=== PATIENT | male | born 1945 | race Caucasian/White ===

== ENCOUNTER → 2017-12-06 10:16 | Outpatient (CLI) | payer MEDICARE, OTHER, SELFPAY ==
[2017-12-06 12:55] LABS: Anion Gap 7 (5-15); BUN 19 mg/dL (7-18); BUN/Creat Ratio 16.7 RATIO (10-20); Calcium,Total 8.9 mg/dL (8.5-10.1); Chloride 106 mmol/L (98-107); Creatinine, Serum 1.14 mg/dL (0.70-1.30); EST Glomerular Filtration Rate 67 mL/min (>60); Est Glom Filt Rate - Afr Amer 82 mL/min (>60); Glucose 107 mg/dL (74-106); Potassium 3.8 mmol/L (3.5-5.1); Sodium Level 140 mmol/L (136-145); Thyroid Stim Hormone (TSH) 1.58 uIU/mL (0.358-3.74)
[2017-12-07 09:26] LABS: HIV - WCH Non-Reactive (Nonreactive)
== END ==
PROVIDERS: Family Provider Family Medicine; PCP Family Medicine; Visit Provider Family Medicine
DX: E03.9 Hypothyroidism, unspecified (principal); I10 Essential (primary) hypertension; Z20.2 Contact with and (suspected) exposure to infections with a predominantly sexual mode of transmission
CPT/HCPCS: 36415; 80048; 84443; 86703

== ENCOUNTER → 2018-03-12 09:14 | Outpatient (CLI) | payer MEDICARE, OTHER, SELFPAY ==
[2018-03-12 10:50] LABS: AST(SGOT) 22 U/L (15-37); Alanine Aminotransfer ALT/SGPT 29 U/L (16-61); Albumin, Serum 3.9 g/dL (3.2-5.0); Alkaline Phosphatase 71 U/L (45-117); Bilirubin, Direct 0.17 mg/dL (0.00-0.30); Cholesterol 150 mg/dL (200); Globulin 3.8 g/dL (2.2-4.2); High Density Lipoprotein 43 mg/dL; Protein, Total 7.7 g/dL (6.4-8.2); Triglycerides 157 mg/dL; Very Low Density Lipoprotein 31 mg/dL (5-40)
== END ==
PROVIDERS: Family Provider Family Medicine; PCP Family Medicine; Visit Provider Internal Medicine Cardiovascular Disease
DX: E78.5 Hyperlipidemia, unspecified (principal); Z79.899 Other long term (current) drug therapy
CPT/HCPCS: 36415; 80061; 80076

== ENCOUNTER → 2018-06-19 12:19 | Outpatient (CLI) | payer MEDICARE, OTHER, SELFPAY ==
[2018-06-19 14:39] LABS: PSA,Total - Annual Screen 0.12 ng/mL (0.00-4.00)
== END ==
PROVIDERS: Family Provider Family Medicine; PCP Family Medicine; Referring Provider Urology; Visit Provider Urology
DX: Z12.5 Encounter for screening for malignant neoplasm of prostate (principal)
CPT/HCPCS: 36415; 84153; G0103

== ENCOUNTER → 2018-07-31 11:48 | Outpatient (CLI) | payer MEDICARE, OTHER, SELFPAY ==
[2018-06-17 09:36] VITALS: BMI 30.9
[2018-07-31 14:32] LABS: Anion Gap 7 (5-15); BUN 24 mg/dL (7-18); BUN/Creat Ratio 20.7 RATIO (10-20); Calcium,Total 8.7 mg/dL (8.5-10.1); Chloride 106 mmol/L (98-107); Creatinine, Serum 1.16 mg/dL (0.70-1.30); EST Glomerular Filtration Rate 66 mL/min (>60); Est Glom Filt Rate - Afr Amer 80 mL/min (>60); Glucose 109 mg/dL (74-106); Potassium 3.6 mmol/L (3.5-5.1); Sodium Level 143 mmol/L (136-145); Thyroid Stim Hormone (TSH) 3.63 uIU/mL (0.358-3.74)
--- OUTSIDE RECORDS SUMMARY | 2018-11-01 16:09 | XMS RPT_ITS ---
:1945 Author Organization OHIP Care Team Providers Name Role Phone JOSE PATEL (MARCOS) Referring Unavailable Jazmin Walters Attending Unavailable Inna Parr Attending Unavailable Andrade Lester Referring Unavailable Andrade Lester Primary Care Unavailable Andrade Lester Attending Unavailable Andrade Lester Referring Unavailable Andrade Lester Primary Care Unavailable Andrade Lester Attending Unavailable Andrade Lester Primary Care Unavailable Andrade Moreno Attending Unavailable Andrade Moreno Referring Unavailable Andrade Lester Primary Care Unavailable Sherif Darby Attending Unavailable Andrade Lester Primary Care Unavailable Sherif Darby Referring Unavailable Inna Pretty Attending Unavailable Andrade Moreno Attending Unavailable Andrade Lester Referring Unavailable PROBLEMS PROBLEMS DATE TYPE CONDITION / CODE ATTENDING STATUS SOURCE Unknown E03.9 - Hypothyroidism, Andrade Lester Active [facility] unspecified / Community E03.9(ICD-10) Hospital Repository Unknown I10 - Essential (primary) Andrade Lester Active [place] [facility] hypertension / Community I10(ICD-10) Hospital Repository Unknown E78.00 - Pure [place], Active [facility] hypercholesterolemia, [place] [facility] unspecified / Hospital E78.00(ICD-10) Repository Unknown E78.0 - Pure [place], Active [place] 8 hypercholesterolemia / [facility] E78.0(ICD-10) Hospital Repository Unknown E78.5 - Hyperlipidemia, [place], Active [place] [facility] unspecified / [facility] E78.5(ICD-10) Hospital Repository Unknown Z79.899 - 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 terminal operator [place], Active [place] 8 (current) drug therapy / [facility] Z79.899(ICD-10) Hospital Repository Unknown Z20.2 - Contact with and Andrade Lester Active [place] 8 (suspected) exposure to Community infections with a Hospital predominantly sexual mode Repository of transmission / Z20.2(ICD-10) PROCEDURES PROCEDURES No Procedure Records FoundRESULTS RESULTS BASIC METABOLIC Collected: 07/31/2018 Status: F Source: BERT PROFILE (BMP) 11:54 AM [facility] REPOSITORY TYPE CODE TESTS RESULT OUT OF RANGE REFERENCE UNITS LAB L501.0100 74-106 mg/dL High GLU 109 Result Comment: Fasting Glucose result from 100 to 125 mg/dL suggests IMPAIRED HOMEOSTASIS per A.D.A. criteria. Please note revised GLUCOSE reference range effective 2017. LAB L501.1000 7-18 mg/dL High BUN 24 LAB L501.1100 0.70-1.30 mg/dL Normal CREAT,SERUM 1.16 Result Comment: The validity of the calculated GFR AND GFRAA in patients over 70 years has not been determined. Clinical correlation is essential. LAB L501.1110 >60 mL/min Normal EST GFR 66 Result Comment: Non- GFR Calc LAB L501.1115 >60 mL/min Normal EST GFR - AA 80 Result Comment: GFR Calc LAB L501.1300 10-20 RATIO High BUN/CRE 20.7 LAB L501.2200 8.5-10.1 mg/dL CA Normal 8.7 LAB L501.5300 136-145 mmol/L NA Normal 143 LAB L501.5600 3.5-5.1 mmol/L K Normal 3.6 LAB L501.5900 98-107 mmol/L CL Normal 106 LAB L501.6100 21.0-32.0 mmol/L Normal CO2 30.0 LAB L501.6200 5-15 Normal GAP 7 Performed By: #### L500.2500, L501.9520 #### [facility] [address] [place], [address] THYROID STIM HORMONE Collected: 07/31/2018 Status: F Source: MICHIE (TSH) 11:54 AM [facility] REPOSITORY TYPE CODE TESTS RESULT OUT OF RANGE REFERENCE UNITS LAB L501.9520 0.358-3.74 uIU/mL Normal TSH 3.63 Performed By: #### L500.2500, L501.9520 #### [facility] [address] [place], [address] PROGRESS Observed: 07/26/2018 Status: COMPLETED Source: [place] 2:02 PM [facility] RE[facility] HNO ID: [id number] Author: Loyda (Mickey) Lulu Service: (none) Author Type: Nurse Practitioner Type: Progress Notes Filed: 07/26/2018 2:26 PM Note Text: Subjective The history is provided by the patient. No coroner/medical examiner was used. HPI Josseline Davis is a 73 year old male who presents today for CC of cough scratchy throat and congestion. This started two days ago. He denies any chest pain or shortness of breath, no productive cough. He has tried no treatment or medication. Aggravating: Worse at night when he is lying down. Friend is also sick with similar symptoms. BP 136/80 Pulse 68 Temp 37.5 ?C (99.5 ?F) (Tympanic) Resp 16 Wt 93.9 kg (207 lb) SpO2 94% BMI 31.47 kg/m? PAST MEDICAL HISTORY Diagnosis Date - Coronary artery disease - Elevated cholesterol - Hypertension - Prostate hypertrophy - Thyroid disease Social History Marital status: Spouse name: Years of education: Number of children: Social History Main Topics Smoking status: Never Smoker Smokeless tobacco: Never Used Alcohol use: No Drug use: No I have confirmed and edited as necessary, the [facility] Review of Systems Constitutional: Negative for chills and fever. HENT: Positive for congestion and sinus pain. Negative for ear pain and sore throat. Respiratory: Positive for cough. Musculoskeletal: Negative for myalgias. Neurological: Negative for headaches. All other systems reviewed and are negative. Objective Physical Exam Constitutional: He is well-developed, well-nourished, and in no distress. HENT: Head: Normocephalic and atraumatic. Right Ear: Tympanic membrane, external ear and ear canal normal. No middle ear effusion. Left Ear: Tympanic membrane, external ear and ear canal normal. No middle ear effusion. Nose: Mucosal edema and rhinorrhea present. Right sinus exhibits no maxillary sinus tenderness and no frontal sinus tenderness. Left sinus exhibits no maxillary sinus tenderness and no frontal sinus tenderness. Mouth/Throat: Uvula is midline and mucous membranes are normal. Posterior oropharyngeal erythema (mild) present. No oropharyngeal exudate, posterior oropharyngeal edema or tonsillar abscesses. Cardiovascular: Normal rate, regular rhythm and normal heart sounds. Pulmonary/Chest: Effort normal. He has no decreased breath sounds. He has wheezes (occasional upper bronchials). He has no rhonchi. He has no rales. Lymphadenopathy: Head (right side): No submental, no submandibular, no tonsillar and no preauricular adenopathy present. Head (left side): No submental, no submandibular, no tonsillar and no preauricular adenopathy present. He has no cervical adenopathy. Right cervical: No superficial cervical adenopathy present. Left cervical: No superficial cervical adenopathy present. Nursing note and vitals reviewed. ASSESSMENT/PLAN: 1. URI with cough and congestion - ICD9: 465.9, ICD10: J06.9 - Discussed viral etiology and rationale for treatment. Rest, increase water intake Motrin or Tylenol as needed for fever or pain. Salt water gargles, chloraseptic spray or lozenges as needed for sore throat. Nasal spray as needed Cool mist humidifier at night Tessalon Perles as prescribed for coughing, do not combine this with other cough and cold medications 2. Wheezing - ICD9: 786.07, ICD10: R06.2 - Discussed use of Prednisone 5 day course as needed for cough, wheeze, shortness of breath * Prednisone 40 mg (2 tablets) per day for 5 days, take in morning or early in day * Do not NSAIDs during this 5 day course (ibuprofen, naproxen, Motrin, Aleve, Advil) Tylenol only during prednisone use * Follow up with primary care provider if no improvement with treatmen A cold normally lasts 7-10 days. If your symptoms are lasting longer, develop fever, or worsening by that time instead of improving then return to clinic or follow up with PCP for re-evaluation. Tylenol (generic acetaminophen) 500 mg-2 tabs every 8 hrs. as needed for fever and aches Ibuprofen 600 mg (3-200mg tablets) every 6 hours -Mucinex (generic is fine) 1200 mg twice daily to help with cough and to thin out mucus Zyrtec 10 mg By mouth daily at bedtime Flonase 1 spray each nostril two times a day. * Seek medical care immediately, call 911, go to ER if you have chest pain, difficulty breathing, shortness of breath, inability to swallow. Diagnosis and treatment plan were discussed and questions were answered to the patient's satisfaction. Pt acknowledged understanding of concepts and follow up plan. Specific signs and symptoms that would indicate the need for higher level of care were discussed in detail warranting prompt ER evaluation. Loyda Lawson APRN.CNP CNOV Observed: 07/26/2018 Status: COMPLETED Source: [place] 1:45 PM [facility] REPOSITORY Office Visit (WSTR) JOSSELINE DAVIS ([id number]) 1945 M Date Time Provider Department 07/26/18 1:45 PM LOYDA LAWSON (MICKEY) [facility] During your visit today, we recorded the following information about you: Temperature Pulse Respiration Blood pressure 99.5 degrees 68/minute 16/minute 136/80 Weight 93.9 kg Loyda Lawson APRN.CNP 07/26/2018 2:26 PM Signed Subjective The history is provided by the patient. No coroner/medical examiner was used. HPI Josseline Davis is a 73 year old male who presents today for CC of cough scratchy throat and congestion. This started two days ago. He denies any chest pain or shortness of breath, no productive cough. He has tried no treatment or medication. Aggravating: Worse at night when he is lying down. Friend is also sick with similar symptoms. BP 136/80 Pulse 68 Temp 37.5 ?C (99.5 ?F) (Tympanic) Resp 16 Wt 93.9 kg (207 lb) SpO2 94% BMI 31.47 kg/m? PAST MEDICAL HISTORY Diagnosis Date - Coronary artery disease - Elevated cholesterol - Hypertension - Prostate hypertrophy - Thyroid disease Social History Marital status: Spouse name: Years of education: Number of children: Social History Main Topics Smoking status: Never Smoker Smokeless tobacco: Never Used Alcohol use: No Drug use: No I have confirmed and edited as necessary, the [facility] Review of Systems Constitutional: Negative for chills and fever. HENT: Positive for congestion and sinus pain. Negative for ear pain and sore throat. Respiratory: Positive for cough. Musculoskeletal: Negative for myalgias. Neurological: Negative for headaches. All other systems reviewed and are negative. Objective Physical Exam Constitutional: He is well-developed, well-nourished, and in no distress. HENT: Head: Normocephalic and atraumatic. Right Ear: Tympanic membrane, external ear and ear canal normal. No middle ear effusion. Left Ear: Tympanic membrane, external ear and ear canal normal. No middle ear effusion. Nose: Mucosal edema and rhinorrhea present. Right sinus exhibits no maxillary sinus tenderness and no frontal sinus tenderness. Left sinus exhibits no maxillary sinus tenderness and no frontal sinus tenderness. Mouth/Throat: Uvula is midline and mucous membranes are normal. Posterior oropharyngeal erythema (mild) present. No oropharyngeal exudate, posterior oropharyngeal edema or tonsillar abscesses. Cardiovascular: Normal rate, regular rhythm and normal heart sounds. Pulmonary/Chest: Effort normal. He has no decreased breath sounds. He has wheezes (occasional upper bronchials). He has no rhonchi. He has no rales. Lymphadenopathy: Head (right side): No submental, no submandibular, no tonsillar and no preauricular adenopathy present. Head (left side): No submental, no submandibular, no tonsillar and no preauricular adenopathy present. He has no cervical adenopathy. Right cervical: No superficial cervical adenopathy present. Left cervical: No superficial cervical adenopathy present. Nursing note and vitals reviewed. ASSESSMENT/PLAN: 1. URI with cough and congestion - ICD9: 465.9, ICD10: J06.9 - Discussed viral etiology and rationale for treatment. Rest, increase water intake Motrin or Tylenol as needed for fever or pain. Salt water gargles, chloraseptic spray or lozenges as needed for sore throat. Nasal spray as needed Cool mist humidifier at night Tessalon Perles as prescribed for coughing, do not combine this with other cough and cold medications 2. Wheezing - ICD9: 786.07, ICD10: R06.2 - Discussed use of Prednisone 5 day course as needed for cough, wheeze, shortness of breath * Prednisone 40 mg (2 tablets) per day for 5 days, take in morning or early in day * Do not NSAIDs during this 5 day course (ibuprofen, naproxen, Motrin, Aleve, Advil) Tylenol only during prednisone use * Follow up with primary care provider if no improvement with treatmen A cold normally lasts 7-10 days. If your symptoms are lasting longer, develop fever, or worsening by that time instead of improving then return to clinic or follow up with PCP for re-evaluation. Tylenol (generic acetaminophen) 500 mg-2 tabs every 8 hrs. as needed for fever and aches Ibuprofen 600 mg (3-200mg tablets) every 6 hours -Mucinex (generic is fine) 1200 mg twice daily to help with cough and to thin out mucus Zyrtec 10 mg By mouth daily at bedtime Flonase 1 spray each nostril two times a day. * Seek medical care immediately, call 911, go to ER if you have chest pain, difficulty breathing, shortness of breath, inability to swallow. Diagnosis and treatment plan were discussed and questions were answered to the patient's satisfaction. Pt acknowledged understanding of concepts and follow up plan. Specific signs and symptoms that would indicate the need for higher level of care were discussed in detail warranting prompt ER evaluation. Loyda Lawson APRN.MICKEY Lawson APRN.CNP 07/26/2018 2:23 PM Addendum ASSESSMENT/PLAN: 1. URI with cough and congestion - ICD9: 465.9, ICD10: J06.9 - Discussed viral etiology and rationale for treatment. Rest, increase water intake Motrin or Tylenol as needed for fever or pain. Salt water gargles, chloraseptic spray or lozenges as needed for sore throat. Nasal spray as needed Cool mist humidifier at night Tessalon Perles as prescribed for coughing, do not combine this with other cough and cold medications - Discussed use of Prednisone 5 day course as needed for cough, wheeze, shortness of breath * Prednisone 40 mg (2 tablets) per day for 5 days, take in morning or early in day * Do not NSAIDs during this 5 day course (ibuprofen, naproxen, Motrin, Aleve, Advil) Tylenol only during prednisone use * Follow up with primary care provider if no improvement with treatmen A cold normally lasts 7-10 days. If your symptoms are lasting longer, develop fever, or worsening by that time instead of improving then return to clinic or follow up with PCP for re-evaluation. Tylenol (generic acetaminophen) 500 mg-2 tabs every 8 hrs. as needed for fever and aches Ibuprofen 600 mg (3-200mg tablets) every 6 hours -Mucinex (generic is fine) 1200 mg twice daily to help with cough and to thin out mucus Zyrtec 10 mg By mouth daily at bedtime Flonase 1 spray each nostril two times a day. * Seek medical care immediately, call 911, go to ER if you have chest pain, difficulty breathing, shortness of breath, inability to swallow. Referring Provider: SELF [[id number]] Allergies As of Date: 07/26/2018 Noted Allergy Reaction SULFA (SULFONAMIDE ANTIBIOTICS) 11/18/2016 4 - Hives Date Reviewed: 07/26/2018 Reviewed by: Loyda ([facility]) Lulu - Fully Assessed Reason for Visit: Pain, Sinus [857] Cmt: sinus pressure/drainage,sore throat and headache x 2 days Primary Visit Diagnosis:URI with cough and congestion [J06.9] Other Visit Diagnosis:Wheezing [R06.2] Order(s):predniSONE (DELTASONE) 20 mg tabletTake 2 tablets by mouth once daily for 5 days.Disp: 10 tabletRfl: 0 fluticasone (FLONASE) 50 mcg/actuation nasal sprayUse 1 Girard in each nostril twice daily. Rinse mouth after use.Disp: 1 BottleRfl: 0 guaiFENesin (MUCINEX) 600 mg 12 hr tabletTake 2 tablets by mouth twice daily for 10 days.Disp: 40 tabletRfl: 0 Benzonatate 200 mg capsuleTake 1 capsule by mouth three times daily as needed.Disp: 30 capsuleRfl: 0 Prescriptions as of 07/26/2018 Sig: AMLODIPINE 10 MG TABLET ASPIRIN 81 MG TABLET,DELAYED * Take 81 mg by mouth once alice* DEXILANT 60 MG CAPSULE, DELAY* HYDROCHLOROTHIAZIDE 25 MG TAB* LEVOTHYROXINE 50 MCG TABLET LISINOPRIL 40 MG TABLET METOPROLOL TARTRATE 50 MG TAB* PRAVASTATIN 40 MG TABLET TAMSULOSIN 0.4 MG CAPSULE BENZONATATE 200 MG CAPSULE Take 1 capsule by mouth three* FLUTICASONE 50 MCG/ACTUATION * Use 1 Girard in each nostril t* GUAIFENESIN ER 600 MG TABLET,* Take 2 tablets by mouth twice* PREDNISONE 20 MG TABLET Take 2 tablets by mouth once * Problem List As Of Date: 07/26/2018 (None) Other instructions from your clinician: ASSESSMENT/PLAN: 1. URI with cough and congestion - ICD9: 465.9, ICD10: J06.9 - Discussed viral etiology and rationale for treatment. Rest, increase water intake Motrin or Tylenol as needed for fever or pain. Salt water gargles, chloraseptic spray or lozenges as needed for sore throat. Nasal spray as needed Cool mist humidifier at night Tessalon Perles as prescribed for coughing, do not combine this with other cough and cold medications - Discussed use of Prednisone 5 day course as needed for cough, wheeze, shortness of breath * Prednisone 40 mg (2 tablets) per day for 5 days, take in morning or early in day * Do not NSAIDs during this 5 day course (ibuprofen, naproxen, Motrin, Aleve, Advil) Tylenol only during prednisone use * Follow up with primary care provider if no improvement with treatmen A cold normally lasts 7-10 days. If your symptoms are lasting longer, develop fever, or worsening by that time instead of improving then return to clinic or follow up with PCP for re-evaluation. Tylenol (generic acetaminophen) 500 mg-2 tabs every 8 hrs. as needed for fever and aches Ibuprofen 600 mg (3-200mg tablets) every 6 hours -Mucinex (generic is fine) 1200 mg twice daily to help with cough and to thin out mucus Zyrtec 10 mg By mouth daily at bedtime Flonase 1 spray each nostril two times a day. * Seek medical care immediately, call 911, go to ER if you have chest pain, difficulty breathing, shortness of breath, inability to swallow. Prescriptions ordered this encounter Disp Refills Start End PREDNISONE 20 MG TABLET 10 t* 0 07/26/2018 07/31/2018 Route: ORAL Sig: Take 2 tablets by mouth once daily for 5 days. FLUTICASONE 50 MCG/ACTUATION NASAL S* 1 Jeremy* 0 07/26/2018 Route: EACH NOSTRIL Sig: Use 1 Girard in each nostril twice daily. Rinse mouth after use. GUAIFENESIN ER 600 MG TABLET, EXTEND* 40 t* 0 07/26/2018 08/05/2018 Route: ORAL Sig: Take 2 tablets by mouth twice daily for 10 days. BENZONATATE 200 MG CAPSULE 30 c* 0 07/26/2018 Route: ORAL Sig: Take 1 capsule by mouth three times daily as needed. Medications Discontinued During This Encounter fluticasone (FLONASE) 50 mcg/actuati* 10/23/2016 07/26/2018 Class: Historical Med Sig: Disc: Course of therapy completed Encounter Status:Closed by LOYDA LAWSON CNP on 07/26/18 PSA,TOTAL - ANNUAL Collected: 06/19/2018 Status: F Source: B[place] SCREEN 12:24 PM [facility] REPOSITORY TYPE CODE TESTS RESULT OUT OF RANGE REFERENCE UNITS LAB L501.9910 0.00-4.00 ng/mL Normal PSA,TOT 0.12 SCREEN Result Comment: This test was performed using the TPSA assay method for the [employer] chemistry system. Values obtained with different assay methods cannot be used interchangably. When changing PSA assays in the course of monitoring a patient, additional sequential testing should be carried out to confirm baseline values. Performed By: #### L501.9910 #### [facility] [address] [place], [address] CARDIOLOGY VISIT Observed: 06/17/2018 Status: F Source: [place] REPORT 12:52 PM [facility] REPOSITORY [facility] [address] [place] [address] OFFICE VISIT Date of Service: 06/17/18 MR#: [id number] Acct: [id number] Name: JOSSELINE DAVIS Rep #: [id number] : 1945 Provider: Andrade Moreno MD Age/Sex: 73/M Location: [facility] [place] [facility] Status: Signed HPI HPI Details: JOSSELINE DAVIS, is a 73 M who presents to the office today for outpatient cardiovascular follow-up. He states overall he is doing well. He denies any ongoing symptoms of classic angina pectoris at this time. There has been no evidence of CHF or pulmonary edema. There has been no near syncope or syncope. He has not required additional cardiovascular diagnostic studies or therapeutic intervention other than his lipid labs performed in February of this year. At that time his cholesterol was reported at 150 with an LDL of 76 and an HDL of 43. His triglycerides were 157. His AST, ALT, and alkaline phosphatase were within normal range peer Intake Vital Signs06/17/18 Height 5 ft 8 in 06/17/18 Weight: 203 lb 06/17/18 Body Mass Index (BMI) 30.9 06/17/18 Blood Pressure 134/80 H Intake Visit Reasons: 9 M FU Allergies simvastatin [From Zocor] Allergy (Verified 06/17/18 09:36) Hives Sulfa (Sulfonamide Antibiotics) Allergy (Verified 06/17/18 09:36) Hives Medications aspirin 81 mg tablet,delayed release 81 mg PO QDAY 07/16/17 [History Confirmed 06/17/18] tamsulosin 0.4 mg capsule 0.4 mg PO BID cap 07/16/17 [History Confirmed 06/17/18] vitamins A,C,I-aexn-xvatuc 14,320 unit-226 mg-200 unit capsule cap PO 07/16/17 [History Confirmed 06/17/18] saw palmetto 1,000 mg capsule 1,000 mg PO QDAY 08/31/17 [History Confirmed 06/17/18] amlodipine 10 mg tablet 10 mg PO QDAY #90 tab 09/12/17 [Rx Confirmed 06/17/18] hydrochlorothiazide 25 mg tablet 25 mg PO QDAY #90 tab 09/12/17 [Rx Confirmed 06/17/18] lisinopril 40 mg tablet 40 mg PO QDAY #90 tab 09/12/17 [Rx Confirmed 06/17/18] metoprolol tartrate 50 mg tablet 50 mg PO BID #180 tab 09/12/17 [Rx Confirmed 06/17/18] naproxen sodium 220 mg tablet 220 mg PO .prn tab 09/12/17 [History Confirmed 06/17/18] pravastatin 40 mg tablet 40 mg PO QHS #90 tab 09/12/17 [Rx Confirmed 06/17/18] levothyroxine 50 mcg tablet 50 mcg PO DAILY tab 06/17/18 [History Confirmed 06/17/18] [facility] Medical History Essential hypertension (Chronic) Premature ventricular contraction (Acute) Premature atrial contractions (Acute) Atherosclerotic heart disease of [place] coronary artery without angina pectoris (Chronic) Palpitations (Chronic) HLD (hyperlipidemia) (Chronic) GERD (gastroesophageal reflux disease) (Chronic) History of prostate cancer (Chronic) 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 angina pectoris (Inactive) HTN (hypertension) (Inactive) Surgical History H/O coronary artery bypass surgery (Chronic 11/22/10) History of lumbar fusion (Chronic) History of left heart catheterization (LHC) (Resolved) Family History Mother , age 72 CAD (coronary artery disease) Myocardial infarction Father , age 69 COPD (chronic obstructive pulmonary disease) Hypertension Grandfather , age 76 Myocardial infarction Social History Smoking Status: Never smoker alcohol intake: never substance use type: does not use caffeine: Yes Type: coffee Number of servings: 2 what type of physical activity do you participate in: other details: rowing machine, pushups, situps and walking 2 miles a day., walking frequency: daily duration: 45-60 minutes/day seatbelt use: always do you feel safe at home: Yes ROS Const Const: Negative for fatigue, weakness, weight gain, weight loss, frequent falls or excessive sweating Eyes Eyes: Negative for change in vision, blurry vision or transient loss of vision ENT ENT: Negative for dizziness or balance problems Cardio Chest Pain: No Palpitations: Yes (occasional) feels like its: fast Edema: Bilateral (wears compression socks) Muscle aches with walking: None Resp Respiratory: Positive for Cough (will be following up with Dr. Flanagan); negative for SOB with activity or SOB at rest GI GI: Negative vomiting or vomiting blood/hematemesis : Negative for hematuria Musc Musc: Negative for balance problems, muscle aches/ myalgia, muscle weakness or joint pain Skin Skin: Negative non-healing lesions or rash Neuro Neuro: Negative for weakness, blurry vision, dizziness, lightheadedness, frequent falls or orthostatic symptoms Marc Hematologic/Lymphatic: Negative for easy bleeding Endo Endo: Negative for fatigue or excessive sweating Psych Psych: Negative for anxiety or depression Allergy Allergy/Immunology: Negative for hives, Negative for rash Cardiology Exam Const Appearance: cooperative, no acute distress, well developed, healthy appearing, comfortable and well groomed Nutritional Appearance: overweight Orientation: alert, awake and oriented x3 Head Head: normocephalic, atraumatic and normal to inspection Ears: hearing grossly normal bilaterally Nose: external nose normal Face and Sinus: face symmetric Mouth: moist mucous membranes Teeth and gingiva: fair dentition Eyes Eyelids: eyelids normal Conjunctivae: conjunctivae normal Pupils: PERRL EOM: EOM intact bilaterally Neck Neck: normal visual inspection, no lymphadenopathy, no JVD and full ROM Carotids: normal carotid upstroke; negative bruit Neck Mass: Negative Neck mass Chest Chest inspection: normal inspection of the chest, symmetric chest movement and normal respiratory effort Auscultation: Bilateral: Clear to Auscultation Cardio Palpation: normal PMI Rate: regular rate Rhythm: regular rhythm Heart sounds: S1 normal and S2 normal; negative rub, gallop or murmur GI GI: normal to inspection, soft and bowel sounds present; negative tender Neuro General: alert, awake, oriented x3, moves all extremities, gait normal, no focal sensory deficit and no focal motor deficits Skin Skin: no rashes or lesions noted Extremities Pulses: Normal: Right Posterior Tibial Pulse, Left Posterior Tibial Pulse, Right Radial Pulse, Left Radial Pulse Lower Extremity Edema: None: Bilateral Psych Psychological: normal affect Supplemental Info Transthoracic echocardiogram: 02/01/2011 Interpretation Summary Normal LV size Left ventricular systolic function is The estimated ejection traction is 55% Mild mitral valve insufficiency Mild tricuspid valve insufficiency. Pulmonary artery systolic pressure is 33 mmHg Trivial pericardial effusion. Moderate size left pleural effusion. Stress test: 09/19/2016 EXERCISE TOLERANCE TEST: The patient exercised on a Ruslan protocol for 9 minutes completing stage 3, achieving a peak heart rate of 139 beats per minute (92% predicted maximum heart rate) and a peak blood pressure of 180/84 mmHg and a peak MET capacity of approximately 10 METS. The baseline ECG demonstrated sinus bradycardia. The peak exercise ECG demonstrated no obvious ECG changes. There was an occasional PVC during exercise. The functional capacity was considered good. The patient had no complaint of chest discomfort during exercise or recovery. The examination was discontinued secondary to dyspnea. IMPRESSION: 1. Technically adequate (percent predicted maximum heart rate greater than 85%), exercise tolerance test. 2. Peak exercise ECG with no obvious ECG changes. 3. Occasional PVC during exercise. 4. Nuclear images pending. MYOCARDIAL PERFUSION IMAGING STUDY. TECHNIQUE: The patient was injected with 12.0 mCi of Tc99m Cardiolite and subsequently rest SPECT Cardiolite nuclear imaging was obtained in the horizontal long, vertical long and short axes views. The patient exercised on a Ruslan protocol for 9 minutes completing stage 3, achieving a peak heart rate of 139 beats per minute (92% predicted maximum heart rate) and a peak blood pressure of 180/84 mmHg and a peak MET capacity of 10 METS. The patient was injected with 33.7 mCi of Tc99m Cardiolite and subsequently stress SPECT Cardiolite nuclear imaging was obtained in the horizontal long, vertical long and short axes views. A gated Cardiolite study at peak stress was obtained. INTERPRETATION: Rest and stress SPECT Cardiolite nuclear imaging, status post realignment, normalization, attenuation correction, demonstrates an area of extracardiac/hepatic and gastrointestinal tracer uptake noted near the inferior segments. This appears to be more prominent on the resting views as opposed to the stress views. Otherwise, there appears to be relative uniform tracer uptake. There appears to be end systolic thickening and brightening. The gated Cardiolite study demonstrates myocardial thickening and inward wall motion. The reported LVEF is 67%. IMPRESSION: 1. Rest and stress SPECT Cardiolite nuclear imaging appear to demonstrate relative uniform tracer uptake and myocardial perfusion appearing within normal limits. 2. The gated Cardiolite study reports an LVEF of 67%. Cardiac catheterization: 11/22/2010 FINAL IMPRESSION 1. Relatively normal left ventricular end-diastolic pressures. 2. Left ventricle: A. Mild hypokinesis of the anterior and apical segments. B. Estimated left ventricular ejection fraction of 55%. 3. Left main: A. Distal mild calcifications. B. Minimal luminal irregularities. 4. I.eft anterior descending: A. Proximal moderate calcifications. B. Proximal long diffuse irregular 85% appearing stenosis. 5. Diagonal branch #1: A. Small to moderate vessel. 13. Proximal 85% long diffuse irregular-appearing stenosis. 6. Diagonal branch #2: A. Small bifurcating vessel. II. Bifurcating branch closest to the left anterior descending with mid 50% stenosis. C. Bifurcating branch furthest from the left anterior descending with mid 25% appearing stenosis, 7. Left circumflex: A. Large co-dominant vessel. 13. Minimal luminal [id number]. 8. Intermediate ramus: A. Large long vessel. B. Ostial 95% appearing stenosis. C. Proximal 95% appearing stenosis. 9. Right coronary artery: A. Small to moderate co-dominant vessel. B. Proximal to mid long diffuse irregular 85-95% appearing stenosis. C. Right posterior descending artery with minimal luminal irregularities. 10. Left subclavian artery/JADE: Patent with no obvious angiographically significant-appearing peripheral vascular disease. Open heart surgery: 11/24/2010: [facility]: JADE to the LAD, SVG to the intermediate ramus, SVG to the PDA of the RCA Assessment AND Plan 1. Atherosclerosis of [place] coronary artery of [place] heart without angina pectoris I25.10 CABG: CABG x3, JADE to LAD, SVG to Ramus and PDA of RCA 11/22/2010. [facility]: 11/2010; Plan At the present time the patient appears to be doing well. He will can to new his current medical management and follow-up. 2. 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 Plan Again the patient appears to be doing well. He will continue his current medical therapy and follow-up. 3. Premature atrial beat I49.1 Plan The patient does have a history of underlying ectopy. He appears without significant symptoms. He will continue his current medical management. 4. Premature ventricular beat I49.3 Plan Again the patient appears to be without obvious symptoms related to his underlying ectopy. He will continue his current therapy and follow-up. 5. Pure hypercholesterolemia E78.00 Plan The patient will have lipid profile performed in the future. Orders Orders: 6. Essential hypertension I10 Plan He has blood pressure appears to be reasonably well-controlled. He will continue medical management. Plan Detail Other Orders Orders: Additional Comments Thank you for allowing me to participate in the care of your patient. Please don't hesitate to call if any issues arise This note was generated using a voice recognition system and there may be incorrect words, spelling or punctuation that were not noted when reviewing the office note prior to saving. Follow Up 1 Year (PFM) Coding Level of Care Code Off vis,est,level 3 Diagnoses Atherosclerosis of [place] coronary artery of [place] heart without angina pectoris I25.10 Crow vs. transplanted heart: [place] heart History of coronary artery bypass graft Z95.1 Premature atrial beat I49.1 Premature ventricular beat I49.3 Pure hypercholesterolemia E78.00 Hyperlipidemia type: pure hypercholesterolemia Essential hypertension I10 Coding Level of Care Code Off vis,est,level 3 Diagnoses Atherosclerosis of [place] coronary artery of [place] heart without angina pectoris I25.10 Crow vs. transplanted heart: [place] heart History of coronary artery bypass graft Z95.1 Premature atrial beat I49.1 Premature ventricular beat I49.3 Pure hypercholesterolemia E78.00 Hyperlipidemia type: pure hypercholesterolemia Essential hypertension I10 06/17/18 1252 <Electronically signed by Andrade Moreno MD> Date Andrade Moreno MD Cosigner Signature: Date (if applicable) CC: Andrade Lester MD LIVER PROFILE Collected: 03/12/2018 Status: F Source: [place] 9:22 AM [facility] REPOSITORY TYPE CODE TESTS RESULT OUT OF RANGE REFERENCE UNITS LAB L501.1500 6.4-8.2 g/dL Normal T PROT 7.7 LAB L501.1800 3.2-5.0 g/dL Normal ALB 3.9 LAB L501.1950 2.2-4.2 g/dL Normal GLOB 3.8 LAB L501.4100 15-37 U/L Normal AST 22 LAB L501.4305 45-117 U/L Normal ALK P 71 LAB L501.4405 16-61 U/L Normal ALT 29 LAB L501.4600 0.20-1.00 mg/dL Normal T BILI 0.60 LAB L501.4700 0.00-0.30 mg/dL Normal D BILI 0.17 Performed By: #### L500.3400, L500.4100 #### [facility] [address] [place], [address] LIPID PROFILE Collected: 03/12/2018 Status: F Source: [place] 9:22 AM [facility] REPOSITORY TYPE CODE TESTS RESULT OUT OF RANGE REFERENCE UNITS LAB L501.4900 200 mg/dL Normal CHOL 150 Result Comment: <200 mg/dL Desirable 200-240 mg/dL Borderline >240 mg/dL High Risk LAB L501.5000 mg/dL Normal TRIG 157 Result Comment: The drugs N-Acetylcysteine and Metamizole may falsely depress this assay. Serum Triglycerides Reference Interval Normal <150 mg/dL Borderline high 150 - 199 mg/dL High 200 - 499 mg/dL Very High > or = 500 mg/dL LAB L501.6400 mg/dL Normal HDL 43 Result Comment: The drugs N-Acetylcysteine and Metamizole may falsely depress this assay. Reference Range HDL <40 mg/dL Low HDL Cholesterol HDL >or= 60 mg/dL High HDL Cholesterol LAB L501.6500 0-130 mg/dL Normal LDL 76 LAB L501.6600 5-40 mg/dL Normal VLDL 31 Performed By: #### L500.3400, L500.4100 #### [facility] [address] [place], [place], [address] XR CHEST 2V FRONTAL/LAT Observed: 02/18/2018 Status: F Source: [place] 3:28 PM [facility] REPOSITORY * * *Final Report* * * DATE OF EXAM: Feb 18 2018 3:28PM WRX [id number] - XR CHEST 2V FRONTAL/LAT / PROCEDURE REASON: Cough * * * * Physician Interpretation * * * * EXAMINATION: CHEST RADIOGRAPH (2 VIEW FRONTAL and LATERAL) Clinical History: Cough MQ: XC2_5 Comparison: None. RESULT: Lines, tubes, and devices: None. Lungs and pleura: No consolidation. No lung mass. No pleural effusion. Cardiomediastinal silhouette: The cardiac silhouette is within upper normal limits in size. There is tortuosity of the thoracic aorta. Other: Status post median sternotomy. The spine shows degenerative changes. IMPRESSION: No acute radiographic abnormality. Director Prison: [facility] Transcribe Date/Time: Feb 18 2018 3:29P Dictated by : ARLEEN BENITEZ MD This examination was interpreted and the report reviewed and electronically signed by: ARLEEN BENITEZ MD on Feb 18 2018 3:30PM EST [id number] Observed: 02/18/2018 Status: COMPLETED Source: [place] 3:16 PM [facility] REPOSITORY HNO ID: [id number] Author: Re Tang (Rt) Service: (none) Author Type: [employer] Teacher Type: Progress Notes Filed: 02/18/2018 3:28 PM Note Text: Radiology Service Progress Note PATIENT NAME: Josseline Davis DATE OF SERVICE: February 18, 2018 TIME: 3:16 PM PATIENT IDENTITY VERIFICATION COMPLETED USING TWO (2) METHODS: Patient confirmed name verbally and Date of . PATIENT GENDER DATA: Male PATIENT RELEVANT IMPLANT DATA REVIEWED: Not Applicable RADIOLOGY DEPARTMENT: General X-ray: Exam(s) Completed: Chest X-Ray PERIPHERAL IV DATA: Not applicable SIGNED BY: RT Kitty February 18, 2018 3:16 PM PROGRESS Observed: 02/18/2018 Status: COMPLETED Source: [place] 2:30 PM [facility] REPOSITORY HNO ID: [id number] Author: Jose Patel Service: (none) Author Type: Nurse Practitioner Type: Progress Notes Filed: 02/18/2018 5:00 PM Note Text: Subjective HPI HPI Josseline Davis is a 72 year old male who presents today for CC of cough, chest congestion, nasal drainage. This started 1 week. Has tried otc medications. Symptoms are worsened by nothing. Risk factors recently traveled to [place], sick out there. .Patient presents with: Chest Congestion: cough, nasal drainage, fever x 1 week PAST MEDICAL HISTORY Diagnosis Date - Coronary artery disease - Elevated cholesterol - Hypertension - Prostate hypertrophy - Thyroid disease PAST SURGICAL HISTORY Procedure Laterality Date - BACK SURGERY HX - HEART SURGERY HX 2010 3 vessels ALLERGIES Sulfa (Sulfonamide Antibiotics) MEDICATIONS amLODIPine (NORVASC) 10 mg tablet DEXILANT 60 mg CpDM fluticasone (FLONASE) 50 mcg/actuation nasal spray hydroCHLOROthiazide (HYDRODIURIL, ESIDRIX) 25 mg tablet levothyroxine (SYNTHROID) 50 mcg tablet lisinopril (ZESTRIL, PRINIVIL) 40 mg tablet metoprolol tartrate, short acting, (LOPRESSOR) 50 mg tablet pravastatin (PRAVACHOL) 40 mg tablet tamsulosin ER (FLOMAX) 0.4 mg cp24 aspirin, enteric coated (ASPIRIN, ENTERIC COATED) 81 mg EC tablet Take 81 mg by mouth once daily. No family history on file. Social History Substance Use Topics - Smoking status: Never Smoker - Smokeless tobacco: Never Used - Alcohol use No Review of Systems Constitutional: Positive for fever. Negative for chills and weight loss. HENT: Positive for congestion and sinus pain. Negative for ear pain, nosebleeds and sore throat. Respiratory: Positive for cough. Negative for shortness of breath and wheezing. Cardiovascular: Negative for chest pain. Musculoskeletal: Negative for neck pain. Skin: Negative for itching and rash. Objective Blood pressure 110/64, pulse 68, temperature 38.2 ?C (100.8 ?F), temperature source Tympanic, resp. rate 16, weight 91.6 kg (202 lb), SpO2 98 %. Physical Exam Constitutional: He is oriented to person, place, and time and well-developed, well-nourished, and in no distress. Non-toxic appearance. He has a sickly appearance (mild). No distress. HENT: Head: Normocephalic and atraumatic. Right Ear: Hearing, tympanic membrane, external ear and ear canal normal. Left Ear: Hearing, tympanic membrane, external ear and ear canal normal. Nose: Nose normal. Mouth/Throat: Uvula is midline, oropharynx is clear and moist and mucous membranes are normal. Eyes: Conjunctivae and lids are normal. Pupils are equal, round, and reactive to light. Right eye exhibits no discharge. Left eye exhibits no discharge. No scleral icterus. Neck: Trachea normal and normal range of motion. Neck supple. Cardiovascular: Normal rate, regular rhythm and normal heart sounds. Pulmonary/Chest: Effort normal and breath sounds normal. Lymphadenopathy: He has no cervical adenopathy. Neurological: He is alert and oriented to person, place, and time. Skin: No rash noted. He is not diaphoretic. ASSESSMENT/PLAN: 1. Sinobronchitis - ICD9: 473.9, 490, ICD10: J32.9, J40 (primary diagnosis) - Will begin treatment with Doxycline - Supportive care with plenty of fluids, rest, and analgesia prn. - Follow up in 3-5 days if symptoms persist or worsen. -If you experience chest pain/shortness of breath go to ER - DOXYCYCLINE MONOHYDRATE 100 MG TABLET 2. Cough - ICD9: 786.2, ICD10: R05 As above - XR CHEST 2V FRONTAL/LAT - Dictated by : ARLEEN BENITEZ MD Impression IMPRESSION: No acute radiographic abnormality. Prescription instructions reviewed with patient as applicable. Patient advised if symptoms do not improve or if symptoms worsen sooner, to contact the office for further evaluation by their primary care physician. Potential red flag symptoms discussed with the patient. Reviewed appropriate action plan to take if red flag symptoms occur. Patient agreeable to treatment plan. Jose Patel APRN.CNP CNOV Observed: 02/18/2018 Status: COMPLETED Source: [place] 2:15 PM [facility] REPOSITORY Office Visit (WSTR) JOSSELINE DAVIS ([id number]) 1945 M Date Time Provider Department 02/18/18 2:15 PM JOSE PATEL (MICKEY) [facility] During your visit today, we recorded the following information about you: Temperature Pulse Respiration Blood pressure 100.8 degrees 68/minute 16/minute 110/64 Weight 91.6 kg Jose Patel APRN.CNP 02/18/2018 5:00 PM Signed Subjective HPI HPI Josseline Davis is a 72 year old male who presents today for CC of cough, chest congestion, nasal drainage. This started 1 week. Has tried otc medications. Symptoms are worsened by nothing. Risk factors recently traveled to [place], sick out there. .Patient presents with: Chest Congestion: cough, nasal drainage, fever x 1 week PAST MEDICAL HISTORY Diagnosis Date - Coronary artery disease - Elevated cholesterol - Hypertension - Prostate hypertrophy - Thyroid disease PAST SURGICAL HISTORY Procedure Laterality Date - BACK SURGERY HX - HEART SURGERY HX 2010 3 vessels ALLERGIES Sulfa (Sulfonamide Antibiotics) MEDICATIONS amLODIPine (NORVASC) 10 mg tablet DEXILANT 60 mg CpDM fluticasone (FLONASE) 50 mcg/actuation nasal spray hydroCHLOROthiazide (HYDRODIURIL, ESIDRIX) 25 mg tablet levothyroxine (SYNTHROID) 50 mcg tablet lisinopril (ZESTRIL, PRINIVIL) 40 mg tablet metoprolol tartrate, short acting, (LOPRESSOR) 50 mg tablet pravastatin (PRAVACHOL) 40 mg tablet tamsulosin ER (FLOMAX) 0.4 mg cp24 aspirin, enteric coated (ASPIRIN, ENTERIC COATED) 81 mg EC tablet Take 81 mg by mouth once daily. No family history on file. Social History Substance Use Topics - Smoking status: Never Smoker - Smokeless tobacco: Never Used - Alcohol use No Review of Systems Constitutional: Positive for fever. Negative for chills and weight loss. HENT: Positive for congestion and sinus pain. Negative for ear pain, nosebleeds and sore throat. Respiratory: Positive for cough. Negative for shortness of breath and wheezing. Cardiovascular: Negative for chest pain. Musculoskeletal: Negative for neck pain. Skin: Negative for itching and rash. Objective Blood pressure 110/64, pulse 68, temperature 38.2 ?C (100.8 ?F), temperature source Tympanic, resp. rate 16, weight 91.6 kg (202 lb), SpO2 98 %. Physical Exam Constitutional: He is oriented to person, place, and time and well-developed, well-nourished, and in no distress. Non-toxic appearance. He has a sickly appearance (mild). No distress. HENT: Head: Normocephalic and atraumatic. Right Ear: Hearing, tympanic membrane, external ear and ear canal normal. Left Ear: Hearing, tympanic membrane, external ear and ear canal normal. Nose: Nose normal. Mouth/Throat: Uvula is midline, oropharynx is clear and moist and mucous membranes are normal. Eyes: Conjunctivae and lids are normal. Pupils are equal, round, and reactive to light. Right eye exhibits no discharge. Left eye exhibits no discharge. No scleral icterus. Neck: Trachea normal and normal range of motion. Neck supple. Cardiovascular: Normal rate, regular rhythm and normal heart sounds. Pulmonary/Chest: Effort normal and breath sounds normal. Lymphadenopathy: He has no cervical adenopathy. Neurological: He is alert and oriented to person, place, and time. Skin: No rash noted. He is not diaphoretic. ASSESSMENT/PLAN: 1. Sinobronchitis - ICD9: 473.9, 490, ICD10: J32.9, J40 (primary diagnosis) - Will begin treatment with Doxycline - Supportive care with plenty of fluids, rest, and analgesia prn. - Follow up in 3-5 days if symptoms persist or worsen. -If you experience chest pain/shortness of breath go to ER - DOXYCYCLINE MONOHYDRATE 100 MG TABLET 2. Cough - ICD9: 786.2, ICD10: R05 As above - XR CHEST 2V FRONTAL/LAT - Dictated by : ARLEEN BENITEZ MD Impression IMPRESSION: No acute radiographic abnormality. Prescription instructions reviewed with patient as applicable. Patient advised if symptoms do not improve or if symptoms worsen sooner, to contact the office for further evaluation by their primary care physician. Potential red flag symptoms discussed with the patient. Reviewed appropriate action plan to take if red flag symptoms occur. Patient agreeable to treatment plan. Jose Patel APRN.MICKEY Referring Provider: SELF [[id number]] Allergies As of Date: 02/18/2018 Noted Allergy Reaction SULFA (SULFONAMIDE ANTIBIOTICS) 11/18/2016 4 - Hives Date Reviewed: 02/18/2018 Reviewed by: Jose (Mickey) - Fully Assessed Reason for Visit: Chest Congestion [236] Cmt: cough, nasal drainage, fever x 1 week Primary Visit Diagnosis:Sinobronchitis [J32.9, J40] Other Visit Diagnosis:Cough [R05] Order(s):XR CHEST 2V FRONTAL/LAT [[id number]] Order #: [id number]. #:[id number] doxycycline monohydrate 100 mg tabletTake 1 tablet by mouth twice daily for 10 days.Disp: 20 tabletRfl: 0 Prescriptions as of 02/18/2018 Sig: AMLODIPINE 10 MG TABLET DEXILANT 60 MG CAPSULE, DELAY* FLUTICASONE 50 MCG/ACTUATION * HYDROCHLOROTHIAZIDE 25 MG TAB* LEVOTHYROXINE 50 MCG TABLET LISINOPRIL 40 MG TABLET METOPROLOL TARTRATE 50 MG TAB* PRAVASTATIN 40 MG TABLET TAMSULOSIN 0.4 MG CAPSULE ASPIRIN 81 MG TABLET,DELAYED * Take 81 mg by mouth once alice* DOXYCYCLINE MONOHYDRATE 100 M* Take 1 tablet by mouth twice * Problem List As Of Date: 02/18/2018 (None) Prescriptions ordered this encounter Disp Refills Start End DOXYCYCLINE MONOHYDRATE 100 MG TABLET 20 t* 0 02/18/2018 02/28/2018 Route: ORAL Sig: Take 1 tablet by mouth twice daily for 10 days. Encounter Status:Closed by JOSE PATEL CNP on 02/18/18 BASIC METABOLIC Collected: 12/06/2017 Status: F Source: [place] PROFILE (BMP) 10:19 AM [facility] REPOSITORY TYPE CODE TESTS RESULT OUT OF RANGE REFERENCE UNITS LAB L501.0100 74-106 mg/dL High GLU 107 Result Comment: Fasting Glucose result from 100 to 125 mg/dL suggests IMPAIRED HOMEOSTASIS per A.D.A. criteria. Please note revised GLUCOSE reference range effective 2017. LAB L501.1000 7-18 mg/dL High BUN 19 LAB L501.1100 0.70-1.30 mg/dL Normal CREAT,SERUM 1.14 Result Comment: The validity of the calculated GFR AND GFRAA in patients over 70 years has not been determined. Clinical correlation is essential. LAB L501.1110 >60 mL/min Normal EST GFR 67 Result Comment: Non- GFR Calc LAB L501.1115 >60 mL/min Normal EST GFR - AA 82 Result Comment: GFR Calc LAB L501.1300 10-20 RATIO Normal BUN/CRE 16.7 LAB L501.2200 8.5-10.1 mg/dL CA Normal 8.9 LAB L501.5300 136-145 mmol/L NA Normal 140 LAB L501.5600 3.5-5.1 mmol/L K Normal 3.8 LAB L501.5900 98-107 mmol/L CL Normal 106 LAB L501.6100 21.0-32.0 mmol/L Normal CO2 27.0 LAB L501.6200 5-15 Normal GAP 7 Performed By: #### L500.2500, L501.9520 #### [facility] [address] [place], [address] THYROID STIM HORMONE Collected: 12/06/2017 Status: F Source: [place] (TSH) 10:19 AM [facility] REPOSITORY TYPE CODE TESTS RESULT OUT OF RANGE REFERENCE UNITS LAB L501.9520 0.358-3.74 uIU/mL Normal TSH 1.58 Performed By: #### L500.2500, L501.9520 #### [facility] [address] [place], [address] HIV - [facility] Collected: 12/06/2017 Status: F Source: [place] 10:19 AM [facility] REPOSITORY TYPE CODE TESTS RESULT OUT OF RANGE REFERENCE UNITS LAB L3890.6005 Nonreactive Normal HIV - [facility] Non-Reactive Performed By: #### L3890.6005 #### [facility] [address] [place], [address] ED NOTE Observed: 09/14/2017 Status: COMPLETED Source: [place] 2:10 PM [facility] REPOSITORY HNO ID: [id number] Author: Anna MusaRnHattie Morrow RN Service: Emergency Medicine Author Type: Registered Nurse Type: ED Notes Filed: 09/14/2017 2:14 PM Note Text: Patient ready for d/c at this time.Patient alert and oriented upon d/c. ED PROV NOTE Observed: 09/14/2017 Status: COMPLETED Source: [place] 1:57 PM [facility] REPOSITORY HNO ID: [id number] Author: Keeley Ugalde MD Service: Emergency Medicine Author Type: Physician Type: ED Provider Notes Filed: 09/14/2017 2:07 PM Note Text: ED Provider Note Patient Name: Josseline Davis SERVICE DATE: 09/14/17 History Patient presents with: Sore Throat HPI Comments: Had flu shot. No DM Patient is a 72 year old male presenting with flu symptoms. 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 dye range operator used: No Flu Like Symptoms Presenting symptoms: fever, myalgias and sore throat Presenting symptoms: no cough and no shortness of breath Severity: Moderate Onset quality: Sudden Duration: 2 days Progression: Worsening Chronicity: New Relieved by: Nothing Worsened by: Nothing Ineffective treatments: None tried Associated symptoms: chills and decreased physical activity Associated symptoms: no mental status change and no congestion Risk factors: being elderly Risk factors: no diabetes problem, no heart disease, no immunocompromised state, no kidney disease and no liver disease PAST MEDICAL HISTORY Diagnosis Date - Coronary artery disease - Elevated cholesterol - Hypertension - Prostate hypertrophy - Thyroid disease PAST SURGICAL HISTORY Procedure Laterality Date - BACK SURGERY HX - HEART SURGERY HX 2011 3 vessels No family history on file. Social History Social History Main Topics - Smoking status: Never Smoker - Smokeless tobacco: Never Used - Alcohol use No - Drug use: No - Sexual activity: Not Asked ALLERGIES Allergen Reactions - Sulfa (Sulfonamide * Hives Review of Systems Constitutional: Positive for chills and fever. HENT: Positive for sore throat. Negative for congestion. Eyes: Negative. Respiratory: Negative for cough, shortness of breath and wheezing. Gastrointestinal: Negative. Genitourinary: Negative. Musculoskeletal: Positive for myalgias. Skin: Negative for rash. Allergic/Immunologic: Negative for immunocompromised state. Neurological: Negative. Psychiatric/Behavioral: Negative for confusion. Physical Exam BP 150/74 Pulse 67 Temp (Src) 99.8 (Right Tympanic) Resp 18 Ht 5' 8 (1.73m) Wt 197 lb (89.4kg) SpO2 97% BMI 29.96 kg/(m2). Physical Exam Constitutional: He is oriented to person, place, and time. He appears well-developed and well-nourished. No distress. HENT: Head: Normocephalic and atraumatic. Mouth/Throat: Uvula is midline, oropharynx is clear and moist and mucous membranes are normal. Eyes: Pupils are equal, round, and reactive to light. Right eye exhibits no discharge. Left eye exhibits no discharge. No scleral icterus. Neck: Normal range of motion. Neck supple. Cardiovascular: Normal rate. Pulmonary/Chest: Effort normal and breath sounds normal. No respiratory distress. He has no wheezes. He has no rales. Musculoskeletal: He exhibits no edema. Neurological: He is alert and oriented to person, place, and time. Skin: Skin is warm and dry. He is not diaphoretic. Psychiatric: He has a normal mood and affect. His behavior is normal. Judgment and thought content normal. Nursing note and vitals reviewed. Diagnostic Testing ED Labs Ordered and Reviewed RAPID GRP A STREP RFLX CUL(AK,AV,EU,FV,HL,ROSAS,MM,MS,SP) INFLUENZA A AND B DIRECT ANTIGEN (AV,EU,FV,HL,ROSAS,MM,SP) CULTURE THROAT (EU,FV,HL,ROSAS,MM,SP) Procedures Medical Decision Making / ED Course ED Course Keeley Ugalde's Documentation Value Comment Time Thrt Rapid Grp A Strep: see below (Reviewed) 09/14 1401 Rapid Influenza A/B: See below (Reviewed) 09/14 1401 labs reviewed and discussed with patient. No indication for tamiflu. Discussed pneumonia precautions and follow up Encounter Diagnosis ICD-10-CM 1. Influenza J11.1 Plan The Patient was DISCHARGED: Counseled patient regarding lab results AND suspected diagnosis AND need for follow-up. Discharged home with verbal and written instructions. They were instructed to return as needed for persistent or worsening symptoms or any new concerns. Condition at time of disposition: stable SIGNATURE: MD Keeley Johnson MD 09/14/17 1407 THROAT RAPID GRP A Collected: 09/14/2017 Status: F Source: [facility] STREP 1:30 PM HEALTH SYSTEM REPOSITORY TYPE CODE TESTS RESULT OUT OF REFERENCE UNITS RANGE LAB LRAPS(LOINC Negative ) Throat Rapid see below Grp A Strep Result Comment: Negative for group A Streptococcus antigen. Performed By: #### LRAPS #### [place] [address] RAPID INFLUENZA A/B Collected: 09/14/2017 Status: F Source: [facility] 1:30 PM HEALTH SYSTEM REPOSITORY TYPE CODE TESTS RESULT OUT OF REFERENCE UNITS RANGE LAB LRFLU(LOIN Negative C) Rapid Influenza A/B See below Result Comment: Positive for influenza B. Performed By: #### LRFLU #### [place] [address] Observed: 09/14/2017 Status: F Source: [facility] THROAT CULTURE 1:30 PM HEALTH SYSTEM REPOSITORY Test performed at [facility] No group A beta streptococci cultured. Performed By: #### CTHRT #### [facility] [address] [place] [id number] ED NOTE Observed: 09/14/2017 Status: COMPLETED Source: [place] 1:28 PM [facility] REPOSITORY HNO ID: [id number] Author: Nancy (Rn) ROSE Khoury Service: Emergency Medicine Author Type: Registered Nurse Type: ED Notes Filed: 09/14/2017 1:28 PM Note Text: C/o sore throat, fever x few days.. No home treatment CARDIOLOGY VISIT Observed: 09/12/2017 Status: F Source: [place] RE[facility] 10:44 AM [facility] REPOSITORY [facility]. [address] [place] [address] OFFICE VISIT Date of Service: 09/12/17 MR#: [id number] Acct: [id number] Name: JOSSELINE DAVIS Rep #: [id number] : 1945 Provider: Inna Parr Age/Sex: 72/M Location: [facility] Status: Signed HPI 6 M FU: Details: JOSSELINE DAVIS, is a 72 M who presents to the office today for cardiovascular follow-up. He has a history of coronary artery disease with bypass surgery. He had an JADE to the LAD, SVG to the ramus and PDA of the RCA in 2010. He also has a history of hypertension and hyperlipidemia. Stress test in 2017 was negative for ischemia. From a cardiac standpoint, patient is doing well. He does not have any chest discomfort/heaviness/tightness. His exercise tolerance is stable for his age. He does not have any worsening symptoms of shortness of breath. He denies any PND. He does not have any orthopnea. He does not have any symptoms of congestive heart failure. He does not have any palpitations that he is aware of. He does not have any lightheadedness or dizziness. He does not have any near-syncope or syncope. He does not have any lower extremity edema. He does not have any symptoms of claudication. 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: No Accompanied by: None Is patient in pain?: No Allergies simvastatin [From Zocor] Allergy (Verified 09/12/17 08:52) Hives Sulfa (Sulfonamide Antibiotics) Allergy (Verified 09/12/17 08:52) Hives Medications aspirin 81 mg tablet,delayed release 81 mg PO QDAY 07/16/17 [History Confirmed 08/31/17] levothyroxine 50 mcg tablet 50 mcg PO ONCE tab 07/16/17 [History Confirmed 08/31/17] tamsulosin 0.4 mg capsule 0.4 mg PO BID cap 07/16/17 [History Confirmed 08/31/17] vitamins A,C,V-jhre-pbhtjl 14,320 unit-226 mg-200 unit capsule cap PO 07/16/17 [History Confirmed 08/31/17] saw palmetto 1,000 mg capsule 1,000 mg PO QDAY 08/31/17 [History Confirmed 08/31/17] amlodipine 10 mg tablet 10 mg PO QDAY #90 tab 09/12/17 [Rx Confirmed 09/12/17] hydrochlorothiazide 25 mg tablet 25 mg PO QDAY #90 tab 09/12/17 [Rx Confirmed 09/12/17] lisinopril 40 mg tablet 40 mg PO QDAY #90 tab 09/12/17 [Rx Confirmed 09/12/17] metoprolol tartrate 50 mg tablet 50 mg PO BID #180 tab 09/12/17 [Rx Confirmed 09/12/17] naproxen sodium 220 mg tablet 220 mg PO .prn tab 09/12/17 [History Confirmed 09/12/17] pravastatin 40 mg tablet 40 mg PO QHS #90 tab 09/12/17 [Rx Confirmed 09/12/17] Ejection fraction %: 55 to 59 PFSH Medical History 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 angina pectoris (Chronic) Palpitations (Chronic) HTN (hypertension) (Chronic) HLD (hyperlipidemia) (Chronic) Surgical History H/O coronary artery bypass surgery (Chronic) History of lumbar fusion (Chronic) History of left heart catheterization (LHC) (Resolved) Family History Mother , age 72 CAD (coronary artery disease) Myocardial infarction Father , age 69 COPD (chronic obstructive pulmonary disease) Hypertension Grandfather , age 76 Myocardial infarction Social History Smoking Status: Never smoker alcohol intake: never substance use type: does not use caffeine: Yes Type: coffee Number of servings: 2 what type of physical activity do you participate in: other details: rowing machine, pushups, situps and walking 2 miles a day., walking frequency: daily duration: 45-60 minutes/day seatbelt use: always do you feel safe at home: Yes ROS Const Const: Negative for weakness, fatigue, fever(s) or headache(s) Eyes Eyes: Negative for blind spots, loss of peripheral vision or transient loss of vision ENT ENT: Negative for headache(s), Negative for dizziness, Negative for tinnitus, Negative for Nosebleed/epistaxis Cardio Chest Pain: No Palpitations: Positive for No Edema: None Muscle aches with walking: None Resp Respiratory: Negative for SOB with activity, SOB at rest or SOB orthopnea\SOB lying down GI GI: Negative nausea, vomiting, heartburn or vomiting blood/hematemesis : Negative for hematuria Musc Musc: Negative for muscle aches/ myalgia Neuro Neuro: Negative for weakness, Negative for headache(s), Negative for dizziness, Negative for near syncope, Negative for syncope, Negative for lightheadedness Marc Hematologic/Lymphatic: Negative for easy bleeding Endo Endo: Negative for fatigue Cardiology Exam Const Appearance: cooperative, no acute distress and well developed Orientation: alert, awake and oriented x3 Head Head: normocephalic and atraumatic Mouth: moist mucous membranes Eyes General: appearance normal, both eyes and all related structures Conjunctivae: conjunctivae normal Pupils: PERRL EOM: EOM intact bilaterally Neck Neck: normal visual inspection, no lymphadenopathy and no JVD Carotids: Negative bruit Neck Mass: Negative Neck mass Chest Chest inspection: normal inspection of the chest and symmetric chest movement Auscultation: Bilateral: Clear to Auscultation Cardio Palpation: normal PMI Rate: regular rate Rhythm: regular rhythm Heart sounds: S1 normal and S2 normal; negative rub, gallop or murmur GI GI: normal to inspection, soft, no hepatosplenomegaly and bowel sounds present; negative tender Neuro General: alert, awake, oriented x3, CN's II-XI intact bilaterally and moves all extremities Extremities Pulses: Normal: Right Posterior Tibial Pulse, Left Posterior Tibial Pulse, Right Radial Pulse, Left Radial Pulse Lower Extremity Edema: None: Bilateral Psych Psychological: normal affect Assessment AND Plan 1. Atherosclerosis of coronary artery bypass graft of [place] heart without angina pectoris I25.810 CABG: CABG x3, JADE to LAD, SVG to Ramus and PDA of RCA 11/22/2010. [facility]: 11/2010; Plan - MARCOS Conn Stable, from a cardiac standpoint patient does not have any symptoms of angina. We recommend that they continue with current aggressive medical management and risk factor modification. 2. Essential hypertension I10 Plan - MARCOS Conn Blood pressure is well controlled on current medications, we do not recommend any changes at this time. 3. Pure hypercholesterolemia E78.00; E78.0 Plan - MARCOS Conn Recent lipid profile demonstrates total cholesterol of 153, HDL 55, LDL 75. Patient will continue with current medical management and risk factor modification. Plan Detail Other Medications New: Refilled: Follow Up 9 Months (PFM) Coding Level of Care Code Off vis,est,level 3 Diagnoses Atherosclerosis of coronary artery bypass graft of [place] heart without angina pectoris I25.810 [place] vs. transplanted heart: [place] heart Essential hypertension I10 Hypertension type: essential hypertension Pure hypercholesterolemia E78.00; E78.0 Hyperlipidemia type: pure hypercholesterolemia 09/12/17 1002 <Electronically signed by Inna RODRÍGUEZ> Date Inna RODRÍGUEZ 09/12/17 1044<Electronically signed by Andrade Moreno MD> Cosigner Signature: Date (if applicable) Andrade Moreno MD CC: Andrade Lester MD ALLERGIES ALLERGIES DATE TYPE / CODE NAME / CODE REACTION SEVERITY SOURCE 06/17/2018 Drug Sulfa Hives Unknown [facility] Allergy/4160 (Sulfonamide Hospital 88430(SNOMED Antibiotics)/ Repository CT) [id number](RX NORM) 06/17/2018 Drug simvastatin/F Hives Unknown [facility] Allergy/4160 [id number](RXN Hospital 27742(SNOMED ORM) Repository CT) 11/18/2016 Drug SULFA HIVES [facility] Class/378238 (SULFONAMIDE [place] 003(SNOMED ANTIBIOTICS) Repository CT) ENCOUNTERS ENCOUNTERS ADMIT/DISCHARGE ACCOUNT ADMITTING ENCOUNTER LOCATION SOURCE NUMBER CLASS 07/31/2018 [id number] [facility] ing:MTLAB Repository 07/26/2018/07/29/20 [id number] Ambulatory [address] Repository 06/19/2018 [id number] [facility] ing:MTLAB Repository 06/17/2018/06/17/20 [id number] Ambulatory BMSBuilding:B [place] [facility] Repository 06/13/2018 [id number] Ambulatory BMSBuilding:B [place] [facility] Repository 03/12/2018 [id number] [facility] ing:MTLAB Repository 02/18/2018/02/19/20 [id number] Ambulatory [address] Repository 02/18/2018/02/20/20 [id number] Ambulatory [address] Repository 12/06/2017 [id number] [facility] ing:MFPLAB Repository 09/12/2017/09/12/19 [id number] Ambulatory BMSBuilding:B [place] [facility] Repository 09/12/2017 [id number] Ambulatory BMSBuilding:B [place] [facility] Repository PAYERS PAYERS ENCOUNTER GUARANTOR PAYER SUBSCRIBER SOURCE 07/31/2018 JOSSELINE Garcia Primary JOSSELINE GÓMEZ Insurance:MEDICARE CROUTHERSDOB: [facility] HEMLOCK PART A BPolicy [place]: [id number] [id number] Repository [address]Nrr: (330) Date:2018-07-31 [phone] () 07/31/2018 Secondary JOSSELINE Noel Insurance:HUMANA CROUTHERSDOB: [facility] COMMERCIALPolicy [id number] Hospital Number: Repository [id number] Date:1622-16-77BE [address] [place] [id number]: 07/31/2018 Tertiary NOT GIVENUNK [place] Insurance:SELF PAY [facility] Number: Effective Repository Date:2018-07-31 06/19/2018 JOSSELINE L Primary JOSSELINE [place] [id number] Insurance:MEDICARE CROUTHERSDOB: Community HEMLOCK PART A BPolicy Number: [id number], [place] [id number] Repository [address]Elg: (852) Date:2018-06-13 [phone] () 06/19/2018 Secondary JOSSELINE Garcia [place] Insurance:HUMANA CROUTHERSDOB: [facility] [id number] Hospital Number: Repository [id number] Date:9320-48-35TX[address] [address]MH: 06/19/2018 Tertiary NOT GIVENUNK [place] Insurance:SELF PAY [facility] Number: Effective Repository Date:2018-06-13 06/17/2018 JOSSELINE L Primary JOSSELINE Garcia [place] [id number] Insurance:MEDICARE CROUTHERSDOB: Community HEMLOCK PART A BPolicy Number: [id number], [place] [id number] Repository [address]Lvg: (553) Date:2017-09-12 [phone] () 06/17/2018 Secondary JOSSELINE Garcia [place] Insurance:HUMANA CROUTHERSDOB: [facility] [id number] Hospital Number: Repository [id number] Date:1355-12-65HY [address] [address]LW: 06/17/2018 Tertiary NOT GIVENUNK [place] Insurance:SELF PAY [facility] Number: Effective Repository Date:2018-06-17 06/13/2018 JOSSELINE L Primary JOSSELINE Garcia [place] [id number] Insurance:MEDICARE CROUTHERSDOB: Community HEMLOCK PART A BPolicy Number: [id number], [place] [id number] Repository [address]Uhl: (330) Date:2018-06-13 [phone] () 06/13/2018 Secondary JOSSELINE [place] Insurance:HUMANA CROUTHERSDOB: Community COMMERCIALPolicy [id number] Hospital Number: Repository [id number] Date:4794-15-64QG[address] [address]DD: 06/13/2018 Tertiary NOT GIVENUNK Bert Insurance:SELF PAY [facility] Number: Effective Repository Date:2018-06-13 03/12/2018 JOSSELINE L Primary JOSSELINE Noel [id number] Insurance:MEDICARE CROUTHERSDOB: Community HEMLOCK PART A BPolicy Number: [id number], [place] [id number] Repository [address]Wyf: (330) Date:2018-03-12 [phone] () 03/12/2018 Secondary JOSSELINE Garcia [place] Insurance:HUMANA CROUTHERSDOB: Community COMMERCIALPolicy [id number] Hospital Number: Repository [id number] Date:5456-33-28HL [address] [address]MU: 03/12/2018 Tertiary NOT GIVENUNK [place] Insurance:SELF PAY [facility] Number: Effective Repository Date:2018-03-12 12/06/2017 JOSSELINE L Primary JOSSELINE [place] [id number] Insurance:MEDICARE CROUTHERSDOB: Community HEMLOCK PART A BPolicy Number: [id number], [place] [id number] Repository [address]Yrh: (330) Date:2017-12-06 [phone] (HP) 12/06/2017 Secondary JOSSELINE Garcia [place] Insurance:HUMANA CROUTHERSDOB: [facility] COMMERCIALPolicy [id number] Hospital Number: Repository [id number] Date:1174-90-99ZG[address] [address]ZZ: 12/06/2017 Tertiary NOT GIVENUNK [place] Insurance:SELF PAY [facility] Number: Effective Repository Date:2017-12-06 09/12/2017 JOSSELINE L Primary JOSSELINE Noel [id number] Insurance:MEDICARE CROUTHERSDOB: Community HEMLOCK PART A BPolicy Number: [id number], [place] [id number] Repository [address]Eco: (330) Date:2017-07-15 [phone] () 09/12/2017 Secondary JOSSELINE L [place] Insurance:HUMANA CROUTHERSDOB: [facility] [id number] Hospital Number: Repository [id number] Date:0746-06-40MK [address] [address]RI: 09/12/2017 Tertiary NOT GIVENUNK [place] Insurance:SELF PAY [facility] Number: Effective Repository Date:2017-07-15 09/12/2017 Josseline L Primary Josseline Noel [id number] Insurance:MEDICARE CrouthersDOB: Community [place] PART A BPolicy Number: [id number], [place] [id number] Repository [address]Adv: (330) Date:2017-09-12 [phone] () 09/12/2017 Secondary Josseline Noel Insurance:HUMANA CrouthersDOB: [facility] [id number] Hospital Number: Repository [id number] Date:7412-33-30AI [address] [place] [id number]: 09/12/2017 Tertiary NOT GIVENUNK [place] Insurance:SELF PAY [facility] Number: Effective Repository Date:2017-09-12
== END ==
PROVIDERS: Family Provider Family Medicine; PCP Family Medicine; Referring Provider Family Medicine; Visit Provider Family Medicine
DX: E03.9 Hypothyroidism, unspecified (principal); I10 Essential (primary) hypertension
CPT/HCPCS: 36415; 80048; 84443

== ENCOUNTER → 2018-11-07 10:19 | Outpatient (CLI) | payer MEDICARE, OTHER, SELFPAY ==
[2018-06-17 09:36] VITALS: BMI 30.9
--- NOTE | 2018-11-07 10:22 | RAD_ITS ---
STUDY: X-RAY CHEST REASON FOR EXAM: Male, 73 years old. Chronic wheezing. Bronchitis. TECHNIQUE: PA and lateral views of the chest. COMPARISON: CT of the chest, January 26, 2017. FINDINGS: The lungs are clear and expanded. There is no demonstrated pleural abnormality. Sternal cerclage wires are present from a prior sternotomy. The heart is normal in size. Normal mediastinum and boby. Normal visualized pulmonary arteries. Normal visualized aortic arch and descending thoracic aorta. There are diffuse degenerative changes of the visualized thoracic spine. Normal visualized ribs, clavicles, and shoulders. There is no demonstrated abnormality of the visualized soft tissue structures of the upper abdomen. RAD/Chest PA and Lateral IMPRESSION: Evidence of prior median sternotomy. There is no acute cardiopulmonary disease. Electronically Signed: Marcell Stearns DO at 11:16 EDT Tel [phone], Service support ,
== END ==
PROVIDERS: Family Provider Family Medicine; PCP Family Medicine; Referring Provider Family Medicine; Visit Provider Family Medicine
DX: J42 Unspecified chronic bronchitis (principal)
CPT/HCPCS: 71046

== ENCOUNTER → 2019-05-28 10:14 | Outpatient (CLI) | payer MEDICARE, OTHER, SELFPAY ==
[2018-06-17 09:36] VITALS: BMI 30.9
[2019-05-28 14:53] LABS: Anion Gap 10 (5-15); BUN 21 mg/dL (7-18); BUN/Creat Ratio 17.2 RATIO (10-20); Calcium,Total 8.8 mg/dL (8.5-10.1); Chloride 105 mmol/L (98-107); Cholesterol 146 mg/dL (200); Creatinine, Serum 1.22 mg/dL (0.70-1.30); EST Glomerular Filtration Rate 62 mL/min (>60); Est Glom Filt Rate - Afr Amer 75 mL/min (>60); Free T3 2.8 pg/mL (2.18-3.98); Glucose 110 mg/dL (74-106); High Density Lipoprotein 42 mg/dL; Potassium 3.4 mmol/L (3.5-5.1); Sodium Level 143 mmol/L (136-145); T4 Total, Thyroxin 9.8 ug/dL (4.5-12.1); Thyroid Stim Hormone (TSH) 3.14 uIU/mL (0.358-3.74); Triglycerides 222 mg/dL; Very Low Density Lipoprotein 44 mg/dL (5-40)
== END ==
PROVIDERS: Family Provider Family Medicine; PCP Family Medicine; Referring Provider Family Medicine; Visit Provider Family Medicine
DX: Z00.00 Encounter for general adult medical examination without abnormal findings (principal); E03.9 Hypothyroidism, unspecified
CPT/HCPCS: 36415; 80048; 80061; 84436; 84443; 84481

== ENCOUNTER → 2019-06-30 13:25 | Outpatient (CLI) | payer MEDICARE, OTHER, SELFPAY ==
[2018-06-17 09:36] VITALS: BMI 30.9
[2019-06-30 15:12] LABS: PSA,Total- Diagnostic 0.16 ng/mL (0.0-4.0)
== END ==
PROVIDERS: Family Provider Family Medicine; PCP Family Medicine; Referring Provider Urology; Visit Provider Urology
DX: C61 Malignant neoplasm of prostate (principal)
CPT/HCPCS: 36415; 84153

== ENCOUNTER → 2019-12-26 | Outpatient (CLI) | payer MEDICARE, OTHER, SELFPAY ==
[2019-07-14 09:26] VITALS: BMI 29.9
[2019-12-26 13:52] LABS: Anion Gap 5 (5-15); BUN 22 mg/dL (7-18); Calcium,Total 9.1 mg/dL (8.5-10.1); Chloride 108 mmol/L (98-107); Cholesterol 165 mg/dL (200); Creatinine, Serum 1.05 mg/dL (0.70-1.30); EST Glomerular Filtration Rate 74 mL/min (>60); Est Glom Filt Rate - Afr Amer 89 mL/min (>60); Free T3 3.1 pg/mL (2.18-3.98); Glucose 90 mg/dL (74-106); High Density Lipoprotein 49 mg/dL; Potassium 3.4 mmol/L (3.5-5.1); Sodium Level 142 mmol/L (136-145); T4 Total, Thyroxin 10.9 ug/dL (4.5-12.1); Thyroid Stim Hormone (TSH) 3.19 uIU/mL (0.358-3.74); Triglycerides 205 mg/dL; Very Low Density Lipoprotein 41 mg/dL (5-40)
== END | disposition home or self-care (01) ==
LOC: MTLAB 10:38
PROVIDERS: PCP Family Medicine; Referring Provider Family Medicine; Visit Provider Family Medicine
DX: E78.5 Hyperlipidemia, unspecified (principal); I10 Essential (primary) hypertension; E03.9 Hypothyroidism, unspecified
CPT/HCPCS: 36415; 80048; 80061; 84436; 84443; 84481

== ENCOUNTER → 2020-06-25 08:56 | Outpatient (CLI) | payer MEDICARE, OTHER, SELFPAY ==
[2020-05-26 10:37] VITALS: BMI 30.2
[2020-06-25 10:28] LABS: Anion Gap 5 (5-15); BUN 18 mg/dL (7-18); BUN/Creat Ratio 16.7 RATIO (10-20); Calcium,Total 8.7 mg/dL (8.5-10.1); Chloride 106 mmol/L (98-107); Cholesterol 163 mg/dL (200); Creatinine, Serum 1.08 mg/dL (0.70-1.30); EST Glomerular Filtration Rate 71 mL/min (>60); Est Glom Filt Rate - Afr Amer 86 mL/min (>60); Free T3 2.7 pg/mL (2.18-3.98); Glucose 94 mg/dL (74-106); High Density Lipoprotein 51 mg/dL; Potassium 3.5 mmol/L (3.5-5.1); Sodium Level 142 mmol/L (136-145); Triglycerides 140 mg/dL; Very Low Density Lipoprotein 28 mg/dL (5-40)
== END ==
PROVIDERS: PCP Family Medicine; Referring Provider Family Medicine; Visit Provider Family Medicine
DX: E03.9 Hypothyroidism, unspecified (principal); I10 Essential (primary) hypertension; M19.90 Unspecified osteoarthritis, unspecified site
CPT/HCPCS: 36415; 80048; 80061; 84436; 84443; 84481

== ENCOUNTER → 2020-07-26 15:17 | Outpatient (CLI) | payer MEDICARE, OTHER, SELFPAY ==
[2020-05-26 10:37] VITALS: BMI 30.2
== END ==
PROVIDERS: PCP Family Medicine; Visit Provider Nurse Practitioner Family
DX: U07.1 COVID-19 (principal)
CPT/HCPCS: 87633; 87635; U0003

== ENCOUNTER 2020-07-31 08:01 | Outpatient (CLI) | payer MEDICARE, OTHER, SELFPAY ==
[2020-05-26 10:37] VITALS: BMI 30.2
[2020-07-31 08:37] VITALS: BP 125/77; PULSE 65; RESP 18; TEMP 37.3; O2SAT 98
[2020-07-31 08:39] VITALS: BMI 30.7
[2020-07-31 09:44] VITALS: BP 124/62; PULSE 63; RESP 18; TEMP 36.9; O2SAT 96
[2020-07-31 10:35] VITALS: BP 142/73; PULSE 64; RESP 18; TEMP 37; O2SAT 97
[2020-07-31 11:24] VITALS: BP 127/74; PULSE 65; RESP 18; TEMP 37; O2SAT 97
[2020-07-31] MEDS: 0.9% Saline Lock 10 ML Syringe IV (11:27)
== END 2020-07-31 11:38 | disposition home or self-care (01) ==
LOC: MS2OUT 08:03 → MS2 08:05
PROVIDERS: PCP Family Medicine; Referring Provider Nurse Practitioner Acute Care; Visit Provider Nurse Practitioner Acute Care
DX: U07.1 COVID-19 (principal)
CPT/HCPCS: 96365; J7050; M0239; Q0239; A4216

== ENCOUNTER → 2020-11-16 13:46 | Outpatient (CLI) | payer MEDICARE, OTHER, SELFPAY ==
[2020-10-06 09:29] VITALS: BMI 31.4
[2020-11-18 08:48] LABS: Hepatitis A AB, Total Negative (Negative)
== END ==
PROVIDERS: PCP Family Medicine; Visit Provider Family Medicine
DX: R19.7 Diarrhea, unspecified (principal)
CPT/HCPCS: 36415; 86708; 87177; 87209; 87493; 87506

== ENCOUNTER → 2020-12-14 09:03 | Outpatient (CLI) | payer MEDICARE, OTHER, SELFPAY ==
[2020-10-06 09:29] VITALS: BMI 31.4
[2020-12-14 10:46] LABS: Anion Gap 6 (5-15); BUN 19 mg/dL (7-18); BUN/Creat Ratio 17.9 RATIO (10-20); Calcium,Total 9.2 mg/dL (8.5-10.1); Chloride 107 mmol/L (98-107); Cholesterol 179 mg/dL (200); Creatinine, Serum 1.06 mg/dL (0.70-1.30); EST Glomerular Filtration Rate 73 mL/min (>60); Est Glom Filt Rate - Afr Amer 88 mL/min (>60); Free T3 2.9 pg/mL (2.18-3.98); Glucose 89 mg/dL (74-106); High Density Lipoprotein 61 mg/dL; Potassium 3.6 mmol/L (3.5-5.1); Sodium Level 142 mmol/L (136-145); T4 Free Direct 1.18 ng/dL (0.76-1.46); Thyroid Stim Hormone (TSH) 3.21 uIU/mL (0.358-3.74); Triglycerides 122 mg/dL; Very Low Density Lipoprotein 24 mg/dL (5-40)
== END ==
PROVIDERS: PCP Family Medicine; Referring Provider Family Medicine; Visit Provider Family Medicine
DX: I10 Essential (primary) hypertension (principal); E03.9 Hypothyroidism, unspecified
CPT/HCPCS: 36415; 80048; 80061; 84439; 84443; 84481

== ENCOUNTER → 2020-12-22 16:55 | Outpatient (CLI) | payer MEDICARE, OTHER, SELFPAY ==
[2020-10-06 09:29] VITALS: BMI 31.4
--- NOTE | 2020-12-22 16:58 | RAD_ITS ---
EXAM: XR LEFT RIBS AND AP CHEST, 3 OR MORE VIEWS : 1945 CLINICAL INDICATION: INJURY TECHNIQUE: Frontal and oblique views of the left ribs and frontal view of the chest. This report was created using [employer] report generation technology. COMPARISON: None. FINDINGS: LUNGS AND PLEURAL SPACES: Unremarkable. No consolidation or edema. No pneumothorax. No effusion. HEART: Unremarkable. Cardiac silhouette not enlarged. MEDIASTINUM: Central airways and mediastinal contour are unremarkable. BONES/JOINTS: Unremarkable. No evidence of displaced rib fractures. RAD/Ribs Uni Min 3V w/PA Chest IMPRESSION: Negative chest and left ribs series. at 0926 Reported and signed by: Malcolm Gomez MD Electronically Signed: Malcolm Gomez MD at 9:25 EDT Tel , Service support ,
== END ==
PROVIDERS: PCP Family Medicine; Referring Provider Family Medicine; Visit Provider Family Medicine
DX: S29.9XXA Unspecified injury of thorax, initial encounter (principal)
CPT/HCPCS: 71101

== ENCOUNTER → 2021-06-14 08:50 | Outpatient (CLI) | payer MEDICARE, OTHER, SELFPAY ==
[2021-06-14 10:28] LABS: Anion Gap 6 (5-15); BUN 16 mg/dL (7-18); BUN/Creat Ratio 13.4 RATIO (10-20); Calcium,Total 9.2 mg/dL (8.5-10.1); Chloride 106 mmol/L (98-107); Cholesterol 153 mg/dL (200); Creatinine, Serum 1.19 mg/dL (0.70-1.30); EST Glomerular Filtration Rate 64 mL/min (>60); Est Glom Filt Rate - Afr Amer 77 mL/min (>60); Free T3 2.8 pg/mL (2.18-3.98); Glucose 95 mg/dL (74-106); High Density Lipoprotein 46 mg/dL; Potassium 3.4 mmol/L (3.5-5.1); Sodium Level 141 mmol/L (136-145); T4 Free Direct 1.12 ng/dL (0.76-1.46); Thyroid Stim Hormone (TSH) 4.34 uIU/mL (0.358-3.74); Triglycerides 187 mg/dL; Very Low Density Lipoprotein 37 mg/dL (5-40)
== END ==
PROVIDERS: Urology; PCP Family Medicine; Referring Provider Family Medicine; Visit Provider Family Medicine
DX: I10 Essential (primary) hypertension (principal); E03.9 Hypothyroidism, unspecified; Z85.46 Personal history of malignant neoplasm of prostate
CPT/HCPCS: 36415; 80048; 80061; 84153; 84439; 84443; 84481

== ENCOUNTER 2021-08-16 14:42 | Outpatient (CLI) | payer MEDICARE, OTHER, SELFPAY ==
--- NOTE | 2021-08-16 15:17 | VDLE_ITS ---
Reason For Study: swelling Procedure LEFT This is a venous duplex using B-mode, color GSV is normal. flow and spectral Doppler. CFV is compressible, spontaneous, phasic, Exam performed in department. competent, and demonstrates normal The exam was abbreviated due to the COVID 19 augmentation. protocol. FV is compressible, spontaneous, phasic, The exam was diagnostic. competent and demonstrates normal A preliminary report was called and/or faxed augmentation. to Karla JEAN. POP V is compressible, spontaneous, phasic, competent and demonstrates normal augmentation. T/P Trunk is compressible. PTV is compressible. LT PerV is compressible. VL/Venous Duplex US, Unilateral Interpretation Summary Deep veins of the left lower extremity are patent and compressible segmentally. There is no evidence of left lower extremity deep vein thrombosis. Valvular competence appears intac t within the proximal deep venous system on the left . The left great saphenous vein appears patent a nd compressible segmentally. Ordering Physician: Karla Maier Performed By: Khanh Araiza RVClaribel
== END 2021-08-16 23:59 | disposition short-term general hospital (02) ==
LOC: CVS 14:44
PROVIDERS: PCP Family Medicine; Visit Provider Registered Nurse
DX: M79.605 Pain in left leg (principal)
CPT/HCPCS: 93971

== ENCOUNTER → 2021-12-19 | Outpatient (CLI) | payer MEDICARE, OTHER, SELFPAY ==
[2021-12-19 14:45] LABS: Anion Gap 9 (5-15); BUN 22 mg/dL (7-18); BUN/Creat Ratio 18.3 RATIO (10-20); Calcium,Total 9.1 mg/dL (8.5-10.1); Chloride 109 mmol/L (98-107); Cholesterol 159 mg/dL (200); EST Glomerular Filtration Rate 63 mL/min (>60); Est Glom Filt Rate - Afr Amer 76 mL/min (>60); Glucose 104 mg/dL (74-106); High Density Lipoprotein 50 mg/dL; Potassium 3.5 mmol/L (3.5-5.1); Sodium Level 143 mmol/L (136-145); Thyroid Stim Hormone (TSH) 2.49 uIU/mL (0.358-3.74); Triglycerides 129 mg/dL; Very Low Density Lipoprotein 26 mg/dL (5-40)
== END | disposition home or self-care (01) ==
LOC: MTLAB 09:34
PROVIDERS: PCP Family Medicine; Referring Provider Family Medicine; Visit Provider Family Medicine
DX: I10 Essential (primary) hypertension (principal); E03.9 Hypothyroidism, unspecified
CPT/HCPCS: 36415; 80048; 80061; 84443; 84481

== ENCOUNTER 2021-12-28 09:03 | Emergency (ER) | payer MEDICARE, OTHER, SELFPAY ==
[2021-12-28 09:13] VITALS: BP 166/90; PULSE 65; RESP 14; TEMP 36.4; O2SAT 92; BMI 31.8
--- NOTE | 2021-12-28 10:59 | EDS_ITS ---
HPI History of Present Illness Chief Complaint: Back Informant: patient Onset/Context/Timing Onset: Days Context: Sudden Onset Timing: Continuous Current Severity: Mild Maximum Severity: Moderate Narrative Narrative: 76-year-old man well history of prior back surgery with rods. Also history of coronary disease and prior CABG. Patient's had a history of prostate cancer and skin cancer. States he bent over 3 to 4 days ago and he felt some pull in his lower back. He denies any radiation of pain, numbness or any we akness in his lower extremities. He denies any bowel or bladder incontinence or retention. He denies any fever. He denies any other fall or trauma. States that she has been more stiff. Prior similar symptoms: Yes Recent Illness/Hospitalization: No PFSH [facility] Medical History (Updated 12/28/21 @ 11:[address] Luiz Bolden MD) 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 angina pectoris Atherosclerotic heart disease of [place] coronary artery without angina pectoris Essential hypertension GERD (gastroesophageal reflux disease) History of prostate cancer HTN (hypertension) Palpitations Premature atrial contractions Premature ventricular contraction Pure hypercholesterolemia Home Medications aspirin 81 mg tablet,delayed release 81 mg PO QDAY 07/16/17 [History Last Taken Unknown] tamsulosin 0.4 mg capsule 0.4 mg PO BID cap 07/16/17 [History Last Taken Unknown] vitamins A,C,P-gpgs-hikugm 14,320 unit-226 mg-200 unit capsule cap PO 07/16/17 [History Last Taken Unknown] saw palmetto 1,000 mg capsule 1,000 mg PO QDAY 08/31/17 [History Last Taken Unknown] naproxen sodium 220 mg tablet 220 mg PO .prn tab 09/12/17 [History Last Taken Unknown] levothyroxine 50 mcg tablet 50 mcg PO DAILY tab 06/17/18 [History Last Taken Unknown] fluticasone furoate 100 mcg-vilanterol 25 mcg/dose inhalation powder 1 inh INHALATION DAILY 07/14/19 [History Last Taken Unknown] dexlansoprazole 60 mg capsule,biphase delayed release 60 mg PO DAILY cap 10/06/20 [History Last Taken Unknown] turmeric 400 mg capsule 400 mg PO DAILY cap 10/06/20 [History Last Taken Unknown] vit G-[id number] 500 mg-50 mg-25 mg-40 mg tablet 2 tab PO DAILY tab 10/06/20 [History Last Taken Unknown] amlodipine 10 mg tablet 10 mg PO QDAY #90 tab 07/26/21 [Rx Last Taken Unknown] hydrochlorothiazide 25 mg tablet 25 mg PO QDAY #90 tab 07/26/21 [Rx Last Taken Unknown] lisinopril 40 mg tablet 40 mg PO QDAY #90 tab 07/26/21 [Rx Last Taken Unknown] metoprolol tartrate 50 mg tablet 50 mg PO BID #180 tab 07/26/21 [Rx Last Taken Unknown] pravastatin 40 mg tablet 40 mg PO QHS #90 tab 07/26/21 [Rx Last Taken Unknown] Allergy/AdvReac Type Severity Reaction Status Date / Time simvastatin [From Zocor] Allergy Hives Verified 03/24/21 11:31 Sulfa (Sulfonamide Allergy Hives Verified 03/24/21 11:31 Antibiotics) Family History Mother , age 72 CAD (coronary artery disease) Myocardial infarction Father , age 69 COPD (chronic obstructive pulmonary disease) Hypertension Grandfather , age 76 Myocardial infarction Surgical History H/O coronary artery bypass surgery (~11/22/10) History of left heart catheterization (LHC) History of lumbar fusion Social History alcohol intake: never substance use type: does not use caffeine: Yes Type: coffee Number of servings: 2 what type of physical activity do you participate in: walking and other details: rowing machine, pushups, situps and walking 2 miles a day. frequency: daily duration: 45-60 minutes/day seatbelt use: always do you feel safe at home: Yes ROS ROS ED ROS Narrative Denies recent illness. Review of Systems ROS Unobtainable: Denies due to encephalopathy Constitutional Constitutional ED: Denies fever(s) Eyes Eyes: Denies change in vision ENT ENT ED: Denies ear pain Cardiovascular Cardiovascular: Denies chest pain Respiratory/Chest Respiratory/Chest: Denies dyspnea Gastrointestinal Gastrointestinal: Denies abdominal pain, diarrhea, nausea or vomiting Genitourinary Genitourinary ED: Denies dysuria Musculoskeletal Musculoskeletal: Denies myalgias Integumentary Denies rash Neurologic Neurologic: Denies headache(s) Psychiatric Psychiatric: Denies depression Endocrine Endocrinology: Denies polyuria Allergic/Immunologic Allergic/Immunologic ED: Denies urticaria EXAM Physical Exam Narrative Exam Narrative: 36-year-old male no acute distress vital signs stable afebrile. H EENT exam unremarkable. Lungs are clear. Heart regular rhythm. Abdomen soft nontender. Normal bowel sounds no peritoneal signs. No pulsatile mass. Moving all 4 extremities. 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 Dorsi plantarflexion intact. No cauda equina. No saddle anesthesia. Normal medial thigh sensation. Dorsi plantarflexion intact. Back was sitting up he has discomfort in his pain along his iliac crest bilaterally. This does appear to be musculoskeletal in etiology. There is no redness. No no warmth. There is no specific pain over the spine. Neurologic exam is unremarkable he has no weakness or numbness. Const Vital Signs: 12/28/21 09:13 Temperature 97.6 F L Temperature Source Temporal Pulse Rate 65 Respiratory Rate 14 Blood Pressure 166/90 H Blood Pressure Mean 115 Pulse Ox 92 Oxygen Delivery Method Room Air Positive well nourished and well developed; Negative for cachectic, contractures or unkempt General Appearance ED: well developed and NAD; Negative for unkempt, cachectic, contractures, cyanotic, diaphoretic or pallor Nutritional Appearance: Negative for cachectic HEENT Reports moist mucous membranes Negative for trauma or tenderness Eyes PERRL and EOMs intact bilaterally Neck no lymphadenopathy, supple and no JVD General: Negative for tenderness Chest Wall inspection of chest normal and palpation of chest normal Resp normal respiratory effort and clear to auscultation bilaterally Effort and Inspection: Negative for pain with movement Auscultation: Negative for rales, rhonchi or wheezes Cardio regular rate, regular rhythm, S1 normal heart sound, S2 normal heart sound and no murmurs GI normal to inspection, nondistended, normoactive bowel sounds, non-tender, non- distended and no masses; Negative for hepatosplenomegaly Inspection: Negative for abdominal distention Auscultation: normoactive bowel sounds; Negative for hyperactive bowel sounds or hypoactive bowel sounds Palpation: soft; Negative for tender, guarding, splenomegaly, mass or rebound tenderness present Back/Spine no CVA tenderness Back/Spine Narrative: Paralumbar soft tissue tenderness. Also the iliac crest. General Back: Negative for CVA tenderness Cervical Spine: Negative for cervical spine tenderness Thoracic Spine / Upper Back: paraspinal muscle tenderness; Negative for thoracic spinal tenderness Lumbar Spine / Lower Back: Negative for lumbar spinal tenderness Extremity normal to inspection General Extremety ED: Negative for edema or tenderness General Extremity: Negative for edema Neuro oriented x3 Sensorium / Orientation: alert; Negative for orientation impaired, lethargic or stuporous Motor Exam: strength 5/5 throughout; Negative for general weakness Psych mental status grossly normal Appearance: Negative for unkempt Attitude: No agitated Mood & Affect: Negative for depressed, anxious or tearful Skin no rashes or lesions noted and no wounds General Skin Exam: Negative for jaundice or pallor MDM MDM MDM Narrative Medical decision making narrative: 76-year-old male who has lower back pain for last 3 to 4 days after bending over. He denies any fall or trauma. No fever. He has had prior back surgery. There is no radiculopathy. There is no weakness or numbness to his lower extremities. Negative straight leg raise bilaterally. He does not need imaging. He will be treated as a myofascial back strain. Placed on Skelaxin. Limited Motrin. Follow-up with his doctor if not improving or return if worse. Discharge Plan Triage Chief Complaint: Back ED Provider: Luiz Bolden Dx/Rx/DC Orders Clinical Impression: Low back pain, Back strain Instructions: ED Back Sprain/Strain Prescriptions: No Action saw palmetto 1,000 mg capsule 1,000 mg capsule 1,000 mg PO QDAY RF: 0 naproxen sodium [Aleve] 220 mg tablet 220 mg PO .prn RF: 0 vitamins A,C,C-umui-bvgjiu [PreserVision AREDS] 14,320-226-200 scnk-ct-lhrn capsule PO RF: 0 aspirin 81 mg tablet,delayed release (DR/EC) 81 mg PO QDAY RF: 0 tamsulosin 0.4 mg capsule,extended release 24hr 0.4 mg PO BID RF: 0 levothyroxine 50 mcg tablet 50 mcg PO DAILY RF: 0 Breo Ellipta 100-25 mcg/dose blister with device 1 inh INHALATION DAILY RF: 0 dexlansoprazole 60 mg capsule,biphase delayed releas 60 mg PO DAILY RF: 0 turmeric 400 mg capsule 400 mg PO DAILY RF: 0 Bioflex 155-70-52-40 mg tablet 2 tab PO DAILY RF: 0 amlodipine 10 mg tablet 10 mg PO QDAY Qty: 90 RF: 4 hydrochlorothiazide 25 mg tablet 25 mg PO QDAY Qty: 90 RF: 4 lisinopril 40 mg tablet 40 mg PO QDAY Qty: 90 RF: 4 metoprolol tartrate 50 mg tablet 50 mg PO BID Qty: 180 RF: 4 pravastatin 40 mg tablet 40 mg PO QHS Qty: 90 RF: 4 Primary Care Provider: Andrade Lester Referrals: Andrade Lester MD [Primary Care Provider] - 1 Week if not improving Activity Restrictions/Additional Instructions: Hot shower, warm bath, hot tub and massage. Motrin 40 mg twice a day for 5 days. Follow-up with your doctor if not improving. Skelaxin 1 pill 3 times a day for a week to help with muscle spasms and stiffness. Disposition Disposition: Home, Self Care
== END 2021-12-28 10:15 | disposition home or self-care (01) ==
LOC: ED 11:18
PROVIDERS: Emergency Provider Emergency Medicine; PCP Family Medicine; Visit Provider Emergency Medicine
DX: S39.012A Strain of muscle, fascia and tendon of lower back, initial encounter (principal); I10 Essential (primary) hypertension; E78.00 Pure hypercholesterolemia, unspecified; I25.10 Atherosclerotic heart disease of native coronary artery without angina pectoris; Z85.46 Personal history of malignant neoplasm of prostate; K21.9 Gastro-esophageal reflux disease without esophagitis; Z95.1 Presence of aortocoronary bypass graft; Z85.828 Personal history of other malignant neoplasm of skin; Z79.82 Long term (current) use of aspirin; Z79.899 Other long term (current) drug therapy; X50.1XXA Overexertion from prolonged static or awkward postures, initial encounter
CPT/HCPCS: 99282

== ENCOUNTER → 2022-01-20 | Outpatient (CLI) | payer MEDICARE, OTHER, SELFPAY ==
[2022-01-20 15:20] LABS: Hematocrit 40.6 % (40-54); Hemoglobin 13.3 g/dL (13.0-16.5); Mean Corp Hgb Conc 32.8 g/dL (32-36); Mean Corpuscular Hgb 27.6 pg (27.0-32.0); Mean Corpuscular Volume 84.2 fL (80-94); Mean Platelet Vol. 10.5 fl (6.2-12.0); Platelet Count 182 K/mm3 (150-450); RBC Distribution Width CV 14.1 % (11.6-14.6); RBC Distribution Width SD 42.7 fl (35.1-43.9); Red Blood Count 4.82 M/mm3 (4.6-6.2)
== END | disposition home or self-care (01) ==
LOC: MTLAB 11:10
PROVIDERS: PCP Family Medicine; Referring Provider Internal Medicine Cardiovascular Disease; Visit Provider Internal Medicine Cardiovascular Disease
DX: I25.10 Atherosclerotic heart disease of native coronary artery without angina pectoris (principal)
CPT/HCPCS: 36415; 85027

== ENCOUNTER → 2022-02-06 | Outpatient (CLI) | payer MEDICARE, OTHER, SELFPAY ==
--- NOTE | 2022-02-06 06:11 | ECHOCS_ITS ---
Reason For Study: S/P CABG Procedure This was a 2D Doppler, Color Flow transthoracic echocardiogram. The study was technically difficult. Contrast injection was performed. Exam performed in department. Left Ventricle Normal LV size. Left ventricular systolic function is normal. The estimated ejection fraction is 60 %. Post operative septal motion. Diastolic function is indeterminate. Right Ventricle Normal RV size. Normal systolic function. Atria The left atrium is mildly enlarged. The right atrium is mildly enlarged. No doppler evidence for ASD. Bubble contrast study negative for right to left interatrial shunt. Mitral Valve There is no mitral annular calcification. Normal mitral valve. Mild (1+) mitral valve insufficiency. Tricuspid Valve Normal tricuspid valve. Mild tricuspid valve insufficiency. Right ventricular systolic pressure estimated to be 26 mmHg. Aortic Valve Trisinus/trileaflet aortic valve. Normal aortic valve. Trivial aortic valve insufficiency. Pulmonic Valve The pulmonic valve is not well visualized. Mild (1+) pulmonic valve insufficiency. Great Vessels Normal sized aortic root. Pericardium/Pleural No pericardial effusion. Medication 20 gauge I.V. with prn adaptor inserted into right arm. Diluted definity 2ml given slow IV push to enhance endocardial definition. Performed a rapid injection of agitated mix of 9 cc saline and 1cc air to assess for atrial septal defect. MMode/2D Measurements & Calculations LVIDd: 5.3 cm IVSd: 1.2 cm Ao root diam: 3.6 cm LVIDs: 3.3 cm LVPWd: 1.3 cm LA dimension: 5.0 cm RVDd: 4.1 cm FS: 38.0 % LAV(MOD-bp): 75.5 ml LA A4 area: 24.2 cm2 RA A4 area: 23.4 cm2 LAV(MOD-bp) Indexed: 36.6 ml/m2 LAV(MOD-sp2): 69.8 ml LAV(MOD-sp4): 74.1 ml Time Measurements MV dec time: 0.29 sec Doppler Measurements & Calculations MV E max giovanni: 60.1 cm/sec Lat Peak E' Giovanni: 7.5 cm/sec Med Peak E' Giovanni: 5.7 cm/sec MV A max giovanni: 78.0 cm/sec E/E' lat: 8.0 E/E' med: 10.5 MV E/A: 0.77 MV V2 max: 91.5 cm/sec MV P1/2t max giovanni: 65.5 cm/sec Ao V2 max: 112.5 cm/sec MV max P.3 mmHg MV P1/2t: 134.1 msec Ao max P.1 mmHg MV V2 mean: 42.1 cm/sec MV dec slope: 143.0 cm/sec2 MV mean P.84 mmHg MV V2 VTI: 33.0 cm MVA(P1/2t): 1.6 cm2 LV V1 max: 97.9 cm/sec MR max giovanni: 507.3 cm/sec PA V2 max: 82.8 cm/sec LV V1 max P.8 mmHg MR max P.9 mmHg MR mean giovanni: 385.1 cm/sec MR mean P.3 mmHg MR VTI: 203.2 cm TR max giovanni: 239.3 cm/sec PI dec slope: 90.8 cm/sec2 TR max P.9 mmHg ECHO/Echo Complete W/ Contrast Interpretation Summary The study was technically difficult. Contrast injection was performed. Left ventricular systolic function is normal. The estimated ejection fraction is 60 %. Post operative septal motion. The left atrium is mildly enlarged. The right atrium is mildly enlarged. Mild (1+) mitral valve insufficiency. Mild tricuspid valve insufficiency. Trivial aortic valve insufficiency. Mild (1+) pulmonic valve insufficiency. Right ventricular systolic pressure estimated to be 26 mmHg. Diastolic function is indeterminate. Ordering Physician: Andrade Moreno Referring Physician: Andrade Lester Performed By: Vaibhav Shea RCS
--- NOTE | 2022-02-06 11:10 | STRESSREP_ITS ---
Stress Test Report Date: 02-06-2022 Procedure: Exercise tolerance test/imaging study Indications: Shortness of breath/dyspnea/fatigue; CAD; CABG Consent: Per the patient Procedure: The patient exercised on a Ruslan protocol for 6 minutes and 48 seconds completing Stage II and 48 seconds of Stage III achieving a peak heart rate of 133 bpm (91% predicted maximal heart rate) with a peak blood pressure 164/88 mmHg and a peak MET capacity of 9 METs. The baseline ECG demonstrated sinus bradycardia. The peak exercise ECG demonstrated somatic/motion artifact with no obvious ECG changes. There was an occasional PVC during exercise. The functional capacity was considered good. There was no complaint of chest discomfort during exercise or recovery. The examination was discontinued secondary to dyspnea. Impression: 1. Technically adequate (percent predicted maximal heart rate greater than 85%) exercise tolerance test 2. Peak exercise ECG with somatic/motion artifact with no obvious ECG changes 3. There was an occasional PVC during exercise 4. Nuclear images pending Myocardial perfusion imaging study: Technique: The patient was injected with 11.4 mCi of technetium 99m Cardiolite and subsequently rest SPECT Cardiolite nuclear imaging was obtained in the horizontal long, vertical long, and short axis views. The patient exercised on a Ruslan protocol for 6 minutes and 48 seconds completing Stage II and 48 seconds of Stage III achieving a peak heart rate of 133 bpm (91% predicted maximal heart rate) with a peak blood pressure 164/88 mmHg and a peak MET capacity of 9 METs. The patient was injected with 34.4 mCi of technetium 99m Cardiolite and subsequently stress SPECT Cardiolite nuclear imaging was obtained in the horizontal long, vertical long, and short axis views. A gated Cardiolite study at peak stress was obtained. Interpretation: Rest and stress SPECT Cardiolite nuclear imaging status post realignment, normalization, and attenuation correction, demonstrates the appearance of relative uniform tracer uptake and myocardial perfusion appearing within normal limits. There is end systolic thickening and brightening. The gated Cardiolite study demonstrates myocardial thickening and inward wall motion. The reported LVEF is 70%. Impression: 1. Rest and stress SPECT Cardiolite nuclear imaging demonstrate relative u niform tracer uptake and myocardial perfusion appearing within normal limits. 2. The gated Cardiolite study reports an LVEF of 70%. This note was generated with [employer] software. It may contain incorrect words, spelling, and punctuation that were not noted in checking the note before signing.
== END | disposition home or self-care (01) ==
LOC: CVS 06:10
PROVIDERS: PCP Family Medicine; Referring Provider Internal Medicine Cardiovascular Disease; Visit Provider Internal Medicine Cardiovascular Disease
DX: I25.10 Atherosclerotic heart disease of native coronary artery without angina pectoris (principal); Z95.1 Presence of aortocoronary bypass graft; E78.00 Pure hypercholesterolemia, unspecified; I10 Essential (primary) hypertension; I49.3 Ventricular premature depolarization; I49.1 Atrial premature depolarization
CPT/HCPCS: 78452; 93017; 93306; A9500; Q9957; A4216; C8929

== ENCOUNTER 2022-05-23 22:39 | Emergency (ER) | payer MEDICARE, OTHER, SELFPAY ==
[2022-05-23 22:40] VITALS: BP 150/82; PULSE 63; RESP 15; TEMP 36.6; O2SAT 98; BMI 30.4
--- NOTE | 2022-05-23 23:03 | EDS_ITS ---
HPI History of Present Illness Chief Complaint: Lower Extremity Injury Detail of Chief Complaint: Left knee pain Informant: patient Occured/Mechanism Comment: Atraumatic left knee pain. Remote history of injury 1986 Onset/Context/Timing Onset: Weeks (1) Context: Sudden Onset Timing: Continuous and Waxes and wanes Quality of Pain: Sharp and Aching Location: Left knee Current Severity: Mild Maximum Severity: Severe Worsened by: Putting on socks Relieved by: Better if he remains still Associated Symptoms Associated Symptoms: Negative for Parasthesia, Weakness or Loss of Funtion Narrative Narrative: Patient is a 77-year-old male with remote history of knee pain 1986. He was seen by his PCP and had outpatient venous duplex study was negative. He denies history of PE or DVT. Denies shortness of breath or chest pain. He denies history of trauma. Pain started 1 week ago. Got worse the past 2 to 3 days. Began severe when he was putting on socks. He states when Dr. Lester grabbed the back of his knee he had severe pain. He denies paresthesia, anesthesia or motor weakness. Tetanus Immunization: 5-10 years Prior similar symptoms: Yes Recent Illness/Hospitalization: Yes [facility] Medical History (Updated 05/23/22 @ 23:[address] Jaren Sweet MD) 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 angina pectoris Atherosclerotic heart disease of [place] coronary artery without angina pectoris Essential hypertension GERD (gastroesophageal reflux disease) History of prostate cancer HTN (hypertension) Palpitations Premature atrial contractions Premature ventricular contraction Pure hypercholesterolemia Home Medications aspirin 81 mg tablet,delayed release 81 mg PO QDAY 07/16/17 [History Last Taken Unknown] tamsulosin 0.4 mg capsule 0.4 mg PO BID 07/16/17 [History Last Taken Unknown] saw palmetto 1,000 mg capsule 1,000 mg PO QDAY 08/31/17 [History Last Taken Unknown] naproxen sodium 220 mg tablet (Aleve) 220 mg PO .prn 09/12/17 [History Last Taken Unknown] levothyroxine 50 mcg tablet 50 mcg PO DAILY 06/17/18 [History Last Taken Unknown] fluticasone furoate 100 mcg-vilanterol 25 mcg/dose inhalation powder (Breo Ellipta) 1 inh inhalation DAILY 07/14/19 [History Last Taken Unknown] dexlansoprazole 60 mg capsule,biphase delayed release 60 mg PO DAILY 10/06/20 [History Last Taken Unknown] turmeric 400 mg capsule 400 mg PO DAILY 10/06/20 [History Last Taken Unknown] vit [id number] 500 mg-50 mg-25 mg-40 mg tablet (Bioflex) 2 tab PO DAILY 10/06/20 [History Last Taken Unknown] B-complex with vitamin C 1 tab PO DAILY 01/18/22 [History Last Taken Unknown] amlodipine 10 mg tablet 10 mg PO QDAY #90 tabs 01/18/22 [Rx Last Taken Unknown] cyclobenzaprine 5 mg tablet 5 mg PO QHS PRN muscle spasm 01/18/22 [History Last Taken Unknown] hydrochlorothiazide 25 mg tablet 25 mg PO QDAY #90 tabs 01/18/22 [Rx Last Taken Unknown] lisinopril 40 mg tablet 40 mg PO QDAY #90 tabs 01/18/22 [Rx Last Taken Unknown] metoprolol tartrate 50 mg tablet 50 mg PO BID #180 tabs 01/18/22 [Rx Last Taken Unknown] pravastatin 40 mg tablet 40 mg PO QHS #90 tabs 01/18/22 [Rx Last Taken Unknown] nancy niagen 1 cap PO DAILY 01/18/22 [History Last Taken Unknown] hydrocodone-acetaminophen 5-325mg 5mg-325mg 1 tab PO Q6H PRN PRN Pain 3 days #10 TABLETS 05/23/22 [Rx Last Taken Unknown] Allergy/AdvReac Type Severity Reaction Status Date / Time simvastatin [From Zocor] Allergy Hives Verified 05/23/22 22:44 Sulfa (Sulfonamide Allergy Hives Verified 05/23/22 22:44 Antibiotics) Family History Mother , age 72 CAD (coronary artery disease) Myocardial infarction Father , age 69 COPD (chronic obstructive pulmonary disease) Hypertension Grandfather , age 76 Myocardial infarction Surgical History H/O coronary artery bypass surgery (~11/22/10) History of left heart catheterization (LHC) History of lumbar fusion Social History (Updated 05/23/22 @ 23:[address] Jaren Sweet MD) household members: spouse Smoking Status: Never smoker alcohol intake: never substance use type: does not use caffeine: Yes Type: coffee Number of servings: 2 what type of physical activity do you participate in: walking and other details: rowing machine, pushups, situps and walking 2 miles a day. frequency: daily duration: 45-60 minutes/day seatbelt use: always do you feel safe at home: Yes ROS ROS ED Constitutional Constitutional ED: Denies chills, fever(s), subjective, sweats or weight loss Eyes Eyes: Denies blurry vision or change in vision Musculoskeletal Musculoskeletal: Reports other Details: [facility] left knee pain ; Denies arthralgias, back pain, myalgias or neck pain Integumentary Denies Abrasions or rash Neurologic Neurologic: Denies paresthesias or weakness Hematologic/Lymphatic Hematologic/Lymphatic: Denies easy bleeding or easy bruising EXAM Physical Exam Const Vital Signs: 05/23/22 22:40 Temperature 97.8 F Temperature Source Temporal Pulse Rate 63 Respiratory Rate 15 Blood Pressure 150/82 H Blood Pressure Mean 104 Pulse Ox 98 Oxygen Delivery Method Room Air Positive well nourished, well developed and obese General Appearance ED: well developed and NAD Nutritional Appearance: obese HEENT Reports moist mucous membranes normocephalic and atraumatic Eyes PERRL Eyes Narrative: Extract muscle intact. Resp normal respiratory effort Cardio regular rate and regular rhythm Extremity Negative for normal to inspection Extremity Narrative: There is swelling of the left knee. Patella is not ballotable. There is a small effusion. There is false this stress testing causes slight discomfort there is no laxity. Mike's test was negative. There is slight fullness in the popliteal fossa. There is no palpable mass or pulsatile mass. Patient has joint line tenderness. Modified Atilio's test was positive and complained of pain laterally. No neurovascular mise of the lower extremity General Extremety ED: Yes weight-bearing difficulty; Negative for cyanosis or edema General Extremity: weight-bearing difficulty; Negative for cyanosis or edema Neuro oriented x3, CN's II-XII intact bilaterally and moves all extremities Sensorium / Orientation: alert Psych mental status grossly normal Skin no wounds Lesions: no lesions Rashes: no rashes MDM MDM MDM Narrative Medical decision making narrative: With prior history of injury and swelling with pain that is atraumatic suspect that patient may have a degenerative meniscus disease versus osteoarthritis. Doubt crystal induced or pyogenic arthritis. There is no warmth of the knee. There is no erythema. He does not have limited range of motion. Is able to extend 280 degrees and flex to 70 degrees before he experiences pain. Patient was medicated with hydrocodone and acetaminophen. X-ray was obtained. Radiography X-Ray: Read by ED Physician and - (4 views of the left knee were obtained. There is slight asymmetry of the joint. There is clips noted from prior surgery. Patient does have a small effusion. There is no fracture, subluxation dislocation. This was independently reviewed and interpreted by me at 2324.) Discharge Plan Triage Chief Complaint: Lower Extremity Injury ED Provider: Jaren Sweet Dx/Rx/DC Orders Clinical Impression: Acute lateral meniscal injury of left knee, Essential hypertension, Pure hypercholesterolemia, Atherosclerotic heart disease of [place] coronary artery without angina pectoris Instructions: ED Meniscal Injury Knee Poss Prescriptions: New hydrocodone-acetaminophen [hydrocodone-acetaminophen] 5-325 mg tablet 1 tab PO Q6H PRN PRN (Reason: Pain) 3 Days Qty: 10 0RF No Action saw palmetto 1,000 mg capsule 1,000 mg capsule 1,000 mg PO QDAY naproxen sodium [Aleve] 220 mg tablet 220 mg PO .prn aspirin 81 mg tablet,delayed release (DR/EC) 81 mg PO QDAY tamsulosin 0.4 mg capsule,extended release 24hr 0.4 mg PO BID levothyroxine 50 mcg tablet 50 mcg PO DAILY Breo Ellipta 100-25 mcg/dose blister with device 1 inh INHALATION DAILY dexlansoprazole 60 mg capsule,biphase delayed releas 60 mg PO DAILY turmeric 400 mg capsule 400 mg PO DAILY Bioflex 313-08-22-40 mg tablet 2 tab PO DAILY nacny niagen capsule 1 cap PO DAILY B-complex with vitamin C Tablet 1 tab PO DAILY amlodipine 10 mg tablet 10 mg PO QDAY Qty: 90 4RF hydrochlorothiazide 25 mg tablet 25 mg PO QDAY Qty: 90 4RF lisinopril 40 mg tablet 40 mg PO QDAY Qty: 90 4RF metoprolol tartrate 50 mg tablet 50 mg PO BID Qty: 180 4RF pravastatin 40 mg tablet 40 mg PO QHS Qty: 90 4RF cyclobenzaprine 5 mg tablet 5 mg PO QHS PRN (Reason: muscle spasm) Label Comments: Take 1 tablet by mouth at bedtime Primary Care Provider: Andrade Lester Referrals: Andrade Lester MD [Primary Care Provider] - Disposition Disposition: Home, Self Care
[2022-05-23] MEDS: HYDROcodone Bitartrate/Apap 5/325 Tablet PO (23:12)
--- NOTE | 2022-05-23 23:18 | RAD_ITS ---
STUDY: X-RAY - LEFT KNEE REASON FOR EXAM: Male, 77 years old. Injury/Pain TECHNIQUE: 4 view(s) of the knee. COMPARISON: None. FINDINGS: Normal visualized distal femur. Normal visualized proximal tibia and fibula. Normal proximal tibiofibular articulation. Normal medial femorotibial compartment. Normal lateral femorotibial compartment. 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 There is a small joint effusion. The soft tissue structures are unremarkable. 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 There is a small joint effusion. Electronically Signed: Suzanna Krause MD at 23:34 EDT ,
== END 2022-05-23 23:34 | disposition home or self-care (01) ==
PROVIDERS: Emergency Provider Emergency Medicine; PCP Family Medicine; Visit Provider Emergency Medicine
DX: S89.92XA Unspecified injury of left lower leg, initial encounter (principal); M79.605 Pain in left leg; I25.10 Atherosclerotic heart disease of native coronary artery without angina pectoris; E78.00 Pure hypercholesterolemia, unspecified; I10 Essential (primary) hypertension; E66.9 Obesity, unspecified
CPT/HCPCS: 73564; 93971; 99282

== ENCOUNTER → 2022-05-23 | Outpatient (CLI) | payer MEDICARE, OTHER, SELFPAY ==
--- NOTE | 2022-05-23 10:43 | VDLE_ITS ---
Reason For Study: LEG PAIN RIGHT LEFT CFV is compressible, spontaneous, phasic, GSV is normal. competent and demonstrates normal CFV is compressible, spontaneous, phasic, augmentation. competent, and demonstrates normal Procedure augmentation. This is a venous duplex using B-mode, color FV is compressible, spontaneous, phasic, flow and spectral Doppler. competent and demonstrates normal Exam performed in department. augmentation. The exam was diagnostic. POP V is compressible, spontaneous, phasic, A preliminary report was called and/or faxed competent and demonstrates normal to Dr. Lester. augmentation. T/P Trunk is compressible. PTV is compressible. LT PerV is compressible. VL/Venous Duplex US, Unilateral Interpretation Summary Deep veins of the left lower extremity are patent and compressible segmentally. There is no evidence of left lower extremity deep vein thrombosis. Valvular competence appears intac t within the proximal deep venous system on the left . The left great saphenous vein appears patent a nd compressible segmentally. Ordering Physician: Andrade Lester Referring Physician: Andrade Lester Performed By: Norman Quiros RVClaribel
== END | disposition home or self-care (01) ==
LOC: CVS 10:41
PROVIDERS: PCP Family Medicine; Referring Provider Family Medicine; Visit Provider Family Medicine
DX: M79.605 Pain in left leg (principal)
CPT/HCPCS: 93971

== ENCOUNTER → 2022-07-11 | Outpatient (CLI) | payer MEDICARE, OTHER, SELFPAY ==
[2022-07-11 13:01] LABS: PSA,Total - Annual Screen 0.42 ng/mL (0.00-4.00)
== END | disposition home or self-care (01) ==
PROVIDERS: PCP Family Medicine; Referring Provider Urology; Visit Provider Urology
DX: Z12.5 Encounter for screening for malignant neoplasm of prostate (principal)
CPT/HCPCS: 36415; 84153; G0103

== ENCOUNTER → 2022-07-21 | Outpatient (CLI) | payer MEDICARE, OTHER, SELFPAY ==
[2022-07-21 10:35] LABS: Anion Gap 7 (5-15); BUN 23 mg/dL (7-18); BUN/Creat Ratio 20.4 RATIO (10-20); Calcium,Total 9.3 mg/dL (8.5-10.1); Chloride 105 mmol/L (98-107); Cholesterol 159 mg/dL (200); Creatinine, Serum 1.13 mg/dL (0.70-1.30); EST Glomerular Filtration Rate 67 mL/min (>60); Est Glom Filt Rate - Afr Amer 81 mL/min (>60); Free T3 2.5 pg/mL (2.18-3.98); Glucose 99 mg/dL (74-106); High Density Lipoprotein 54 mg/dL; Potassium 3.6 mmol/L (3.5-5.1); Sodium Level 142 mmol/L (136-145); Thyroid Stim Hormone (TSH) 2.42 uIU/mL (0.358-3.74); Triglycerides 117 mg/dL; Very Low Density Lipoprotein 23 mg/dL (5-40)
== END | disposition home or self-care (01) ==
LOC: MTLAB 08:06
PROVIDERS: PCP Family Medicine; Referring Provider Family Medicine; Visit Provider Family Medicine
DX: I10 Essential (primary) hypertension (principal); E03.9 Hypothyroidism, unspecified
CPT/HCPCS: 36415; 80048; 80061; 84439; 84443; 84481

== ENCOUNTER 2022-10-14 18:16 | Emergency (ER) | payer MEDICARE, OTHER, SELFPAY ==
[2022-10-14 18:17] VITALS: BP 165/89; PULSE 88; RESP 18; TEMP 36; O2SAT 97; BMI 31.6
--- NOTE | 2022-10-14 18:29 | EX.ED.GENINJ ---
HPI <MARCOS Mcgregro - Last Filed: 10/14/22 19:44> History of Present Illness Chief Complaint: Nausea/Vomiting/Diarrhea Narrative Narrative: 77-year-old male with PMH of HTN, HLD has had about 4 episodes of vomiting and 4 episodes of loose stool since this morning. Denies blood in his vomit or stool. No chest or abdominal pain. His girlfriend had similar symptoms 2 days ago. He has not tried to eat or take his medications today. PFSH <MARCOS Mcgregor - Last Filed: 10/14/22 19:44> PENDING SALE TO [facility] Medical History (Updated 10/14/22 @ 19:33 by MARCOS Mcgregor) 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 angina pectoris Atherosclerotic heart disease of [place] coronary artery without angina pectoris Essential hypertension GERD (gastroesophageal reflux disease) History of prostate cancer HTN (hypertension) Palpitations Premature atrial contractions Premature ventricular contraction Pure hypercholesterolemia Home Medications aspirin 81 mg tablet,delayed release 81 mg PO QDAY 07/16/17 [History Last Taken Unknown] tamsulosin 0.4 mg capsule 0.4 mg PO BID 07/16/17 [History Last Taken Unknown] saw palmetto 1,000 mg capsule 1,000 mg PO QDAY 08/31/17 [History Last Taken Unknown] naproxen sodium 220 mg tablet (Aleve) 220 mg PO .prn 09/12/17 [History Last Taken Unknown] levothyroxine 50 mcg tablet 50 mcg PO DAILY 06/17/18 [History Last Taken Unknown] fluticasone furoate 100 mcg-vilanterol 25 mcg/dose inhalation powder (Breo Ellipta) 1 inh inhalation DAILY 07/14/19 [History Last Taken Unknown] dexlansoprazole 60 mg capsule,biphase delayed release 60 mg PO DAILY 10/06/20 [History Last Taken Unknown] turmeric 400 mg capsule 400 mg PO DAILY 10/06/20 [History Last Taken Unknown] vit [id number] 500 mg-50 mg-25 mg-40 mg tablet (Bioflex) 2 tab PO DAILY 10/06/20 [History Last Taken Unknown] B-complex with vitamin C 1 tab PO DAILY 01/18/22 [History Last Taken Unknown] cyclobenzaprine 5 mg tablet 5 mg PO QHS PRN muscle spasm 01/18/22 [History Last Taken Unknown] nancy niagen 1 cap PO DAILY 01/18/22 [History Last Taken Unknown] hydrocodone-acetaminophen 5-325mg 5mg-325mg 1 tab PO Q6H PRN PRN Pain 3 days #10 TABLETS 05/23/22 [Rx Last Taken Unknown] amlodipine 10 mg tablet 10 mg PO QDAY #90 tabs 07/17/22 [Rx Last Taken Unknown] ascorbate calcium (vitamin C) 500 mg tablet 500 mg PO DAILY 07/17/22 [History Last Taken Unknown] calcium acetate 667 mg tablet 667 mg PO ONCE 07/17/22 [History Last Taken Unknown] hydrochlorothiazide 25 mg tablet 25 mg PO QDAY #90 tabs 07/17/22 [Rx Last Taken Unknown] lisinopril 40 mg tablet 40 mg PO QDAY #90 tabs 07/17/22 [Rx Last Taken Unknown] metoprolol tartrate 50 mg tablet 50 mg PO BID #180 tabs 07/17/22 [Rx Last Taken Unknown] pravastatin 40 mg tablet 40 mg PO QHS #90 tabs 07/17/22 [Rx Last Taken Unknown] ondansetron 4 mg disintegrating tablet 4 mg PO Q6H PRN nausea and vomiting #12 tabs 10/14/22 [Rx Last Taken Unknown] Allergy/AdvReac Type Severity Reaction Status Date / Time simvastatin [From Zocor] Allergy Hives Verified 10/14/22 18:18 Sulfa (Sulfonamide Allergy Hives Verified 10/14/22 18:18 Antibiotics) Family History Mother , age 72 CAD (coronary artery disease) Myocardial infarction Father , age 69 COPD (chronic obstructive pulmonary disease) Hypertension Grandfather , age 76 Myocardial infarction Surgical History H/O coronary artery bypass surgery (~11/22/10) History of left heart catheterization (LHC) History of lumbar fusion Social History household members: spouse Smoking Status: Never smoker alcohol intake: never substance use type: does not use caffeine: Yes Type: coffee Number of servings: 2 what type of physical activity do you participate in: walking and other details: rowing machine, pushups, situps and walking 2 miles a day. frequency: daily duration: 45-60 minutes/day seatbelt use: always do you feel safe at home: Yes ROS <MARCOS Mcgregor - Last Filed: 10/14/22 19:44> ROS ED ROS Narrative Constitutional: Negative for fever, chills, malaise. ENT: Negative for sore throat, ear pain, rhinorrhea. CVS: Negative for palpitations, chest pain, syncope. Respiratory: Negative for shortness of breath, cough. GI: Positive for vomiting, diarrhea. Negative for abdominal pain, diarrhea, constipation, melena, hematochezia. : Negative for dysuria, hematuria or frequency. Neuro: Negative for headache. Skin: Negative for rash, abscess, or wound. Musc: Negative for joint pain, swelling, trauma. EXAM <MARCOS Mcgregor - Last Filed: 10/14/22 19:44> Physical Exam Narrative Exam Narrative: CONST: Patient sitting in no acute distress. EYES: Normal inspection. ENT: Normal inspection, moist mucous membranes. NECK: Normal inspection. RESP: No respiratory distress, CTAB. CVS: Regular rate and rhythm, no murmur, no gallop. ABD: Soft and nontender, no guarding or rebound, nondistended. SKIN: Color normal, no rash, warm, dry, intact. EXTREMITIES: Normal appearance, no pedal edema. NEURO: Oriented x4. PSYCH: Normal affect. Const Vital Signs: 10/14/22 18:17 Temperature 96.8 F L Temperature Source Temporal Pulse Rate 88 Respiratory Rate 18 Blood Pressure 165/89 H Blood Pressure Mean 114 Pulse Ox 97 Oxygen Delivery Method Room Air <Dr. Luiz Bolden MD - Last Filed: 10/14/22 19:49> Physical Exam Const Vital Signs: 10/14/22 18:17 Temperature 96.8 F L Temperature Source Temporal Pulse Rate 88 Respiratory Rate 18 Blood Pressure 165/89 H Blood Pressure Mean 114 Pulse Ox 97 Oxygen Delivery Method Room Air MDM <MARCOS Mcgregor - Last Filed: 10/14/22 19:44> [facility] MDM Narrative Medical decision making narrative: Patient has had vomiting and diarrhea that started this morning. He is significant other just had similar symptoms. He appears well and nontoxic. He is slightly hypertensive with otherwise normal vital signs. He has moist mucous membranes and a soft, nontender abdomen. He was ordered IV fluids, Zofran, and BMP was checked which shows no electrolyte abnormalities and creatinine of 1.12. He is tolerating p.o. intake. Since he has no abdominal pain or tenderness I do not think he needs a CT scan. His symptoms are most likely viral in nature. I prescribed Zofran for home with return precautions and he was discharged in stable condition. Differential: Gastroenteritis, intra-abdominal process such as cholecystitis/appendicitis less likely with no abdominal tenderness. Lab Data Labs: Laboratory Results - last 24 hr 10/14/22 18:50 Sodium 141 Potassium 3.6 Chloride 106 Carbon Dioxide 26.0 Anion Gap 9 BUN 26 H Creatinine 1.12 Estim Creat Clear Calc 55.13 Est GFR (MDRD) Af Amer 82 Est GFR (MDRD) Non-Af 68 BUN/Creatinine Ratio 23.2 H Glucose 129 H Calcium 9.1 <Dr. Luiz Bolden MD - Last Filed: 10/14/22 19:49> [facility] MDM Narrative Medical decision making narrative: Patient has had vomiting and diarrhea that started this morning. He is significant other just had similar symptoms. He appears well and nontoxic. He is slightly hypertensive with otherwise normal vital signs. He has moist mucous membranes and a soft, nontender abdomen. He was ordered IV fluids, Zofran, and BMP was checked which shows no electrolyte abnormalities and creatinine of 1.12. He is tolerating p.o. intake. Since he has no abdominal pain or tenderness I do not think he needs a CT scan. His symptoms are most likely viral in nature. I prescribed Zofran for home with return precautions and he was discharged in stable condition. Differential: Gastroenteritis, intra-abdominal process such as cholecystitis/appendicitis less likely with no abdominal tenderness. I have personally performed a face to face assessment of the patient and have reviewed the [facility] Note. I performed a substantive portion of the visit including all aspects of the following. My grubbs findings include: History is [77-year-old male with nausea vomiting diarrhea. Last 24 hours. Evaluated the patient with our physician educational program assistant.] Exam is [[employer] male no acute distress vital signs stable afebrile. HEENT exam unremarkable. Moist mucous membranes. Lungs clear. Heart regular rhythm no murmur. Abdomen soft nontender. Normal bowel sounds no peritoneal signs. No right upper or right lower quadrant tenderness. Moving all 4 extremities. Neurologically awake and alert.] Medical Decision Making [77-year-old male with viral gastroenteritis. Electrolytes are unremarkable. Glucose of 129. Gap of 9. BUN of 26 creatinine 1.1. Patient treated with IV fluids. IV Zofran. Is been able to drink fluids. Will be discharged home.] Other additions or changes: [None] Lab Data Labs: Laboratory Results - last 24 hr 10/14/22 18:50 Sodium 141 Potassium 3.6 Chloride 106 Carbon Dioxide 26.0 Anion Gap 9 BUN 26 H Creatinine 1.12 Estim Creat Clear Calc 55.13 Est GFR (MDRD) Af Amer 82 Est GFR (MDRD) Non-Af 68 BUN/Creatinine Ratio 23.2 H Glucose 129 H Calcium 9.1 Discharge Plan Triage Chief Complaint: Nausea/Vomiting/Diarrhea ED Midlevel Provider: Nancy Moctezuma ED Provider: Luiz Bolden Dx/Rx/DC Orders Clinical Impression: Vomiting and diarrhea Instructions: ED Diet Vomiting Diarrhea Prescriptions: New ondansetron 4 mg tablet,disintegrating 4 mg PO Q6H PRN (Reason: nausea and vomiting) Qty: 12 0RF No Action saw palmetto 1,000 mg capsule 1,000 mg capsule 1,000 mg PO QDAY naproxen sodium [Aleve] 220 mg tablet 220 mg PO .prn aspirin 81 mg tablet,delayed release (DR/EC) 81 mg PO QDAY tamsulosin 0.4 mg capsule,extended release 24hr 0.4 mg PO BID levothyroxine 50 mcg tablet 50 mcg PO DAILY Breo Ellipta 100-25 mcg/dose blister with device 1 inh INHALATION DAILY dexlansoprazole 60 mg capsule,biphase delayed releas 60 mg PO DAILY turmeric 400 mg capsule 400 mg PO DAILY Bioflex 299-94-10-40 mg tablet 2 tab PO DAILY nancy niagen capsule 1 cap PO DAILY B-complex with vitamin C Tablet 1 tab PO DAILY cyclobenzaprine 5 mg tablet 5 mg PO QHS PRN (Reason: muscle spasm) Label Comments: Take 1 tablet by mouth at bedtime ascorbate calcium (vitamin C) 500 mg tablet 500 mg PO DAILY calcium acetate 667 mg tablet 667 mg PO ONCE amlodipine 10 mg tablet 10 mg PO QDAY Qty: 90 4RF hydrochlorothiazide 25 mg tablet 25 mg PO QDAY Qty: 90 4RF lisinopril 40 mg tablet 40 mg PO QDAY Qty: 90 4RF metoprolol tartrate 50 mg tablet 50 mg PO BID Qty: 180 4RF pravastatin 40 mg tablet 40 mg PO QHS Qty: 90 4RF hydrocodone-acetaminophen [hydrocodone-acetaminophen] 5-325 mg tablet 1 tab PO Q6H PRN PRN (Reason: Pain) 3 Days Qty: 10 0RF Primary Care Provider: Andrade Lester Referrals: Andrade Lester MD [Primary Care Provider] - Activity Restrictions/Additional Instructions: Your symptoms are most likely a virus. I prescribed Zofran which is a nausea medication to take as needed. Please sip small amounts of fluid and eat a bland diet. If symptoms worsen or you develop abdominal pain come back to the ER. Disposition Disposition: Home, Self Care
[2022-10-14] MEDS: 0.9% Normal Saline 1,000 ML 999 ML IV (18:42)
[2022-10-14] MEDS: Ondansetron 4 MG/2 ML Vial IV (18:47)
[2022-10-14 19:11] LABS: Anion Gap 9 (5-15); BUN 26 mg/dL (7-18); BUN/Creat Ratio 23.2 RATIO (10-20); Calcium,Total 9.1 mg/dL (8.5-10.1); Chloride 106 mmol/L (98-107); Creatinine, Serum 1.12 mg/dL (0.70-1.30); EST Glomerular Filtration Rate 68 mL/min (>60); Est Glom Filt Rate - Afr Amer 82 mL/min (>60); Estimated Creatinine Clearance 55.13 ml/min; Glucose 129 mg/dL (74-106); Potassium 3.6 mmol/L (3.5-5.1); Sodium Level 141 mmol/L (136-145)
== END 2022-10-14 20:30 | disposition home or self-care (01) ==
PROVIDERS: Physician Assistant; Emergency Provider Emergency Medicine; PCP Family Medicine; Visit Provider Emergency Medicine
DX: R11.2 Nausea with vomiting, unspecified (principal); I25.10 Atherosclerotic heart disease of native coronary artery without angina pectoris; E78.00 Pure hypercholesterolemia, unspecified; I10 Essential (primary) hypertension; R19.7 Diarrhea, unspecified
CPT/HCPCS: 80048; 96361; 96374; 99282; J7030; A4216; J2405

== ENCOUNTER → 2023-01-18 | Outpatient (CLI) | payer MEDICARE, OTHER, SELFPAY ==
[2023-01-18 11:19] LABS: Anion Gap 3 (5-15); BUN 18 mg/dL (7-18); Calcium,Total 9.2 mg/dL (8.5-10.1); Chloride 109 mmol/L (98-107); Cholesterol 162 mg/dL (200); EST Glomerular Filtration Rate 77 mL/min (>60); Est Glom Filt Rate - Afr Amer 94 mL/min (>60); Glucose 95 mg/dL (74-106); High Density Lipoprotein 58 mg/dL; Potassium 3.6 mmol/L (3.5-5.1); Sodium Level 140 mmol/L (136-145); Thyroid Stim Hormone (TSH) 2.88 uIU/mL (0.358-3.74); Triglycerides 103 mg/dL; Very Low Density Lipoprotein 21 mg/dL (5-40)
== END | disposition home or self-care (01) ==
PROVIDERS: PCP Family Medicine; Referring Provider Family Medicine; Visit Provider Family Medicine
DX: I10 Essential (primary) hypertension (principal); E03.9 Hypothyroidism, unspecified; E78.5 Hyperlipidemia, unspecified
CPT/HCPCS: 36415; 80048; 80061; 84443

== ENCOUNTER → 2023-05-11 | Outpatient (CLI) | payer MEDICARE, OTHER, SELFPAY ==
--- NOTE | 2023-05-11 11:50 | RAD_ITS ---
INDICATION: COUGH EXAMINATION/TECHNIQUE: X-RAY - XR Chest 2 Views COMPARISON: November 07, 2018 FINDINGS: LINES/DEVICES: Stable sternotomy wires. LUNGS: No consolidation, edema or effusion. No pneumothorax. MEDIASTINUM AND CARDIOVASCULAR STRUCTURES: Cardiac silhouette not enlarged. Central airways and mediastinal contour are unremarkable. BONES AND SOFT TISSUES: Mild degenerative vertebral changes. RAD/Chest PA and Lateral IMPRESSION: No radiographic evidence of acute cardiopulmonary disease. Electronically Signed: Andi Juan DO at 19:12 EDT ,
== END | disposition home or self-care (01) ==
LOC: MTRAD 11:45
PROVIDERS: PCP Family Medicine; Referring Provider Internal Medicine Pulmonary Disease; Visit Provider Internal Medicine Pulmonary Disease
DX: R05.9 Cough, unspecified (principal)
CPT/HCPCS: 71046

== ENCOUNTER → 2023-07-26 | Outpatient (CLI) | payer MEDICARE, OTHER, SELFPAY ==
[2023-07-26 11:38] LABS: AST(SGOT) 21 U/L (15-37); Alanine Aminotransfer ALT/SGPT 24 U/L (16-61); Albumin, Serum 3.7 g/dL (3.2-5.0); Alkaline Phosphatase 76 U/L (45-117); Anion Gap 7 (5-15); BUN 16 mg/dL (7-18); BUN/Creat Ratio 14.4 RATIO (10-20); Calcium,Total 9.2 mg/dL (8.5-10.1); Chloride 108 mmol/L (98-107); Cholesterol 167 mg/dL (200); Creatinine, Serum 1.11 mg/dL (0.70-1.30); EST Glomerular Filtration Rate 68 mL/min (>60); Est Glom Filt Rate - Afr Amer 83 mL/min (>60); Free T3 2.7 pg/mL (2.18-3.98); Globulin 3.7 g/dL (2.2-4.2); Glucose 92 mg/dL (74-106); High Density Lipoprotein 54 mg/dL; PSA,Total - Annual Screen 0.68 ng/mL (0.00-4.00); Potassium 3.6 mmol/L (3.5-5.1); Protein, Total 7.4 g/dL (6.4-8.2); Sodium Level 144 mmol/L (136-145); T4 Free Direct 1.08 ng/dL (0.76-1.46); Thyroid Stim Hormone (TSH) 5.53 uIU/mL (0.358-3.74); Triglycerides 207 mg/dL; Very Low Density Lipoprotein 41 mg/dL (5-40)
== END | disposition home or self-care (01) ==
LOC: MTLAB 08:14
PROVIDERS: PCP Family Medicine; Referring Provider Family Medicine; Visit Provider Family Medicine
DX: Z12.5 Encounter for screening for malignant neoplasm of prostate (principal); E03.9 Hypothyroidism, unspecified; I10 Essential (primary) hypertension
CPT/HCPCS: 36415; 80053; 80061; 84153; 84439; 84443; 84481; G0103

== ENCOUNTER 2023-08-02 15:05 | Emergency (ER) | payer MEDICARE, OTHER, SELFPAY ==
[2023-08-02 15:06] VITALS: BP 165/100; PULSE 103; RESP 17; TEMP 36.2; O2SAT 99; BMI 31.3
--- NOTE | 2023-08-02 18:02 | ED.VIS.GI ---
HPI HPI - GI History of Present Illness Chief Complaint: Nausea/Vomiting/Diarrhea Narrative Narrative: 78-year-old male presenting with nausea, vomiting, diarrhea. Started today. Patient has not had a fever that he knows of. Patient states he has 2 sick contacts to her not diagnosed with anything. They have similar symptoms. He is not coughing or short of breath. He denies any chest pain. Denies any black or bloody stools. [facility] Medical History 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 angina pectoris Atherosclerotic heart disease of [place] coronary artery without angina pectoris Essential hypertension GERD (gastroesophageal reflux disease) History of prostate cancer HTN (hypertension) Palpitations Premature atrial contractions Premature ventricular contraction Pure hypercholesterolemia Home Medications aspirin 81 mg tablet,delayed release 81 mg PO QDAY 07/16/17 [History Last Taken Unknown] tamsulosin 0.4 mg capsule 0.4 mg PO BID 07/16/17 [History Last Taken Unknown] saw palmetto 1,000 mg capsule 1,000 mg PO QDAY 08/31/17 [History Last Taken Unknown] naproxen sodium 220 mg tablet (Aleve) 220 mg PO .prn 09/12/17 [History Last Taken Unknown] levothyroxine 50 mcg tablet 50 mcg PO DAILY 06/17/18 [History Last Taken Unknown] fluticasone furoate 100 mcg-vilanterol 25 mcg/dose inhalation powder (Breo Ellipta) 1 inh inhalation DAILY 07/14/19 [History Last Taken Unknown] dexlansoprazole 60 mg capsule,biphase delayed release 60 mg PO DAILY 10/06/20 [History Last Taken Unknown] turmeric 400 mg capsule 400 mg PO DAILY 10/06/20 [History Last Taken Unknown] vit [id number] 500 mg-50 mg-25 mg-40 mg tablet (Bioflex) 2 tab PO DAILY 10/06/20 [History Last Taken Unknown] B-complex with vitamin C 1 tab PO DAILY 01/18/22 [History Last Taken Unknown] cyclobenzaprine 5 mg tablet 5 mg PO QHS PRN muscle spasm 01/18/22 [History Last Taken Unknown] ascorbate calcium (vitamin C) 500 mg tablet 500 mg PO DAILY 07/17/22 [History Last Taken Unknown] ondansetron 4 mg disintegrating tablet 4 mg PO Q6H PRN nausea and vomiting #12 tabs 10/14/22 [Rx Last Taken Unknown] amlodipine 10 mg tablet 10 mg PO QDAY #90 tabs 05/14/23 [Rx Last Taken Unknown] calcium acetate 667 mg tablet 667 mg PO BID 05/14/23 [History Last Taken Unknown] fluticasone propionate 50 mcg/actuation nasal spray,suspension (Flonase Allergy Relief) 2 spray intranasal DAILY 05/14/23 [History Last Taken Unknown] hydrochlorothiazide 25 mg tablet 25 mg PO QDAY #90 tabs 05/14/23 [Rx Last Taken Unknown] lisinopril 40 mg tablet 40 mg PO QDAY #90 tabs 05/14/23 [Rx Last Taken Unknown] metoprolol tartrate 50 mg tablet 50 mg PO BID #180 tabs 05/14/23 [Rx Last Taken Unknown] pravastatin 40 mg tablet 40 mg PO QHS #90 tabs 05/14/23 [Rx Last Taken Unknown] pseudoephedrine HCl 30 mg tablet (Sudafed) 30 mg PO DAILY 05/14/23 [History Last Taken Unknown] ondansetron 4 mg disintegrating tablet 4 mg PO Q8H PRN PRN Nausea #12 tabs 08/02/23 [Rx Last Taken Unknown] Allergy/AdvReac Type Severity Reaction Status Date / Time simvastatin [From Zocor] Allergy Hives Verified 08/02/23 15:06 Sulfa (Sulfonamide Allergy Hives Verified 08/02/23 15:06 Antibiotics) Family History Mother , age 72 CAD (coronary artery disease) Myocardial infarction Father , age 69 COPD (chronic obstructive pulmonary disease) Hypertension Grandfather , age 76 Myocardial infarction Surgical History H/O coronary artery bypass surgery (~11/22/10) History of left heart catheterization (LHC) History of lumbar fusion Social History household members: spouse Smoking Status: Never smoker alcohol intake: never substance use type: does not use caffeine: Yes Type: coffee Number of servings: 2 what type of physical activity do you participate in: walking and other details: rowing machine, pushups, situps and walking 2 miles a day. frequency: daily duration: 45-60 minutes/day seatbelt use: always do you feel safe at home: Yes ROS ROS ED Constitutional Constitutional ED: Denies chills or fever(s) ENT ENT ED: Denies rhinorrhea or sore throat Cardiovascular Cardiovascular: Denies chest pain or palpitations Respiratory/Chest Respiratory/Chest: Denies cough or dyspnea Gastrointestinal Gastrointestinal: Reports diarrhea, nausea and vomiting Genitourinary Genitourinary ED: Denies dysuria or hematuria Musculoskeletal Musculoskeletal: Denies arthralgias or back pain Integumentary Denies abscess Neurologic Neurologic: Denies headache(s) or paresthesias Psychiatric Psychiatric: Denies anxiety or depression Endocrine Endocrinology: Denies polydipsia or polyphagia EXAM Physical Exam Const Vital Signs: 08/02/23 15:06 Temperature 97.1 F L Temperature Source Temporal Pulse Rate 103 H Respiratory Rate 17 Blood Pressure 165/100 H Blood Pressure Mean 121 Pulse Ox 99 Oxygen Delivery Method Room Air Positive well nourished General Appearance ED: NAD; Negative for pallor HEENT Reports moist mucous membranes normocephalic Eyes PERRL and EOMs intact bilaterally Resp normal respiratory effort and clear to auscultation bilaterally Auscultation: Negative for rales, rhonchi or wheezes Cardio regular rate and regular rhythm GI non-tender, non-distended and no masses Neuro CN's II-XII intact bilaterally, moves all extremities and no sensory deficits noted Sensorium / Orientation: alert Motor Exam: strength 5/5 throughout Psych mental status grossly normal and thought process normal Skin no wounds General Skin Exam: Negative for jaundice or pallor MDM MDM MDM Narrative Medical decision making narrative: Patient presenting with nausea, vomiting, diarrhea. He has 2 sick contacts. Most likely etiology is something viral. He denies any diet changes. Patient with no fever. After long discussion with him we will try oral Zofran and p.o. challenge, and if he does not feel better then we can add an IV and give him fluids and check lab patient be tested for COVID and influenza. COVID influenza negative. Reevaluation at 6:45 PM the patient is feeling well. His nausea is improved. I handed him a glass of water to sip on and he feels comfortable. I will give him some Zofran for home. He is to drink plenty of water and small amounts frequently. Tylenol and ibuprofen for pain or fever. Return precautions discussed. Impression: 1. Nausea/vomiting 2. Diarrhea Lab Data Attestation: I reviewed the patient's lab results. Discharge Plan Triage Chief Complaint: Nausea/Vomiting/Diarrhea ED Provider: Jw Chao Dx/Rx/DC Orders Instructions: ED Gastroenteritis, Viral (Adult) Prescriptions: New ondansetron 4 mg tablet,disintegrating 4 mg PO Q8H PRN PRN (Reason: Nausea) Qty: 12 0RF No Action saw palmetto 1,000 mg capsule 1,000 mg capsule 1,000 mg PO QDAY naproxen sodium [Aleve] 220 mg tablet 220 mg PO .prn aspirin 81 mg tablet,delayed release (DR/EC) 81 mg PO QDAY tamsulosin 0.4 mg capsule,extended release 24hr 0.4 mg PO BID levothyroxine 50 mcg tablet 50 mcg PO DAILY Breo Ellipta 100-25 mcg/dose blister with device 1 inh INHALATION DAILY dexlansoprazole 60 mg capsule,biphase delayed releas 60 mg PO DAILY turmeric 400 mg capsule 400 mg PO DAILY Bioflex 077-32-29-40 mg tablet 2 tab PO DAILY B-complex with vitamin C Tablet 1 tab PO DAILY cyclobenzaprine 5 mg tablet 5 mg PO QHS PRN (Reason: muscle spasm) Patient Comments: Take 1 tablet by mouth at bedtime ascorbate calcium (vitamin C) 500 mg tablet 500 mg PO DAILY calcium acetate 667 mg tablet 667 mg PO BID pseudoephedrine HCl [Sudafed] 30 mg tablet 30 mg PO DAILY fluticasone propionate [Flonase Allergy Relief] 50 mcg/actuation spray,suspension 2 spray intranasal DAILY Rx Instructions: administer into each nostril amlodipine 10 mg tablet 10 mg PO QDAY Qty: 90 4RF hydrochlorothiazide 25 mg tablet 25 mg PO QDAY Qty: 90 4RF lisinopril 40 mg tablet 40 mg PO QDAY Qty: 90 4RF metoprolol tartrate 50 mg tablet 50 mg PO BID Qty: 180 4RF pravastatin 40 mg tablet 40 mg PO QHS Qty: 90 4RF ondansetron 4 mg tablet,disintegrating 4 mg PO Q6H PRN (Reason: nausea and vomiting) Qty: 12 0RF Primary Care Provider: Andrade Lester Referrals: Andrade Lester MD [Primary Care Provider] - Disposition Disposition: Home, Self Care
[2023-08-02] MEDS: Ondansetron ODT 4 MG Tablet PO (18:08)
== END 2023-08-02 19:50 | disposition home or self-care (01) ==
PROVIDERS: Emergency Provider Student in an Organized Health Care Education/Training Program; PCP Family Medicine; Visit Provider Student in an Organized Health Care Education/Training Program
DX: R11.2 Nausea with vomiting, unspecified (principal); I10 Essential (primary) hypertension; E78.00 Pure hypercholesterolemia, unspecified; I25.10 Atherosclerotic heart disease of native coronary artery without angina pectoris; R19.7 Diarrhea, unspecified
CPT/HCPCS: 87428; 99282

== ENCOUNTER 2023-09-06 01:20 | Emergency (ER) | payer MEDICARE, OTHER, SELFPAY ==
[2023-09-06 01:23] VITALS: BP 160/109; PULSE 66; RESP 18; TEMP 36.8; O2SAT 94; BMI 32.0
--- NOTE | 2023-09-06 01:37 | RAD_ITS ---
INDICATION: cough sob cov flu pos EXAMINATION/TECHNIQUE: X-RAY - XR Chest 2 Views COMPARISON: 05/11/2023. FINDINGS: LINES/DEVICES: None. LUNGS: No consolidation or evidence of an effusion. No evidence of edema or a pneumothorax. MEDIASTINUM AND CARDIOVASCULAR STRUCTURES: Cardiac silhouette is normal in size and contour. Stable postsurgical changes. BONES AND SOFT TISSUES: No acute abnormality. RAD/Chest PA and Lateral IMPRESSION: No evidence of acute cardiopulmonary disease. Electronically Signed: Bret Valenzuela DO at 2:04 EST ,
--- NOTE | 2023-09-06 01:38 | ED.VIS.DYS ---
HPI History of Present Illness Chief Complaint: Shortness of Breath Informant: patient Narrative Narrative: Patient states he started having cold symptoms 2 or 3 days ago and was swabbed at urgent care, testing positive for COVID, influenza, and RSV, all 3. He was prescribed Tessalon Perles, a 5-day burst of prednisone, and an albuterol inhale. He was subsequently prescribed azithromycin and oseltamivir by his PCP. He states he woke up tonight coughing with a croupy cough and chest congestion and wheezing that is making him feel short of breath. Feels like he cannot get the congestion out of his chest. He denies any chest pain or pleuritic symptoms or recent pain or unilateral leg swelling, he has chronic bilateral lower extremity swelling that is no different than usual. Takes aspirin daily no anticoagulants for any reason. [facility] Medical History (Updated 09/06/23 @ 03:[address] Burt Hyman MD) 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 angina pectoris Atherosclerotic heart disease of [place] coronary artery without angina pectoris Essential hypertension GERD (gastroesophageal reflux disease) History of prostate cancer HTN (hypertension) Palpitations Premature atrial contractions Premature ventricular contraction Pure hypercholesterolemia Home Medications aspirin 81 mg tablet,delayed release 81 mg PO QDAY 07/16/17 [History Last Taken Unknown] tamsulosin 0.4 mg capsule 0.4 mg PO BID 07/16/17 [History Last Taken Unknown] saw palmetto 1,000 mg capsule 1,000 mg PO QDAY 08/31/17 [History Last Taken Unknown] naproxen sodium 220 mg tablet (Aleve) 220 mg PO .prn 09/12/17 [History Last Taken Unknown] levothyroxine 50 mcg tablet 50 mcg PO DAILY 06/17/18 [History Last Taken Unknown] fluticasone furoate 100 mcg-vilanterol 25 mcg/dose inhalation powder (Breo Ellipta) 1 inh inhalation DAILY 07/14/19 [History Last Taken Unknown] dexlansoprazole 60 mg capsule,biphase delayed release 60 mg PO DAILY 10/06/20 [History Last Taken Unknown] turmeric 400 mg capsule 400 mg PO DAILY 10/06/20 [History Last Taken Unknown] vit [id number] 500 mg-50 mg-25 mg-40 mg tablet (Bioflex) 2 tab PO DAILY 10/06/20 [History Last Taken Unknown] B-complex with vitamin C 1 tab PO DAILY 01/18/22 [History Last Taken Unknown] cyclobenzaprine 5 mg tablet 5 mg PO QHS PRN muscle spasm 01/18/22 [History Last Taken Unknown] ascorbate calcium (vitamin C) 500 mg tablet 500 mg PO DAILY 07/17/22 [History Last Taken Unknown] ondansetron 4 mg disintegrating tablet 4 mg PO Q6H PRN nausea and vomiting #12 tabs 10/14/22 [Rx Last Taken Unknown] amlodipine 10 mg tablet 10 mg PO QDAY #90 tabs 05/14/23 [Rx Last Taken Unknown] calcium acetate 667 mg tablet 667 mg PO BID 05/14/23 [History Last Taken Unknown] fluticasone propionate 50 mcg/actuation nasal spray,suspension (Flonase Allergy Relief) 2 spray intranasal DAILY 05/14/23 [History Last Taken Unknown] hydrochlorothiazide 25 mg tablet 25 mg PO QDAY #90 tabs 05/14/23 [Rx Last Taken Unknown] lisinopril 40 mg tablet 40 mg PO QDAY #90 tabs 05/14/23 [Rx Last Taken Unknown] metoprolol tartrate 50 mg tablet 50 mg PO BID #180 tabs 05/14/23 [Rx Last Taken Unknown] pravastatin 40 mg tablet 40 mg PO QHS #90 tabs 05/14/23 [Rx Last Taken Unknown] pseudoephedrine HCl 30 mg tablet (Sudafed) 30 mg PO DAILY 05/14/23 [History Last Taken Unknown] ondansetron 4 mg disintegrating tablet 4 mg PO Q8H PRN PRN Nausea #12 tabs 08/02/23 [Rx Last Taken Unknown] Allergy/AdvReac Type Severity Reaction Status Date / Time simvastatin [From Zocor] Allergy Hives Verified 09/06/23 01:23 Sulfa (Sulfonamide Allergy Hives Verified 09/06/23 01:23 Antibiotics) Family History Mother , age 72 CAD (coronary artery disease) Myocardial infarction Father , age 69 COPD (chronic obstructive pulmonary disease) Hypertension Grandfather , age 76 Myocardial infarction Surgical History H/O coronary artery bypass surgery (~11/22/10) History of left heart catheterization (LHC) History of lumbar fusion Social History household members: spouse Smoking Status: Never smoker alcohol intake: never substance use type: does not use caffeine: Yes Type: coffee Number of servings: 2 what type of physical activity do you participate in: walking and other details: rowing machine, pushups, situps and walking 2 miles a day. frequency: daily duration: 45-60 minutes/day seatbelt use: always do you feel safe at home: Yes ROS ROS ED Constitutional Constitutional ED: Denies chills or fever(s) ENT ENT ED: Reports nasal congestion and rhinorrhea; Denies ear pain or sore throat Cardiovascular Cardiovascular: Denies chest pain or palpitations Respiratory/Chest Respiratory/Chest: Reports chest congestion, cough and dyspnea Gastrointestinal Gastrointestinal: Denies abdominal pain, diarrhea, nausea or vomiting Genitourinary Genitourinary ED: Denies dysuria or hematuria Musculoskeletal Musculoskeletal: Denies myalgias or neck pain Integumentary Denies abscess or rash Neurologic Neurologic: Denies headache(s), paresthesias or weakness Psychiatric Psychiatric: Denies depression or suicidal thoughts Endocrine Endocrinology: Denies polydipsia or polyuria EXAM Physical Exam Const Vital Signs: 09/06/23 01:23 09/06/23 01:48 09/06/23 03:17 Temperature 98.2 F Temperature Source Temporal Pulse Rate 66 73 72 Respiratory Rate 18 16 16 Blood Pressure 160/109 H Blood Pressure Mean 126 Pulse Ox 94 Oxygen Delivery Method Room Air 09/06/23 03:41 Temperature 97.2 F L Temperature Source Temporal Pulse Rate 98 Respiratory Rate 17 Blood Pressure 141/80 H Blood Pressure Mean 100 Pulse Ox 99 Oxygen Delivery Method Room Air Positive well nourished and well developed General Appearance ED: well developed and NAD HEENT Reports moist mucous membranes normocephalic and atraumatic Throat: Negative for posterior oropharynx abnormal Eyes PERRL and EOMs intact bilaterally Neck no lymphadenopathy, supple and no meningeal signs Resp normal respiratory effort Effort and Inspection: able to speak in complete sentences Auscultation: wheezes expiratory wheezes and throughout; Negative for rales or rhonchi Cardio no murmurs Rate: regular rate Rhythm: regular rhythm Neuro oriented x3, CN's II-XII intact bilaterally and no sensory deficits noted Sensorium / Orientation: alert Motor Exam: strength 5/5 throughout Skin Lesions: no lesions Rashes: no rashes MDM MDM MDM Narrative Medical decision making narrative: He is wheezing and has congestion which I think is the source of his dyspnea, I do not think he needs to be worked up for cardiac etiologies or PE here especially since he is only on day 3 of this illness, although PEs are a known complication of COVID, the usually happen either late in the illness or a week or 2 subsequent. Therefore I obtained a two-view chest x-ray which on my interpretation shows no acute pneumonia/consolidation, and gave him some breathing treatments. He did have some improvement but was still little wheezy so we gave him some more treatments, and I had respiratory do a flutter valve. This did help some. The patient states he is on Breo and has been on it for years. However he states he had PFTs with pulmonary that were okay. It is unknown if he has asthma or COPD, he seems to think he has never been diagnosed with them and they are not in his chart, and he has been on prednisone now for 3 days which clearly is not necessarily keeping him from wheezing. Regardless I do not think I would change treatment based on everything he has recently been prescribed. History & Record Review Additional record(s) reviewed:: Other (Reviewed old records, no PFT reports or outpatient pulmonary reports available) Radiography Diagnostic Testing: Clinical Impression(s) from Imaging Studies Chest X-Ray 09/06/23 01:37 IMPRESSION: No evidence of acute cardiopulmonary disease. Electronically Signed: Bret Valenzuela DO at 2:04 EST , Rhythm Strip Rhythm Strip: Sinus Rhythm Rate: 70 Ectopy: None Discharge Plan Triage Chief Complaint: Shortness of Breath ED Provider: Burt Hyman Dx/Rx/DC Orders Clinical Impression: Acute wheezy bronchitis, COVID-19, RSV bronchitis, Influenza Instructions: ED Bronchitis with Wheezing (Adult) Prescriptions: No Action saw palmetto 1,000 mg capsule 1,000 mg capsule 1,000 mg PO QDAY naproxen sodium [Aleve] 220 mg tablet 220 mg PO .prn aspirin 81 mg tablet,delayed release (DR/EC) 81 mg PO QDAY tamsulosin 0.4 mg capsule,extended release 24hr 0.4 mg PO BID levothyroxine 50 mcg tablet 50 mcg PO DAILY Breo Ellipta 100-25 mcg/dose blister with device 1 inh INHALATION DAILY dexlansoprazole 60 mg capsule,biphase delayed releas 60 mg PO DAILY turmeric 400 mg capsule 400 mg PO DAILY Bioflex 039-55-61-40 mg tablet 2 tab PO DAILY B-complex with vitamin C Tablet 1 tab PO DAILY cyclobenzaprine 5 mg tablet 5 mg PO QHS PRN (Reason: muscle spasm) Patient Comments: Take 1 tablet by mouth at bedtime ascorbate calcium (vitamin C) 500 mg tablet 500 mg PO DAILY calcium acetate 667 mg tablet 667 mg PO BID pseudoephedrine HCl [Sudafed] 30 mg tablet 30 mg PO DAILY fluticasone propionate [Flonase Allergy Relief] 50 mcg/actuation spray,suspension 2 spray intranasal DAILY Rx Instructions: administer into each nostril amlodipine 10 mg tablet 10 mg PO QDAY Qty: 90 4RF hydrochlorothiazide 25 mg tablet 25 mg PO QDAY Qty: 90 4RF lisinopril 40 mg tablet 40 mg PO QDAY Qty: 90 4RF metoprolol tartrate 50 mg tablet 50 mg PO BID Qty: 180 4RF pravastatin 40 mg tablet 40 mg PO QHS Qty: 90 4RF ondansetron 4 mg tablet,disintegrating 4 mg PO Q6H PRN (Reason: nausea and vomiting) Qty: 12 0RF ondansetron 4 mg tablet,disintegrating 4 mg PO Q8H PRN PRN (Reason: Nausea) Qty: 12 0RF Primary Care Provider: Andrade Lester Referrals: Andrade Lester MD [Primary Care Provider] - 1-2 Days if not improving Disposition Disposition: Home, Self Care
[2023-09-06] MEDS: Ipratropium/Albuterol Sulfate 3 ML AMPUL.NEB INHALATION (01:47)
[2023-09-06 01:48] VITALS: PULSE 73; RESP 16
--- OUTSIDE RECORDS SUMMARY | 2023-09-06 02:10 | XMS RPT_ITS | CCD ---
Author Name Unknown Address [address] [place] [address] Organization [facility] Care Team Providers Care Fashion Adviser Name Role Phone Andrade Nunez MD Primary Care Provider ANDRADE NUNEZ Primary Care Unavailable KAPIL WHARTON Referring Unavailable ANDRADE NUNEZ Primary Care Unavailable CAROLYN NOGUEIRA Referring Unavailable ANDRADE NUNEZ Primary Care Unavailable ANDRADE NUNEZ Primary Care Unavailable Allergies Allergy Classification Reported Allergen(s) Allergy Type Date of Onset Reaction(s) Facility (7 sources) Sulfonamides (Antibiotic); Translations: [SULFA (SULFONAMIDE ANTIBIOTICS)] Drug Allergy 11-18-2016 [facility] Medications Current Medications Medication Drug Class(es) Dates Sig (Normalized) Sig (Original) doxycycline monohydrate 100 mg oral tablet (2 sources) Tetracycline-clas s Drug Start: 07-30-2022 End: 08-06-2022 take 1 tablet by mouth twice daily doxycycline monohydrate 100 mg tablet Take 1 tablet by mouth twice daily for 7 days. 14 tablet 0 07/30/2022 08/06/2022 Active Completed/Discontinued Medications Medication Drug Class(es) Dates Sig (Normalized) Sig (Original) amLODIPine 10 mg oral tablet (6 sources) Dihydropyridine Calcium Channel Corey Start: 09-25-2016 amLODIPine (NORVASC) 10 mg tablet aspirin 81 mg delayed release oral tablet (6 sources) Platelet Aggregation Inhibitor, Nonsteroidal Anti-inflammatory Drug take 1 tablet by mouth once daily aspirin, enteric coated (ASPIRIN, ENTERIC COATED) 81 mg EC tablet Take 81 mg by mouth once daily. 0 Active Problems Problem Classification Problem Date Documented Da te Episodic/Chronic Essential hypertension (1 source) Hypertensive disorder; Translations: [Essential (primary) hypertension] Chronic Immunizations and screening for infectious disease (1 source) Suspected disease caused by 2019-nCoV; Translations: [Suspected COVID-19 virus infection] Episodic Open wounds of extremities (1 source) Laceration of hand without foreign body; Translations: [Laceration without foreign body of left hand, initial encounter] Episodic Other circulatory disease (1 source) Abnormal chest sounds; Translations: [Other specified symptoms and signs involving the circulatory and respiratory systems] Episodic Other lower respiratory disease (1 source) Cough; Translations: [Acute cough] 07-07-2023 Episodic Other lower respiratory disease (1 source) Lower respiratory tract infection; Translations: [Unspecified acute lower respiratory infection] 07-07-2023 Episodic Other upper respiratory infections (1 source) Acute upper respiratory infection; Translations: [Acute upper respiratory infection, unspecified] Episodic Unclassified (1 source) Acute cough; Translations: [Acute cough] Onset: 09-03-2023 Results Test Name Value Interpretation Reference Range Facil ity Vital Signs Date Time Vital Sign Value Performing Clinician Faci lity 07-07-2023 08:42-0500 Body temperature 97.2 [degF] Carolyn Nogueira APRN.[facility] Work Phone: [facility] 07-07-2023 08:42-0500 Body weight 96.62 kg Carolyn Nogueira APRN.[facility] Work Phone: [facility] 07-07-2023 08:42-0500 Diastolic blood pressure 93 mm[Hg] Carolyn Huddleston-Fady LOBO.CHEMICAL INSTRUMENTATION OFFICER Work Phone: [facility] 07-07-2023 08:42-0500 Heart rate 67 /min Carolyn Nogueira APRN.CHEMICAL INSTRUMENTATION OFFICER Work Phone: [facility] 07-07-2023 08:42-0500 Respiratory rate 20 /min Carolyn Nogueira APRN.[facility] Work Phone: [facility] 07-07-2023 08:42-0500 SaO2% (BldA) [Mass fraction] 97 % Carolyn Nogueira APRN.CHEMICAL INSTRUMENTATION OFFICER Work Phone: [facility] 07-07-2023 08:42-0500 Systolic blood pressure 157 mm[Hg] Carolyn Nogueira APRN.CHEMICAL INSTRUMENTATION OFFICER Work Phone: [facility] 07-30-2022 09:34-0500 Body temperature 99.61 [degF] Yun Romero AEROSOL SUPERVISOR.CHEMICAL INSTRUMENTATION OFFICER Work Phone: [facility] 07-30-2022 09:34-0500 Body weight 95.25 kg Yun Romero AEROSOL SUPERVISOR.CHEMICAL INSTRUMENTATION OFFICER Work Phone: [facility] 07-30-2022 09:34-0500 Diastolic blood pressure 78 mm[Hg] Yun Romero AEROSOL SUPERVISOR.CHEMICAL INSTRUMENTATION OFFICER Work Phone: [facility] 07-30-2022 09:34-0500 Heart rate 78 /min Yun Romero AEROSOL SUPERVISOR.CHEMICAL INSTRUMENTATION OFFICER Work Phone: [facility] 07-30-2022 09:34-0500 Respiratory rate 16 /min Yun Romero AEROSOL SUPERVISOR.CHEMICAL INSTRUMENTATION OFFICER Work Phone: [facility] 07-30-2022 09:34-0500 SaO2% (BldA) [Mass fraction] 96 % Yun Romero AEROSOL SUPERVISOR.CHEMICAL INSTRUMENTATION OFFICER Work Phone: [facility] 07-30-2022 09:34-0500 Systolic blood pressure 128 mm[Hg] Yun Romero AEROSOL SUPERVISOR.CHEMICAL INSTRUMENTATION OFFICER Work Phone: [facility] 03-16-2022 08:13-0400 Body temperature 100 [degF] Bret Pendlebury AEROSOL SUPERVISOR.CHEMICAL INSTRUMENTATION OFFICER Work Phone: [facility] 03-16-2022 08:13-0400 Body weight 95.53 kg Bret Pendlebury AEROSOL SUPERVISOR.CHEMICAL INSTRUMENTATION OFFICER Work Phone: [facility] 03-16-2022 08:13-0400 Diastolic blood pressure 88 mm[Hg] Bret Pendlebury AEROSOL SUPERVISOR.CHEMICAL INSTRUMENTATION OFFICER Work Phone: [facility] 03-16-2022 08:13-0400 Heart rate 71 /min Bret Pendlebury AEROSOL SUPERVISOR.CHEMICAL INSTRUMENTATION OFFICER Work Phone: [facility] 03-16-2022 08:13-0400 Respiratory rate 16 /min Bret Pendlebury AEROSOL SUPERVISOR.CHEMICAL INSTRUMENTATION OFFICER Work Phone: [facility] 03-16-2022 08:13-0400 SaO2% (BldA) [Mass fraction] 97 % Bret Melendez AEROSOL SUPERVISOR.CHEMICAL INSTRUMENTATION OFFICER Work Phone: [facility] 03-16-2022 08:13-0400 Systolic blood pressure 138 mm[Hg] Bret Melendez AEROSOL SUPERVISOR.CHEMICAL INSTRUMENTATION OFFICER Work Phone: [facility] 01-23-2022 07:36-0400 Body temperature 97.2 [degF] Paty Bogner PA-C Work Phone: [facility] 01-23-2022 07:36-0400 Body weight 96.62 kg Paty Bogner PA-C Work Phone: [facility] 01-23-2022 07:36-0400 Diastolic blood pressure 86 mm[Hg] Paty Bogner PA-C Work Phone: [facility] 01-23-2022 07:36-0400 Heart rate 55 /min Paty Bogner PA-C Work Phone: [facility] 01-23-2022 07:36-0400 Respiratory rate 21 /min Paty Bogner PA-C Work Phone: [facility] 01-23-2022 07:36-0400 SaO2% (BldA) [Mass fraction] 95 % Paty Bogner PA-C Work Phone: [facility] 01-23-2022 07:36-0400 Systolic blood pressure 162 mm[Hg] Paty Bogner PA-C Work Phone: [facility] Encounters Encounter Date Encounter Type Care Provider Facility Start: 09-03-2023 End: 09-03-2023 ambulatory ANDRADE NUNEZ Facility:[facility] Start: 07-07-2023 End: 07-07-2023 ambulatory ANDRADE NUNEZ Facility:[facility] Start: 07-07-2023 End: 07-07-2023 Patient encounter procedure Carolyn Nogueira APRN.CHEMICAL INSTRUMENTATION OFFICER Work Phone: [facility] Plan of Treatment Date Care Activity Detail Author Start: 08-13-2022 Advance Directive Discussion Advance Directive Discussion [facility] Start: 08-13-2022 Depression Assessment Depression Assessment [facility] Start: 07-30-2022 End: 08-13-2022 Influenza virus A and B RNA and SARS-CoV-2 (COVID-19) N gene panel - Respiratory specimen by SEAN with probe detection COVID WITH FLUA+B, ROUTINE Microbiology Routine URI, acute Expected: 07/30/2022, Expires: 08/13/2022 [facility] Work Phone: Immunizations Immunization Date Immunization Notes Care Provider Fa cili 01-23-2022 tetanus and diphther ia toxoids, adsorbed, preservative free, for adult use (5 Lf of tetanus toxoid and 2 Lf of diphtheria toxoid) Paty Ritchie PA-C Work Phone: [facility] Work Phone: 01-23-2022 TD(adult) unspecifie d formulation Paty Ritchie PA-C Work Phone: [facility] Work Phone: Payers Date Payer Category Payer Medicare [id number] 2015 Private Health Insurance HU[employer]NA HUMANA MEDICARE SUPPLEMENT [id number] 2015-Present [phone] [address] [address] [place] [address] Indemnity [id number] 2015 Private Health Insurance HUMANA HUMANA MEDICARE SUPPLEMENT [id number] 2015-Present [phone] [address] [address] [place] [address] Indemnity [id number] 2012 Medicare MEDICARE MEDICAR E A AND B [id number] 2012-Present [phone] [place] [address] Medicare [id number] 2012 Medicare MEDICARE MEDICAR E A AND B [id number] 2012-Present [phone] [place] [address] Medicare [id number] 2012 Medicare [id number] Social History Date Type Detail Facility Start: 11-18-2016 End: 07-30-2022 Tobacco smoking status NHIS Never smoked tobacco [facility] Start: 11-18-2016 End: 07-30-2022 Tobacco use and exposure Smokeless tobacco non-user [facility] Start: 01-23-2022 End: 07-07-2023 Alcohol intake Current non-drinker of alcohol (finding) [facility] Start: 1945 Sex Assigned At Not on file [facility] Start: 01-13-2022 End: 01-23-2022 Exposure to SARS-CoV-2 (event) Not sure [facility] Work Phone: Start: 03-06-2022 End: 03-16-2022 Exposure to SARS-CoV-2 (event) Yes [facility] Work Phone: Start: 07-21-2020 End: 07-07-2023 History of Social function [facility] Start: 07-21-2020 End: 07-07-2023 Tobacco use panel [facility] National Score (1-100), lower number is lower risk Not on file [facility] Clinical Notes 01-23-2022 to 09-03-2023 Patient InstructionsPraisler-Carolyn Shrestha APRN.CHEMICAL INSTRUMENTATION OFFICER - 07/07/2023 9:10 AM ESTTelephone Encounter - Meredith Lopes - 07/31/2022 7:44 AM Cely Romero APRN.CHEMICAL INSTRUMENTATION OFFICER - 07/30/2022 9:45 AM EST Note Date & Type Note Facility 09-03-2023 Note HNO ID: [id number] Author: KAPIL WHARTON PA-C Service: ? Author Type: Physician [employer] Principal Type: Progress Notes Filed: 09/03/2023 08:43 Note Text: This note was created using Forsitecriter. Subjective Josseline Davis is a 78 year old male. HPI Presents with a chief complaint of a barky cough over the past 2 or 3 days. He denies a fever. States he has felt short of breath at night. He states he does see pulmonology through [facility] and is prescribed Breo. He has been out of this for 4 to 5 days, his pharmacy did not get it in on time. He denies a diagnosis of COPD or asthma however. No chest pain. He states he gets this recurrent croup cough. No vomiting or diarrhea. No home COVID test done. Denies nasal congestion or ear pain. Mild sore throat. Denies history of heart failure. No leg pain or swelling. Review of Systems Constitutional: Negative. HENT: Positive for sore throat. Negative for congestion and ear pain. Respiratory: Positive for cough and shortness of breath. Negative for wheezing. Cardiovascular: Negative for chest pain and leg swelling. Gastrointestinal: Negative. Genitourinary: Negative. Musculoskeletal: Negative. All other systems reviewed and are negative. PAST MEDICAL HISTORY Diagnosis Date Coronary artery disease Elevated cholesterol Hypertension Prostate hypertrophy Thyroid disease Current Outpatient Medications Medication Sig Dispense Refill BREO ELLIPTA 100-25 mcg/dose inhaler inhale 1 puff by mouth and into the lungs once daily fluticasone (FLONASE) 50 mcg/actuation nasal spray Use 1 [place] in each nostril twice daily. Rinse mouth after use. 1 Bottle 0 amLODIPine (NORVASC) 10 mg tablet DEXILANT 60 mg CpDM hydroCHLOROthiazide (HYDRODIURIL, ESIDRIX) 25 mg tablet levothyroxine (SYNTHROID) 50 mcg tablet lisinopril (ZESTRIL, PRINIVIL) 40 mg tablet metoprolol tartrate, short acting, (LOPRESSOR) 50 mg tablet pravastatin (PRAVACHOL) 40 mg tablet tamsulosin ER (FLOMAX) 0.4 mg cp24 aspirin, enteric coated (ASPIRIN, ENTERIC COATED) 81 mg EC tablet Take 81 mg by mouth once daily. albuterol HFA (PROAIR HFA) 90 mcg/actuation inhaler Inhale 2 Puffs as instructed every 6 hours as needed. 1 Each 0 predniSONE (DELTASONE) 20 mg tablet Take 2 tablets by mouth once daily for 5 days. 10 tablet 0 benzonatate (TESSALON PERLES) 100 mg capsule Take 2 capsules by mouth three times a day as needed. 30 capsule 0 Benzonatate 200 mg capsule Take 1 capsule by mouth three times daily as needed. (Patient not taking: Reported on 09/03/2023) 30 capsule 0 No current facility-administered medications for this visit. PAST SURGICAL HISTORY Procedure Laterality Date BACK SURGERY HX HEART SURGERY HX 2011 3 vessels No family history on file. Social History Tobacco Use Smoking status: Never Smokeless tobacco: Never Substance Use Topics Alcohol use: No Drug use: No Objective BP 132/80 Pulse 63 Temp (!) 35.9 ?C (96.7 ?F) Resp 21 Wt 96.2 kg (212 lb) SpO2 97% BMI 32.23 kg/m? Physical Exam Vitals reviewed. Constitutional: Appearance: Normal appearance. HENT: Head: Normocephalic and atraumatic. Right Ear: Tympanic membrane, ear canal and external ear normal. Left Ear: Tympanic membrane, ear canal and external ear normal. Nose: Congestion present. Mouth/Throat: Mouth: Mucous membranes are moist. Pharynx: Oropharynx is clear. Cardiovascular: Rate and Rhythm: Normal rate and regular rhythm. Heart sounds: Normal heart sounds. Pulmonary: Effort: Pulmonary effort is normal. Breath sounds: No wheezing or rhonchi. Comments: Barky harsh cough noted Musculoskeletal: Cervical back: Neck supple. Skin: General: Skin is warm and dry. Findings: No rash. Neurological: Mental Status: He is alert. Assessment and Plan ASSESSMENT/PLAN: 1. Bronchitis - ICD9: 490, ICD10: J40 Chest x-ray clear. Will treat for bronchitis. Prednisone, Tessalon and albuterol inhaler sent. If positive for COVID-patient is interested in antiviral treatment. Follow-up with PCP or pulmonology if not improving. Patient agreeable with plan. - XR CHEST 2V FRONTAL/LAT - COVID AND INFLUENZA A/B AND RSV NAAT, ROUTINE Kapil Wharton PA-C [facility] 09-03-2023 Note HNO ID: [id number] Author: CRISTOBAL MEHTA RT(R) Service: Radiology Author Type: Technologist Type: Progress Notes Filed: 09/03/2023 08:22 Note Text: Radiology Service Progress Note PATIENT NAME: Josseline Davis DATE OF SERVICE: September 03, 2023 TIME: 8:16 AM PATIENT IDENTITY VERIFICATION COMPLETED USING TWO (2) IDENTIFIERS: Name and Date of confirmed by patient verbally. FALL SCREENING: Has the patient had 2 falls in the last year or 1 fall with injury or currently using an Ambulatory Assistive Device (Walker, Cane, Wheelchair, Crutches, etc.)? No PATIENT GENDER DATA: Male PATIENT RELEVANT IMPLANT DATA REVIEWED: Yes RADIOLOGY DEPARTMENT: General X-ray: Exam(s) Completed: Chest X-Ray PERIPHERAL IV DATA: Not applicable SIGNED BY: RT Newton(R) September 03, 2023 8:16 AM [facility] 07-07-2023 Note HNO ID: [id number] Author: Carolyn Nogueira APRN.CHEMICAL INSTRUMENTATION OFFICER Service: ? Author Type: Nurse Practitioner Type: Progress Notes Filed: 07/07/2023 9:40 AM Note Text: Subjective HPI Josseline Davis is a 78 year old male who presents with a sore throat, runny nose, cough x 1 week. States he is coughing up green mucous. He states he has a history of lung problems , previous pneumonias. He has not had a fever. He feels slightly short of breath. Review of Systems Constitutional: Negative for chills and fever. HENT: Positive for congestion and sore throat. Negative for ear pain. Respiratory: Positive for cough, sputum production and shortness of breath. Cardiovascular: Negative for chest pain. Musculoskeletal: Negative for myalgias. BP 157/93 Pulse 67 Temp 36.2 ?C (97.2 ?F) Resp 20 Wt 96.6 kg (213 lb) SpO2 97% BMI 32.39 kg/m? PAST MEDICAL HISTORY Diagnosis Date Coronary artery disease Elevated cholesterol Hypertension Prostate hypertrophy Thyroid disease PAST SURGICAL HISTORY Procedure Laterality Date BACK SURGERY HX HEART SURGERY HX 2010 3 vessels ALLERGIES Sulfa (Sulfonamide Antibiotics) MEDICATIONS BREO ELLIPTA 100-25 mcg/dose inhaler inhale 1 puff by mouth and into the lungs once daily fluticasone (FLONASE) 50 mcg/actuation nasal spray Use 1 [place] in each nostril twice daily. Rinse mouth after use. Benzonatate 200 mg capsule Take 1 capsule by mouth three times daily as needed. amLODIPine (NORVASC) 10 mg tablet DEXILANT 60 mg CpDM hydroCHLOROthiazide (HYDRODIURIL, ESIDRIX) 25 mg tablet levothyroxine (SYNTHROID) 50 mcg tablet lisinopril (ZESTRIL, PRINIVIL) 40 mg tablet metoprolol tartrate, short acting, (LOPRESSOR) 50 mg tablet pravastatin (PRAVACHOL) 40 mg tablet tamsulosin ER (FLOMAX) 0.4 mg cp24 aspirin, enteric coated (ASPIRIN, ENTERIC COATED) 81 mg EC tablet Take 81 mg by mouth once daily. No family history on file. Social History Tobacco Use Smoking status: Never Smokeless tobacco: Never Substance Use Topics Alcohol use: No Drug use: No Objective Physical Exam Vitals and nursing note reviewed. Constitutional: General: He is not in acute distress. Appearance: Normal appearance. He is not ill-appearing. HENT: Mouth/Throat: Mouth: Mucous membranes are moist. Pharynx: Oropharynx is clear. Uvula midline. No oropharyngeal exudate or posterior oropharyngeal erythema. Cardiovascular: Rate and Rhythm: Normal rate and regular rhythm. Heart sounds: Normal heart sounds. Pulmonary: Effort: Pulmonary effort is normal. No respiratory distress. Breath sounds: Examination of the right-lower field reveals rales. Rales present. No wheezing. Musculoskeletal: Cervical back: Neck supple. Lymphadenopathy: Cervical: No cervical adenopathy. Skin: General: Skin is warm and dry. Findings: No erythema or rash. Neurological: Mental Status: He is alert. ASSESSMENT/PLAN: 1. Acute cough - ICD9: 786.2, ICD10: R05.1 (primary diagnosis) - XR CHEST 2V FRONTAL/LAT RESULT: Lines, tubes, and devices: Remote median sternotomy for CABG. Lungs and pleura: Low lung volumes. No consolidation. No pleural effusion or pneumothorax. Cardiomediastinal silhouette: Borderline enlarged cardiopericardial silhouette. Tortuous ectatic appearing thoracic aorta. Bones and soft tissues: Degenerative changes in the visualized spine. IMPRESSION: No acute radiographic abnormality. Stamp Pad Maker: NAV Transcribe Date/Time: Jul 07 2023 9:20A Dictated by : FURQUAN BAQUI, DO - xray negative. However due to abnormal lung exam will treat with antibiotics. Follow up with your PCP this week. 2. Lower resp. tract infection - ICD9: 519.8, ICD10: J22 - MINOCYCLINE 100 MG CAPSULE - GUAIFENESIN ER 600 MG TABLET, EXTENDED RELEASE 12 HR - Follow-up with your PCP in 3-5 days if symptoms have not improved or sooner if symptoms worsen - Discussed red flags and need for immediate medical evaluation if any occur. - Discussed supportive care treatment with fluids, rest and analgesia. - Discussed expected course of illness Carolyn Nogueira APRN.MICKEY [facility] 07-07-2023 Note HNO ID: [id number] Author: Jacinto Linn RT(R) Service: ? Author Type: Technologist Type: Progress Notes Filed: 07/07/2023 9:12 AM Note Text: Radiology Service Progress Note PATIENT NAME: Josseline Davis DATE OF SERVICE: July 07, 2023 TIME: 9:08 AM PATIENT IDENTITY VERIFICATION COMPLETED USING TWO (2) IDENTIFIERS: Name and Date of confirmed by patient verbally. FALL SCREENING: Has the patient had 2 falls in the last year or 1 fall with injury or currently using an Ambulatory Assistive Device (Walker, Cane, Wheelchair, Crutches, etc.)? No PATIENT GENDER DATA: Male PATIENT RELEVANT IMPLANT DATA REVIEWED: Not Applicable RADIOLOGY DEPARTMENT: General X-ray: Exam(s) Completed: Chest X-Ray PERIPHERAL IV DATA: Not applicable SIGNED BY: RT Marty(R) July 07, 2023 9:08 AM [facility] 07-07-2023 Instructions Carolyn Nogueira APRN.CHEMICAL INSTRUMENTATION OFFICER - 07/07/2023 9:30 AM EST ASSESSMENT/PLAN: 1. Acute cough - ICD9: 786.2, ICD10: R05.1 (primary diagnosis) - XR CHEST 2V FRONTAL/LAT RESULT: Lines, tubes, and devices: Remote median sternotomy for CABG. Lungs and pleura: Low lung volumes. No consolidation. No pleural effusion or pneumothorax. Cardiomediastinal silhouette: Borderline enlarged cardiopericardial silhouette. Tortuous ectatic appearing thoracic aorta. Bones and soft tissues: Degenerative changes in the visualized spine. IMPRESSION: No acute radiographic abnormality. Stamp Pad Maker: NAV Transcribe Date/Time: Jul 07 2023 9:20A Dictated by : FAUSTINO RYAN DO - xray negative. However due to abnormal lung exam will treat with antibiotics. Follow up with your PCP this week. 2. Lower resp. tract infection - ICD9: 519.8, ICD10: J22 - MINOCYCLINE 100 MG CAPSULE - GUAIFENESIN ER 600 MG TABLET, EXTENDED RELEASE 12 HR - Follow-up with your PCP in 3-5 days if symptoms have not improved or sooner if symptoms worsen - Discussed red flags and need for immediate medical evaluation if any occur. - Discussed supportive care treatment with fluids, rest and analgesia. - Discussed expected course of illness Carolyn Nogueira APRN.CHEMICAL INSTRUMENTATION OFFICER documented in this encounter [facility] 07-07-2023 History of Presen t illness Narrative Subjective HPI Josseline Davis is a 78 year old male who presents with a sore throat, runny nose, cough x 1 week. States he is coughing up green mucous. He states he has a history of lung problems , previous pneumonias. He has not had a fever. He feels slightly short of breath. Review of Systems Constitutional: Negative for chills and fever. HENT: Positive for congestion and sore throat. Negative for ear pain. Respiratory: Positive for cough, sputum production and shortness of breath. Cardiovascular: Negative for chest pain. Musculoskeletal: Negative for myalgias. BP 157/93 Pulse 67 Temp 36.2 C (97.2 F) Resp 20 Wt 96.6 kg (213 lb) SpO2 97% BMI 32.39 kg/m PAST MEDICAL HISTORY Diagnosis Date Coronary artery disease Elevated cholesterol Hypertension Prostate hypertrophy Thyroid disease PAST SURGICAL HISTORY Procedure Laterality Date BACK SURGERY HX HEART SURGERY HX 2010 3 vessels ALLERGIES Sulfa (Sulfonamide Antibiotics) MEDICATIONS BREO ELLIPTA 100-25 mcg/dose inhaler inhale 1 puff by mouth and into the lungs once daily fluticasone (FLONASE) 50 mcg/actuation nasal spray Use 1 [place] in each nostril twice daily. Rinse mouth after use. Benzonatate 200 mg capsule Take 1 capsule by mouth three times daily as needed. amLODIPine (NORVASC) 10 mg tablet DEXILANT 60 mg CpDM hydroCHLOROthiazide (HYDRODIURIL, ESIDRIX) 25 mg tablet levothyroxine (SYNTHROID) 50 mcg tablet lisinopril (ZESTRIL, PRINIVIL) 40 mg tablet metoprolol tartrate, short acting, (LOPRESSOR) 50 mg tablet pravastatin (PRAVACHOL) 40 mg tablet tamsulosin ER (FLOMAX) 0.4 mg cp24 aspirin, enteric coated (ASPIRIN, ENTERIC COATED) 81 mg EC tablet Take 81 mg by mouth once daily. No family history on file. Social History Tobacco Use Smoking status: Never Smokeless tobacco: Never Substance Use Topics Alcohol use: No Drug use: No Objective Physical Exam Vitals and nursing note reviewed. Constitutional: General: He is not in acute distress. Appearance: Normal appearance. He is not ill-appearing. HENT: Mouth/Throat: Mouth: Mucous membranes are moist. Pharynx: Oropharynx is clear. Uvula midline. No oropharyngeal exudate or posterior oropharyngeal erythema. Cardiovascular: Rate and Rhythm: Normal rate and regular rhythm. Heart sounds: Normal heart sounds. Pulmonary: Effort: Pulmonary effort is normal. No respiratory distress. Breath sounds: Examination of the right-lower field reveals rales. Rales present. No wheezing. Musculoskeletal: Cervical back: Neck supple. Lymphadenopathy: Cervical: No cervical adenopathy. Skin: General: Skin is warm and dry. Findings: No erythema or rash. Neurological: Mental Status: He is alert. ASSESSMENT/PLAN: 1. Acute cough - ICD9: 786.2, ICD10: R05.1 (primary diagnosis) - XR CHEST 2V FRONTAL/LAT RESULT: Lines, tubes, and devices: Remote median sternotomy for CABG. Lungs and pleura: Low lung volumes. No consolidation. No pleural effusion or pneumothorax. Cardiomediastinal silhouette: Borderline enlarged cardiopericardial silhouette. Tortuous ectatic appearing thoracic aorta. Bones and soft tissues: Degenerative changes in the visualized spine. IMPRESSION: No acute radiographic abnormality. Stamp Pad Maker: NAV Transcribe Date/Time: Jul 07 2023 9:20A Dictated by : FAUSTINO RYAN, DO - xray negative. However due to abnormal lung exam will treat with antibiotics. Follow up with your PCP this week. 2. Lower resp. tract infection - ICD9: 519.8, ICD10: J22 - MINOCYCLINE 100 MG CAPSULE - GUAIFENESIN ER 600 MG TABLET, EXTENDED RELEASE 12 HR - Follow-up with your PCP in 3-5 days if symptoms have not improved or sooner if symptoms worsen - Discussed red flags and need for immediate medical evaluation if any occur. - Discussed supportive care treatment with fluids, rest and analgesia. - Discussed expected course of illness Carolyn Nogueira APRN.CHEMICAL INSTRUMENTATION OFFICER documented in this encounter [facility] 07-31-2022 Miscellaneous Notes Patient given results and verbalized understanding of instructions given. Meredith Lopes Please let patient know that he was negative for COVID and influenza. Continue supportive care. Follow up if symptoms are not improving, sooner if any worsening symptoms. Paty Ritchie PA-C 07/31/2022 documented in this encounter [facility] 07-30-2022 History of Presen t illness Narrative This note was created using Forsitecriter. Subjective Josseline Davis is a 77 year old male. 77 year old male with PMH HTN Acute onset 3 to 4 days ago. +fever +congestion +sneezing +fatigue +cough Worsening, increased production States that he is concerned for a pneumonia. Denies N/V/D Denies skin rash or lesions. Denies hemoptysis. Denies CP. Has used Nyquil and Dayquil Denies tobacco usage. The history is provided by the patient. No video games mechanic was used. Cough This is a new problem. The current episode started more than 2 days ago. The problem occurs constantly. The problem has been gradually worsening. The cough is Productive of sputum. The maximum temperature recorded prior to his arrival was 100 to 100.9 F. The fever has been present for 3 to 4 days. Associated symptoms include chills, rhinorrhea and shortness of breath. Pertinent negatives include no chest pain, no weight loss, no ear congestion, no ear pain, no headaches, no sore throat and no myalgias. Treatments tried: OTC medicines. The treatment provided mild relief. He is not a smoker. His past medical history does not include bronchitis, pneumonia, bronchiectasis, COPD, emphysema or asthma. PAST MEDICAL HISTORY Diagnosis Date Coronary artery disease Elevated cholesterol Hypertension Prostate hypertrophy Thyroid disease PAST SURGICAL HISTORY Procedure Laterality Date BACK SURGERY HX HEART SURGERY HX 2010 3 vessels ALLERGIES Sulfa (Sulfonamide Antibiotics) MEDICATIONS fluticasone (FLONASE) 50 mcg/actuation nasal spray Use 1 [place] in each nostril twice daily. Rinse mouth after use. Benzonatate 200 mg capsule Take 1 capsule by mouth three times daily as needed. amLODIPine (NORVASC) 10 mg tablet DEXILANT 60 mg CpDM hydroCHLOROthiazide (HYDRODIURIL, ESIDRIX) 25 mg tablet levothyroxine (SYNTHROID) 50 mcg tablet lisinopril (ZESTRIL, PRINIVIL) 40 mg tablet metoprolol tartrate, short acting, (LOPRESSOR) 50 mg tablet pravastatin (PRAVACHOL) 40 mg tablet tamsulosin ER (FLOMAX) 0.4 mg cp24 aspirin, enteric coated (ASPIRIN, ENTERIC COATED) 81 mg EC tablet Take 81 mg by mouth once daily. doxycycline monohydrate 100 mg tablet Take 1 tablet by mouth twice daily for 7 days. No family history on file. Social History Tobacco Use Smoking status: Never Smokeless tobacco: Never Substance Use Topics Alcohol use: No Drug use: No Review of Systems Constitutional: Positive for chills and fever. Negative for weight loss. HENT: Positive for congestion, rhinorrhea and sneezing. Negative for ear pain and sore throat. Eyes: Negative for pain, discharge and itching. Respiratory: Positive for cough and shortness of breath. Negative for apnea, choking and chest tightness. Cardiovascular: Negative for chest pain, palpitations and leg swelling. Gastrointestinal: Negative for diarrhea, nausea and vomiting. Musculoskeletal: Negative for myalgias. Skin: Negative for color change, pallor, rash and wound. Allergic/Immunologic: Negative for environmental allergies, food allergies and immunocompromised state. Neurological: Negative for dizziness, facial asymmetry, light-headedness, numbness and headaches. Hematological: Negative for adenopathy. Does not bruise/bleed easily. Psychiatric/Behavioral: Negative for agitation, behavioral problems and confusion. Objective BP 128/78 Pulse 78 Temp 37.6 C (99.6 F) Resp 16 Wt 95.3 kg (210 lb) SpO2 96% BMI 31.93 kg/m Physical Exam Vitals and nursing note reviewed. Constitutional: General: He is not in acute distress. Appearance: Normal appearance. He is not ill-appearing, toxic-appearing or diaphoretic. HENT: Head: Normocephalic and atraumatic. Right Ear: External ear normal. Left Ear: External ear normal. Nose: Nose normal. No congestion or rhinorrhea. Mouth/Throat: Mouth: Mucous membranes are moist. Pharynx: Oropharynx is clear. No oropharyngeal exudate or posterior oropharyngeal erythema. Eyes: General: Right eye: No discharge. Left eye: No discharge. Extraocular Movements: Extraocular movements intact. Conjunctiva/sclera: Conjunctivae normal. Pupils: Pupils are equal, round, and reactive to light. Cardiovascular: Rate and Rhythm: Normal rate and regular rhythm. Pulses: Normal pulses. Heart sounds: Normal heart sounds. No murmur heard. No friction rub. No gallop. Pulmonary: Effort: Pulmonary effort is normal. No respiratory distress. Breath sounds: No stridor. Rhonchi and rales (left mid lobe) present. No wheezing. Chest: Chest wall: No tenderness. Abdominal: General: Abdomen is flat. There is no distension. Palpations: Abdomen is soft. There is no mass. Tenderness: There is no abdominal tenderness. There is no guarding or rebound. Hernia: No hernia is present. Musculoskeletal: General: No swelling, tenderness, deformity or signs of injury. Normal range of motion. Cervical back: Normal range of motion and neck supple. No rigidity or tenderness. Right lower leg: No edema. Left lower leg: No edema. Lymphadenopathy: Cervical: No cervical adenopathy. Skin: General: Skin is warm and dry. Capillary Refill: Capillary refill takes less than 2 seconds. Coloration: Skin is not jaundiced or pale. Findings: No bruising, lesion or rash. Neurological: General: No focal deficit present. Mental Status: He is alert and oriented to person, place, and time. Cranial Nerves: No cranial nerve deficit. Sensory: No sensory deficit. Motor: No weakness. Coordination: Coordination normal. Gait: Gait normal. Deep Tendon Reflexes: Reflexes normal. Psychiatric: Mood and Affect: Mood normal. Behavior: Behavior normal. Thought Content: Thought content normal. Assessment and Plan ASSESSMENT/PLAN: 1. URI, acute - ICD9: 465.9, ICD10: J06.9 (primary diagnosis) - Discussed possible viral etiology - Symptomatic treatment with prn analgesia - Supportive care with fluids and rest - The patient may also use OTC cough and cold meds as needed, warm salt water gargles, throat lozenges and/or OTC throat spray as needed, and nasal saline gtts and suction prn. - Follow up in 3-5 days if symptoms persist or sooner if worsening of symptoms - COVID WITH FLUA+B, ROUTINE 2. Abnormal lung sounds - ICD9: 786.7, ICD10: R09.89 Mid left lobe with rhonchi and rales CXR not available at time of exam Will cover with Doxycyline Yun Romero APRN.CHEMICAL INSTRUMENTATION OFFICER documented in this encounter [facility] 03-17-2022 Miscellaneous Notes Patient returned call and given provider's message below and patient verbalized understanding. Yoko Mosqueda RN This [employer] called patient at [phone].. Message left after 3 attempts to call Your covid test is positive. Follow the CDC guidelines for isolation: 1. Everyone, regardless of vaccination status, should stay home for 5 days, from onset of symptoms. 2. If you have no symptoms or your symptoms are resolving after 5 days, you can leave your house. 3. Continue to wear a mask around others for 5 additional days. If you have a fever, continue to stay home until your fever resolves, even if it is longer than 5 days. Please monitor your symptoms, and for any worrisome symptoms. Continue comfort measures for symptoms as you would for a cold. Any worsening symptoms follow up with PCP or ER. All questions answered. Loyda Lawson CNP documented in this encounter [facility] 03-16-2022 Instructions Bret Melendez APRN.MICKEY - 03/16/2022 8:21 AM EDT How to Manage Common Symptoms Associated with COVID for Adults Fever- Fever is a temperature over 100.4 F and can occur when the body is fighting an infection. To help treat a fever: Drink plenty of fluids and stay well hydrated. Eat small amounts of easy to digest food. Rest. Your body needs rest to recover, but getting up and moving around the house frequently is a good idea. You should try to continue doing your normal daily activities (bathing, toileting, grooming, cooking), though you will probably feel tired, and need to rest often. Avoid any heavy activity or exercise, as this will increase your body temperature. Dress in light clothing and stay covered in a light sheet. Keep the room temperature cool. Take a slightly warm (not cold or cool) bath, or apply damp washcloths to the forehead and wrists. Cough- Cough is a common symptom associated with COVID and can be bothersome. To help treat a cough: Stay well hydrated. Try warm water or tea with lemon and/or honey to help soothe the cough. Use a humidifier to add moisture to the air. Try a product with menthol, like a cough drop or a rub for your chest such as Vicks, which can help reduce cough. Try cough drops. Avoid smoking and other strong odors or perfumes. Try breathing exercises to keep your lungs open and clear. Take a big deep breath through your nose and hold for 5 seconds before slowly releasing. Repeat frequently, while you are awake. Congestion- Runny nose or nasal congestion can occur with COVID. Treatment can help relieve symptoms: Try OTC nasal saline spray, or nasal saline rinse to relieve mucus congestion. Nasal strips can help keep nasal passages open, to increase airflow. Elevating your head with an extra pillow in bed can help reduce congestion. Using a humidifier can increase moisture in the air, and make breathing easier. Sore Throat- Another common symptom with COVID, can be managed at home by: Stay well hydrated. Gargle with salt water mix teaspoon salt with 1 cup of warm water and gargle. This helps to loosen mucus in the back of the throat and may reduce discomfort. Try ice chips, popsicles or lozenges to soothe the throat. Nausea/Vomiting/Diarrhea- These are common symptoms, and staying hydrated is most important. If you are nauseous or vomiting, start with small sips of water every 10-15 minutes and increase as tolerated. You can try sucking an ice cube too. If tolerating, you can try pedialyte or Gatorade, or flat sprite or mario-rock. Start slowly and increase as you are able to. Instead of meals, try smaller, more frequent snacks. Try eating bland foods like crackers, toast, rice, and applesauce. Avoid spicy, greasy or fried foods and dairy containing foods. Even if you aren't feeling hungry due to lack of smell or taste, it is important to try to take in some food when you are able. After drinking and eating, rest in an upright position for up to two hours as needed to help decrease nauseous feelings. Try closing your eyes, avoid moving and watching TV. Avoid strong odors that can make you feel more nauseated. When to seek emergency medical attention Look for emergency warning signs for COVID-19. If having any of these symptoms, seek emergency medical care immediately: Trouble breathing Persistent pain or pressure in the chest New confusion Inability to wake or stay awake Bluish lips or face *This list is not all possible symptoms. Please call your medical provider for any other symptoms that are severe or concerning to you. documented in this encounter [facility] 03-16-2022 History of Presen t illness Narrative Subjective HPI Nontoxic-appearing male presents urgent care chief plaint COVID-19 concerns. Duration symptoms 1 day. Associated symptoms sore throat nasal congestion headache body aches chills low-grade temperature chest congestion and a cough. States symptoms started yesterday evening. No known sick contacts. Denies recent diagnosis of COVID-19. States he is vaccinated against COVID-19. Denies any OTC medication use today. Did use Mucinex last night this did help some. Denies any significant pain. Does have a bit of a sore throat when swallowing. Denies any high fevers productive cough chest pain shortness of breath pleuritic pain hemoptysis nausea vomiting abdominal pain or rashes. Past medical history prescription medication use allergies reviewed. .Patient presents with: Sore Throat: pain rated 5, x1 day, chest congestion, cough. PAST MEDICAL HISTORY Diagnosis Date Coronary artery disease Elevated cholesterol Hypertension Prostate hypertrophy Thyroid disease PAST SURGICAL HISTORY Procedure Laterality Date BACK SURGERY HX HEART SURGERY HX 2010 3 vessels ALLERGIES Sulfa (Sulfonamide Antibiotics) MEDICATIONS fluticasone (FLONASE) 50 mcg/actuation nasal spray Use 1 [place] in each nostril twice daily. Rinse mouth after use. Benzonatate 200 mg capsule Take 1 capsule by mouth three times daily as needed. amLODIPine (NORVASC) 10 mg tablet DEXILANT 60 mg CpDM hydroCHLOROthiazide (HYDRODIURIL, ESIDRIX) 25 mg tablet levothyroxine (SYNTHROID) 50 mcg tablet lisinopril (ZESTRIL, PRINIVIL) 40 mg tablet metoprolol tartrate, short acting, (LOPRESSOR) 50 mg tablet pravastatin (PRAVACHOL) 40 mg tablet tamsulosin ER (FLOMAX) 0.4 mg cp24 aspirin, enteric coated (ASPIRIN, ENTERIC COATED) 81 mg EC tablet Take 81 mg by mouth once daily. History reviewed. No pertinent family history. Social History Tobacco Use Smoking status: Never Smoker Smokeless tobacco: Never Used Substance Use Topics Alcohol use: No Drug use: No BP 138/88 Pulse 71 Temp 37.8 C (100 F) Resp 16 Wt 95.5 kg (210 lb 9.6 oz) SpO2 97% BMI 32.02 kg/m Review of Systems Constitutional: Positive for chills, fever and malaise/fatigue. HENT: Positive for congestion and sore throat. Negative for ear discharge, ear pain and sinus pain. Eyes: Negative for blurred vision, pain, discharge and redness. Respiratory: Positive for cough. Negative for hemoptysis, sputum production, shortness of breath, wheezing and stridor. Cardiovascular: Negative for chest pain. Gastrointestinal: Negative for abdominal pain, diarrhea, nausea and vomiting. Musculoskeletal: Positive for myalgias. Skin: Negative for itching and rash. Neurological: Positive for headaches. Negative for dizziness. Objective Physical Exam Constitutional: General: He is not in acute distress. Appearance: He is not diaphoretic. HENT: Head: Normocephalic. Mouth/Throat: Mouth: Mucous membranes are moist. Pharynx: Oropharynx is clear. No oropharyngeal exudate or posterior oropharyngeal erythema. Eyes: Conjunctiva/sclera: Conjunctivae normal. Pupils: Pupils are equal, round, and reactive to light. Cardiovascular: Rate and Rhythm: Normal rate and regular rhythm. Heart sounds: Normal heart sounds. Pulmonary: Effort: Pulmonary effort is normal. No tachypnea, accessory muscle usage or respiratory distress. Breath sounds: Normal breath sounds. No stridor. No wheezing, rhonchi or rales. Abdominal: Palpations: Abdomen is soft. Tenderness: There is no abdominal tenderness. Musculoskeletal: Cervical back: Normal range of motion and neck supple. No rigidity or tenderness. Lymphadenopathy: Cervical: No cervical adenopathy. Skin: General: Skin is warm and dry. Neurological: Mental Status: He is alert and oriented to person, place, and time. ASSESSMENT/PLAN: 1. Suspected COVID-19 virus infection - ICD9: V01.79, ICD10: Z20.822 - COVID WITH FLUA+B, ROUTINE Patient nontoxic-appearing. Suspicious of viral cause of illness. COVID-19 test ordered. Results pending. Alternative diagnosis discussed. Patient was educated on supportive therapies. Patient will follow up with primary care provider as needed. Patient was instructed to immediately proceed to emergency room for any new, worsening, or symptoms lasting longer than anticipated. The patient's clinical presentation is otherwise unremarkable at this time. Based on exam and clinical finding, the patient is stable for discharge. Plan of care was discussed with patient. Patient verbalizes understanding and agrees to plan of care. This note was generated using LumiG[employer] software. It may contain errors in wording, punctuation, or spelling. Bret Melendez APRN.MICKEY documented in this encounter [facility] 01-23-2022 History of Presen t illness Narrative 01/23/2022 Patient presents with: Acute Visit: left hand wound x 1 day SUBJECTIVE: This is a 76 year old that is here today for Complaint(s) of left hand wound x yesterday. States he was out for a walk and a dog came up and jumped up on him and scratch the top of his hand. Cleaned wound and applied antibiotic ointment. Wound seems to be still seeping per patient. Takes daily 81 mg Aspirin. Uncertain of last tetanus. PAST MEDICAL HISTORY Diagnosis Date Coronary artery disease Elevated cholesterol Hypertension Prostate hypertrophy Thyroid disease ALLERGIES Sulfa (Sulfonamide Antibiotics) MEDICATIONS Current Outpatient Medications Medication Sig fluticasone (FLONASE) 50 mcg/actuation nasal spray Use 1 [place] in each nostril twice daily. Rinse mouth after use. Benzonatate 200 mg capsule Take 1 capsule by mouth three times daily as needed. amLODIPine (NORVASC) 10 mg tablet DEXILANT 60 mg CpDM hydroCHLOROthiazide (HYDRODIURIL, ESIDRIX) 25 mg tablet levothyroxine (SYNTHROID) 50 mcg tablet lisinopril (ZESTRIL, PRINIVIL) 40 mg tablet metoprolol tartrate, short acting, (LOPRESSOR) 50 mg tablet pravastatin (PRAVACHOL) 40 mg tablet tamsulosin ER (FLOMAX) 0.4 mg cp24 aspirin, enteric coated (ASPIRIN, ENTERIC COATED) 81 mg EC tablet Take 81 mg by mouth once daily. No current facility-administered medications for this visit. SOCIAL HISTORY Social History Tobacco Use Smoking status: Never Smoker Smokeless tobacco: Never Used Substance Use Topics Alcohol use: No Drug use: No REVIEW OF SYSTEMS See HPI OBJECTIVE: BP 162/86 Pulse (!) 55 Temp 36.2 C (97.2 F) Resp 21 Wt 96.6 kg (213 lb) SpO2 95% BMI 32.39 kg/m APPEARANCE Well appearing, alert, in no acute distress, well-hydrated, well nourished. EXTREMITIES jagged laceration located on dorsum of left hand approximately 3.5 cm x 1-2 mm up to 1 cm in width. Thin, paper-like fragile skin. + surrounding ecchymosis. Minimal edema. Small, 4 mm laceration lateral edge of dorsum of hand. Large clot coagulated over wound. Removed with sterile saline. No obvious foreign body. Larger area of skin tear with minimal oozing, no active bleeding. Wound thoroughly irrigated and cleansed. 3 steri strips applied to approximate wound edges, 1 steri strip applied using tincture of benzoin to approximate 4 mm laceration. Antibiotic ointment applied, non-stick bandage and then gauze with coban applied. Patient tolerated well. ASSESSMENT/PLAN: 1. Laceration of left hand without foreign body, initial encounter - ICD9: 882.0, ICD10: S61.412A Wound cleansed and closed with steri strips. Discussed sutures with patients, concern for tearing skin further. Larger area unable to suture with complete skin tear. Reviewed red flags and when to seek care sooner, including signs of infection. - TETANUS/DIPTHERIA BOOSTER (OVER 7), PF IM F/u if not improving, sooner if worsening. Wound check with PCP recommended. 2. Hypertension, unspecified type - ICD9: 401.9, ICD10: I10 - suboptimal control Pain with hand wound. - Recommend home blood pressure monitoring, to bring results in on next visit - Goal of BP <130/80 F/u with PCP for recheck in 1-2 weeks. The patient indicates understanding of these issues and agrees with the plan. I spent a total of 45 minutes on the date of the service which included [id number] patient care, completing clinical documentation, performing a medically appropriate examination and counseling and educating the patient/family/caregiver. Paty Ritchie PA-C documented in this encounter [facility] Diagnosis Suspected COVID-19 virus infection- Primary [facility] Diagnosis URI, acute- Primary Acute upper respiratory infections of unspecified site Abnormal lung sounds Abnormal chest sounds [facility] Diagnosis Acute cough- Primary Lower resp. 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 Advance Directive(s) 09/14/2017 2:00 PM Health Concerns Infection Onset Date Last Indicated Resolved Time COVID-19 Confirmed 03/16/2022 03/16/2022 Infection Onset Date Last Indicated Resolved Time COVID-19 Rule-Out 07/30/2022 07/30/2022 Infection Onset Date Last Indicated Resolved Time COVID-19 Rule-Out 07/30/2022 07/30/2022 07/31/2022 3:27 AM EST Additional Source Comments (unrecognized sect ion and content) No Status Records FoundNo Status Records Found INFORMATION SOURCE (unrecogn ized section and content) DATE CREATED AUTHOR AUTHOR'S ORGANIZ ATION 09/04/2023 [facility] Source Comments (unrecognize d section and content) In the event this informatio n is protected by the Federal Confidentiality of Alcohol and Drug Abuse Patient Records regulations: The Federal rules restrict any use of the information to criminally investigate or prosecute any alcohol or drug abuse patient.[facility] event this information is protected by the Federal Confidentiality of Alcohol and Drug Abuse Patient Records regulations: The Federal rules restrict any use of the information to criminally investigate or prosecute any alcohol or drug abuse patient.[facility] event this information is protected by the Federal Confidentiality of Alcohol and Drug Abuse Patient Records regulations: The Federal rules restrict any use of the information to criminally investigate or prosecute any alcohol or drug abuse patient.[facility] the event this information is protected by the Federal Confidentiality of Alcohol and Drug Abuse Patient Records regulations: The Federal rules restrict any use of the information to criminally investigate or prosecute any alcohol or drug abuse patient.[facility] the event this information is protected by the Federal Confidentiality of Alcohol and Drug Abuse Patient Records regulations: The Federal rules restrict any use of the information to criminally investigate or prosecute any alcohol or drug abuse patient.[facility] the event this information is protected by the Federal Confidentiality of Alcohol and Drug Abuse Patient Records regulations: The Federal rules restrict any use of the information to criminally investigate or prosecute any alcohol or drug abuse patient.[facility] Reason for Visit (unrecogniz ed section and content) Reason Comments Sore Throat pain rated 5, x1 day , chest congestion, cough. Reason Comments Results Reason Comments Head Congestion cough, sneezing x 3- 4 days Reason Comments Chest Congestion X 3 days Care Teams (unrecognized sec tion and content) Fashion Adviser Relationship Specialty Start Date End Date Andrade Nunez MD PCP - General Family Practice 11/18/16 Fashion Adviser Relationship Specialty Start Date End Date Andrade Nunez MD PCP - General Family Medicine 11/18/16 Fashion Adviser Relationship Specialty Start Date End Date Andrade Nunez MD PCP - General Family Medicine 11/18/16 Fashion Adviser Relationship Specialty Start Date End Date Andrade Nunez MD PCP - General Family Medicine 11/18/16 FOR RECORDS PERTAINING TO PATIENTS WHO ARE OR HAVE BEEN ENROLLED IN A CHEMICAL DEPENDENCY/SUBSTANCEABUSE PROGRAM, SOME INFORMATION MAY BE OMITTED. This clinical summary was aggregated from multiple sources. Caution should be exercised in using it in the provision of clinical care. This summary normalizes information from multiple sources, and as a consequence, information in this document may materially change the coding, format and clinical context of patient data. In addition, data may be omitted in some cases. CLINICAL DECISIONS SHOULD BE BASED ON THE PRIMARY CLINICAL RECORDS. [facility] [employer] [facility]. provides no warranty or guarantee of the accuracy or completeness of information in this document.
[2023-09-06] MEDS: Albuterol 2.5 MG/3 ML VIAL.NEB. INHALATION ×2 (03:16)
[2023-09-06 03:17] VITALS: PULSE 72; RESP 16
[2023-09-06 03:41] VITALS: BP 141/80; PULSE 98; RESP 17; TEMP 36.2; O2SAT 99
[2023-09-06 03:52] VITALS: BP 118/62; PULSE 62; RESP 24; TEMP 36.2; O2SAT 99
== END 2023-09-06 03:52 | disposition home or self-care (01) ==
PROVIDERS: Emergency Provider Emergency Medicine; PCP Family Medicine; Visit Provider Emergency Medicine
DX: U07.1 COVID-19 (principal); J11.1 Influenza due to unidentified influenza virus with other respiratory manifestations; J20.5 Acute bronchitis due to respiratory syncytial virus; I25.10 Atherosclerotic heart disease of native coronary artery without angina pectoris; I10 Essential (primary) hypertension; E78.00 Pure hypercholesterolemia, unspecified
CPT/HCPCS: 99283; 71046; 94640; 94667

== ENCOUNTER 2023-09-07 08:58 | Inpatient (IN) | payer MEDICARE, OTHER, SELFPAY ==
[2023-09-07] VITALS (14 sets, daily range): BP systolic 110–161; BP diastolic 66–90; PULSE 61–96; RESP 16–30; TEMP 36.2–36.6; O2SAT 88–96; BMI 32.6; BMI 31.4
--- NOTE | 2023-09-07 09:05 | ED.VIS.DYS ---
HPI History of Present Illness Chief Complaint: Shortness of Breath Informant: patient Onset/Context/Timing Onset: Days (5) Context: gradual Timing: Continuous Quality: Positive for Dyspnea on exertion Worsened by: Exertion Relieved by: - (Prednisone) Associated Symptoms cough, rhinorrhea and fever; Negative for post nasal drip, ear pain, sore throat, chills, clear sputum, white sputum, yellow sputum or green sputum Chest Pain: Positive for None Narrative Narrative: Patient presents with shortness of breath that has been getting worse over the past 5 days. Patient states he tested positive for COVID, RSV, and influenza. Patient states he has been on Tamiflu and antibiotics. Patient states he is also completed a course of prednisone. Patient admits to a cough but denies any sputum production. Patient admits to some rhinorrhea. Patient admits to a low-grade fever of 101 at home. Patient denies any chest pain. Patient denies any nausea or vomiting. Patient was seen here last night and was given aerosols. Patient felt better and was discharged. Patient followed up with his primary care physician today who noted the patient had a pulse oximeter of 83% on room air and referred the patient to the emergency department. [facility] Medical History 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 angina pectoris Atherosclerotic heart disease of [place] coronary artery without angina pectoris Essential hypertension GERD (gastroesophageal reflux disease) History of prostate cancer HTN (hypertension) Palpitations Premature atrial contractions Premature ventricular contraction Pure hypercholesterolemia Home Medications aspirin 81 mg tablet,delayed release 81 mg PO QDAY 07/16/17 [History Last Taken Unknown] tamsulosin 0.4 mg capsule 0.4 mg PO BID 07/16/17 [History Last Taken Unknown] saw palmetto 1,000 mg capsule 1,000 mg PO QDAY 08/31/17 [History Last Taken Unknown] naproxen sodium 220 mg tablet (Aleve) 220 mg PO .prn 09/12/17 [History Last Taken Unknown] levothyroxine 50 mcg tablet 50 mcg PO DAILY 06/17/18 [History Last Taken Unknown] fluticasone furoate 100 mcg-vilanterol 25 mcg/dose inhalation powder (Breo Ellipta) 1 inh inhalation DAILY 07/14/19 [History Last Taken Unknown] dexlansoprazole 60 mg capsule,biphase delayed release 60 mg PO DAILY 10/06/20 [History Last Taken Unknown] turmeric 400 mg capsule 400 mg PO DAILY 10/06/20 [History Last Taken Unknown] vit [id number] 500 mg-50 mg-25 mg-40 mg tablet (Bioflex) 2 tab PO DAILY 10/06/20 [History Last Taken Unknown] B-complex with vitamin C 1 tab PO DAILY 01/18/22 [History Last Taken Unknown] cyclobenzaprine 5 mg tablet 5 mg PO QHS PRN muscle spasm 01/18/22 [History Last Taken Unknown] ascorbate calcium (vitamin C) 500 mg tablet 500 mg PO DAILY 07/17/22 [History Last Taken Unknown] ondansetron 4 mg disintegrating tablet 4 mg PO Q6H PRN nausea and vomiting #12 tabs 10/14/22 [Rx Last Taken Unknown] amlodipine 10 mg tablet 10 mg PO QDAY #90 tabs 05/14/23 [Rx Last Taken Unknown] calcium acetate 667 mg tablet 667 mg PO BID 05/14/23 [History Last Taken Unknown] fluticasone propionate 50 mcg/actuation nasal spray,suspension (Flonase Allergy Relief) 2 spray intranasal DAILY 05/14/23 [History Last Taken Unknown] hydrochlorothiazide 25 mg tablet 25 mg PO QDAY #90 tabs 05/14/23 [Rx Last Taken Unknown] lisinopril 40 mg tablet 40 mg PO QDAY #90 tabs 05/14/23 [Rx Last Taken Unknown] metoprolol tartrate 50 mg tablet 50 mg PO BID #180 tabs 05/14/23 [Rx Last Taken Unknown] pravastatin 40 mg tablet 40 mg PO QHS #90 tabs 05/14/23 [Rx Last Taken Unknown] pseudoephedrine HCl 30 mg tablet (Sudafed) 30 mg PO DAILY 05/14/23 [History Last Taken Unknown] ondansetron 4 mg disintegrating tablet 4 mg PO Q8H PRN PRN Nausea #12 tabs 08/02/23 [Rx Last Taken Unknown] Allergy/AdvReac Type Severity Reaction Status Date / Time simvastatin [From Zocor] Allergy Hives Verified 09/06/23 01:23 Sulfa (Sulfonamide Allergy Hives Verified 09/06/23 01:23 Antibiotics) Family History Mother , age 72 CAD (coronary artery disease) Myocardial infarction Father , age 69 COPD (chronic obstructive pulmonary disease) Hypertension Grandfather , age 76 Myocardial infarction Surgical History H/O coronary artery bypass surgery (~11/22/10) History of left heart catheterization (LHC) History of lumbar fusion Social History household members: spouse Smoking Status: Never smoker alcohol intake: never substance use type: does not use caffeine: Yes Type: coffee Number of servings: 2 what type of physical activity do you participate in: walking and other details: rowing machine, pushups, situps and walking 2 miles a day. frequency: daily duration: 45-60 minutes/day seatbelt use: always do you feel safe at home: Yes ROS ROS ED Constitutional Constitutional ED: Denies chills or fever(s) Eyes Eyes: Denies blurry vision or change in vision ENT ENT ED: Reports rhinorrhea; Denies sore throat Cardiovascular Cardiovascular: Denies chest pain or palpitations Respiratory/Chest Respiratory/Chest: Reports cough and dyspnea Gastrointestinal Gastrointestinal: Denies nausea or vomiting Genitourinary Genitourinary ED: Denies dysuria or hematuria Musculoskeletal Musculoskeletal: Denies back pain or neck pain Integumentary Denies abscess or rash Neurologic Neurologic: Denies headache(s) or weakness Allergic/Immunologic Allergic/Immunologic ED: Denies mouth swelling or urticaria EXAM Physical Exam Const Vital Signs: 09/07/23 08:59 09/07/23 09:01 09/07/23 09:32 Temperature 97.1 F L Temperature Source Temporal Pulse Rate 75 76 Respiratory Rate 30 H 16 Respiratory Effort Short of Breath Labored Respiratory Pattern Tachypnea Blood Pressure 161/90 H Blood Pressure Mean 113 Pulse Ox 93 Oxygen Delivery Method Nasal Cannula Nasal Cannula Oxygen Flow Rate (L/min) 2 2 09/07/23 11:32 Temperature Temperature Source Pulse Rate 69 Respiratory Rate 17 Respiratory Effort Respiratory Pattern Blood Pressure 111/72 Blood Pressure Mean 85 Pulse Ox 94 Oxygen Delivery Method Oxygen Flow Rate (L/min) Positive well nourished, well developed and obese General Appearance ED: well developed and NAD Nutritional Appearance: obese HEENT Reports moist mucous membranes Neck supple and no JVD Resp normal respiratory effort Auscultation: rhonchi throughout Cardio regular rate and regular rhythm GI non-tender and non-distended Palpation: soft Extremity normal to inspection General Extremety ED: Negative for edema or tenderness General Extremity: Negative for edema Neuro oriented x3, CN's II-XII intact bilaterally and no sensory deficits noted [place] Coma Scale: document GCS findings Spontaneous Obeys Commands Oriented 15 Sensorium / Orientation: alert Speech: speech normal Motor Exam: strength 5/5 throughout Psych mental status grossly normal MDM MDM MDM Narrative Medical decision making narrative: Differential diagnosis includes pneumonia, viral infection, congestive heart failure, pulmonary embolism, pneumothorax, cardiac dysrhythmia, and cardiac ischemia. EKG will be obtained to assess for cardiac dysrhythmia and cardiac ischemia. Chest x-ray will be obtained to assess for pneumonia, congestive heart failure, and pneumothorax. CBC will be obtained to assess for leukocytosis and anemia. Basic metabolic profile will be obtained to assess for electrolyte abnormality and renal function. High-sensitivity troponin will be obtained to assess for cardiac ischemia. D-dimer will be obtained to assess for pulmonary embolism. BNP will be obtained to assess for congestive heart failure. Lab Data Attestation: I reviewed the patient's lab results. Lab results narrative: CBC was reviewed and was within normal limits. Basic metabolic profile was reviewed and was essentially within normal limits. BNP was reviewed and was elevated at 327. D-dimer was reviewed and was elevated at 3.59. High-sensitivity troponin was reviewed and was normal at 14. Labs: Laboratory Results - last 24 hr 09/07/23 09:28 WBC 10.8 RBC 4.97 Hgb 13.2 Hct 41.3 MCV 83.1 MCH 26.6 L MCHC 32.0 RDW Std Deviation 45.4 H RDW Coeff of Aron 15.0 H Plt Count 176 MPV 10.5 Immature Gran % (Auto) 0.800 Neut % (Auto) 84.6 H Lymph % (Auto) 6.6 L [place] % (Auto) 7.5 Eos % (Auto) 0.0 Baso % (Auto) 0.5 Absolute Neuts (auto) 9.1 H Absolute Lymphs (auto) 0.71 L Nucleated RBC % 0 D-Dimer Quant (PE/DVT) 3.59 H* Sodium 140 Potassium 3.8 Chloride 109 H Carbon Dioxide 27.0 Anion Gap 4 L BUN 24 H Creatinine 1.22 Estim Creat Clear Calc 58.32 Est GFR (MDRD) Af Amer 74 Est GFR (MDRD) Non-Af 61 BUN/Creatinine Ratio 19.7 Glucose 142 H Calcium 9.3 Troponin I High Sens 14 B-Natriuretic Peptide 327.0 H Radiography Chest X-Ray - ED: 2 View, Read by ED Physician and Read by Radiologist Diagnostic Testing: Clinical Impression(s) from Imaging Studies Chest CTA 09/07/23 10:02 IMPRESSION: Intraluminal filling defects in the right interlobar artery and proximal branches of the right upper lobe pulmonary artery in keeping with pulmonary embolism. Patchy bibasilar infiltrates. Electronically Signed: Papo Plasencia MD at 10:47 EST , Because of the elevated D-dimer, CTA of the chest was obtained. There is intraluminal filling defects in the right interlobar artery and proximal branches of the right upper lobe pulmonary artery. There are patchy bibasilar infiltrates. EKG Initial EKG: Attestation: I personally reviewed and interpreted this EKG as follows: Interpretation: Sinus Rhythm (With occasional PVCs with a rate of 74) and No Acute Injury Pattern Comments: EKG was obtained. On my independent interpretation, it showed a normal sinus rhythm with occasional PVCs with a rate of 74. HI interval, QRS interval, and QTc intervals were all normal. [place] was normal. There are no acute ST or T wave changes. Prior EKG tracings: available for review Prior: Unchanged (02/06/2022) Management Discussion w/another healthcare provider: Hospitalist Treatment and Re-Evaluation :: Patient was given a DuoNeb aerosol. Patient was given a dose of Lovenox here. Patient's pulse oximeter was 90% on 2 L nasal cannula while resting in bed. Because of this, I recommended admission to the hospital. Patient is agreeable with this. Case will be discussed with the hospitalist for admission. He will admit the patient to PCU for observation. Patient understood and was agreeable with the plan. All questions were answered. Discharge Plan Dx/Rx/DC Orders Clinical Impression: Pulmonary embolism, COVID-19, RSV bronchitis, Influenza, Hypoxia Disposition Disposition: Acute Care Hospital [facility]
[2023-09-07] MEDS: Ipratropium/Albuterol Sulfate 3 ML AMPUL.NEB INHALATION ×4 (09:30→23:02)
--- NOTE | 2023-09-07 09:31 | ED.RN ---
NO OLD EKG
[2023-09-07 09:43] LABS: Absolute Lymphocyte Count 0.71 X10^3/uL (0.83-4.51); Absolute Neutrophil Count 9.1 X10^3/uL (2.0-7.7); Basophil# 0.05 X10^3/uL; Basophil% 0.5 % (0-1); Hematocrit 41.3 % (40-54); Hemoglobin 13.2 g/dL (13.0-16.5); Lymphocyte # 0.71 X10^3/ul (0.83-4.51); Lymphocyte % 6.6 % (19-41); Mean Corpuscular Hgb 26.6 pg (27.0-32.0); Mean Corpuscular Volume 83.1 fL (80-94); Mean Platelet Vol. 10.5 fl (6.2-12.0); Monocyte# 0.81 X10^3/uL; Monocyte% 7.5 % (0-10); NRBC Flagged by Analyzer 0 % (0-5); Neutrophil # 9.12 X10^3/uL (2.7-7.7); Neutrophil % 84.6 % (47-70); Platelet Count 176 K/mm3 (150-450); RBC Distribution Width SD 45.4 fl (35.1-43.9); Red Blood Count 4.97 M/mm3 (4.6-6.2); White Blood Count 10.8 K/mm3 (4.4-11.0)
[2023-09-07 09:52] LABS: D-Dimer Quantitative (DVT/PE) 3.59 FEU/ug/m (0.27-0.49)
[2023-09-07 09:58] LABS: Anion Gap 4 (5-15); BUN 24 mg/dL (7-18); BUN/Creat Ratio 19.7 RATIO (10-20); Calcium,Total 9.3 mg/dL (8.5-10.1); Chloride 109 mmol/L (98-107); Creatinine, Serum 1.22 mg/dL (0.70-1.30); EST Glomerular Filtration Rate 61 mL/min (>60); Est Glom Filt Rate - Afr Amer 74 mL/min (>60); Estimated Creatinine Clearance 58.32 ml/min; Glucose 142 mg/dL (74-106); Potassium 3.8 mmol/L (3.5-5.1); Sodium Level 140 mmol/L (136-145); Troponin-I HS 14 pg/mL (3.0-78.0)
--- NOTE | 2023-09-07 10:02 | CT_ITS ---
STUDY: CTA CHEST REASON FOR EXAM: Male, 78 years old. Elevated D-dimer RADIATION DOSAGE (If Supplied By Facility): CTDIvol = ( 14.26 ) mGy, DLP = ( 513.97 ) mGycm TECHNIQUE: The examination was performed with the intravenous administration of IV 100mL [id number]-370. Post-processing of the angiographic images was performed, with multiplanar reformation and 3D reconstruction. Individualized dose optimization techniques were used for this CT. COMPARISON: None. FINDINGS: Intraluminal filling defects are seen in the right interlobar pulmonary artery and proximal branches to the right upper lobe pulmonary artery. Normal thoracic aorta and visualized great vessels. There is no demonstrated aortic dissection. There are calcifications of the coronary arteries. Sternal cerclage wires and vascular clips are present from a prior sternotomy and coronary artery bypass graft procedure (CABG). Normal mediastinum. Normal hilar regions. Normal visualized trachea and bronchi. The lungs are well expanded. Patchy bibasilar pulmonary infiltrates. Normal pleura. Normal chest wall structures. There are degenerative changes of thoracic spine. 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 There is a 3.3 cm x 4.9 cm cyst in the anterior upper pole of the left kidney. Small gallstones. CT/CTA Chest W/WO Contrast IMPRESSION: Intraluminal filling defects in the right interlobar artery and proximal branches of the right upper lobe pulmonary artery in keeping with pulmonary embolism. Patchy bibasilar infiltrates. Electronically Signed: Papo Plasencia MD at 10:47 EST ,
[2023-09-07] MEDS: Enoxaparin 100 MG/ML Syringe SC ×2 (11:38→22:34)
--- NOTE | 2023-09-07 11:38 | PCM.HP.STD ---
HPI - General General Date of Admission: 09/07/23 Date of Service: 09/07/23 Chief Complaint: Shortness of breath, cough, low-grade fever for about 1 week HPI Narrative JOSSELINE DAVIS, is a 78 M who has been feeling sick with low-grade fever cough shortness of breath started with exertion about about 1 week on past Sunday therefore he went to see PCP on Sunday morning and was tested positive for COVID, influenza and RSV exact labs not available to review. Patient was given prescriptions of Zithromax, prednisone, Tamiflu, Tessalon Perles. Yesterday he did not feel good with increased shortness of breath/dyspnea at rest, cough and fever about 101 Fahrenheit therefore came to ED. Patient also feels that he feels something coming out from his lung but not able to expectorate completely. In ED, patient was found hypoxic and tachypneic requiring 4 L of oxygen therefore CT angiogram was done which shows intraluminal filling defect in right interlobar artery and proximal branches of right upper lobe pulmonary artery consistent with pulmonary embolism. Patient is started on Lovenox and further admitted. [facility] Medical History (Updated 09/07/23 @ 13:[address] Obie Noyola MD) 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 angina pectoris Atherosclerotic heart disease of [place] coronary artery without angina pectoris Essential hypertension GERD (gastroesophageal reflux disease) History of prostate cancer HTN (hypertension) Palpitations Premature atrial contractions Premature ventricular contraction Pure hypercholesterolemia Home Medications aspirin 81 mg tablet,delayed release 81 mg PO QDAY 07/16/17 [History Last Taken 09/06/23] tamsulosin 0.4 mg capsule 0.4 mg PO BID 07/16/17 [History Last Taken 09/07/23] saw palmetto 1,000 mg capsule 1,000 mg PO QDAY 08/31/17 [History Last Taken 09/07/23] fluticasone furoate 100 mcg-vilanterol 25 mcg/dose inhalation powder (Breo Ellipta) 1 inh inhalation DAILY 07/14/19 [History Last Taken 09/06/23] dexlansoprazole 60 mg capsule,biphase delayed release 60 mg PO DAILY 10/06/20 [History Last Taken 09/06/23] turmeric 400 mg capsule 400 mg PO BID 10/06/20 [History Last Taken 09/07/23] vit [id number] 500 mg-50 mg-25 mg-40 mg tablet (Bioflex) 1 tab PO BID 10/06/20 [History Last Taken 09/07/23] B-complex with vitamin C 1 tab PO DAILY 01/18/22 [History Last Taken 09/06/23] ascorbate calcium (vitamin C) 500 mg tablet 500 mg PO DAILY 07/17/22 [History Last Taken 09/06/23] amlodipine 10 mg tablet 10 mg PO QDAY #90 tabs 05/14/23 [Rx Last Taken 09/07/23] calcium acetate 667 mg tablet 667 mg PO BID 05/14/23 [History Last Taken 09/06/23] fluticasone propionate 50 mcg/actuation nasal spray,suspension (Flonase Allergy Relief) 2 spray intranasal DAILY 05/14/23 [History Last Taken 09/06/23] hydrochlorothiazide 25 mg tablet 25 mg PO QDAY #90 tabs 05/14/23 [Rx Last Taken 09/07/23] lisinopril 40 mg tablet 40 mg PO QDAY #90 tabs 05/14/23 [Rx Last Taken 09/07/23] metoprolol tartrate 50 mg tablet 50 mg PO BID #180 tabs 05/14/23 [Rx Last Taken 09/07/23] pravastatin 40 mg tablet 40 mg PO QHS #90 tabs 05/14/23 [Rx Last Taken 09/06/23] albuterol sulfate 90 mcg/actuation aerosol inhaler 2 puff inhalation Q6H PRN shortness of breath or wheezing 09/07/23 [History Last Taken 09/06/23] azithromycin 250 mg tablet 250 mg PO DAILY 09/07/23 [History Last Taken 09/07/23] benzonatate 100 mg capsule 200 mg PO TID 09/07/23 [History Last Taken 09/07/23] cranberry fruit concentrate 250 mg chewable tablet (Azo Cranberry) 500 mg PO BID 09/07/23 [History Last Taken 09/07/23] levothyroxine 75 mcg tablet 75 mcg PO DAILY 09/07/23 [History Last Taken 09/07/23] multivitamin-ferrous fumarate-folic acid 18 mg-400 mcg tablet (Centrum) 1 tab PO DAILY 09/07/23 [History Last Taken 09/07/23] oseltamivir 75 mg capsule 75 mg PO BID 09/07/23 [History Last Taken 09/07/23] prednisone 20 mg tablet 40 mg PO DAILY 09/07/23 [History Last Taken 09/07/23] Allergy/AdvReac Type Severity Reaction Status Date / Time simvastatin [From Zocor] Allergy Hives Verified 09/06/23 01:23 Sulfa (Sulfonamide Allergy Hives Verified 09/06/23 01:23 Antibiotics) Family History Mother , age 72 CAD (coronary artery disease) Myocardial infarction Father , age 69 COPD (chronic obstructive pulmonary disease) Hypertension Grandfather , age 76 Myocardial infarction Surgical History H/O coronary artery bypass surgery (~11/22/10) History of left heart catheterization (LHC) History of lumbar fusion Social History household members: spouse Smoking Status: Never smoker alcohol intake: never substance use type: does not use caffeine: Yes Type: coffee Number of servings: 2 what type of physical activity do you participate in: walking and other details: rowing machine, pushups, situps and walking 2 miles a day. frequency: daily duration: 45-60 minutes/day seatbelt use: always do you feel safe at home: Yes ROS ROS Narrative Constitutional: Reports fatigue and weakness. Feels sick. Fever. HEENT: Reports systems reviewed and no addt'l complaints, except as documented Respiratory/Chest: Shortness of breath and wheezing and cough as described in HPI CVS: No chest pain pressure or anginal-like symptoms. Gastrointestinal: Denies coffee ground emesis, hematemesis or vomiting Genitourinary: Denies burning urination or new urinary tract symptoms Musculoskeletal: Denies acute joint pain or limited range of motion. No acute injury Neurologic: Denies seizure-like symptoms. skin: No ulcer. No rash Endocrinology: Reports systems reviewed and no addt'l complaints, except as documented Hematologic/Lymphatic: Reports systems reviewed and no addt'l complaints, except as documented Rest 14 ROS are negative except as mentioned in HPI Vital Signs Vital Signs Vital Signs: 09/07/23 08:59 09/07/23 09:01 09/07/23 09:32 Temperature 97.1 F L Temperature Source Temporal Pulse Rate 75 76 Respiratory Rate 30 H 16 Respiratory Effort Short of Breath Labored Respiratory Pattern Tachypnea Blood Pressure 161/90 H Blood Pressure Mean 113 Pulse Ox 93 Oxygen Delivery Method Nasal Cannula Nasal Cannula Oxygen Flow Rate (L/min) 2 2 09/07/23 11:32 Temperature Temperature Source Pulse Rate 69 Respiratory Rate 17 Respiratory Effort Respiratory Pattern Blood Pressure 111/72 Blood Pressure Mean 85 Pulse Ox 94 Oxygen Delivery Method Oxygen Flow Rate (L/min) Weight Weight: 214 lb 15.211 oz Body Mass Index (BMI) 32.6 Physical Exam Narrative General: Alert, Oriented x3, Cooperative. Looks fatigued BMI 32.7 kg/m? HEENT: Atraumatic, PERRLA, EOMI, Normocephalic Oral: Oral mucosa dry. No Gingival or Mucosal Lesions/ Ulcerations Neck: Supple, No JVD, Negative Carotid Bruits Chest wall/Lungs: Air entry diminished in bilateral lung bases. Bilateral coarse crepitations and wheezing. Mild tachypnea and hypoxia. Cardiovascular: Regular rate, Regular Rhythm, Normal S1, Normal S2, status post three-vessel CABG. Abdomen: Bowel Sounds Present, Soft, Non Tender, Non-Distended : No renal angle tenderness. No suprapubic tenderness. Extremities: No edema, Capillary Refill Less than 3 Seconds Skin: No rashes, No breakdown Musculoskeletal: No Tenderness to Palpation of Joints or Extremities Neurological: Cranial nerves II-XII grossly intact, DTR 2+/4. No acute focal neurological deficit. Psych/Mental Status: Flat affect. Results Lab / Micro Data 09/07/23 09:28 09/07/23 09:28 Labs: Laboratory Results - last 24 hr 09/07/23 09:28: WBC 10.8, RBC 4.97, Hgb 13.2, Hct 41.3, MCV 83.1, MCH 26.6 L, MCHC 32.0, RDW Std Deviation 45.4 H, RDW Coeff of Aron 15.0 H, Plt Count 176, MPV 10.5, Immature Gran % (Auto) 0.800, Neut % (Auto) 84.6 H, Lymph % (Auto) 6.6 L, [place] % (Auto) 7.5, Eos % (Auto) 0.0, Baso % (Auto) 0.5, Absolute Neuts (auto) 9.1 H, Absolute Lymphs (auto) 0.71 L, Nucleated RBC % 0, D-Dimer Quant (PE/DVT) 3.59 H*, Sodium 140, Potassium 3.8, Chloride 109 H, Carbon Dioxide 27.0, Anion Gap 4 L, BUN 24 H, Creatinine 1.22, Estim Creat Clear Calc 58.32, Est GFR (MDRD) Af Amer 74, Est GFR (MDRD) Non-Af 61, BUN/Creatinine Ratio 19.7, Glucose 142 H, Calcium 9.3, Troponin I High Sens 14, B-Natriuretic Peptide 327.0 H Imagaing Radiology Impression Chest CTA 09/07/23 10:02 IMPRESSION: Intraluminal filling defects in the right interlobar artery and proximal branches of the right upper lobe pulmonary artery in keeping with pulmonary embolism. Patchy bibasilar infiltrates. Electronically Signed: Papo Plasencia MD at 10:47 EST , Assessment & Plan Assessment/Plan (1) Pulmonary embolism: QUALIFIERS: Pulmonary embolism type: unspecified Chronicity: acute Acute cor pulmonale presence: without acute cor pulmonale Qualified Code(s): I26.99 - Other pulmonary embolism without acute cor pulmonale PLAN: Plan This is 78-year-old gentleman is being admitted for shortness of breath, wheezing, low-grade fever feeling sick, tachypnea and hypoxia for about 1 week. Was diagnosed COVID-19, influenza and RSV as an outpatient on 09/04/2023. 1. Acute right interlobar artery and proximal branches of right upper lobe pulmonary artery, lobar interlobar and segmental acute pulmonary embolism: Patient is being admitted in PCU. CT angiogram in February reviewed and agrees with pulmonary embolism and bilateral lower lobes infiltrate. Troponin normal but BNP elevated. Started on Lovenox 1 mg/kg body weight. 2D echo ordered. 2. Bilateral lower lobes pneumonia due to COVID-19, RSV and influenza A present before admission: As patient has fever with viral infection there is suspicion of superimposed secondary bacterial infection therefore started on IV ceftriaxone and continue azithromycin. Patient to continue Tamiflu, 3 dosages left. Enhanced droplet precaution about 10 days from symptom of onset that was 09/01/2023. Patient is started on IV dexamethasone. Liver chemistry along with inflammatory markers ordered. Patient to continue incentive spirometry, PEP and Mucinex DM and Tessalon Perles. 3. Coronary artery status post CABG three-vessel in 2011: No acute chest pain or pressure or tightness. Twelve-lead EKG done in ED shows normal sinus rhythm with occasional PVC. QTc 442 ms. QRS 88 ms. Continue home medications. Patient on baby aspirin, amlodipine, metoprolol and pravastatin. 4. Possible undiagnosed COPD: Patient home medication list Kwabena Guan, and recently started on prednisone 40 mg daily. Patient had remote history of occasional pipe smoking that he quit about 40 years ago during his young age. Patient denies history of COPD but will need to attend pulmonary clinic for formal PFT and sleep study. 5. Hypertension, dyslipidemia PVCs: As mentioned above. 6. BPH: On Flomax continued. 7. Obesity grade 1: BMI 32.7 kg/m?. Weight loss counseling done. DVT prophylaxis: Patient had PE as mentioned above and on anticoagulant treatment. Living will/advanced directive/end of life care: Patient does not have living will or advanced directive. He states his son is next of kin. Patient significant other present in ED. After discussion of benefits/risks procedures involved with full code, DNR CC arrest and DNR CC, the patient opted for full code. Patient does want artificial life support including intubation, tube feed, ventilator and/chest compression, central venous catheter, vasopressor and DC shock if needed Total time spent in [id number] encounter in discussion of advanced directive 17 minutes. Laboratory Results 09/07/23 09:28: WBC 10.8, RBC 4.97, Hgb 13.2, Hct 41.3, MCV 83.1, MCH 26.6 L, MCHC 32.0, RDW Std Deviation 45.4 H, RDW Coeff of Aron 15.0 H, Plt Count 176, MPV 10.5, Immature Gran % (Auto) 0.800, Neut % (Auto) 84.6 H, Lymph % (Auto) 6.6 L, [place] % (Auto) 7.5, Eos % (Auto) 0.0, Baso % (Auto) 0.5, Absolute Neuts (auto) 9.1 H, Absolute Lymphs (auto) 0.71 L, Nucleated RBC % 0, D-Dimer Quant (PE/DVT) 3.59 H* Sodium 140, Potassium 3.8, Chloride 109 H, Carbon Dioxide 27.0, Anion Gap 4 L, BUN 24 H, Creatinine 1.22, Estim Creat Clear Calc 58.32, Est GFR (MDRD) Af Amer 74, Est GFR (MDRD) Non-Af 61, BUN/Creatinine Ratio 19.7, Glucose 142 H, Calcium 9.3, Troponin I High Sens 14, B-Natriuretic Peptide 327.0 H Clinical Impression(s) from Imaging Studies Chest CTA 09/07/23 10:02 IMPRESSION: Intraluminal filling defects in the right interlobar artery and proximal branches of the right upper lobe pulmonary artery in keeping with pulmonary embolism. Patchy bibasilar infiltrates. Charges/Coding Visit Charges Inpatient E&M: 42203 Init Hosp L3 Procedures Hospitalists Procedures: 80300 Advncd Care Plan 30 Min
--- OUTSIDE RECORDS SUMMARY | 2023-09-07 12:23 | XMS RPT_ITS | CCD ---
Author Name Unknown Address [address] [place] [address] Organization [facility] Care Team Providers Care Needle Punch Operator Name Role Phone Andrade Nunez MD Primary Care Provider ANDRADE NUNEZ Primary Care Unavailable KAPIL WHARTON Referring Unavailable ANDRADE NUNEZ Primary Care Unavailable CAROLYN NOGUEIRA Referring Unavailable ANDRADE NUNEZ Primary Care Unavailable ANDRADE NUNEZ Primary Care Unavailable Allergies Allergy Classification Reported Allergen(s) Allergy Type Date of Onset Reaction(s) Facility (7 sources) Sulfonamides (Antibiotic); Translations: [SULFA (SULFONAMIDE ANTIBIOTICS)] Drug Allergy 11-18-2016 [facility] Medications Current Medications Medication Drug Class(es) [...] 08:42-0500 Body temperature 97.2 [degF] Carolyn Nogueira APRN.[facility] Work Phone: [facility] 07-07-2023 08:42-0500 Body weight 96.62 kg Carolyn Nogueira APRN.[facility] Work Phone: [facility] 07-07-2023 08:42-0500 Diastolic blood pressure 93 mm[Hg] Carolyn Huddleston-Fady LOBO.DOOR CLAMP OPERATOR Work Phone: [facility] 07-07-2023 08:42-0500 Heart rate 67 /min Carolyn Nogeuira APRN.DOOR CLAMP OPERATOR Work Phone: [facility] 07-07-2023 08:42-0500 Respiratory rate 20 /min Carolyn Nogueira APRN.[facility] Work Phone: [facility] 07-07-2023 08:42-0500 SaO2% (BldA) [Mass fraction] 97 % Carloyn Nogueira APRN.DOOR CLAMP OPERATOR Work Phone: [facility] 07-07-2023 08:42-0500 Systolic blood pressure 157 mm[Hg] Carolyn Nogueira APRN.DOOR CLAMP OPERATOR Work Phone: [facility] 07-30-2022 09:34-0500 Body temperature 99.61 [degF] Yun Romero SEARCH ENGINE MARKETING STRATEGIST.DOOR CLAMP OPERATOR Work Phone: [facility] 07-30-2022 09:34-0500 Body weight 95.25 kg Yun Romero SEARCH ENGINE MARKETING STRATEGIST.DOOR CLAMP OPERATOR Work Phone: [facility] 07-30-2022 09:34-0500 Diastolic blood pressure 78 mm[Hg] Yun Romero SEARCH ENGINE MARKETING STRATEGIST.DOOR CLAMP OPERATOR Work Phone: [facility] 07-30-2022 09:34-0500 Heart rate 78 /min Yun Romero SEARCH ENGINE MARKETING STRATEGIST.DOOR CLAMP OPERATOR Work Phone: [facility] 07-30-2022 09:34-0500 Respiratory rate 16 /min Yun Romero SEARCH ENGINE MARKETING STRATEGIST.DOOR CLAMP OPERATOR Work Phone: [facility] 07-30-2022 09:34-0500 SaO2% (BldA) [Mass fraction] 96 % Yun Romero SEARCH ENGINE MARKETING STRATEGIST.DOOR CLAMP OPERATOR Work Phone: [facility] 07-30-2022 09:34-0500 Systolic blood pressure 128 mm[Hg] Yun Romero SEARCH ENGINE MARKETING STRATEGIST.DOOR CLAMP OPERATOR Work Phone: [facility] 03-16-2022 08:13-0400 Body temperature 100 [degF] Bret Pendlebury SEARCH ENGINE MARKETING STRATEGIST.DOOR CLAMP OPERATOR Work Phone: [facility] 03-16-2022 08:13-0400 Body weight 95.53 kg Bret Pendlebury SEARCH ENGINE MARKETING STRATEGIST.DOOR CLAMP OPERATOR Work Phone: [facility] 03-16-2022 08:13-0400 Diastolic blood pressure 88 mm[Hg] Bret Pendlebury SEARCH ENGINE MARKETING STRATEGIST.DOOR CLAMP OPERATOR Work Phone: [facility] 03-16-2022 08:13-0400 Heart rate 71 /min Bret Pendlebury SEARCH ENGINE MARKETING STRATEGIST.DOOR CLAMP OPERATOR Work Phone: [facility] 03-16-2022 08:13-0400 Respiratory rate 16 /min Bret Pendlebury SEARCH ENGINE MARKETING STRATEGIST.DOOR CLAMP OPERATOR Work Phone: [facility] 03-16-2022 08:13-0400 SaO2% (BldA) [Mass fraction] 97 % Bret Melendez SEARCH ENGINE MARKETING STRATEGIST.DOOR CLAMP OPERATOR Work Phone: [facility] 03-16-2022 08:13-0400 Systolic blood pressure 138 mm[Hg] Bret Melendez SEARCH ENGINE MARKETING STRATEGIST.DOOR CLAMP OPERATOR Work Phone: [facility] 01-23-2022 07:36-0400 Body temperature 97.2 [degF] Paty Bogner PA-C Work Phone: [facility] 01-23-2022 07:36-0400 Body weight 96.62 kg Paty Bogner PA-C Work Phone: [facility] 01-23-2022 07:36-0400 Diastolic blood pressure 86 mm[Hg] Paty Bogner PA-C Work Phone: [facility] 01-23-2022 07:36-0400 Heart rate 55 /min Paty Bogner PA-C Work Phone: [facility] 01-23-2022 07:36-0400 Respiratory rate 21 /min Paty Bogner PA-C Work Phone: [facility] 01-23-2022 07:36-0400 SaO2% (BldA) [Mass fraction] 95 % Paty Bogner PA-C Work Phone: [facility] 01-23-2022 07:36-0400 Systolic blood pressure 162 mm[Hg] Paty Bogner PA-C Work Phone: [facility] Encounters Encounter Date Encounter Type Care Provider Facility Start: 09-03-2023 End: 09-03-2023 ambulatory ANDRADE NUNEZ Facility:[facility] Start: 07-07-2023 End: 07-07-2023 ambulatory ANDRADE NUNEZ Facility:[facility] Start: 07-07-2023 End: 07-07-2023 Patient encounter procedure Carolyn Nogueira APRN.DOOR CLAMP OPERATOR Work Phone: [facility] Plan of Treatment Date Care Activity Detail Author Start: 08-13-2022 Advance Directive Discussion Advance Directive Discussion [facility] Start: 08-13-2022 Depression Assessment Depression Assessment [facility] Start: 07-30-2022 End: 08-13-2022 Influenza virus A and B RNA and SARS-CoV-2 (COVID-19) N gene panel - Respiratory specimen by SEAN with probe detection COVID WITH FLUA+B, ROUTINE Microbiology Routine URI, acute Expected: 07/30/2022, Expires: 08/13/2022 [facility] Work Phone: Immunizations Immunization Date Immunization Notes Care Provider Fa cili 01-23-2022 tetanus and diphther ia toxoids, adsorbed, preservative free, for adult use (5 Lf of tetanus toxoid and 2 Lf of diphtheria toxoid) Paty Ritchie PA-C Work Phone: [facility] Work Phone: 01-23-2022 TD(adult) unspecifie d formulation Paty Ritchie PA-C Work Phone: [facility] Work Phone: Payers Date Payer Category Payer Medicare [id number] 2015 Private Health Insurance HUMANA HUMANA MEDICARE SUPPLEMENT [id number] 2015-Present [phone] [address] [address] [place] [address] Indemnity [id number] 2015 Private Health Insurance HUMANA HUMANA MEDICARE SUPPLEMENT [id number] 2015-Present [phone] [address] [address] [place] [address] Indemnity [id number] 2012 Medicare MEDICARE MEDICAR E A AND B [id number] 2012-Present [phone] [place] [address] Medicare [id number] 2012 Medicare MEDICARE MEDICAR E A AND B [id number] 2012-Present [phone] [place] [address] Medicare [id number] 2012 Medicare [id number] Social History Date Type Detail Facility Start: 11-18-2016 End: 07-30-2022 Tobacco smoking status NHIS Never smoked tobacco [facility] Start: 11-18-2016 End: 07-30-2022 Tobacco use and exposure Smokeless tobacco non-user [facility] Start: 01-23-2022 End: 07-07-2023 Alcohol intake Current non-drinker of alcohol (finding) [facility] Start: 1945 Sex Assigned At Not on file [facility] Start: 01-13-2022 End: 01-23-2022 Exposure to SARS-CoV-2 (event) Not sure [facility] Work Phone: Start: 03-06-2022 End: 03-16-2022 Exposure to SARS-CoV-2 (event) Yes [facility] Work Phone: Start: 07-21-2020 End: 07-07-2023 History of Social function [facility] Start: 07-21-2020 End: 07-07-2023 Tobacco use panel [facility] National Score (1-100), lower number is lower risk Not on file [facility] Clinical Notes 01-23-2022 to 09-03-2023 Patient InstructionsPraisler-Carolyn Shrestha APRN.DOOR CLAMP OPERATOR - 07/07/2023 9:10 AM ESTTelephone Encounter - Meredith Lopes - 07/31/2022 7:44 AM Cely Romero APRN.DOOR CLAMP OPERATOR - 07/30/2022 9:45 AM EST Note Date & Type Note Facility 09-03-2023 Note HNO ID: [id number] Author: KAPIL WHARTON PA-C Service: ? Author Type: Physician Head Start Director Type: Progress Notes Filed: 09/03/2023 08:43 Note Text: This note was created using farmaciamarketriter. Subjective Josseline Davis is a 78 year old male. HPI Presents with a chief complaint of a barky cough over the past 2 or 3 days. He denies a fever. States he has felt short of breath at night. He states he does see pulmonology through [facility] and is prescribed Breo. He has [...] (FLONASE) 50 mcg/actuation nasal spray Use 1 Fults in each nostril twice daily. Rinse mouth [...] AND RSV NAAT, ROUTINE Kapil Wharton PA-C [facility] 09-03-2023 Note HNO ID: [id number] Author: CRISTOBAL MEHTA RT(R) Service: Radiology Author [...] RT Newton(R) September 03, 2023 8:16 AM [facility] 07-07-2023 Note HNO ID: [id number] Author: Carolyn Nogueira APRN.DOOR CLAMP OPERATOR Service: ? Author Type: Nurse Practitioner Type: [...] (FLONASE) 50 mcg/actuation nasal spray Use 1 Fults in each nostril twice daily. Rinse mouth [...] visualized spine. IMPRESSION: No acute radiographic abnormality. Community Coordinator For [employer]: [employer] Transcribe Date/Time: Jul 07 2023 9:20A [...] expected course of illness Carolyn Nogueira APRN.MICKEY [facility] 07-07-2023 Note HNO ID: [id number] Author: Jacinto Linn RT(R) Service: ? Author [...] RT Marty(R) July 07, 2023 9:08 AM [facility] 07-07-2023 Instructions Carolyn Nogueira APRN.DOOR CLAMP OPERATOR - 07/07/2023 9:30 AM EST ASSESSMENT/PLAN: 1. [...] visualized spine. IMPRESSION: No acute radiographic abnormality. Community Coordinator [employer]: [employer] Transcribe Date/Time: Jul 07 2023 9:20A [...] Discussed expected course of illness Carolyn Nogueira APRN.DOOR CLAMP OPERATOR documented in this encounter [facility] 07-07-2023 History of Presen t illness Narrative [...] (FLONASE) 50 mcg/actuation nasal spray Use 1 Fults in each nostril twice daily. Rinse mouth [...] visualized spine. IMPRESSION: No acute radiographic abnormality. Community Coordinator [employer]: [employer] Transcribe Date/Time: Jul 07 2023 9:20A [...] Discussed expected course of illness Carolyn Nogueira APRN.DOOR CLAMP OPERATOR documented in this encounter [facility] 07-31-2022 Miscellaneous Notes Patient given results and verbalized understanding of instructions given. Meredith Lopes Please let patient know that he was negative for COVID and influenza. Continue supportive care. Follow up if symptoms are not improving, sooner if any worsening symptoms. Paty Ritchie PA-C 07/31/2022 documented in this encounter [facility] 07-30-2022 History of Presen t illness Narrative This note was created using farmaciamarketriter. Subjective Josseline Davis is a 77 year [...] history is provided by the patient. No languages and literature instructor was used. Cough This is a new [...] (FLONASE) 50 mcg/actuation nasal spray Use 1 Fults in each nostril twice daily. Rinse mouth [...] exam Will cover with Doxycyline Yun Romero APRN.DOOR CLAMP OPERATOR documented in this encounter [facility] 03-17-2022 Miscellaneous Notes Patient returned call and given provider's message below and patient verbalized understanding. Yoko Mosqueda RN This CHECKING CLERK called patient at [phone].. Message left after 3 attempts to call [...] Loyda Lawson CNP documented in this encounter [facility] 03-16-2022 Instructions Bret Melendez APRN.MICKEY - 03/16/2022 [...] concerning to you. documented in this encounter [facility] 03-16-2022 History of Presen t illness Narrative [...] (FLONASE) 50 mcg/actuation nasal spray Use 1 Fults in each nostril twice daily. Rinse mouth [...] of care. This note was generated using ResolutionTube software. It may contain errors in wording, punctuation, or spelling. Bret Melendez APRN.MICKEY documented in this encounter [facility] 01-23-2022 History of Presen t illness Narrative [...] (FLONASE) 50 mcg/actuation nasal spray Use 1 Fults in each nostril twice daily. Rinse mouth [...] the date of the service which included [id number] patient care, completing clinical documentation, performing a medically appropriate examination and counseling and educating the patient/family/caregiver. Paty Ritchie PA-C documented in this encounter [facility] Suspected COVID-19 virus infection- Primary [facility] Diagnosis URI, acute- Primary Acute upper respiratory infections of unspecified site Abnormal lung sounds Abnormal chest sounds [facility] Acute cough- Primary Lower resp. tract infection Other diseases of respiratory system, not elsewhere classified documented in this encounter [facility] Summary Purpose Family History No Family History Records FoundNo Family History Records Found Advance Directives No Advanced Directives Records FoundDocuments on File Type Date Recorded Patient Information Resources Director Expl anation Advance Directive(s) 09/14/2017 2:00 PM [...] DATE CREATED AUTHOR AUTHOR'S ORGANIZ ATION 09/04/2023 [facility] Source Comments (unrecognize d section and content) In the event this informatio n is protected by the Federal Confidentiality of Alcohol and Drug Abuse Patient Records regulations: The Federal rules restrict any use of the information to criminally investigate or prosecute any alcohol or drug abuse patient.[facility] the event this information is protected by the Federal Confidentiality of Alcohol and Drug Abuse Patient Records regulations: The Federal rules restrict any use of the information to criminally investigate or prosecute any alcohol or drug abuse patient.[facility] the event this information is protected by the Federal Confidentiality of Alcohol and Drug Abuse Patient Records regulations: The Federal rules restrict any use of the information to criminally investigate or prosecute any alcohol or drug abuse patient.[facility] the event this information is protected by the Federal Confidentiality of Alcohol and Drug Abuse Patient Records regulations: The Federal rules restrict any use of the information to criminally investigate or prosecute any alcohol or drug abuse patient.[facility] the event this information is protected by the Federal Confidentiality of Alcohol and Drug Abuse Patient Records regulations: The Federal rules restrict any use of the information to criminally investigate or prosecute any alcohol or drug abuse patient.[facility] the event this information is protected by the Federal Confidentiality of Alcohol and Drug Abuse Patient Records regulations: The Federal rules restrict any use of the information to criminally investigate or prosecute any alcohol or drug abuse patient.[facility] Reason for Visit (unrecogniz ed section and content) Reason Comments Sore Throat pain rated 5, x1 day , chest congestion, cough. Reason Comments Results Reason Comments Head Congestion cough, sneezing x 3- 4 days Reason Comments Chest Congestion X 3 days Care Teams (unrecognized sec tion and content) Needle Punch Operator Relationship Specialty Start Date End Date Andrade Nunez MD PCP - General Family Practice 11/18/16 Needle Punch Operator Relationship Specialty Start Date End Date Andrade Nunez MD PCP - General Family Medicine 11/18/16 Needle Punch Operator Relationship Specialty Start Date End Date Andrade Nunez MD PCP - General Family Medicine 11/18/16 Needle Punch Operator Relationship Specialty Start Date End Date Andrade [...] BE BASED ON THE PRIMARY CLINICAL RECORDS. [facility] [employer] [facility]. provides no warranty or guarantee of the accuracy or completeness of information in this document.
[2023-09-07 14:43] LABS: International Normalized Ratio 1.1; Prothrombin Time (Protime)PT. 14.4 SECONDS (11.7-14.9)
[2023-09-07] MEDS: 0.9% Saline Lock 10 ML Syringe IV (14:43)
[2023-09-07] MEDS: Azithromycin 250 MG Tablet PO (14:43)
[2023-09-07] MEDS: dexAMETHasone 10 MG/ML Vial 6 MG IV (14:43)
[2023-09-07] MEDS: Remdesivir 200 MG in 0.9% Normal Saline (250mL Bag) 210 ML 250 MG IV (14:45)
[2023-09-07] MEDS: KCL 20MEQ in 0.45%NS 20 MEQ/1,000 ML IV.SOLN. 100 MEQ IV (14:45)
[2023-09-07 14:53] LABS: AST(SGOT) 15 U/L (15-37); Alanine Aminotransfer ALT/SGPT 20 U/L (16-61); Albumin, Serum 3.3 g/dL (3.2-5.0); Alkaline Phosphatase 63 U/L (45-117); Bilirubin, Direct 0.21 mg/dL (0.00-0.30); CPK Total, Creatine Kinase 65 U/L (39-308); Globulin 3.6 g/dL (2.2-4.2); LDH 179 U/L (87-241); Magnesium 2.3 mg/dL (1.6-2.6); Protein, Total 6.9 g/dL (6.4-8.2)
[2023-09-07 14:59] LABS: Fibrinogen 515 mg/dl (203-444)
[2023-09-07 15:04] LABS: BNP,B-Type NATRIURETIC PEPTIDE 267.1 pg/mL (0-100)
[2023-09-07 15:12] LABS: Lactic Acid 1.2 mmol/L (0.4-1.9)
[2023-09-07 15:13] LABS: Procalcitonin 0.05 ng/mL (0.00-0.09)
[2023-09-07] MEDS: guaiFENesin/D-Methorphan TAB.SR.12H 2 TABLET PO ×2 (15:47→22:34)
[2023-09-07] MEDS: Benzonatate 100 MG Capsule 200 MG PO ×2 (15:47→22:34)
[2023-09-07] MEDS: Ceftriaxone 2 GM in 0.9% Normal Saline (50mL MB+) 50 ML IV (15:47)
[2023-09-07] MEDS: Tamsulosin HCl 0.4 MG Capsule 0.400000000000000022 MG PO (18:12)
[2023-09-07] MEDS: Pantoprazole Sodium 40 MG Tablet PO (22:33)
[2023-09-07] MEDS: Metoprolol Tartrate 50 MG Tablet PO (22:34)
[2023-09-07] MEDS: Oseltamivir Phosphate 75 MG Capsule PO (22:34)
[2023-09-07] MEDS: Pravastatin 40 MG Tablet PO (22:34)
[2023-09-07] MEDS: Acetaminophen 325 MG Tablet 650 MG PO (22:36)
[2023-09-08] VITALS (14 sets, daily range): BP systolic 114–134; BP diastolic 70–86; PULSE 64–77; RESP 16–20; TEMP 36.4–36.6; O2SAT 93–98; BMI 31.3
[2023-09-08] MEDS: Ipratropium/Albuterol Sulfate 3 ML AMPUL.NEB INHALATION ×6 (03:11→23:54)
[2023-09-08] MEDS: Benzonatate 100 MG Capsule 200 MG PO ×3 (05:19→20:26)
[2023-09-08] MEDS: Levothyroxine 75 MCG Tablet PO (05:19)
[2023-09-08] MEDS: Enoxaparin 100 MG/ML Syringe SC ×2 (05:19→18:07)
[2023-09-08] MEDS: Budesonide Respules 0.5 MG/2 ML AMPUL.NEB. INHALATION ×2 (07:09→19:36)
[2023-09-08 09:15] LABS: Absolute Lymphocyte Count 1.06 X10^3/uL (0.83-4.51); Absolute Neutrophil Count 8.3 X10^3/uL (2.0-7.7); Basophil# 0.03 X10^3/uL; Basophil% 0.3 % (0-1); Hematocrit 41.3 % (40-54); Hemoglobin 13.2 g/dL (13.0-16.5); Lymphocyte # 1.06 X10^3/ul (0.83-4.51); Lymphocyte % 10.6 % (19-41); Mean Corpuscular Hgb 26.6 pg (27.0-32.0); Mean Corpuscular Volume 83.1 fL (80-94); Mean Platelet Vol. 10.6 fl (6.2-12.0); Monocyte# 0.56 X10^3/uL; Monocyte% 5.6 % (0-10); NRBC Flagged by Analyzer 0 % (0-5); Neutrophil # 8.26 X10^3/uL (2.7-7.7); Neutrophil % 82.2 % (47-70); Platelet Count 189 K/mm3 (150-450); RBC Distribution Width CV 14.8 % (11.6-14.6); RBC Distribution Width SD 44.9 fl (35.1-43.9); Red Blood Count 4.97 M/mm3 (4.6-6.2)
[2023-09-08 09:42] LABS: Anion Gap 6 (5-15); BUN 23 mg/dL (7-18); BUN/Creat Ratio 22.3 RATIO (10-20); Calcium,Total 9.2 mg/dL (8.5-10.1); Chloride 108 mmol/L (98-107); Creatinine, Serum 1.03 mg/dL (0.70-1.30); EST Glomerular Filtration Rate 75 mL/min (>60); Est Glom Filt Rate - Afr Amer 90 mL/min (>60); Estimated Creatinine Clearance 67.69 ml/min; Glucose 141 mg/dL (74-106); Potassium 3.4 mmol/L (3.5-5.1); Sodium Level 139 mmol/L (136-145)
[2023-09-08 09:47] LABS: AST(SGOT) 14 U/L (15-37)
[2023-09-08] MEDS: Tamsulosin HCl 0.4 MG Capsule 0.400000000000000022 MG PO ×2 (10:00→18:07)
[2023-09-08] MEDS: Pantoprazole Sodium 40 MG Tablet PO (10:00)
[2023-09-08] MEDS: Aspirin E.C. 81 MG Tablet PO (10:49)
[2023-09-08] MEDS: Ascorbic Acid 500 MG Tablet PO (10:49)
[2023-09-08] MEDS: Metoprolol Tartrate 50 MG Tablet PO ×2 (10:50→20:27)
[2023-09-08] MEDS: amLODIPine 10 MG Tablet PO (10:50)
[2023-09-08] MEDS: guaiFENesin/D-Methorphan TAB.SR.12H 2 TABLET PO ×2 (10:50→20:26)
[2023-09-08] MEDS: Multivitamins,Ther W-Minerals Tablet 1 TABLET PO (10:51)
[2023-09-08] MEDS: Azithromycin 250 MG Tablet 500 MG PO (10:51)
[2023-09-08] MEDS: Oseltamivir Phosphate 75 MG Capsule PO (10:51)
[2023-09-08] MEDS: Fluticasone 0.05% 1 SPRAY NASAL.SRY 2 SPRAY NASAL (11:14)
[2023-09-08] MEDS: Ceftriaxone 2 GM in 0.9% Normal Saline (50mL MB+) 50 ML IV (11:19)
[2023-09-08] MEDS: dexAMETHasone 10 MG/ML Vial 6 MG IV (11:19)
--- NOTE | 2023-09-08 12:50 | CASEMGMT ---
RN?CM?FLYING I INSTRUCTOR?CM?to room to meet with patient for initial transition planning/care coordination?assessment.?RN?CM?introduced self and role at [facility].? Pt voices understanding and consents to?assessment?at this time.? Pt resting in bed in no distress at this time.? Pt is A/O at this time and answers all questions appropriately.?? Care providers, pharmacy, and demographics verified/updated at this time. PCP: Dr Lester. Pt was in to see him on Sun and was sent to ED from the office via [employer]. Specialists: [facility]/Cardiology, Dr Darby-urology, Dr Rojas-pulmonology, GI in [facility], Dr Stovall-Ortho Preferred Pharmacy: [facility] Insurance: Jace FLOYD Prescription Benefit:?yes Living Will/HPOA:?Has done LW and HPCOA, who is his son, Jamaal. LNOK: sons, Jamaal and Suraj. Sig other, Yovana Ruby Living Arrangements: Lives w/Sobeidaa in one-story home w/23 steps to enter. Independent w/ADL's and manages his own medications. and pt share home mgnt tasks. Transportation:?Pt states drives self and states no transportation concerns at this time.?Yovana will take him home @ discharge. DME: ? Denies using any DME. No home O2. Pt aware he may need o2 @ discharge and discussed home O2 set up process and questions answered. He states to use [employer] for DME co, if he does qualify for O2. He does not have a pulse ox and he was encouraged to purchase one. HHC/SNF: No hx of either and denies needs. No needs identified. Pt wishes to return home and states has no concerns with going home at time of discharge.? Pt states does not smoke or drink ETOH. ?CM?to follow for home oxygen needs and any further discharge planning/needs.? Pt voices no further concerns/needs at this time.? Advised pt to ask for?CM?if any further questions/concerns/needs arise.? Voices understanding. PLAN:?? Ana BSN?RN?CM
--- OUTSIDE RECORDS SUMMARY | 2023-09-08 14:14 | XMS RPT_ITS | CCD ---
Author Name Unknown Address [address] [place] [address] Organization [facility] Care Team Providers Care Child Advocate Name Role Phone Andrade Nunez MD Primary Care Provider ANDRADE NUNEZ Primary Care Unavailable KAPIL WHARTON Referring Unavailable ANDRADE NUNEZ Primary Care Unavailable CAROLYN NOGUEIRA Referring Unavailable ANDRADE NUNEZ Primary Care Unavailable ANDRADE NUNEZ Primary Care Unavailable Allergies Allergy Classification Reported Allergen(s) Allergy Type Date of Onset Reaction(s) Facility (7 sources) Sulfonamides (Antibiotic); Translations: [SULFA (SULFONAMIDE ANTIBIOTICS)] Drug Allergy 11-18-2016 [facility] Medications Current Medications Medication Drug Class(es) Dates [...] 08:42-0500 Body temperature 97.2 [degF] Carolyn Nogueira APRN.[facility] Work Phone: [facility] 07-07-2023 08:42-0500 Body weight 96.62 kg Carolyn Nogueira APRN.[facility] Work Phone: [facility] 07-07-2023 08:42-0500 Diastolic blood pressure 93 mm[Hg] Carolyn Huddleston-Fady LOBO.[employer] Work Phone: [facility] 07-07-2023 08:42-0500 Heart rate 67 /min Carolyn Nogueira APRN.[employer] Work Phone: [facility] 07-07-2023 08:42-0500 Respiratory rate 20 /min Carolyn Nogueira APRN.[facility] Work Phone: [facility] 07-07-2023 08:42-0500 SaO2% (BldA) [Mass fraction] 97 % Carolyn Nogueira APRN.[employer] Work Phone: [facility] 07-07-2023 08:42-0500 Systolic blood pressure 157 mm[Hg] Carolyn Nogueira APRN.[employer] Work Phone: [facility] 07-30-2022 09:34-0500 Body temperature 99.61 [degF] Yun Romero PUMPER HEAD.[employer] Work Phone: [facility] 07-30-2022 09:34-0500 Body weight 95.25 kg Yun Romero PUMPER HEAD.[employer] Work Phone: [facility] 07-30-2022 09:34-0500 Diastolic blood pressure 78 mm[Hg] Yun Romero PUMPER HEAD.[employer] Work Phone: [facility] 07-30-2022 09:34-0500 Heart rate 78 /min Yun Romero PUMPER HEAD.[employer] Work Phone: [facility] 07-30-2022 09:34-0500 Respiratory rate 16 /min Yun Romero PUMPER HEAD.[employer] Work Phone: [facility] 07-30-2022 09:34-0500 SaO2% (BldA) [Mass fraction] 96 % Yun Romero PUMPER HEAD.[employer] Work Phone: [facility] 07-30-2022 09:34-0500 Systolic blood pressure 128 mm[Hg] Yun Romreo PUMPER HEAD.[employer] Work Phone: [facility] 03-16-2022 08:13-0400 Body temperature 100 [degF] Bret Pendlebury PUMPER HEAD.[employer] Work Phone: [facility] 03-16-2022 08:13-0400 Body weight 95.53 kg Bret Pendlebury PUMPER HEAD.[employer] Work Phone: [facility] 03-16-2022 08:13-0400 Diastolic blood pressure 88 mm[Hg] Bret Pendlebury PUMPER HEAD.[employer] Work Phone: [facility] 03-16-2022 08:13-0400 Heart rate 71 /min Bret Pendlebury PUMPER HEAD.[employer] Work Phone: [facility] 03-16-2022 08:13-0400 Respiratory rate 16 /min Bret Pendlebury PUMPER HEAD.[employer] Work Phone: [facility] 03-16-2022 08:13-0400 SaO2% (BldA) [Mass fraction] 97 % Bret Melendez PUMPER HEAD.[employer] Work Phone: [facility] 03-16-2022 08:13-0400 Systolic blood pressure 138 mm[Hg] Bret Melendez PUMPER HEAD.[employer] Work Phone: [facility] 01-23-2022 07:36-0400 Body temperature 97.2 [degF] Paty Bogner PA-C Work Phone: [facility] 01-23-2022 07:36-0400 Body weight 96.62 kg Paty Bogner PA-C Work Phone: [facility] 01-23-2022 07:36-0400 Diastolic blood pressure 86 mm[Hg] Paty Bogner PA-C Work Phone: [facility] 01-23-2022 07:36-0400 Heart rate 55 /min Paty Bogner PA-C Work Phone: [facility] 01-23-2022 07:36-0400 Respiratory rate 21 /min Paty Bogner PA-C Work Phone: [facility] 01-23-2022 07:36-0400 SaO2% (BldA) [Mass fraction] 95 % Paty Bogner PA-C Work Phone: [facility] 01-23-2022 07:36-0400 Systolic blood pressure 162 mm[Hg] Paty Bogner PA-C Work Phone: [facility] Encounters Encounter Date Encounter Type Care Provider Facility Start: 09-03-2023 End: 09-03-2023 ambulatory ANDRADE NUNEZ Facility:[facility] Start: 07-07-2023 End: 07-07-2023 ambulatory ANDRADE NUNEZ Facility:[facility] Start: 07-07-2023 End: 07-07-2023 Patient encounter procedure Carolyn Nogueira APRN.[employer] Work Phone: [facility] Plan of Treatment Date Care Activity Detail Author Start: 08-13-2022 Advance Directive Discussion Advance Directive Discussion [facility] Start: 08-13-2022 Depression Assessment Depression Assessment [facility] Start: 07-30-2022 End: 08-13-2022 Influenza virus A and B RNA and SARS-CoV-2 (COVID-19) N gene panel - Respiratory specimen by SEAN with probe detection COVID WITH FLUA+B, ROUTINE Microbiology Routine URI, acute Expected: 07/30/2022, Expires: 08/13/2022 [facility] Work Phone: Immunizations Immunization Date Immunization Notes Care Provider Fa cili 01-23-2022 tetanus and diphther ia toxoids, adsorbed, preservative free, for adult use (5 Lf of tetanus toxoid and 2 Lf of diphtheria toxoid) Paty Ritchie PA-C Work Phone: [facility] Work Phone: 01-23-2022 TD(adult) unspecifie d formulation Paty Ritchie PA-C Work Phone: [facility] Work Phone: Payers Date Payer Category Payer Medicare [id number] 2015 Private Health Insurance HU[employer]NA HUMANA MEDICARE SUPPLEMENT [id number] 2015-Present [phone] [address] [address] [place] [address] Indemnity [id number] 2015 Private Health Insurance HUMANA HUMANA MEDICARE SUPPLEMENT [id number] 2015-Present [phone] [address] [address] [place] [address] Indemnity [id number] 2012 Medicare MEDICARE MEDICAR E A AND B [id number] 2012-Present [phone] [place] [address] Medicare [id number] 2012 Medicare MEDICARE MEDICAR E A AND B [id number] 2012-Present [phone] [place] [address] Medicare [id number] 2012 Medicare [id number] Social History Date Type Detail Facility Start: 11-18-2016 End: 07-30-2022 Tobacco smoking status NHIS Never smoked tobacco [facility] Start: 11-18-2016 End: 07-30-2022 Tobacco use and exposure Smokeless tobacco non-user [facility] Start: 01-23-2022 End: 07-07-2023 Alcohol intake Current non-drinker of alcohol (finding) [facility] Start: 1945 Sex Assigned At Not on file [facility] Start: 01-13-2022 End: 01-23-2022 Exposure to SARS-CoV-2 (event) Not sure [facility] Work Phone: Start: 03-06-2022 End: 03-16-2022 Exposure to SARS-CoV-2 (event) Yes [facility] Work Phone: Start: 07-21-2020 End: 07-07-2023 History of Social function [facility] Start: 07-21-2020 End: 07-07-2023 Tobacco use panel [facility] National Score (1-100), lower number is lower risk Not on file [facility] Clinical Notes 01-23-2022 to 09-03-2023 Patient InstructionsPraisler-Carolyn Shrestha APRN.[employer] - 07/07/2023 9:10 AM ESTTelephone Encounter - Meredith Lopes - 07/31/2022 7:44 AM Cely Romero APRN.[employer] - 07/30/2022 9:45 AM EST Note Date & Type Note Facility 09-03-2023 Note HNO ID: [id number] Author: KAPIL WHARTON PA-C Service: ? Author Type: Physician Testing Manager Type: Progress Notes Filed: 09/03/2023 08:43 Note Text: This note was created using [email or web address]. Subjective Josseline Davis is a 78 year old male. HPI Presents with a chief complaint of a barky cough over the past 2 or 3 days. He denies a fever. States he has felt short of breath at night. He states he does see pulmonology through [facility] and is prescribed Breo. He has [...] (FLONASE) 50 mcg/actuation nasal spray Use 1 [place] in each nostril twice daily. Rinse mouth [...] AND RSV NAAT, ROUTINE Kapil Wharton PA-C [facility] 09-03-2023 Note HNO ID: [id number] Author: CRISTOBAL MEHTA RT(R) Service: Radiology Author [...] RT Newton(R) September 03, 2023 8:16 AM [facility] 07-07-2023 Note HNO ID: [id number] Author: Carolyn Nogueira APRN.[employer] Service: ? Author Type: Nurse Practitioner Type: [...] (FLONASE) 50 mcg/actuation nasal spray Use 1 [place] in each nostril twice daily. Rinse mouth [...] visualized spine. IMPRESSION: No acute radiographic abnormality. Slat Pickler: NAV Transcribe Date/Time: Jul 07 2023 9:20A [...] expected course of illness Carolyn Nogueira APRN.MICKEY [facility] 07-07-2023 Note HNO ID: [id number] Author: Jacinto Linn RT(R) Service: ? Author [...] RT Marty(R) July 07, 2023 9:08 AM [facility] 07-07-2023 Instructions Carolyn Nogueira APRN.[employer] - 07/07/2023 9:30 AM EST ASSESSMENT/PLAN: 1. [...] visualized spine. IMPRESSION: No acute radiographic abnormality. Slat Pickler: NAV Transcribe Date/Time: Jul 07 2023 9:20A [...] Discussed expected course of illness Carolyn Nogueira APRN.[employer] documented in this encounter [facility] 07-07-2023 History of Presen t illness Narrative [...] (FLONASE) 50 mcg/actuation nasal spray Use 1 [place] in each nostril twice daily. Rinse mouth [...] visualized spine. IMPRESSION: No acute radiographic abnormality. Slat Pickler: NAV Transcribe Date/Time: Jul 07 2023 9:20A [...] Discussed expected course of illness Carolyn Nogueira APRN.[employer] documented in this encounter [facility] 07-31-2022 Miscellaneous Notes Patient given results and verbalized understanding of instructions given. Meredith Lopes Please let patient know that he was negative for COVID and influenza. Continue supportive care. Follow up if symptoms are not improving, sooner if any worsening symptoms. Paty Ritchie PA-C 07/31/2022 documented in this encounter [facility] 07-30-2022 History of Presen t illness Narrative This note was created using [email or web address]. Subjective Josseline Davis is a 77 year [...] history is provided by the patient. No floorperson was used. Cough This is a new [...] (FLONASE) 50 mcg/actuation nasal spray Use 1 [place] in each nostril twice daily. Rinse mouth [...] exam Will cover with Doxycyline Yun Romero APRN.[employer] documented in this encounter [facility] 03-17-2022 Miscellaneous Notes Patient returned call and given provider's message below and patient verbalized understanding. Yoko Mosqueda RN This DRIP BOX TENDER called patient at [phone].. Message left after 3 attempts to call [...] Loyda Lawson CNP documented in this encounter [facility] 03-16-2022 Instructions Bret Melendez APRN.[facility] - 03/16/2022 [...] concerning to you. documented in this encounter [facility] 03-16-2022 History of Presen t illness Narrative [...] (FLONASE) 50 mcg/actuation nasal spray Use 1 [place] in each nostril twice daily. Rinse mouth [...] of care. This note was generated using [employer] software. It may contain errors in wording, punctuation, or spelling. Bret Melendez APRN.[facility] documented in this encounter [facility] 01-23-2022 History of Presen t illness Narrative [...] (FLONASE) 50 mcg/actuation nasal spray Use 1 [place] in each nostril twice daily. Rinse mouth [...] the date of the service which included [id number] patient care, completing clinical documentation, performing a medically appropriate examination and counseling and educating the patient/family/caregiver. Paty Ritchie PA-C documented in this encounter [facility] Suspected COVID-19 virus infection- Primary [facility] URI, acute- Primary Acute upper respiratory infections of unspecified site Abnormal lung sounds Abnormal chest sounds [facility] Acute cough- Primary Lower resp. tract infection Other diseases of respiratory system, not elsewhere classified documented in this encounter [facility] Summary Purpose Family History No Family History Records FoundNo Family History Records Found Advance Directives No Advanced Directives Records FoundDocuments on File Type Date Recorded Patient Web Site Admin Expl anation Advance Directive(s) 09/14/2017 2:00 PM [...] DATE CREATED AUTHOR AUTHOR'S ORGANIZ ATION 09/04/2023 [facility] Source Comments (unrecognize d section and content) In the event this informatio n is protected by the Federal Confidentiality of Alcohol and Drug Abuse Patient Records regulations: The Federal rules restrict any use of the information to criminally investigate or prosecute any alcohol or drug abuse patient.[facility] the event this information is protected by the Federal Confidentiality of Alcohol and Drug Abuse Patient Records regulations: The Federal rules restrict any use of the information to criminally investigate or prosecute any alcohol or drug abuse patient.[facility] the event this information is protected by the Federal Confidentiality of Alcohol and Drug Abuse Patient Records regulations: The Federal rules restrict any use of the information to criminally investigate or prosecute any alcohol or drug abuse patient.[facility] the event this information is protected by the Federal Confidentiality of Alcohol and Drug Abuse Patient Records regulations: The Federal rules restrict any use of the information to criminally investigate or prosecute any alcohol or drug abuse patient.[facility] the event this information is protected by the Federal Confidentiality of Alcohol and Drug Abuse Patient Records regulations: The Federal rules restrict any use of the information to criminally investigate or prosecute any alcohol or drug abuse patient.[facility] the event this information is protected by the Federal Confidentiality of Alcohol and Drug Abuse Patient Records regulations: The Federal rules restrict any use of the information to criminally investigate or prosecute any alcohol or drug abuse patient.[facility] Reason for Visit (unrecogniz ed section and content) Reason Comments Sore Throat pain rated 5, x1 day , chest congestion, cough. Reason Comments Results Reason Comments Head Congestion cough, sneezing x 3- 4 days Reason Comments Chest Congestion X 3 days Care Teams (unrecognized sec tion and content) Child Advocate Relationship Specialty Start Date End Date Andrade Nunez MD PCP - General Family Practice 11/18/16 Child Advocate Relationship Specialty Start Date End Date Andrade Nunez MD PCP - General Family Medicine 11/18/16 Child Advocate Relationship Specialty Start Date End Date Andrade Nunez MD PCP - General Family Medicine 11/18/16 Child Advocate Relationship Specialty Start Date End Date Andrade [...] BE BASED ON THE PRIMARY CLINICAL RECORDS. [facility] [employer] [facility]. provides no warranty or guarantee of the accuracy or completeness of information in this document.
--- OUTSIDE RECORDS SUMMARY | 2023-09-08 14:17 | XMS RPT_ITS | CCD ---
Author Name Unknown Address [address] [place] [address] Organization [facility] Care Team Providers Care Nut Picker Name Role Phone Andrade Nunez MD Primary Care Provider ANDRADE NUNEZ Primary Care Unavailable KAPIL WHARTON Referring Unavailable ANDRADE NUNEZ Primary Care Unavailable CAROLYN NOGUEIRA Referring Unavailable ANDRADE NUNEZ Primary Care Unavailable ANDRADE NUNEZ Primary Care Unavailable Allergies Allergy Classification Reported Allergen(s) Allergy Type Date of Onset Reaction(s) Facility (7 sources) Sulfonamides (Antibiotic); Translations: [SULFA (SULFONAMIDE ANTIBIOTICS)] Drug Allergy 11-18-2016 [facility] Medications Current Medications Medication Drug Class(es) [...] 08:42-0500 Body temperature 97.2 [degF] Carolyn Nogueira APRN.[facility] Work Phone: [facility] 07-07-2023 08:42-0500 Body weight 96.62 kg Carolyn Nogueira APRN.[facility] Work Phone: [facility] 07-07-2023 08:42-0500 Diastolic blood pressure 93 mm[Hg] Carolyn Huddleston-Fady LOBO.[facility] Work Phone: [facility] 07-07-2023 08:42-0500 Heart rate 67 /min Carolyn Nogueira APRN.[employer] Work Phone: [facility] 07-07-2023 08:42-0500 Respiratory rate 20 /min Carolyn Nogueira APRN.[facility] Work Phone: [facility] 07-07-2023 08:42-0500 SaO2% (BldA) [Mass fraction] 97 % Carolyn Nogueira APRN.[employer] Work Phone: [facility] 07-07-2023 08:42-0500 Systolic blood pressure 157 mm[Hg] Carolyn Nogueira APRN.[employer] Work Phone: [facility] 07-30-2022 09:34-0500 Body temperature 99.61 [degF] Yun Romero OIL WINTERIZER.[employer] [facility] Work Phone: [facility] 07-30-2022 09:34-0500 Body weight 95.25 kg Yun Romero OIL WINTERIZER.[employer] Work Phone: [facility] 07-30-2022 09:34-0500 Diastolic blood pressure 78 mm[Hg] Yun Romero OIL WINTERIZER.[employer] Work Phone: [facility] 07-30-2022 09:34-0500 Heart rate 78 /min Yun Romero OIL WINTERIZER.[employer] Work Phone: [facility] 07-30-2022 09:34-0500 Respiratory rate 16 /min Yun Romero OIL WINTERIZER.[employer] Work Phone: [facility] 07-30-2022 09:34-0500 SaO2% (BldA) [Mass fraction] 96 % Yun Romero OIL WINTERIZER.[employer] Work Phone: [facility] 07-30-2022 09:34-0500 Systolic blood pressure 128 mm[Hg] Yun Romero OIL WINTERIZER.[employer] Work Phone: [facility] 03-16-2022 08:13-0400 Body temperature 100 [degF] Bret Pendlebury OIL WINTERIZER.[employer] Work Phone: [facility] 03-16-2022 08:13-0400 Body weight 95.53 kg Bret Pendlebury OIL WINTERIZER.[employer] Work Phone: [facility] 03-16-2022 08:13-0400 Diastolic blood pressure 88 mm[Hg] Bret Pendlebury OIL WINTERIZER.[employer] Work Phone: [facility] 03-16-2022 08:13-0400 Heart rate 71 /min Bret Pendlebury OIL WINTERIZER.[employer] Work Phone: [facility] 03-16-2022 08:13-0400 Respiratory rate 16 /min Bret Pendlebury OIL WINTERIZER.[employer] Work Phone: [facility] 03-16-2022 08:13-0400 SaO2% (BldA) [Mass fraction] 97 % Bret Melendez OIL WINTERIZER.[employer] Work Phone: [facility] 03-16-2022 08:13-0400 Systolic blood pressure 138 mm[Hg] Bret Melendez OIL WINTERIZER.[employer] Work Phone: [facility] 01-23-2022 07:36-0400 Body temperature 97.2 [degF] Paty Bogner PA-C Work Phone: [facility] 01-23-2022 07:36-0400 Body weight 96.62 kg Paty Bogner PA-C Work Phone: [facility] 01-23-2022 07:36-0400 Diastolic blood pressure 86 mm[Hg] Paty Bogner PA-C Work Phone: [facility] 01-23-2022 07:36-0400 Heart rate 55 /min Payt Bogner PA-C Work Phone: [facility] 01-23-2022 07:36-0400 Respiratory rate 21 /min Paty Bogner PA-C Work Phone: [facility] 01-23-2022 07:36-0400 SaO2% (BldA) [Mass fraction] 95 % Paty Bogner PA-C Work Phone: [facility] 01-23-2022 07:36-0400 Systolic blood pressure 162 mm[Hg] Paty Bogner PA-C Work Phone: [facility] Encounters Encounter Date Encounter Type Care Provider Facility Start: 09-03-2023 End: 09-03-2023 ambulatory ANDRADE NUNEZ Facility:[facility] Start: 07-07-2023 End: 07-07-2023 ambulatory ANDRADE NUNEZ Facility:[facility] Start: 07-07-2023 End: 07-07-2023 Patient encounter procedure Carolyn Nogueira APRN.[employer] Work Phone: [facility] Plan of Treatment Date Care Activity Detail Author Start: 08-13-2022 Advance Directive Discussion Advance Directive Discussion [facility] Start: 08-13-2022 Depression Assessment Depression Assessment [facility] Start: 07-30-2022 End: 08-13-2022 Influenza virus A and B RNA and SARS-CoV-2 (COVID-19) N gene panel - Respiratory specimen by SEAN with probe detection COVID WITH FLUA+B, ROUTINE Microbiology Routine URI, acute Expected: 07/30/2022, Expires: 08/13/[address] [facility] Work Phone: Immunizations Immunization Date Immunization Notes Care Provider Fa cili 01-23-2022 tetanus and diphther ia toxoids, adsorbed, preservative free, for adult use (5 Lf of tetanus toxoid and 2 Lf of diphtheria toxoid) Paty Ritchie PA-C Work Phone: [facility] Work Phone: 01-23-2022 TD(adult) unspecifie d formulation Paty Ritchie PA-C Work Phone: [facility] Work Phone: Payers Date Payer Category Payer Medicare [id number] 2015 Private Health Insurance HUMANA HUMANA MEDICARE SUPPLEMENT [id number] 2015-Present [phone] [address] [address] [place] [address] Indemnity [id number] 2015 Private Health Insurance HUMANA HUMANA MEDICARE SUPPLEMENT [id number] 2015-Present [phone] [address] [address] [place] [address] Indemnity [id number] 2012 Medicare MEDICARE MEDICAR E A AND B [id number] 2012-Present [phone] [place] [address] Medicare [id number] 2012 Medicare MEDICARE MEDICAR E A AND B [id number] 2012-Present [phone] [place] [address] Medicare [id number] 2012 Medicare [id number] Social History Date Type Detail Facility Start: 11-18-2016 End: 07-30-2022 Tobacco smoking status NHIS Never smoked tobacco [facility] Start: 11-18-2016 End: 07-30-2022 Tobacco use and exposure Smokeless tobacco non-user [facility] Start: 01-23-2022 End: 07-07-2023 Alcohol intake Current non-drinker of alcohol (finding) [facility] Start: 1945 Sex Assigned At Not on file [facility] Start: 01-13-2022 End: 01-23-2022 Exposure to SARS-CoV-2 (event) Not sure [facility] Work Phone: Start: 03-06-2022 End: 03-16-2022 Exposure to SARS-CoV-2 (event) Yes [facility] Work Phone: Start: 07-21-2020 End: 07-07-2023 History of Social function [facility] Start: 07-21-2020 End: 07-07-2023 Tobacco use panel [facility] National Score (1-100), lower number is lower risk Not on file [facility] Clinical Notes 01-23-2022 to 09-03-2023 Patient InstructionsPraisler-Carolyn Shrestha APRN.[employer] [facility] - 07/07/2023 9:10 AM ESTTelephone Encounter - Meredith Lopes - 07/31/2022 7:44 AM Cely Romero APRN.[employer] - 07/30/2022 9:45 AM EST Note Date & Type Note Facility 09-03-2023 Note HNO ID: [id number] Author: KAPIL WHARTON PA-C Service: ? Author Type: Physician Insurance Sales Producer Type: Progress Notes Filed: 09/03/2023 08:43 Note Text: This note was created using Frengoriter. Subjective Josseline Davis is a 78 year old male. HPI Presents with a chief complaint of a barky cough over the past 2 or 3 days. He denies a fever. States he has felt short of breath at night. He states he does see pulmonology through [facility] and is prescribed Breo. He has [...] (FLONASE) 50 mcg/actuation nasal spray Use 1 [place] in each nostril twice daily. Rinse mouth [...] AND RSV NAAT, ROUTINE Kapil Wharton PA-C [facility] 09-03-2023 Note HNO ID: [id number] Author: CRISTOBAL MEHTA RT(R) Service: Radiology Author [...] RT Newton(R) September 03, 2023 8:16 AM [facility] 07-07-2023 Note HNO ID: [id number] Author: Carolyn Nogueira APRN.[employer] Service: ? Author Type: Nurse Practitioner Type: [...] (FLONASE) 50 mcg/actuation nasal spray Use 1 [place] in each nostril twice daily. Rinse mouth [...] visualized spine. IMPRESSION: No acute radiographic abnormality. Shrink Pit Operator: NAV Transcribe Date/Time: Jul 07 2023 9:20A [...] expected course of illness Carolyn Nogueira APRN.MICKEY [facility] 07-07-2023 Note HNO ID: [id number] Author: Jacinto Linn RT(R) Service: ? Author [...] RT Marty(R) July 07, 2023 9:08 AM [facility] 07-07-2023 Instructions Carolyn Nogueira APRN.[employer] - 07/07/2023 9:30 AM EST ASSESSMENT/PLAN: 1. [...] visualized spine. IMPRESSION: No acute radiographic abnormality. Shrink Pit Operator: NAV Transcribe Date/Time: Jul 07 2023 9:20A [...] Discussed expected course of illness Carolyn Nogueira APRN.[employer] documented in this encounter [facility] 07-07-2023 History of Presen t illness [...] (FLONASE) 50 mcg/actuation nasal spray Use 1 [place] in each nostril twice daily. Rinse mouth [...] visualized spine. IMPRESSION: No acute radiographic abnormality. Shrink Pit Operator: NAV Transcribe Date/Time: Jul 07 2023 9:20A [...] Discussed expected course of illness Carolyn Nogueira APRN.[employer] documented in this encounter [facility] 07-31-2022 Miscellaneous Notes Patient given results and verbalized understanding of instructions given. Meredith Lopes Please let patient know that he was negative for COVID and influenza. Continue supportive care. Follow up if symptoms are not improving, sooner if any worsening symptoms. Paty Ritchie PA-C 07/31/2022 documented in this encounter [facility] 07-30-2022 History of Presen t illness Narrative This note was created using Frengoriter. Subjective Josseline Davis is a 77 year [...] history is provided by the patient. No speech and language specialist was used. Cough This is a new [...] (FLONASE) 50 mcg/actuation nasal spray Use 1 [place] in each nostril twice daily. Rinse mouth [...] exam Will cover with Doxycyline Yun Romero APRN.[employer] documented in this encounter [facility] 03-17-2022 Miscellaneous Notes Patient returned call and given provider's message below and patient verbalized understanding. Yoko Mosqueda RN This CARTON FORMING MACHINE OPERATOR called patient at [phone].. Message left after 3 attempts to call [...] Loyda Lawson CNP documented in this encounter [facility] 03-16-2022 Instructions Bret Melendez APRN.MICKEY - [...] concerning to you. documented in this encounter [facility] 03-16-2022 History of Presen t illness [...] (FLONASE) 50 mcg/actuation nasal spray Use 1 [place] in each nostril twice daily. Rinse mouth [...] of care. This note was generated using Odotech software. It may contain errors in wording, punctuation, or spelling. Bret Melendez APRN.MICKEY documented in this encounter [facility] 01-23-2022 History of Presen t illness [...] (FLONASE) 50 mcg/actuation nasal spray Use 1 [place] in each nostril twice daily. Rinse mouth [...] the date of the service which included [id number] patient care, completing clinical documentation, performing a medically appropriate examination and counseling and educating the patient/family/caregiver. Paty Ritchie PA-C documented in this encounter [facility] Suspected COVID-19 virus infection- Primary [facility] Diagnosis URI, acute- Primary Acute upper respiratory infections of unspecified site Abnormal lung sounds Abnormal chest sounds [facility] Diagnosis Acute cough- Primary Lower resp. tract infection Other diseases of respiratory system, not elsewhere classified documented in this encounter [facility] Summary Purpose Family History No Family History Records FoundNo Family History Records Found Advance Directives No Advanced Directives Records FoundDocuments on File Type Date Recorded Patient Clinical Interviewer Expl anation Advance Directive(s) 09/14/2017 2:00 PM [...] DATE CREATED AUTHOR AUTHOR'S ORGANIZ ATION 09/04/2023 [facility] Source Comments (unrecognize d section and content) In the event this informatio n is protected by the Federal Confidentiality of Alcohol and Drug Abuse Patient Records regulations: The Federal rules restrict any use of the information to criminally investigate or prosecute any alcohol or drug abuse patient.[facility] the event this information is protected by the Federal Confidentiality of Alcohol and Drug Abuse Patient Records regulations: The Federal rules restrict any use of the information to criminally investigate or prosecute any alcohol or drug abuse patient.[facility] the event this information is protected by the Federal Confidentiality of Alcohol and Drug Abuse Patient Records regulations: The Federal rules restrict any use of the information to criminally investigate or prosecute any alcohol or drug abuse patient.[facility] the event this information is protected by the Federal Confidentiality of Alcohol and Drug Abuse Patient Records regulations: The Federal rules restrict any use of the information to criminally investigate or prosecute any alcohol or drug abuse patient.[facility] the event this information is protected by the Federal Confidentiality of Alcohol and Drug Abuse Patient Records regulations: The Federal rules restrict any use of the information to criminally investigate or prosecute any alcohol or drug abuse patient.[facility] the event this information is protected by the Federal Confidentiality of Alcohol and Drug Abuse Patient Records regulations: The Federal rules restrict any use of the information to criminally investigate or prosecute any alcohol or drug abuse patient.[facility] Reason for Visit (unrecogniz ed section and content) Reason Comments Sore Throat pain rated 5, x1 day , chest congestion, cough. Reason Comments Results Reason Comments Head Congestion cough, sneezing x 3- 4 days Reason Comments Chest Congestion X 3 days Care Teams (unrecognized sec tion and content) Nut Picker Relationship Specialty Start Date End Date Andrade Nunez MD PCP - General Family Practice 11/18/16 Nut Picker Relationship Specialty Start Date End Date Andrade Nunez MD PCP - General Family Medicine 11/18/16 Nut Picker Relationship Specialty Start Date End Date Andrade Nunez MD PCP - General Family Medicine 11/18/16 Nut Picker Relationship Specialty Start Date End Date Andrade [...] BE BASED ON THE PRIMARY CLINICAL RECORDS. [facility] [employer] [facility]. provides no warranty or guarantee of the accuracy or completeness of information in this document.
--- NOTE | 2023-09-08 15:07 | PN.HOSP_ITS ---
Reason for Visit Reason for Visit: Diagnoses Other pulmonary embolism without acute cor pulmonale (09/08/23) Objective Data Objective Data Vital Signs: Vital Signs Temp Pulse Resp BP Pulse Ox O2 Del Method O2 Flow Rate 97.5 F L 65 16 114/71 96 Nasal Cannula 3 09/08/23 14:36 09/08/23 14:36 09/08/23 14:36 09/08/23 14:36 09/08/23 14:36 09/08/23 14:40 09/08/23 14:40 Oxygen Flow Rate (L/min) 3 Oxygen Delivery Method Nasal Cannula Weight: 206 lb 2.115 oz Body Mass Index (BMI) 31.3 Intake & Output: Intake and Output for Last 24 Hours 09/06/23 09/07/23 09/08/23 23:59 23:59 23:59 Intake Total 300 / 300 1050 / 1050 Output Total 300 / 300 Balance 0 / 0 1050 / 1050 Lab / Micro Data 09/08/23 08:09 09/08/23 08:05 Labs: Laboratory Results - last 24 hr 09/07/23 14:05: Lactic Acid 1.2, Procalcitonin 0.05 09/08/23 08:05: Sodium 139, Potassium 3.4 L, Chloride 108 H, Carbon Dioxide 25.0, Anion Gap 6, BUN 23 H, Creatinine 1.03, Estim Creat Clear Calc 67.69, Est GFR (MDRD) Af Amer 90, Est GFR (MDRD) Non-Af 75, BUN/Creatinine Ratio 22.3 H, Glucose 141 H, Calcium 9.2 09/08/23 08:09: WBC 10.0, RBC 4.97, Hgb 13.2, Hct 41.3, MCV 83.1, MCH 26.6 L, MCHC 32.0, RDW Std Deviation 44.9 H, RDW Coeff of Aron 14.8 H, Plt Count 189, MPV 10.6, Immature Gran % (Auto) 1.300 H, Neut % (Auto) 82.2 H, Lymph % (Auto) 10.6 L, Vigo % (Auto) 5.6, Eos % (Auto) 0.0, Baso % (Auto) 0.3, Absolute Neuts (auto) 8.3 H, Absolute Lymphs (auto) 1.06, Nucleated RBC % 0, AST 14 L Micro: Microbiology 09/07/23 14:10 Blood Culture (Wb) - Anticubital Left Blood Culture - Preliminary No growth in 48 hours. 09/07/23 14:05 Blood Culture (Wb) - Anticubital Right Blood Culture - Preliminary No growth in 48 hours. 09/08/23 03:10 Mucosa - Nasopharyngeal Respiratory Panel (PCR) - Final RSV B 09/07/23 15:30 Mucosa - Nasopharyngeal SARS-CoV-2, Influenza & RSV (PCR) - Final RSV 09/07/23 16:00 Urine, Clean Catch Legionella Antigen - Final 09/07/23 16:00 Urine, Clean Catch Streptococcus pneumoniae Antigen (M - Fi nal Physical Exam Narrative Seen and examined. Patient slightly feels better otherwise still coughing up, wheezing and shor tness of breath on exertion. No fever. On 3 L of oxygen. General: Alert, Oriented x3, Cooperative. Looks fatigued BMI 32.7 kg/m? HEENT: Atraumatic, PERRLA, EOMI, Normocephalic Oral: Oral mucosa dry. No Gingival or Mucosal Lesions/ Ulcerations Neck: Supple, No JVD, Negative Carotid Bruits Chest wall/Lungs: Air entry diminished in bilateral lung bases. Bilateral coarse crepitations and wheezing. Tachypnea has resolved. Cardiovascular: Regular rate, Regular Rhythm, Normal S1, Normal S2, status post three-vessel CABG. Abdomen: Bowel Sounds Present, Soft, Non Tender, Non-Distended : No renal angle tenderness. No suprapubic tenderness. Extremities: No edema, Capillary Refill Less than 3 Seconds Skin: No rashes, No breakdown Musculoskeletal: No Tenderness to Palpation of Joints or Extremities Neurological: Cranial nerves II-XII grossly intact, DTR 2+/4. No acute focal neurological deficit. Psych/Mental Status: Flat affect. Assessment & Plan Assessment/Plan (1) Pulmonary embolism: QUALIFIERS: Pulmonary embolism type: unspecified Chronicity: acute Acute cor pulmonale presence: without acute cor pulmonale Qualified Code(s): I26.99 - Other pulmonary embolism without acute cor pulmonale PLAN: Plan This is 78-year-old gentleman is being admitted for shortness of breath, wheezing, low-grade fever feeling sick, tachypnea and hypoxia for about 1 week. Was diagnosed COVID-19, influenza and RSV as an outpatient on 09/04/2023. 1. Acute right interlobar artery and proximal branches of right upper lobe pulmonary artery, lobar interlobar and segmental acute pulmonary embolism: Patient is being admitted in PCU. CT angiogram in February reviewed and agrees with pulmonary embolism and bilateral lower lobes infiltrate. Troponin normal but B MEMBER OF THE LEGISLATIVE ASSEMBLY elevated. Started on Lovenox 1 mg/kg body weight. 2D echo ordered. 09/08: Continue Lovenox. Patient tolerating well. H&H every 13 g. Platelet count 189,000. 2. Bilateral lower lobes pneumonia due to RSV-B present before admission with suspicion of secondary bacterial pneumonia: Continue IV ceftriaxone and continue azithromycin. Patient to continue Tamiflu, 3 dosages left. Enhanced droplet precaution about 10 days from symptom of onset that was 09/01/2023. Patient is started on IV dexamethasone. Liver chemistry along with inflammatory markers ordered. Patient to continue incentive spirometry, PEP and Mucinex DM and Tessalon Perles. 09/08: Records from the [facility] reviewed. Our micro lab also shows patient had RSV 1 L. COVID-19 and influenza A are negative but patient states that he was told that he has all 3 positive which was wrong. Accordingly, Tamiflu, remdesivir and dexamethasone discontinued. Patient started on IV Solu- Medrol as patient has significant airway inflammation and wheezing. Continue rest of the treatment. 3. Coronary artery status post CABG three-vessel in 2010: No acute chest pain or pressure or tightness. Twelve-lead EKG done in ED shows normal sinus rhythm with occasional PVC. QTc 442 ms. QRS 88 ms. Continue home medications. Patient on baby aspirin, amlodipine, metoprolol and pravastatin. 4. Possible undiagnosed COPD: Patient home medication list Kwabena Guan, and recently started on prednisone 40 mg daily. Patient had remote history of occasional pipe smoking that he quit about 40 years ago during his young age. P atient denies history of COPD but will need to attend pulmonary clinic for formal PFT and sleep study. 5. Hypertension, dyslipidemia PVCs: As mentioned above. 6. BPH: On Flomax continued. 7. Obesity grade 1: BMI 32.7 kg/m?. Weight loss counseling done. DVT prophylaxis: Patient had PE as mentioned above and on anticoagulant treatment. Living will/advanced directive/end of life care: Patient does not have living will or advanced directive. He states his son is next of kin. Patient sign ificant other present in ED. After discussion of benefits/risks procedures involved with full code, DNR CC arrest and DNR CC, the patient opted for full code. Patient does want artificial life support including intubation, tube feed, ventilator and/chest compression, central venous catheter, vasopressor and DC shock if needed Total time spent in [id number] encounter in discussion of advanced directive 17 minutes. Microbiology Past 72 Hours 09/07/23 14:10 Blood Culture (Wb) - Anticubital Left Blood Culture - Preliminary No growth in 48 hours. 09/07/23 14:05 Blood Culture (Wb) - Anticubital Right Blood Culture - Preliminary No growth in 48 hours. 09/08/23 03:10 Mucosa - Nasopharyngeal Respiratory Panel (PCR) - Final RSV B 09/07/23 15:30 Mucosa - Nasopharyngeal SARS-CoV-2, Influenza & RSV (PCR) - Final RSV 09/07/23 16:00 Urine, Clean Catch Legionella Antigen - Final 09/07/23 16:00 Urine, Clean Catch Streptococcus pneumoniae Antigen (M - Final Laboratory Results 09/07/23 14:05: Lactic Acid 1.2, Procalcitonin 0.05 09/08/23 08:05: Sodium 139, Potassium 3.4 L, Chloride 108 H, Carbon Dioxide 25.0, Anion Gap 6, BUN 23 H, Creatinine 1.03, Estim Creat Clear Calc 67.69, Est GFR (MDRD) Af Amer 90, Est GFR (MDRD) Non-Af 75, BUN/Creatinine Ratio 22.3 H, Glucose 141 H, Calcium 9.2 09/08/23 08:09: WBC 10.0, RBC 4.97, Hgb 13.2, Hct 41.3, MCV 83.1, MCH 26.6 L, MCHC 32.0, RDW Std Deviation 44.9 H, RDW Coeff of Aron 14.8 H, Plt Count 189, MPV 10.6, Immature Gran % (Auto) 1.300 H, Neut % (Auto) 82.2 H, Lymph % (Auto) 10.6 L, Vigo % (Auto) 5.6, Eos % (Auto) 0.0, Baso % (Auto) 0.3, Absolute Neuts (auto) 8.3 H, Absolute Lymphs (auto) 1.06, Nucleated RBC % 0, AST 14 L Clinical Impression(s) from Imaging Studies Chest CTA 09/07/23 10:02 IMPRESSION: Intraluminal filling defects in the right interlobar artery and proximal branches of the right upper lobe pulmonary artery in keeping with pulmonary embolism. Patchy bibasilar infiltrates. Charges/Coding Visit Charges Inpatient E&M: 14139 Subs Hosp L2
--- NOTE | 2023-09-08 16:30 | CASEMGMT ---
RN CM NOTE: Per Dr Noyola, pt to discharge home on Eliquis. Pt provided w/30-day free trial card for Eliquis and instructed on use. Questions answered. Pt made aware, if refills are not affordable, to discuss this w/his PCP. He voices understanding. Ana HUGHESN RN CM
[2023-09-08] MEDS: 0.9% Saline Lock 10 ML Syringe IV (20:26)
[2023-09-08] MEDS: Pravastatin 40 MG Tablet PO (20:27)
[2023-09-09] VITALS (12 sets, daily range): BP systolic 119–138; BP diastolic 68–71; PULSE 61–90; RESP 16–20; TEMP 36.4–36.8; O2SAT 95–97; BMI 31.2
[2023-09-09] MEDS: Ipratropium/Albuterol Sulfate 3 ML AMPUL.NEB INHALATION ×6 (03:46→23:26)
[2023-09-09 05:52] LABS: Absolute Lymphocyte Count 0.73 X10^3/uL (0.83-4.51); Absolute Neutrophil Count 7.7 X10^3/uL (2.0-7.7); Basophil# 0.01 X10^3/uL; Basophil% 0.1 % (0-1); Hematocrit 38.1 % (40-54); Hemoglobin 12.3 g/dL (13.0-16.5); Lymphocyte # 0.73 X10^3/ul (0.83-4.51); Lymphocyte % 8.2 % (19-41); Mean Corp Hgb Conc 32.3 g/dL (32-36); Mean Corpuscular Hgb 26.6 pg (27.0-32.0); Mean Corpuscular Volume 82.3 fL (80-94); Mean Platelet Vol. 10.3 fl (6.2-12.0); Monocyte# 0.31 X10^3/uL; Monocyte% 3.5 % (0-10); NRBC Flagged by Analyzer 0 % (0-5); Neutrophil # 7.74 X10^3/uL (2.7-7.7); Neutrophil % 86.5 % (47-70); Platelet Count 169 K/mm3 (150-450); RBC Distribution Width CV 14.6 % (11.6-14.6); RBC Distribution Width SD 43.3 fl (35.1-43.9); Red Blood Count 4.63 M/mm3 (4.6-6.2); White Blood Count 8.9 K/mm3 (4.4-11.0)
[2023-09-09] MEDS: Benzonatate 100 MG Capsule 200 MG PO ×3 (05:57→20:27)
[2023-09-09] MEDS: Levothyroxine 75 MCG Tablet PO (05:58)
[2023-09-09] MEDS: 0.9% Saline Lock 10 ML Syringe IV ×4 (05:58→20:26)
[2023-09-09] MEDS: Enoxaparin 100 MG/ML Syringe SC (05:58)
[2023-09-09 06:06] LABS: Anion Gap 4 (5-15); BUN 20 mg/dL (7-18); BUN/Creat Ratio 22.4 RATIO (10-20); Calcium,Total 9.1 mg/dL (8.5-10.1); Chloride 109 mmol/L (98-107); Creatinine, Serum 0.89 mg/dL (0.70-1.30); EST Glomerular Filtration Rate 88 mL/min (>60); Est Glom Filt Rate - Afr Amer 107 mL/min (>60); Estimated Creatinine Clearance 78.26 ml/min; Glucose 159 mg/dL (74-106); Sodium Level 140 mmol/L (136-145)
[2023-09-09] MEDS: Budesonide Respules 0.5 MG/2 ML AMPUL.NEB. INHALATION ×2 (07:13→19:44)
[2023-09-09] MEDS: Tamsulosin HCl 0.4 MG Capsule 0.400000000000000022 MG PO ×2 (08:47→17:26)
[2023-09-09] MEDS: Ascorbic Acid 500 MG Tablet PO (08:47)
[2023-09-09] MEDS: Aspirin E.C. 81 MG Tablet PO (08:47)
[2023-09-09] MEDS: Fluticasone 0.05% 1 SPRAY NASAL.SRY 2 SPRAY NASAL (08:47)
[2023-09-09] MEDS: amLODIPine 10 MG Tablet PO (08:48)
[2023-09-09] MEDS: guaiFENesin/D-Methorphan TAB.SR.12H 2 TABLET PO ×2 (08:48→20:27)
[2023-09-09] MEDS: Metoprolol Tartrate 50 MG Tablet PO ×2 (08:48→20:27)
[2023-09-09] MEDS: Pantoprazole Sodium 40 MG Tablet PO (08:49)
[2023-09-09] MEDS: Azithromycin 250 MG Tablet 500 MG PO (08:49)
[2023-09-09] MEDS: Ceftriaxone 2 GM in 0.9% Normal Saline (50mL MB+) 50 ML IV (08:52)
[2023-09-09] MEDS: Multivitamins,Ther W-Minerals Tablet 1 TABLET PO (10:45)
--- NOTE | 2023-09-09 13:06 | PN.HOSP_ITS ---
Reason for Visit Reason for Visit: Diagnoses Other pulmonary embolism without acute cor pulmonale (09/08/23) Objective Data Objective Data Vital Signs: Vital Signs Temp Pulse Resp BP Pulse Ox O2 Del Method O2 Flow Rate 98.3 F 88 20 H 130/71 H 95 Nasal Cannula 2 09/09/23 08:42 09/09/23 11:38 09/09/23 11:38 09/09/23 08:48 09/09/23 08:42 09/09/23 08:42 09/09/23 08:42 Oxygen Flow Rate (L/min) 2 Oxygen Delivery Method Nasal Cannula Weight: 205 lb 11.06 oz Body Mass Index (BMI) 31.2 Intake & Output: Intake and Output for Last 24 Hours 09/07/23 09/08/23 09/09/23 23:59 23:59 23:59 Intake Total 300 / 300 1050 / 1050 50 / 50 Output Total 300 / 300 Balance 0 / 0 1050 / 1050 50 / 50 Lab / Micro Data 09/09/23 05:30 09/09/23 05:30 Labs: Laboratory Results - last 24 hr 09/09/23 05:30: WBC 8.9, RBC 4.63, Hgb 12.3 L, Hct 38.1 L, MCV 82.3, MCH 26.6 L, MCHC 32.3, RDW Std Deviation 43.3, RDW Coeff of Aron 14.6, Plt Count 169, MPV 10.3, Immature Gran % (Auto) 1.700 H, Neut % (Auto) 86.5 H, Lymph % (Auto) 8.2 L , [place] % (Auto) 3.5, Eos % (Auto) 0.0, Baso % (Auto) 0.1, Absolute Neuts (auto) 7.7, Absolute Lymphs (auto) 0.73 L, Nucleated RBC % 0, Sodium 140, Potassium 4.0, Chloride 109 H, Carbon Dioxide 27.0, Anion Gap 4 L, BUN 20 H, Creatinine 0.89, Estim Creat Clear Calc 78.26, Est GFR (MDRD) Af Amer 107, Est GFR (MDRD) Non-Af 88, BUN/Creatinine Ratio 22.4 H, Glucose 159 H, Calcium 9.1 Micro: Microbiology 09/08/23 20:35 Sputum, Expectorated/Coughed Gram Stain - Final 09/08/23 20:35 Sputum, Expectorated/Coughed Respiratory Culture - Preliminary Appears to be normal respiratory bhumi. Further studies to follow. 09/07/23 14:10 Blood Culture (Wb) - Anticubital Left Blood Culture - Preliminary No growth in 48 hours. 09/07/23 14:05 Blood Culture (Wb) - Anticubital Right Blood Culture - Preliminary No growth in 48 hours. 09/08/23 03:10 Mucosa - Nasopharyngeal Respiratory Panel (PCR) - Final RSV B 09/07/23 15:30 Mucosa - Nasopharyngeal SARS-CoV-2, Influenza & RSV (PCR) - Final RSV 09/07/23 16:00 Urine, Clean Catch Legionella Antigen - Final 09/07/23 16:00 Urine, Clean Catch Streptococcus pneumoniae Antigen (M - Final Physical Exam Narrative Seen and examined. Overall patient is feeling better. Still has significant cough but able to bring up phlegm and wheezing. On 2 L of oxygen. No tachycardia or fever. Mild chest congestion. Physical exam General: Alert, Oriented x3, Cooperative. BMI 32.7 kg/m? HEENT: Atraumatic, PERRLA, EOMI, Normocephalic Oral: Oral mucosa dry. No Gingival or Mucosal Lesions/ Ulcerations Neck: Supple, No JVD, Negative Carotid Bruits Chest wall/Lungs: Air entry diminished in bilateral lung bases. Bilateral coarse crepitations and wheezing. Cardiovascular: Regular rate, Regular Rhythm, Normal S1, Normal S2, status post three-vessel CABG. Abdomen: Bowel Sounds Present, Soft, Non Tender, Non-Distended : No renal angle tenderness. No suprapubic tenderness. Extremities: No edema, Capillary Refill Less than 3 Seconds Skin: No rashes, No breakdown Musculoskeletal: No Tenderness to Palpation of Joints or Extremities Neurological: Cranial nerves II-XII grossly intact, DTR 2+/4. No acute focal neurological deficit. Psych/Mental Status: Flat affect. Assessment & Plan Assessment/Plan (1) Pulmonary embolism: QUALIFIERS: Pulmonary embolism type: unspecified Chronicity: acute Acute cor pulmonale presence: without acute cor pulmonale Qualified Code(s): I26.99 - Other pulmonary embolism without acute cor pulmonale PLAN: Plan This is 78-year-old gentleman is being admitted for shortness of breath, wheezing, low-grade fever feeling sick, tachypnea and hypoxia for about 1 week. Was diagnosed COVID-19, influenza and RSV as an outpatient on 09/04/2023. 1. Acute right interlobar artery and proximal branches of right upper lobe pulmonary artery, lobar interlobar and segmental acute pulmonary embolism: Iqra ent is being admitted in PCU. CT angiogram in February reviewed and agrees with pulmonary embolism and bilateral lower lobes infiltrate. Troponin normal but BNP elevated. Started on Lovenox 1 mg/kg body weight. 2D echo ordered. 09/08: Continue Lovenox. Patient tolerating well. H&H every 13 g. Platelet count 189,000. 09/09: Enoxaparin was changed to Eliquis, DVT/PE dosage. H&H 12.3/38%. Platelet 169,000. 2. Bilateral lower lobes pneumonia due to RSV-B present before admission with suspicion of secondary bacterial pneumonia: Continue IV ceftriaxone and continue azithromycin. Patient to continue Tamiflu, 3 dosages left. Enhanced droplet precaution about 10 days from symptom of onset that was 09/01/2023. Patient is started on IV dexamethasone. Liver chemistry along with inflammatory markers ordered. Patient to continue incentive spirometry, PEP and Mucinex DM and Tessalon Perles. 09/08: Records from the [facility] reviewed. Our micro lab also shows patient had RSV 1 L. COVID-19 and influenza A are negative but patient states that he was told that he has all 3 positive which was wrong. Accordingly, Tamiflu, remdesivir and dexamethasone discontinued. Patient started on IV Solu- Medrol as patient has significant airway inflammation and wheezing. Continue rest of the treatment. 09/09: Prelim sputum culture shows 2+ GPC, 2+ GPR appears to be normal respiratory bhumi. Continue antibiotics. 3. Coronary artery status post CABG three-vessel in 2010: No acute chest pain or pressure or tightness. Twelve-lead EKG done in ED shows normal sinus rhythm with occasional PVC. QTc 442 ms. QRS 88 ms. Continue home medications. Patient on baby aspirin, amlodipine, metoprolol and pravastatin. 4. Possible undiagnosed COPD: Patient home medication list Kwabena Guan, and recently started on prednisone 40 mg daily. Patient had remote history of occasional pipe smoking that he quit about 40 years ago during his young age. Patient denies history of COPD but will need to attend pulmonary clinic for formal PFT and sleep study. 5. Hypertension, dyslipidemia PVCs: As mentioned above. 6. BPH: On Flomax continued. 7. Obesity grade 1: BMI 32.7 kg/m?. Weight loss counseling done. DVT prophylaxis: Patient had PE as mentioned above and on anticoagulant treatmen t. Living will/advanced directive/end of life care: Patient does not have living will or advanced directive. He states his son is next of kin. Patient significant other present in ED. After discussion of benefits/risks procedures involved with full code, DNR CC arrest and DNR CC, the patient opted for full code. Patient does want artificial life support including intubation, tube feed, vent ilator and/chest compression, central venous catheter, vasopressor and DC shock if needed Total time spent in [id number] encounter in discussion of advanced directive 17 minutes. Microbiology Past 72 Hours 09/08/23 20:35 Sputum, Expectorated/Coughed Gram Stain - Final 09/08/23 20:35 Sputum, Expectorated/Coughed Respiratory Culture - Preliminary Appears to be normal respiratory bhumi. Further studies to follow. 09/07/23 14:10 Blood Culture (Wb) - Anticubital Left Blood Culture - Preliminary No growth in 48 hours. 09/07/23 14:05 Blood Culture (Wb) - Anticubital Right Blood Culture - Preliminary No growth in 48 hours. 09/08/23 03:10 Mucosa - Nasopharyngeal Respiratory Panel (PCR) - Final RSV B 09/07/23 15:30 Mucosa - Nasopharyngeal SARS-CoV-2, Influenza & RSV (PCR) - Final RSV 09/07/23 16:00 Urine, Clean Catch Legionella Antigen - Final 09/07/23 16:00 Urine, Clean Catch Streptococcus pneumoniae Antigen (M - Final Laboratory Results 09/09/23 05:30: WBC 8.9, RBC 4.63, Hgb 12.3 L, Hct 38.1 L, MCV 82.3, MCH 26.6 L, MCHC 32.3, RDW Std Deviation 43.3, RDW Coeff of Aron 14.6, Plt Count 169, MPV 10.3, Immature Gran % (Auto) 1.700 H, Neut % (Auto) 86.5 H, Lymph % (Auto) 8.2 L , [place] % (Auto) 3.5, Eos % (Auto) 0.0, Baso % (Auto) 0.1, Absolute Neuts (auto) 7.7, Absolute Lymphs (auto) 0.73 L, Nucleated RBC % 0, Sodium 140, Potassium 4.0, Chloride 109 H, Carbon Dioxide 27.0, Anion Gap 4 L, BUN 20 H, Creatinine 0.89, Estim Creat Clear Calc 78.26, Est GFR (MDRD) Af Amer 107, Est GFR (MDRD) Non-Af 88, BUN/Creatinine Ratio 22.4 H, Glucose 159 H, Calcium 9.1 Clinical Impression(s) from Imaging Studies Chest CTA 09/07/23 10:02 IMPRESSION: Intraluminal filling defects in the right interlobar artery and proximal branches of the right upper lobe pulmonary artery in keeping with pulmonary embolism. Patchy bibasilar infiltrates. Charges/Coding Visit Charges Inpatient E&M: 90658 Subs Hosp L2
[2023-09-09] MEDS: APIXABAN 5 MG TABLET 10 MG PO (20:26)
[2023-09-09] MEDS: Pravastatin 40 MG Tablet PO (20:27)
[2023-09-10] VITALS (9 sets, daily range): BP systolic 123–136; BP diastolic 74–76; PULSE 70–90; RESP 16–20; TEMP 36.6; O2SAT 92–98
[2023-09-10] MEDS: Ipratropium/Albuterol Sulfate 3 ML AMPUL.NEB INHALATION ×3 (03:46→11:23)
[2023-09-10] MEDS: Levothyroxine 75 MCG Tablet PO (05:36)
[2023-09-10] MEDS: Benzonatate 100 MG Capsule 200 MG PO (05:36)
[2023-09-10] MEDS: 0.9% Saline Lock 10 ML Syringe IV (05:36)
[2023-09-10 06:17] LABS: Absolute Lymphocyte Count 0.84 X10^3/uL (0.83-4.51); Absolute Neutrophil Count 10.3 X10^3/uL (2.0-7.7); Basophil# 0.06 X10^3/uL; Basophil% 0.5 % (0-1); Hematocrit 40.5 % (40-54); Hemoglobin 12.8 g/dL (13.0-16.5); Lymphocyte # 0.84 X10^3/ul (0.83-4.51); Lymphocyte % 6.9 % (19-41); Mean Corp Hgb Conc 31.6 g/dL (32-36); Mean Corpuscular Hgb 26.7 pg (27.0-32.0); Mean Corpuscular Volume 84.4 fL (80-94); Mean Platelet Vol. 10.8 fl (6.2-12.0); Monocyte# 0.38 X10^3/uL; Monocyte% 3.1 % (0-10); NRBC Flagged by Analyzer 0 % (0-5); Neutrophil % 85.1 % (47-70); Platelet Count 198 K/mm3 (150-450); RBC Distribution Width CV 14.6 % (11.6-14.6); RBC Distribution Width SD 45.2 fl (35.1-43.9); White Blood Count 12.1 K/mm3 (4.4-11.0)
[2023-09-10 06:44] LABS: Anion Gap 5 (5-15); BUN 26 mg/dL (7-18); BUN/Creat Ratio 25.2 RATIO (10-20); Calcium,Total 9.1 mg/dL (8.5-10.1); Chloride 108 mmol/L (98-107); Creatinine, Serum 1.03 mg/dL (0.70-1.30); EST Glomerular Filtration Rate 75 mL/min (>60); Est Glom Filt Rate - Afr Amer 90 mL/min (>60); Estimated Creatinine Clearance 67.62 ml/min; Glucose 159 mg/dL (74-106); Sodium Level 140 mmol/L (136-145)
[2023-09-10] MEDS: Budesonide Respules 0.5 MG/2 ML AMPUL.NEB. INHALATION (07:19)
[2023-09-10] MEDS: Aspirin E.C. 81 MG Tablet PO (09:08)
[2023-09-10] MEDS: Ascorbic Acid 500 MG Tablet PO (09:09)
[2023-09-10] MEDS: Tamsulosin HCl 0.4 MG Capsule 0.400000000000000022 MG PO (09:09)
[2023-09-10] MEDS: Azithromycin 250 MG Tablet 500 MG PO (09:09)
[2023-09-10] MEDS: Ceftriaxone 2 GM in 0.9% Normal Saline (50mL MB+) 50 ML IV (09:09)
[2023-09-10] MEDS: Metoprolol Tartrate 50 MG Tablet PO (09:10)
[2023-09-10] MEDS: APIXABAN 5 MG TABLET 10 MG PO (09:10)
[2023-09-10] MEDS: guaiFENesin/D-Methorphan TAB.SR.12H 2 TABLET PO (09:13)
[2023-09-10] MEDS: Multivitamins,Ther W-Minerals Tablet 1 TABLET PO (09:13)
[2023-09-10] MEDS: amLODIPine 10 MG Tablet PO (09:13)
[2023-09-10] MEDS: Pantoprazole Sodium 40 MG Tablet PO (09:13)
--- NOTE | 2023-09-10 11:35 | DCINST_ITS ---
Discharge Instructions Diet Discharge Diet: Low fat / Low cholesterol Activity Discharge Activity: Return to Normal Activity Dressing / Incision Call your doctor if you observe: Fever of 101 or Higher, Shortness of breath, Dizziness, Fainting spells, Swelling in the ankles, Chest pain and Increased palpitations (irregular heartbeat) Follow Up Care Test Results: Test results from this visit will be discussed in further detail at your follow- up appointment, if applicable. Discharge Plan Admission Admit Date/Time: 09/08/23 10:20 Attending Provider: Hollis Morgan Primary Care Provider: Andrade Lester Consulting Providers: Obie Noyola Instructions Patient Instructions: Apixaban Oral Tablet, Anticoagulants Discharge Orders/Prescriptions Prescriptions: New Eliquis 5 mg Tablet 10 mg PO BID Qty: 60 0RF Rx Instructions: Take 2 tablets twice daily until 09/16/23 then 1 tablet twice daily starting on 09/17/23 cefdinir 300 mg capsule 300 mg PO BID 2 Days Qty: 4 0RF Rx Instructions: Start 09/11/23 Continued saw palmetto 1,000 mg capsule 1,000 mg capsule 1,000 mg PO QDAY aspirin 81 mg tablet,delayed release (DR/EC) 81 mg PO QDAY tamsulosin 0.4 mg capsule,extended release 24hr 0.4 mg PO BID Breo Ellipta 100-25 mcg/dose blister with device 1 inh INHALATION DAILY dexlansoprazole 60 mg capsule,biphase delayed releas 60 mg PO DAILY turmeric 400 mg capsule 400 mg PO BID Bioflex 131-32-42-40 mg tablet 1 tab PO BID B-complex with vitamin C Tablet 1 tab PO DAILY ascorbate calcium (vitamin C) 500 mg tablet 500 mg PO DAILY calcium acetate 667 mg tablet 667 mg PO BID fluticasone propionate [Flonase Allergy Relief] 50 mcg/actuation spray,suspension 2 spray intranasal DAILY Rx Instructions: administer into each nostril amlodipine 10 mg tablet 10 mg PO QDAY Qty: 90 4RF hydrochlorothiazide 25 mg tablet 25 mg PO QDAY Qty: 90 4RF lisinopril 40 mg tablet 40 mg PO QDAY Qty: 90 4RF metoprolol tartrate 50 mg tablet 50 mg PO BID Qty: 180 4RF pravastatin 40 mg tablet 40 mg PO QHS Qty: 90 4RF levothyroxine 75 mcg tablet 75 mcg PO DAILY albuterol sulfate 90 mcg/actuation HFA aerosol inhaler 2 puff INHALATION Q6H PRN (Reason: shortness of breath or wheezing) Patient Comments: inhale 2 puffs by mouth and INTO THE LUNGS every 6 hours if needed benzonatate 100 mg capsule 200 mg PO TID Patient Comments: take 2 capsules by mouth three times a day if needed prednisone 20 mg tablet 40 mg PO DAILY Patient Comments: take 2 tablets by mouth once daily for 5 days Azo Cranberry 250 mg tablet,chewable 500 mg PO BID Centrum 18-400 mg-mcg tablet 1 tab PO DAILY Discontinued azithromycin 250 mg tablet 250 mg PO DAILY Patient Comments: take 1 tablet by mouth once daily as directed oseltamivir 75 mg capsule 75 mg PO BID Patient Comments: take 1 capsule by mouth twice a day Referrals / Follow Up: Andrade Lester MD [Primary Care Provider] - Within 1 Week Disposition Disposition (needs filled in before D/C Order can be placed): Home, Self Care
--- NOTE | 2023-09-10 12:10 | CASEMGMT ---
Patient has order for discharge. Patient discharging on [facility] called and copay is $93.58. RN CM in to room to discuss needs at discharge and updated regarding medication copay. Patient was provided with savings card for Eliquis previously and instructed how to use. Patient denied needs or help at discharge. Patient had no further questions or concerns at this time.
--- NOTE | 2023-09-10 15:49 | DS.PCM_ITS ---
Providers Date of Admission: 09/08/23 Primary Care Physician: Dr. Andrade Lester MD Reason For Visit: PE, FLU, COVID, RSV INFECTION Diagnosis Discharge Diagnosis (1) Pulmonary embolism: Status: Acute Code(s): I26.99 - Other pulmonary embolism without acute cor pulmonale Qualifiers: Pulmonary embolism type: unspecified Chronicity: acute Acute cor pulmonale presence: without acute cor pulmonale Qualified Code(s): I26.99 - Other pulmonary embolism without acute cor pulmonale Medications at Discharge Home Medications aspirin 81 mg tablet,delayed release 81 mg PO QDAY 07/16/17 tamsulosin 0.4 mg capsule 0.4 mg PO BID 07/16/17 saw palmetto 1,000 mg capsule 1,000 mg PO QDAY 08/31/17 fluticasone furoate 100 mcg-vilanterol 25 mcg/dose inhalation powder (Breo Ellipta) 1 inh inhalation DAILY 07/14/19 dexlansoprazole 60 mg capsule,biphase delayed release 60 mg PO DAILY 10/06/20 turmeric 400 mg capsule 400 mg PO BID 10/06/20 vit [id number] 500 mg-50 mg-25 mg-40 mg tablet (Bioflex) 1 tab PO BID 10/06/20 B-complex with vitamin C 1 tab PO DAILY 01/18/22 ascorbate calcium (vitamin C) 500 mg tablet 500 mg PO DAILY 07/17/22 amlodipine 10 mg tablet 10 mg PO QDAY #90 tabs 05/14/23 calcium acetate 667 mg tablet 667 mg PO BID 05/14/23 fluticasone propionate 50 mcg/actuation nasal spray,suspension (Flonase Allergy Relief) 2 spray intranasal DAILY 05/14/23 hydrochlorothiazide 25 mg tablet 25 mg PO QDAY #90 tabs 05/14/23 lisinopril 40 mg tablet 40 mg PO QDAY #90 tabs 05/14/23 metoprolol tartrate 50 mg tablet 50 mg PO BID #180 tabs 05/14/23 pravastatin 40 mg tablet 40 mg PO QHS #90 tabs 05/14/23 albuterol sulfate 90 mcg/actuation aerosol inhaler 2 puff inhalation Q6H PRN shortness of breath or wheezing 09/07/23 benzonatate 100 mg capsule 200 mg PO TID 09/07/23 cranberry fruit concentrate 250 mg chewable tablet (Azo Cranberry) 500 mg PO BID 09/07/23 levothyroxine 75 mcg tablet 75 mcg PO DAILY 09/07/23 multivitamin-ferrous fumarate-folic acid 18 mg-400 mcg tablet (Centrum) 1 tab PO DAILY 09/07/23 prednisone 20 mg tablet 40 mg PO DAILY 09/07/23 apixaban 5 mg tablet (Eliquis) 10 mg (2 x 5 mg) PO BID #60 tabs 09/10/23 cefdinir 300 mg capsule 300 mg PO BID 2 days #4 caps 09/10/23 Hospital Course Operations None Procedures None Summary of Care Provided Minutes Spent on Discharge: 40 Hospital Course: Per HPI: JOSSELINE DAVIS, is a 78 M who has been feeling sick with low-grade fever cough shortness of breath started with exertion about about 1 week on past Sunday therefore he went to see PCP on Sunday morning and was tested positive for COVID, influenza and RSV exact labs not available to review. Patient was given prescriptions of Zithromax, prednisone, Tamiflu, Tessalon Perles. Yesterday he did not feel good with increased shortness of breath/dyspnea at rest, cough and fever about 101 Fahrenheit therefore came to ED. Patient also feels that he feels something coming out from his lung but not able to expectorate completely. In ED, patient was found hypoxic and tachypneic requiring 4 L of oxygen therefore CT angiogram was done which shows intraluminal filling defect in right interlobar artery and proximal branches of right upper lobe pulmonary artery consistent with pulmonary embolism. Patient is started on Lovenox and further admitted. Hospital Course: 1. Acute right sided PE with RSV and secondary bacterial pneumonia?78-year-old male presented to the hospital with significant shortness of breath and hypoxia. He was initially needing 4 L nasal cannula and tested positive for RSV and was also found to have a PE. Given his worsening in symptoms he was also initiated on antibiotics given the risk for possible secondary bacterial pneumonia. Sputum culture is growing a gram-negative emerson that has not been identified yet however he is feeling much better. He is currently on room air at rest and did not require any oxygen with activity. He is tolerating the Eliquis at 10 mg p.o. twice daily for a total of 7 days and then will transition to 5 mg p.o. twice daily. His other medications were continued as necessary and he was discharged on cefdinir p.o. twice daily for 2 more days as he had completed a course of azithromycin in the hospital. I discussed with him the plan for discharge today he expressed understanding of the risk benefits of going home and would like to go home today. Prior to admission he was on prednisone at home which he can complete. 2. Coronary artery disease status post CABG, hypertension, BPH, hyperlipidemia, COPD are all chronic medical conditions which complicate his care. His home medications were continued where appropriate Physical Exam Narrative General: Alert, Oriented x3, Cooperative, No apparent distress HEENT: Atraumatic, PERRLA, EOMI, Normocephalic Oral: Moist Mucosa Neck: Supple, No JVD Lungs: Diminished, Normal air movement, No rhonchi, slight wheeze, No rales Cardiovascular: Regular rate, Regular Rhythm, Normal S1, Normal S2, No murmurs Abdomen: Soft, Non Tender, Non-Distended, No Hepato-splenomegaly Extremities: No edema, Capillary Refill Less than 3 Seconds Skin: No rashes, No breakdown Musculoskeletal: No Tenderness to Palpation of Joints or Extremities Neurological: No focal neurological deficits, Motor Exam 5/5 strength throughout, Sensory exam intact to light touch and pain Psych/Mental Status: Normal Affect, Appropriate Weight / BMI Weight Weight: 205 lb 11.06 oz Body Mass Index (BMI) 31.2 ABG / Lab / Microbiology Data 09/10/23 05:21 09/10/23 05:21 Laboratory: Laboratory Results - last 24 hr 09/10/23 05:21: WBC 12.1 H, RBC 4.80, Hgb 12.8 L, Hct 40.5, MCV 84.4, MCH 26.7 L , MCHC 31.6 L, RDW Std Deviation 45.2 H, RDW Coeff of Aron 14.6, Plt Count 198, MPV 10.8, Immature Gran % (Auto) 4.400 H, Neut % (Auto) 85.1 H, Lymph % (Auto) 6.9 L, [place] % (Auto) 3.1, Eos % (Auto) 0.0, Baso % (Auto) 0.5, Absolute Neuts (auto) 10.3 H, Absolute Lymphs (auto) 0.84, Nucleated RBC % 0, Sodium 140, Potassium 4.0, Chloride 108 H, Carbon Dioxide 27.0, Anion Gap 5, BUN 26 H, Creatinine 1.03, Estim Creat Clear Calc 67.62, Est GFR (MDRD) Af Amer 90, Est GFR (MDRD) Non-Af 75, BUN/Creatinine Ratio 25.2 H, Glucose 159 H, Calcium 9.1 Microbiology: Microbiology 09/08/23 20:35 Sputum, Expectorated/Coughed Gram Stain - Final 09/08/23 20:35 Sputum, Expectorated/Coughed Respiratory Culture - Preliminary Gram negative emerson 09/07/23 14:10 Blood Culture (Wb) - Anticubital Left Blood Culture - Preliminary No growth in 48 hours. 09/07/23 14:05 Blood Culture (Wb) - Anticubital Right Blood Culture - Preliminary No growth in 48 hours. 09/08/23 03:10 Mucosa - Nasopharyngeal Respiratory Panel (PCR) - Final RSV B 09/07/23 15:30 Mucosa - Nasopharyngeal SARS-CoV-2, Influenza & RSV (PCR) - Final RSV 09/07/23 16:00 Urine, Clean Catch Legionella Antigen - Final 09/07/23 16:00 Urine, Clean Catch Streptococcus pneumoniae Antigen (M - Final D/C Instructions Discharge Diet: Low fat / Low cholesterol Call your doctor if you observe: Fever of 101 or Higher, Shortness of breath, Dizziness, Fainting spells, Swelling in the ankles, Chest pain and Increased palpitations (irregular heartbeat) Meaningful Use Info Meaningful Use Diagnoses (Choose all that apply): None applicable Discharge Plan Admission Admit Date/Time: 09/08/23 10:20 Attending Provider: Hollis Morgan Primary Care Provider: Andrade Lester Consulting Providers: Obie Noyola Instructions Patient Instructions: Apixaban Oral Tablet, Anticoagulants Discharge Orders/Prescriptions Prescriptions: New Eliquis 5 mg Tablet 10 mg PO BID Qty: 60 0RF Rx Instructions: Take 2 tablets twice daily until 09/16/23 then 1 tablet twice daily starting on 09/17/23 cefdinir 300 mg capsule 300 mg PO BID 2 Days Qty: 4 0RF Rx Instructions: Start 09/11/23 Continued saw palmetto 1,000 mg capsule 1,000 mg capsule 1,000 mg PO QDAY aspirin 81 mg tablet,delayed release (DR/EC) 81 mg PO QDAY tamsulosin 0.4 mg capsule,extended release 24hr 0.4 mg PO BID Breo Ellipta 100-25 mcg/dose blister with device 1 inh INHALATION DAILY dexlansoprazole 60 mg capsule,biphase delayed releas 60 mg PO DAILY turmeric 400 mg capsule 400 mg PO BID Bioflex 699-97-56-40 mg tablet 1 tab PO BID B-complex with vitamin C Tablet 1 tab PO DAILY ascorbate calcium (vitamin C) 500 mg tablet 500 mg PO DAILY calcium acetate 667 mg tablet 667 mg PO BID fluticasone propionate [Flonase Allergy Relief] 50 mcg/actuation s pray,suspension 2 spray intranasal DAILY Rx Instructions: administer into each nostril amlodipine 10 mg tablet 10 mg PO QDAY Qty: 90 4RF hydrochlorothiazide 25 mg tablet 25 mg PO QDAY Qty: 90 4RF lisinopril 40 mg tablet 40 mg PO QDAY Qty: 90 4RF metoprolol tartrate 50 mg tablet 50 mg PO BID Qty: 180 4RF pravastatin 40 mg tablet 40 mg PO QHS Qty: 90 4RF levothyroxine 75 mcg tablet 75 mcg PO DAILY albuterol sulfate 90 mcg/actuation HFA aerosol inhaler 2 puff INHALATION Q6H PRN (Reason: shortness of breath or wheezing) Patient Comments: inhale 2 puffs by mouth and INTO THE LUNGS every 6 hours if needed benzonatate 100 mg capsule 200 mg PO TID Patient Comments: take 2 capsules by mouth three times a day if needed prednisone 20 mg tablet 40 mg PO DAILY Patient Comments: take 2 tablets by mouth once daily for 5 days Azo Cranberry 250 mg tablet,chewable 500 mg PO BID Centrum 18-400 mg-mcg tablet 1 tab PO DAILY Discontinued azithromycin 250 mg tablet 250 mg PO DAILY Patient Comments: take 1 tablet by mouth once daily as directed oseltamivir 75 mg capsule 75 mg PO BID Patient Comments: take 1 capsule by mouth twice a day Referrals / Follow Up: Andrade Lester MD [Primary Care Provider] - 09/17/23 3:00 pm Disposition Disposition (needs filled in before D/C Order can be placed): Home, Self Care Charges/Coding Visit Charges Inpatient E&M: 74094 Disch Hosp >30min
--- OUTSIDE RECORDS SUMMARY | 2023-09-12 12:16 | XMS RPT_ITS | CCD ---
Author Name Unknown Address [address] [place] [address] Organization [facility] Care Team Providers Care Conveyor Loader Name Role Phone Andrade Nunez MD Primary Care Provider ANDRADE NUNEZ Primary Care Unavailable KAPIL WHARTON Referring Unavailable ANDRADE NUNEZ Primary Care Unavailable CAROLYN NOGUEIRA Referring Unavailable ANDRADE NUNEZ Primary Care Unavailable ANDRADE NUNEZ Primary Care Unavailable Allergies Allergy Classification Reported Allergen(s) Allergy Type Date of Onset Reaction(s) Facility (7 sources) Sulfonamides (Antibiotic); Translations: [SULFA (SULFONAMIDE ANTIBIOTICS)] Drug Allergy 11-18-2016 [facility] Medications Current Medications Medication Drug Class(es) Dates [...] 08:42-0500 Body temperature 97.2 [degF] Carolyn Nogueira APRN.[facility] Work Phone: [facility] 07-07-2023 08:42-0500 Body weight 96.62 kg Carolyn Nogueira APRN.[facility] Work Phone: [facility] 07-07-2023 08:42-0500 Diastolic blood pressure 93 mm[Hg] Carolyn Huddleston-Fady LOBO.CALL CENTER MANAGER Work Phone: [facility] 07-07-2023 08:42-0500 Heart rate 67 /min Carolyn Nogueira APRN.CALL CENTER MANAGER Work Phone: [facility] 07-07-2023 08:42-0500 Respiratory rate 20 /min Carolyn Nogueira APRN.[facility] Work Phone: [facility] 07-07-2023 08:42-0500 SaO2% (BldA) [Mass fraction] 97 % Carolyn Nogueira APRN.CALL CENTER MANAGER Work Phone: [facility] 07-07-2023 08:42-0500 Systolic blood pressure 157 mm[Hg] Carolyn Nogueira APRN.CALL CENTER MANAGER Work Phone: [facility] 07-30-2022 09:34-0500 Body temperature 99.61 [degF] Yun Romero BLANKET WINDER HELPER.CALL CENTER MANAGER Work Phone: [facility] 07-30-2022 09:34-0500 Body weight 95.25 kg Yun Romero BLANKET WINDER HELPER.CALL CENTER MANAGER Work Phone: [facility] 07-30-2022 09:34-0500 Diastolic blood pressure 78 mm[Hg] Yun Romero BLANKET WINDER HELPER.CALL CENTER MANAGER Work Phone: [facility] 07-30-2022 09:34-0500 Heart rate 78 /min Yun Romero BLANKET WINDER HELPER.CALL CENTER MANAGER Work Phone: [facility] 07-30-2022 09:34-0500 Respiratory rate 16 /min Yun Romero BLANKET WINDER HELPER.CALL CENTER MANAGER Work Phone: [facility] 07-30-2022 09:34-0500 SaO2% (BldA) [Mass fraction] 96 % Yun Romero BLANKET WINDER HELPER.CALL CENTER MANAGER Work Phone: [facility] 07-30-2022 09:34-0500 Systolic blood pressure 128 mm[Hg] Yun Romero BLANKET WINDER HELPER.CALL CENTER MANAGER Work Phone: [facility] 03-16-2022 08:13-0400 Body temperature 100 [degF] Bret Pendlebury BLANKET WINDER HELPER.CALL CENTER MANAGER Work Phone: [facility] 03-16-2022 08:13-0400 Body weight 95.53 kg Bret Pendlebury BLANKET WINDER HELPER.CALL CENTER MANAGER Work Phone: [facility] 03-16-2022 08:13-0400 Diastolic blood pressure 88 mm[Hg] Bret Pendlebury BLANKET WINDER HELPER.CALL CENTER MANAGER Work Phone: [facility] 03-16-2022 08:13-0400 Heart rate 71 /min Bret Pendlebury BLANKET WINDER HELPER.CALL CENTER MANAGER Work Phone: [facility] 03-16-2022 08:13-0400 Respiratory rate 16 /min Rbet Pendlebury BLANKET WINDER HELPER.CALL CENTER MANAGER Work Phone: [facility] 03-16-2022 08:13-0400 SaO2% (BldA) [Mass fraction] 97 % Bret Melendez BLANKET WINDER HELPER.CALL CENTER MANAGER Work Phone: [facility] 03-16-2022 08:13-0400 Systolic blood pressure 138 mm[Hg] Bret Melendez BLANKET WINDER HELPER.CALL CENTER MANAGER Work Phone: [facility] 01-23-2022 07:36-0400 Body temperature 97.2 [degF] Paty Bogner PA-C Work Phone: [facility] 01-23-2022 07:36-0400 Body weight 96.62 kg Paty Bogner PA-C Work Phone: [facility] 01-23-2022 07:36-0400 Diastolic blood pressure 86 mm[Hg] Paty Bogner PA-C Work Phone: [facility] 01-23-2022 07:36-0400 Heart rate 55 /min Paty Bogner PA-C Work Phone: [facility] 01-23-2022 07:36-0400 Respiratory rate 21 /min Paty Bogner PA-C Work Phone: [facility] 01-23-2022 07:36-0400 SaO2% (BldA) [Mass fraction] 95 % Paty Bogner PA-C Work Phone: [facility] 01-23-2022 07:36-0400 Systolic blood pressure 162 mm[Hg] Paty Bogner PA-C Work Phone: [facility] Encounters Encounter Date Encounter Type Care Provider Facility Start: 09-03-2023 End: 09-03-2023 ambulatory ANDRADE NUNEZ Facility:[facility] Start: 07-07-2023 End: 07-07-2023 ambulatory ANDRADE NUNEZ Facility:[facility] Start: 07-07-2023 End: 07-07-2023 Patient encounter procedure Carolyn Nogueira APRN.CALL CENTER MANAGER Work Phone: [facility] Plan of Treatment Date Care Activity Detail Author Start: 08-13-2022 Advance Directive Discussion Advance Directive Discussion [facility] Start: 08-13-2022 Depression Assessment Depression Assessment [facility] Start: 07-30-2022 End: 08-13-2022 Influenza virus A and B RNA and SARS-CoV-2 (COVID-19) N gene panel - Respiratory specimen by SEAN with probe detection COVID WITH FLUA+B, ROUTINE Microbiology Routine URI, acute Expected: 07/30/2022, Expires: 08/13/2022 [facility] Work Phone: Immunizations Immunization Date Immunization Notes Care Provider Fa cili 01-23-2022 tetanus and diphther ia toxoids, adsorbed, preservative free, for adult use (5 Lf of tetanus toxoid and 2 Lf of diphtheria toxoid) Paty Ritchie PA-C Work Phone: [facility] Work Phone: 01-23-2022 TD(adult) unspecifie d formulation Paty Ritchie PA-C Work Phone: [facility] Work Phone: Payers Date Payer Category Payer Medicare [id number] 2015 Private Health Insurance HUMANA HUMANA MEDICARE SUPPLEMENT [id number] 2015-Present [phone] [address] [address] [place] [address] Indemnity [id number] 2015 Private Health Insurance HUMANA HUMANA MEDICARE SUPPLEMENT [id number] 2015-Present [phone] [address] [address] [place] [address] Indemnity [id number] 2012 Medicare MEDICARE MEDICAR E A AND B [id number] 2012-Present [phone] [place] [address] Medicare [id number] 2012 Medicare MEDICARE MEDICAR E A AND B [id number] 2012-Present [phone] [place] [address] Medicare [id number] 2012 Medicare [id number] Social History Date Type Detail Facility Start: 11-18-2016 End: 07-30-2022 Tobacco smoking status NHIS Never smoked tobacco [facility] Start: 11-18-2016 End: 07-30-2022 Tobacco use and exposure Smokeless tobacco non-user [facility] Start: 01-23-2022 End: 07-07-2023 Alcohol intake Current non-drinker of alcohol (finding) [facility] Start: 1945 Sex Assigned At Not on file [facility] Start: 01-13-2022 End: 01-23-2022 Exposure to SARS-CoV-2 (event) Not sure [facility] Work Phone: Start: 03-06-2022 End: 03-16-2022 Exposure to SARS-CoV-2 (event) Yes [facility] Work Phone: Start: 07-21-2020 End: 07-07-2023 History of Social function [facility] Start: 07-21-2020 End: 07-07-[address] [facility] National Score (1-100), lower number is lower risk Not on file [facility] Clinical Notes 01-23-2022 to 09-03-2023 Patient InstructionsPraisler-Carolyn Shrestha APRN.CALL CENTER MANAGER - 07/07/2023 9:10 AM ESTTelephone Encounter - Meredith Lopes - 07/31/2022 7:44 AM Cely Romero APRN.CALL CENTER MANAGER - 07/30/2022 9:45 AM EST Note Date & Type Note Facility 09-03-2023 Note HNO ID: [id number] Author: KAPIL WHARTNO PA-C Service: ? Author Type: Physician [employer] Type: Progress Notes Filed: 09/03/2023 08:43 Note Text: This note was created using [employer]. Subjective Josseline Davis is a 78 year old male. HPI Presents with a chief complaint of a barky cough over the past 2 or 3 days. He denies a fever. States he has felt short of breath at night. He states he does see pulmonology through [facility] and is prescribed Breo. He has [...] (FLONASE) 50 mcg/actuation nasal spray Use 1 [place] in each nostril twice daily. Rinse mouth [...] AND RSV NAAT, ROUTINE Kapil Wharton PA-C [facility] 09-03-2023 Note HNO ID: [id number] Author: CRISTOBAL MEHTA RT(R) Service: Radiology Author [...] RT Newton(R) September 03, 2023 8:16 AM [facility] 07-07-2023 Note HNO ID: [id number] Author: Carolyn Nogueira APRN.CALL CENTER MANAGER Service: ? Author Type: Nurse Practitioner Type: [...] (FLONASE) 50 mcg/actuation nasal spray Use 1 [place] in each nostril twice daily. Rinse mouth [...] visualized spine. IMPRESSION: No acute radiographic abnormality. Thermoforming Operator: NAV Transcribe Date/Time: Jul 07 2023 [...] expected course of illness Carolyn Nogueira APRN.[facility] 07-07-2023 Note HNO ID: [id number] Author: Jacinto Linn RT(R) Service: ? Author [...] RT Marty(R) July 07, 2023 9:08 AM [facility] 07-07-2023 Instructions Carolyn Nogueira APRN.CALL CENTER MANAGER - 07/07/2023 9:30 AM EST ASSESSMENT/PLAN: 1. [...] visualized spine. IMPRESSION: No acute radiographic abnormality. Thermoforming Operator: NAV Transcribe Date/Time: Jul 07 2023 [...] Discussed expected course of illness Carolyn Nogueira APRN.CALL CENTER MANAGER documented in this encounter [facility] 07-07-2023 History of Presen t illness Narrative [...] (FLONASE) 50 mcg/actuation nasal spray Use 1 [place] in each nostril twice daily. Rinse mouth [...] visualized spine. IMPRESSION: No acute radiographic abnormality. Thermoforming Operator: ANV Transcribe Date/Time: Jul 07 2023 9:20A Dictated [...] Discussed expected course of illness Carolyn Nogueira APRN.CALL CENTER MANAGER documented in this encounter [facility] 07-31-2022 Miscellaneous Notes Patient given results and verbalized understanding of instructions given. Meredith Lopes Please let patient know that he was negative for COVID and influenza. Continue supportive care. Follow up if symptoms are not improving, sooner if any worsening symptoms. Paty Ritchie PA-C 07/31/2022 documented in this encounter [facility] 07-30-2022 History of Presen t illness Narrative This note was created using [employer]. Subjective Josseline Davis is a 77 year [...] history is provided by the patient. No celery packer was used. Cough This is a new [...] (FLONASE) 50 mcg/actuation nasal spray Use 1 [place] in each nostril twice daily. Rinse mouth [...] exam Will cover with Doxycyline Yun Romero APRN.CALL CENTER MANAGER documented in this encounter [facility] 03-17-2022 Miscellaneous Notes Patient returned call and given provider's message below and patient verbalized understanding. Yoko Mosqueda RN This MORTGAGE LOAN ASSISTANT called patient at [phone].. Message left after 3 attempts to call [...] Loyda Lawson CNP documented in this encounter [facility] 03-16-2022 Instructions Bret Melendez APRN.[facility] - 03/16/2022 [...] concerning to you. documented in this encounter [facility] 03-16-2022 History of Presen t illness Narrative [...] (FLONASE) 50 mcg/actuation nasal spray Use 1 [place] in each nostril twice daily. Rinse mouth [...] of care. This note was generated using [employer] software. It may contain errors in wording, punctuation, or spelling. Bret Melendez APRN.[facility] documented in this encounter [facility] 01-23-2022 History of Presen t illness Narrative [...] (FLONASE) 50 mcg/actuation nasal spray Use 1 [place] in each nostril twice daily. Rinse mouth [...] the date of the service which included [id number] patient care, completing clinical documentation, performing a medically appropriate examination and counseling and educating the patient/family/caregiver. Paty Ritchie PA-C documented in this encounter [facility] documented [facility] Diagnosis Suspected COVID-19 virus infection- Primary [facility] Diagnosis URI, acute- Primary Acute upper respiratory infections of unspecified site Abnormal lung sounds Abnormal chest sounds [facility] Diagnosis Acute cough- Primary Lower resp. tract infection Other diseases of respiratory system, not elsewhere classified documented in this encounter 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 the event this information is protected by the Federal Confidentiality of Alcohol and Drug Abuse Patient Records regulations: The Federal rules restrict any use of the information to criminally investigate or prosecute any alcohol or drug abuse patient.[facility] the event this information is protected by the Federal Confidentiality of Alcohol and Drug Abuse Patient Records regulations: The Federal rules restrict any use of the information to criminally investigate or prosecute any alcohol or drug abuse patient.[facility] the event this information is protected by the Federal Confidentiality of Alcohol and Drug Abuse Patient Records regulations: The Federal rules restrict any use of the information to criminally investigate or prosecute any alcohol or drug abuse patient.[facility] the event this information is protected by the Federal Confidentiality of Alcohol and Drug Abuse Patient Records regulations: The Federal rules restrict any use of the information to criminally investigate or prosecute any alcohol or drug abuse patient.[facility] the event this information is protected by the Federal Confidentiality of Alcohol and Drug Abuse Patient Records regulations: The Federal rules restrict any use of the information to criminally investigate or prosecute any alcohol or drug abuse patient.[facility] Reason for Visit (unrecogniz ed section and content) Reason Comments Sore Throat pain rated 5, x1 day , chest congestion, cough. Reason Comments Results Reason Comments Head Congestion cough, sneezing x 3- 4 days Reason Comments Chest Congestion X 3 days Care Teams (unrecognized sec tion and content) Conveyor Loader Relationship Specialty Start Date End Date Andrade Nunez MD PCP - General Family Practice 11/18/16 Conveyor Loader Relationship Specialty Start Date End Date Andrade Nunez MD PCP - General Family Medicine 11/18/16 Conveyor Loader Relationship Specialty Start Date End Date Andrade Nunez MD PCP - General Family Medicine 11/18/16 Conveyor Loader Relationship Specialty Start Date End Date Andrade [...] BE BASED ON THE PRIMARY CLINICAL RECORDS. [facility] [employer] [facility]. provides no warranty or guarantee of the accuracy or completeness of information in this document.
--- OUTSIDE RECORDS SUMMARY | 2023-09-12 12:16 | XMS RPT_ITS | CCD ---
Author Name Unknown Address [address] [place] [address] Organization [facility] Care Team Providers Care Aviation Warfare Systems Operator Name Role Phone Andrade Nunez MD Primary Care Provider ANDRADE NUNEZ Primary Care Unavailable KAPIL WHARTON Referring Unavailable ANDRADE NUNEZ Primary Care Unavailable CAROLYN NOGUEIRA Referring Unavailable ANDRADE NUNEZ Primary Care Unavailable ANDRADE NUNEZ Primary Care Unavailable Allergies Allergy Classification Reported Allergen(s) Allergy Type Date of Onset Reaction(s) Facility (7 sources) Sulfonamides (Antibiotic); Translations: [SULFA (SULFONAMIDE ANTIBIOTICS)] Drug Allergy 11-18-2016 [facility] Medications Current Medications Medication Drug Class(es) [...] 08:42-0500 Body temperature 97.2 [degF] Carolyn Nogueira APRN.[employer] Work Phone: [facility] 07-07-2023 08:42-0500 Body weight 96.62 kg Carolyn Nogueira APRN.[employer] Work Phone: [facility] 07-07-2023 08:42-0500 Diastolic blood pressure 93 mm[Hg] Carolyn Huddleston-Fady LOBO.BAG SEALER Work Phone: [facility] 07-07-2023 08:42-0500 Heart rate 67 /min Carolyn Nogueira APRN.BAG SEALER Work Phone: [facility] 07-07-2023 08:42-0500 Respiratory rate 20 /min Carolyn Nogueira APRN.[employer] [facility] [employer] Work Phone: [facility] 07-07-2023 08:42-0500 SaO2% (BldA) [Mass fraction] 97 % Carolyn Nogueira APRN.BAG SEALER Work Phone: [facility] 07-07-2023 08:42-0500 Systolic blood pressure 157 mm[Hg] Carolyn Nogueira APRN.BAG SEALER Work Phone: [facility] 07-30-2022 09:34-0500 Body temperature 99.61 [degF] Yun Romero FLIGHT ENGINEER MANAGER.BAG SEALER Work Phone: [facility] 07-30-2022 09:34-0500 Body weight 95.25 kg Yun Romero FLIGHT ENGINEER MANAGER.BAG SEALER Work Phone: [facility] 07-30-2022 09:34-0500 Diastolic blood pressure 78 mm[Hg] Yun Romero FLIGHT ENGINEER MANAGER.BAG SEALER Work Phone: [facility] 07-30-2022 09:34-0500 Heart rate 78 /min Yun Romero FLIGHT ENGINEER MANAGER.BAG SEALER Work Phone: [facility] 07-30-2022 09:34-0500 Respiratory rate 16 /min Yun Romero FLIGHT ENGINEER MANAGER.BAG SEALER Work Phone: [facility] 07-30-2022 09:34-0500 SaO2% (BldA) [Mass fraction] 96 % Yun Romero FLIGHT ENGINEER MANAGER.BAG SEALER Work Phone: [facility] 07-30-2022 09:34-0500 Systolic blood pressure 128 mm[Hg] Yun Romero FLIGHT ENGINEER MANAGER.BAG SEALER Work Phone: [facility] 03-16-2022 08:13-0400 Body temperature 100 [degF] Bret Pendlebury FLIGHT ENGINEER MANAGER.BAG SEALER Work Phone: [facility] 03-16-2022 08:13-0400 Body weight 95.53 kg Bret Pendlebury FLIGHT ENGINEER MANAGER.BAG SEALER Work Phone: [facility] 03-16-2022 08:13-0400 Diastolic blood pressure 88 mm[Hg] Bret Pendlebury FLIGHT ENGINEER MANAGER.BAG SEALER Work Phone: [facility] 03-16-2022 08:13-0400 Heart rate 71 /min Bret Pendlebury FLIGHT ENGINEER MANAGER.BAG SEALER Work Phone: [facility] 03-16-2022 08:13-0400 Respiratory rate 16 /min Bret Pendlebury FLIGHT ENGINEER MANAGER.BAG SEALER Work Phone: [facility] 03-16-2022 08:13-0400 SaO2% (BldA) [Mass fraction] 97 % Bret Melendez FLIGHT ENGINEER MANAGER.BAG SEALER Work Phone: [facility] 03-16-2022 08:13-0400 Systolic blood pressure 138 mm[Hg] Bret Melendez FLIGHT ENGINEER MANAGER.BAG SEALER Work Phone: [facility] 01-23-2022 07:36-0400 Body temperature 97.2 [degF] Paty Bogner PA-C Work Phone: [facility] 01-23-2022 07:36-0400 Body weight 96.62 kg Paty Bogner PA-C Work Phone: [facility] 01-23-2022 07:36-0400 Diastolic blood pressure 86 mm[Hg] Paty Bogner PA-C Work Phone: [facility] 01-23-2022 07:36-0400 Heart rate 55 /min Paty Bogner PA-C Work Phone: [facility] 01-23-2022 07:36-0400 Respiratory rate 21 /min Paty Bogner PA-C Work Phone: [facility] 01-23-2022 07:36-0400 SaO2% (BldA) [Mass fraction] 95 % Paty Bogner PA-C Work Phone: [facility] 01-23-2022 07:36-0400 Systolic blood pressure 162 mm[Hg] Paty Bogner PA-C Work Phone: [facility] Encounters Encounter Date Encounter Type Care Provider Facility Start: 09-03-2023 End: 09-03-2023 ambulatory ANDRADE NUNEZ Facility:[facility] Start: 07-07-2023 End: 07-07-2023 ambulatory ANDRADE NUNEZ Facility:[facility] Start: 07-07-2023 End: 07-07-2023 Patient encounter procedure Carolyn Nogueira APRN.BAG SEALER Work Phone: [facility] Plan of Treatment Date Care Activity Detail Author Start: 08-13-2022 Advance Directive Discussion Advance Directive Discussion [facility] Start: 08-13-2022 Depression Assessment Depression Assessment [facility] Start: 07-30-2022 End: 08-13-2022 Influenza virus A and B RNA and SARS-CoV-2 (COVID-19) N gene panel - Respiratory specimen by SEAN with probe detection COVID WITH FLUA+B, ROUTINE Microbiology Routine URI, acute Expected: 07/30/2022, Expires: 08/13/2022 [facility] Work Phone: Immunizations Immunization Date Immunization Notes Care Provider Fa cili 01-23-2022 tetanus and diphther ia toxoids, adsorbed, preservative free, for adult use (5 Lf of tetanus toxoid and 2 Lf of diphtheria toxoid) Paty Ritchie PA-C Work Phone: [facility] Work Phone: 01-23-2022 TD(adult) unspecifie d formulation Paty Ritchie PA-C Work Phone: [facility] Work Phone: Payers Date Payer Category Payer Medicare [id number] 2015 Private Health Insurance HUMANA HUMANA MEDICARE SUPPLEMENT [id number] 2015-Present [phone] [address] [address] [place] [address] Indemnity [id number] 2015 Private Health Insurance HUMANA HUMANA MEDICARE SUPPLEMENT [id number] 2015-Present [phone] [address] [address] [place] [address] Indemnity [id number] 2012 Medicare MEDICARE MEDICAR E A AND B [id number] 2012-Present [phone] [place] [address] Medicare [id number] 2012 Medicare MEDICARE MEDICAR E A AND B [id number] 2012-Present [phone] [place] [address] Medicare [id number] 2012 Medicare [id number] Social History Date Type Detail Facility Start: 11-18-2016 End: 07-30-2022 Tobacco smoking status NHIS Never smoked tobacco [facility] Start: 11-18-2016 End: 07-30-2022 Tobacco use and exposure Smokeless tobacco non-user [facility] Start: 01-23-2022 End: 07-07-2023 Alcohol intake Current non-drinker of alcohol (finding) [facility] Start: 1945 Sex Assigned At Not on file [facility] Start: 01-13-2022 End: 01-23-2022 Exposure to SARS-CoV-2 (event) Not sure [facility] Work Phone: Start: 03-06-2022 End: 03-16-2022 Exposure to SARS-CoV-2 (event) Yes [facility] Work Phone: Start: 07-21-2020 End: 07-07-2023 History of Social function [facility] Start: 07-21-2020 End: 07-07-2023 Tobacco use panel [facility] National Score (1-100), lower number is lower risk Not on file [facility] Clinical Notes 01-23-2022 to 09-03-2023 Patient InstructionsPraisler-Carolyn Shrestha APRN.BAG SEALER - 07/07/2023 9:10 AM ESTTelephone Encounter - Meredith Lopes - 07/31/2022 7:44 AM Cely Romero APRN.BAG SEALER - 07/30/2022 9:45 AM EST Note Date & Type Note Facility 09-03-2023 Note HNO ID: [id number] Author: KAPIL WHARTON PA-C Service: ? Author Type: Physician Conduit Worker Type: Progress Notes Filed: 09/03/2023 08:43 Note Text: This note was created using TEVIZZriter. Subjective Josseline Davis is a 78 year old male. HPI Presents with a chief complaint of a barky cough over the past 2 or 3 days. He denies a fever. States he has felt short of breath at night. He states he does see pulmonology through [facility] and is prescribed Breo. He has been [...] (FLONASE) 50 mcg/actuation nasal spray Use 1 [place] in each nostril twice daily. Rinse mouth [...] AND RSV NAAT, ROUTINE Kapil Wharton PA-C [facility] 09-03-2023 Note HNO ID: [id number] Author: CRISTOBAL MEHTA RT(R) Service: Radiology Author [...] RT Newton(R) September 03, 2023 8:16 AM [facility] 07-07-2023 Note HNO ID: [id number] Author: Carolyn Nogueira APRN.BAG SEALER Service: ? Author Type: Nurse Practitioner Type: [...] (FLONASE) 50 mcg/actuation nasal spray Use 1 [place] in each nostril twice daily. Rinse mouth [...] visualized spine. IMPRESSION: No acute radiographic abnormality. Premium Representative: NAV Transcribe Date/Time: Jul 07 2023 9:20A [...] expected course of illness Carolyn Nogueira APRN.MICKEY [facility] 07-07-2023 Note HNO ID: [id number] Author: Jacinto Linn RT(R) Service: ? Author [...] RT Marty(R) July 07, 2023 9:08 AM [facility] 07-07-2023 Instructions Carolyn Nogueira APRN.BAG SEALER - 07/07/2023 9:30 AM EST ASSESSMENT/PLAN: 1. [...] visualized spine. IMPRESSION: No acute radiographic abnormality. Premium Representative: NAV Transcribe Date/Time: Jul 07 2023 9:20A [...] Discussed expected course of illness Carolyn Nogueira APRN.BAG SEALER documented in this encounter [facility] 07-07-2023 History of Presen t illness Narrative [...] (FLONASE) 50 mcg/actuation nasal spray Use 1 [place] in each nostril twice daily. Rinse mouth [...] visualized spine. IMPRESSION: No acute radiographic abnormality. Premium Representative: NAV Transcribe Date/Time: Jul 07 2023 9:20A [...] Discussed expected course of illness Carolyn Nogueira APRN.BAG SEALER documented in this encounter [facility] 07-31-2022 Miscellaneous Notes Patient given results and verbalized understanding of instructions given. Meredith Lopes Please let patient know that he was negative for COVID and influenza. Continue supportive care. Follow up if symptoms are not improving, sooner if any worsening symptoms. Paty Ritchie PA-C 07/31/2022 documented in this encounter [facility] 07-30-2022 History of Presen t illness Narrative This note was created using TEVIZZriter. Subjective Josseline Davis is a 77 year [...] history is provided by the patient. No recruitment manager was used. Cough This is a new [...] (FLONASE) 50 mcg/actuation nasal spray Use 1 [place] in each nostril twice daily. Rinse mouth [...] exam Will cover with Doxycyline Yun Romero APRN.BAG SEALER documented in this encounter [facility] 03-17-2022 Miscellaneous Notes Patient returned call and given provider's message below and patient verbalized understanding. Yoko Mosqueda RN This GENERAL MILLING SUPERINTENDENT called patient at [phone].. Message left after 3 attempts to call [...] this encounter [facility] 03-16-2022 Instructions Bret Melendez APRN.MICKEY - 03/16/2022 [...] this encounter [facility] 03-16-2022 History of Presen t illness Narrative [...] (FLONASE) 50 mcg/actuation nasal spray Use 1 [place] in each nostril twice daily. Rinse mouth [...] of care. This note was generated using Click4Care software. It may contain errors in wording, punctuation, or spelling. Bret Melendez APRN.MICKEY documented in this encounter [facility] 01-23-2022 History of Presen t illness Narrative [...] (FLONASE) 50 mcg/actuation nasal spray Use 1 [place] in each nostril twice daily. Rinse mouth [...] the date of the service which included [id number] patient care, completing clinical documentation, performing a medically appropriate examination and counseling and educating the patient/family/caregiver. Paty Ritchie PA-C documented in this encounter [facility] Diagnosis Suspected COVID-19 virus infection- Primary [facility] Diagnosis URI, acute- Primary Acute upper respiratory infections of unspecified site Abnormal lung sounds Abnormal chest sounds [facility] Diagnosis Acute cough- Primary Lower resp. 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 Advance Directive(s) 09/14/2017 2:00 PM [...] DATE CREATED AUTHOR AUTHOR'S ORGANIZ ATION 09/04/2023 [facility] Source Comments (unrecognize d section and content) In the event this informatio n is protected by the Federal Confidentiality of Alcohol and Drug Abuse Patient Records regulations: The Federal rules restrict any use of the information to criminally investigate or prosecute any alcohol or drug abuse patient.[facility] the event this information is protected by the Federal Confidentiality of Alcohol and Drug Abuse Patient Records regulations: The Federal rules restrict any use of the information to criminally investigate or prosecute any alcohol or drug abuse patient.[facility] the event this information is protected by the Federal Confidentiality of Alcohol and Drug Abuse Patient Records regulations: The Federal rules restrict any use of the information to criminally investigate or prosecute any alcohol or drug abuse patient.[facility] the event this information is protected by the Federal Confidentiality of Alcohol and Drug Abuse Patient Records regulations: The Federal rules restrict any use of the information to criminally investigate or prosecute any alcohol or drug abuse patient.[facility] the event this information is protected by the Federal Confidentiality of Alcohol and Drug Abuse Patient Records regulations: The Federal rules restrict any use of the information to criminally investigate or prosecute any alcohol or drug abuse patient.[facility] the event this information is protected by the Federal Confidentiality of Alcohol and Drug Abuse Patient Records regulations: The Federal rules restrict any use of the information to criminally investigate or prosecute any alcohol or drug abuse patient.[facility] Reason for Visit (unrecogniz ed section and content) Reason Comments Sore Throat pain rated 5, x1 day , chest congestion, cough. Reason Comments Results Reason Comments Head Congestion cough, sneezing x 3- 4 days Reason Comments Chest Congestion X 3 days Care Teams (unrecognized sec tion and content) Aviation Warfare Systems Operator Relationship Specialty Start Date End Date Andrade Nunez MD PCP - General Family Practice 11/18/16 Aviation Warfare Systems Operator Relationship Specialty Start Date End Date Andrade Nunez MD PCP - General Family Medicine 11/18/16 Aviation Warfare Systems Operator Relationship Specialty Start Date End Date Andrade Nunez MD PCP - General Family Medicine 11/18/16 Aviation Warfare Systems Operator Relationship Specialty Start Date End Date [...] BE BASED ON THE PRIMARY CLINICAL RECORDS. [facility] [employer] [facility]. provides no warranty or guarantee of the accuracy or completeness of information in this document.
== END 2023-09-10 13:23 | disposition home or self-care (01) | DRG 177 ==
LOC: ED 11:48 → PCU 12:05
PROVIDERS: Admitting Provider Internal Medicine; Emergency Provider Emergency Medicine; PCP Family Medicine; Visit Provider Family Medicine
DX: J15.1 Pneumonia due to Pseudomonas (principal); I26.99 Other pulmonary embolism without acute cor pulmonale; J44.0 Chronic obstructive pulmonary disease with (acute) lower respiratory infection; I10 Essential (primary) hypertension; J12.1 Respiratory syncytial virus pneumonia; E78.00 Pure hypercholesterolemia, unspecified; I25.10 Atherosclerotic heart disease of native coronary artery without angina pectoris; E66.9 Obesity, unspecified; I49.3 Ventricular premature depolarization; Z79.82 Long term (current) use of aspirin; N40.0 Benign prostatic hyperplasia without lower urinary tract symptoms; R09.02 Hypoxemia; Z79.51 Long term (current) use of inhaled steroids; Z79.899 Other long term (current) drug therapy; Z95.1 Presence of aortocoronary bypass graft; Z87.891 Personal history of nicotine dependence; Z68.32 Body mass index [BMI] 32.0-32.9, adult; Z11.52 Encounter for screening for COVID-19
CPT/HCPCS: 36415; 71046; 71275; 80048; 80076; 82550; 83605; 83615; 83735; 83880; 84145; 84450; 84484; 85025; 85379; 85384; 85610; 86140; 87040; 87070; 87077; 87186; 87205; 87449; 87631; 87633; 93005; 94640; 94667; 94668; 99283; 99285; J7040; J7050; Q9967; A4216; J0248

== ENCOUNTER → 2023-09-12 | Outpatient (CLI) | payer MEDICARE, OTHER, SELFPAY ==
--- OUTSIDE RECORDS SUMMARY | 2023-09-12 16:52 | XMS RPT_ITS | CCD ---
Author Name Unknown Address [address] [place] [address] Organization [facility] Care Team Providers Care Sas Programmer Remote Name Role Phone Andrade Nunez MD Primary Care Provider ANDRADE NUNEZ Primary Care Unavailable KAPIL WHARTON Referring Unavailable ANDRADE NUNEZ Primary Care Unavailable CAROLYN NOGUEIRA Referring Unavailable ANDRADE NUNEZ Primary Care Unavailable ANDRADE NUNEZ Primary Care Unavailable Allergies Allergy Classification Reported Allergen(s) Allergy Type Date of Onset Reaction(s) Facility (7 sources) Sulfonamides (Antibiotic); Translations: [SULFA (SULFONAMIDE ANTIBIOTICS)] Drug Allergy 11-18-2016 [facility] Medications Current Medications Medication Drug Class(es) [...] 08:42-0500 Body temperature 97.2 [degF] Carolyn Nogueira APRN.[facility] Work Phone: [facility] 07-07-2023 08:42-0500 Body weight 96.62 kg Carolyn Nogueira APRN.[facility] Work Phone: [facility] 07-07-2023 08:42-0500 Diastolic blood pressure 93 mm[Hg] Carolyn Huddleston-Fady LOBO.WAVE SOLDERING MACHINE OPERATOR Work Phone: [facility] 07-07-2023 08:42-0500 Heart rate 67 /min Carolyn Nogueira APRN.WAVE SOLDERING MACHINE OPERATOR Work Phone: [facility] 07-07-2023 08:42-0500 Respiratory rate 20 /min Carolyn Nogueira APRN.[facility] Work Phone: [facility] 07-07-2023 08:42-0500 SaO2% (BldA) [Mass fraction] 97 % Carolyn Nogueira APRN.WAVE SOLDERING MACHINE OPERATOR Work Phone: [facility] 07-07-2023 08:42-0500 Systolic blood pressure 157 mm[Hg] Carolyn Nogueira APRN.WAVE SOLDERING MACHINE OPERATOR Work Phone: [facility] 07-30-2022 09:34-0500 Body temperature 99.61 [degF] Yun Romero BUSINESS SERVICES ANALYST.WAVE SOLDERING MACHINE OPERATOR Work Phone: [facility] 07-30-2022 09:34-0500 Body weight 95.25 kg Ynu Romero BUSINESS SERVICES ANALYST.WAVE SOLDERING MACHINE OPERATOR Work Phone: [facility] 07-30-2022 09:34-0500 Diastolic blood pressure 78 mm[Hg] Yun Romero BUSINESS SERVICES ANALYST.WAVE SOLDERING MACHINE OPERATOR Work Phone: [facility] 07-30-2022 09:34-0500 Heart rate 78 /min Yun Romero BUSINESS SERVICES ANALYST.WAVE SOLDERING MACHINE OPERATOR Work Phone: [facility] 07-30-2022 09:34-0500 Respiratory rate 16 /min Yun Romero BUSINESS SERVICES ANALYST.WAVE SOLDERING MACHINE OPERATOR Work Phone: [facility] 07-30-2022 09:34-0500 SaO2% (BldA) [Mass fraction] 96 % Yun Romero BUSINESS SERVICES ANALYST.WAVE SOLDERING MACHINE OPERATOR Work Phone: [facility] 07-30-2022 09:34-0500 Systolic blood pressure 128 mm[Hg] Yun Romero BUSINESS SERVICES ANALYST.WAVE SOLDERING MACHINE OPERATOR Work Phone: [facility] 03-16-2022 08:13-0400 Body temperature 100 [degF] Bret Pendlebury BUSINESS SERVICES ANALYST.WAVE SOLDERING MACHINE OPERATOR Work Phone: [facility] 03-16-2022 08:13-0400 Body weight 95.53 kg Bret Pendlebury BUSINESS SERVICES ANALYST.WAVE SOLDERING MACHINE OPERATOR Work Phone: [facility] 03-16-2022 08:13-0400 Diastolic blood pressure 88 mm[Hg] Bret Pendlebury BUSINESS SERVICES ANALYST.WAVE SOLDERING MACHINE OPERATOR Work Phone: [facility] 03-16-2022 08:13-0400 Heart rate 71 /min Bret Pendlebury BUSINESS SERVICES ANALYST.WAVE SOLDERING MACHINE OPERATOR Work Phone: [facility] 03-16-2022 08:13-0400 Respiratory rate 16 /min Bret Pendlebury BUSINESS SERVICES ANALYST.WAVE SOLDERING MACHINE OPERATOR Work Phone: [facility] 03-16-2022 08:13-0400 SaO2% (BldA) [Mass fraction] 97 % Bret Melendez BUSINESS SERVICES ANALYST.WAVE SOLDERING MACHINE OPERATOR Work Phone: [facility] 03-16-2022 08:13-0400 Systolic blood pressure 138 mm[Hg] Bret Melendez BUSINESS SERVICES ANALYST.WAVE SOLDERING MACHINE OPERATOR Work Phone: [facility] 01-23-2022 07:36-0400 Body temperature 97.2 [degF] Paty Bogner PA-C Work Phone: [facility] 01-23-2022 07:36-0400 Body weight 96.62 kg Paty Bogner PA-C Work Phone: [facility] 01-23-2022 07:36-0400 Diastolic blood pressure 86 mm[Hg] Paty Bogner PA-C Work Phone: [facility] 01-23-2022 07:36-0400 Heart rate 55 /min Paty Bogner PA-C Work Phone: [facility] 01-23-2022 07:36-0400 Respiratory rate 21 /min Paty Bogner PA-C Work Phone: [facility] 01-23-2022 07:36-0400 SaO2% (BldA) [Mass fraction] 95 % Paty Bogner PA-C Work Phone: [facility] 01-23-2022 07:36-0400 Systolic blood pressure 162 mm[Hg] Paty Bogner PA-C Work Phone: [facility] Encounters Encounter Date Encounter Type Care Provider Facility Start: 09-03-2023 End: 09-03-2023 ambulatory ANDRADE NUNEZ Facility:[facility] Start: 07-07-2023 End: 07-07-2023 ambulatory ANDRADE NUNEZ Facility:[facility] Start: 07-07-2023 End: 07-07-2023 Patient encounter procedure Carolyn Nogueira APRN.WAVE SOLDERING MACHINE OPERATOR Work Phone: [facility] Plan of Treatment Date Care Activity Detail Author Start: 08-13-2022 Advance Directive Discussion Advance Directive Discussion [facility] Start: 08-13-2022 Depression Assessment Depression Assessment [facility] Start: 07-30-2022 End: 08-13-2022 Influenza virus A and B RNA and SARS-CoV-2 (COVID-19) N gene panel - Respiratory specimen by SEAN with probe detection COVID WITH FLUA+B, ROUTINE Microbiology Routine URI, acute Expected: 07/30/2022, Expires: 08/13/2022 [facility] Work Phone: Immunizations Immunization Date Immunization Notes Care Provider Fa cili 01-23-2022 tetanus and diphther ia toxoids, adsorbed, preservative free, for adult use (5 Lf of tetanus toxoid and 2 Lf of diphtheria toxoid) Paty Ritchie PA-C Work Phone: [facility] Work Phone: 01-23-2022 TD(adult) unspecifie d formulation Paty Ritchie PA-C Work Phone: [facility] Work Phone: Payers Date Payer Category Payer Medicare [id number] 2015 Private Health Insurance HUMANA HUMANA MEDICARE SUPPLEMENT [id number] 2015-Present [phone] [address] [address] [place] [address] Indemnity [id number] 2015 Private Health Insurance HUMANA HUMANA MEDICARE SUPPLEMENT [id number] 2015-Present [phone] [address] [address] [place] [address] Indemnity [id number] 2012 Medicare MEDICARE MEDICAR E A AND B [id number] 2012-Present [phone] [place] [address] Medicare [id number] 2012 Medicare MEDICARE MEDICAR E A AND B [id number] 2012-Present [phone] [place] [address] Medicare [id number] 2012 Medicare [id number] Social History Date Type Detail Facility Start: 11-18-2016 End: 07-30-2022 Tobacco smoking status NHIS Never smoked tobacco [facility] Start: 11-18-2016 End: 07-30-2022 Tobacco use and exposure Smokeless tobacco non-user [facility] Start: 01-23-2022 End: 07-07-2023 Alcohol intake Current non-drinker of alcohol (finding) [facility] Start: 1945 Sex Assigned At Not on file [facility] Start: 01-13-2022 End: 01-23-2022 Exposure to SARS-CoV-2 (event) Not sure [facility] Work Phone: Start: 03-06-2022 End: 03-16-2022 Exposure to SARS-CoV-2 (event) Yes [facility] Work Phone: Start: 07-21-2020 End: 07-07-2023 History of Social function [facility] Start: 07-21-2020 End: 07-07-2023 Tobacco use panel [facility] National Score (1-100), lower number is lower risk Not on file [facility] Clinical Notes 01-23-2022 to 09-03-2023 Patient InstructionsPraisler-Carolyn Shrestha APRN.WAVE SOLDERING MACHINE OPERATOR - 07/07/2023 9:10 AM ESTTelephone Encounter - Meredith Lopes - 07/31/2022 7:44 AM Cely Romero APRN.WAVE SOLDERING MACHINE OPERATOR - 07/30/2022 9:45 AM EST Note Date & Type Note Facility 09-03-2023 Note HNO ID: [id number] Author: KAPIL WHARTON PA-C Service: ? Author Type: Physician Skoog Patching Machine Operator Type: Progress Notes Filed: 09/03/2023 08:43 Note Text: This note was created using Peeractiveriter. Subjective Josseline Davis is a 78 year old male. HPI Presents with a chief complaint of a barky cough over the past 2 or 3 days. He denies a fever. States he has felt short of breath at night. He states he does see pulmonology through [facility] and is prescribed Breo. He has [...] (FLONASE) 50 mcg/actuation nasal spray Use 1 [place] in each nostril twice daily. Rinse mouth [...] AND RSV NAAT, ROUTINE Kapil Wharton PA-C [facility] 09-03-2023 Note HNO ID: [id number] Author: CRISTOBAL MEHTA RT(R) Service: Radiology Author [...] RT Newton(R) September 03, 2023 8:16 AM [facility] 07-07-2023 Note HNO ID: [id number] Author: Carolyn Nogueira APRN.WAVE SOLDERING MACHINE OPERATOR Service: ? Author Type: Nurse Practitioner [...] (FLONASE) 50 mcg/actuation nasal spray Use 1 [place] in each nostril twice daily. Rinse mouth [...] visualized spine. IMPRESSION: No acute radiographic abnormality. Billing Customer Service Representative: NAV Transcribe Date/Time: Jul 07 2023 [...] expected course of illness Carolyn Nogueira APRN.MICKEY [facility] 07-07-2023 Note HNO ID: [id number] Author: Jacinto Linn RT(R) Service: ? Author [...] IV DATA: Not applicable SIGNED BY: RT Maryt(R) July 07, 2023 9:08 AM [facility] 07-07-2023 Instructions Carolyn Nogueira APRN.WAVE SOLDERING MACHINE OPERATOR - 07/07/2023 9:30 AM EST ASSESSMENT/PLAN: [...] visualized spine. IMPRESSION: No acute radiographic abnormality. Billing Customer Service Representative: NAV Transcribe Date/Time: Jul 07 2023 [...] Discussed expected course of illness Carolyn Nogueira APRN.WAVE SOLDERING MACHINE OPERATOR documented in this encounter [facility] 07-07-2023 History of Presen t illness [...] (FLONASE) 50 mcg/actuation nasal spray Use 1 [place] in each nostril twice daily. Rinse mouth [...] visualized spine. IMPRESSION: No acute radiographic abnormality. Billing Customer Service Representative: NAV Transcribe Date/Time: Jul 07 2023 [...] Discussed expected course of illness Carolyn Nogueira APRN.WAVE SOLDERING MACHINE OPERATOR documented in this encounter [facility] 07-31-2022 Miscellaneous Notes Patient given results and verbalized understanding of instructions given. Meredith Lopes Please let patient know that he was negative for COVID and influenza. Continue supportive care. Follow up if symptoms are not improving, sooner if any worsening symptoms. Paty Ritchie PA-C 07/31/2022 documented in this encounter [facility] 07-30-2022 History of Presen t illness Narrative This note was created using Peeractiveriter. Subjective Josseline Davis is a 77 year [...] history is provided by the patient. No language arts teacher was used. Cough This is a new [...] (FLONASE) 50 mcg/actuation nasal spray Use 1 [place] in each nostril twice daily. Rinse mouth [...] exam Will cover with Doxycyline Yun Romero APRN.WAVE SOLDERING MACHINE OPERATOR documented in this encounter [facility] 03-17-2022 Miscellaneous Notes Patient returned call and given provider's message below and patient verbalized understanding. Yoko Mosqueda RN This FORGE PRESS OPERATOR called patient at [phone].. Message left after 3 attempts to call [...] Loyda Lawson CNP documented in this encounter [facility] 03-16-2022 Instructions Bret Melendez APRN.MICKEY - [...] concerning to you. documented in this encounter [facility] 03-16-2022 History of Presen t illness [...] (FLONASE) 50 mcg/actuation nasal spray Use 1 [place] in each nostril twice daily. Rinse mouth [...] of care. This note was generated using Oxe[employer] software. It may contain errors in wording, punctuation, or spelling. Bret Melendez APRN.MICKEY documented in this encounter [facility] 01-23-2022 History of Presen t illness [...] (FLONASE) 50 mcg/actuation nasal spray Use 1 [place] in each nostril twice daily. Rinse mouth [...] the date of the service which included [id number] patient care, completing clinical documentation, performing a medically appropriate examination and counseling and educating the patient/family/caregiver. Paty Ritchie PA-C documented in this encounter [facility] Suspected COVID-19 virus infection- Primary [facility] Diagnosis URI, acute- Primary Acute upper respiratory infections of unspecified site Abnormal lung sounds Abnormal chest sounds [facility] Diagnosis Acute cough- Primary Lower resp. 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 Powder Mill Operator Expl anation Advance Directive(s) 09/14/2017 2:00 PM [...] DATE CREATED AUTHOR AUTHOR'S ORGANIZ ATION 09/04/2023 [facility] Source Comments (unrecognize d section and content) In the event this informatio n is protected by the Federal Confidentiality of Alcohol and Drug Abuse Patient Records regulations: The Federal rules restrict any use of the information to criminally investigate or prosecute any alcohol or drug abuse patient.[facility] the event this information is protected by the Federal Confidentiality of Alcohol and Drug Abuse Patient Records regulations: The Federal rules restrict any use of the information to criminally investigate or prosecute any alcohol or drug abuse patient.[facility] the event this information is protected by the Federal Confidentiality of Alcohol and Drug Abuse Patient Records regulations: The Federal rules restrict any use of the information to criminally investigate or prosecute any alcohol or drug abuse patient.[facility] the event this information is protected by the Federal Confidentiality of Alcohol and Drug Abuse Patient Records regulations: The Federal rules restrict any use of the information to criminally investigate or prosecute any alcohol or drug abuse patient.[facility] the event this information is protected by the Federal Confidentiality of Alcohol and Drug Abuse Patient Records regulations: The Federal rules restrict any use of the information to criminally investigate or prosecute any alcohol or drug abuse patient.[facility] the event this information is protected by the Federal Confidentiality of Alcohol and Drug Abuse Patient Records regulations: The Federal rules restrict any use of the information to criminally investigate or prosecute any alcohol or drug abuse patient.[facility] Reason for Visit (unrecogniz ed section and content) Reason Comments Sore Throat pain rated 5, x1 day , chest congestion, cough. Reason Comments Results Reason Comments Head Congestion cough, sneezing x 3- 4 days Reason Comments Chest Congestion X 3 days Care Teams (unrecognized sec tion and content) Sas Programmer Remote Relationship Specialty Start Date End Date Andrade Nunez MD PCP - General Family Practice 11/18/16 Sas Programmer Remote Relationship Specialty Start Date End Date Andrade Nunez MD PCP - General Family Medicine 11/18/16 Sas Programmer Remote Relationship Specialty Start Date End Date Andrade Nunez MD PCP - General Family Medicine 11/18/16 Sas Programmer Remote Relationship Specialty Start Date End Date Andrade [...] BE BASED ON THE PRIMARY CLINICAL RECORDS. [facility] [employer] [facility]. provides no warranty or guarantee of the accuracy or completeness of information in this document.
[2023-09-12 17:38] LABS: Hematocrit 40.8 % (40-54); Hemoglobin 13.3 g/dL (13.0-16.5); Mean Corp Hgb Conc 32.6 g/dL (32-36); Mean Corpuscular Hgb 26.9 pg (27.0-32.0); Mean Corpuscular Volume 82.6 fL (80-94); Mean Platelet Vol. 10.6 fl (6.2-12.0); POSITIVE COUNT YES; POSITIVE MORPHOLOGY YES; Platelet Count 211 K/mm3 (150-450); RBC Distribution Width CV 14.2 % (11.6-14.6); RBC Distribution Width SD 42.8 fl (35.1-43.9); Red Blood Count 4.94 M/mm3 (4.6-6.2); White Blood Count 12.3 K/mm3 (4.4-11.0)
[2023-09-12 17:53] LABS: Differential Indicated MANUAL DIFF
[2023-09-12 17:57] LABS: Lymphocyte 23 % (19-41); Metamyelocyte 2 % (0-1); Monocyte 7 % (0-10); Neutrophil-Band 3 % (0-5); Neutrophil-Segmented 65 % (47-70); Total Cells Counted 100 (MANUAL DIFF)
[2023-09-12 17:59] LABS: Absolute Lymphocyte Count 2.83 X10^3/uL (0.83-4.51); Absolute Neutrophil Count 8.4 X10^3/uL (2.0-7.7)
[2023-09-14 09:23] LABS: Pathologist Review Reviewed
== END | disposition home or self-care (01) ==
LOC: MTLAB 16:45
PROVIDERS: PCP Family Medicine; Referring Provider Family Medicine; Visit Provider Family Medicine
DX: K92.1 Melena (principal)
CPT/HCPCS: 36415; 85025

== ENCOUNTER 2023-11-24 01:24 | Emergency (ER) | payer MEDICARE, OTHER, SELFPAY ==
[2023-11-24] VITALS (7 sets, daily range): BP systolic 103–145; BP diastolic 74–78; PULSE 68–79; RESP 12–20; TEMP 36.7–36.9; O2SAT 96–100; BMI 32.0
--- NOTE | 2023-11-24 01:36 | EKG12_ITS ---
Test Reason : DYSRHYTHMIA Blood Pressure : / mmHG Vent. 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
--- NOTE | 2023-11-24 01:37 | EDS_ITS ---
HPI HPI - URI History of Present Illness Chief Complaint: Shortness of Breath Informant: patient Narrative Narrative: Patient states he has had cold symptoms for 2 days and getting short of breath, tonight he states he was short of breath while he was having a coughing fit and could not seem to stop. He states he seems a little better now, when asked what made a difference it seems to be that he coughed up some sputum. He did not cou gh it out look at it, I swallowed it. Nothing a tasted like blood. No subjective fevers or chills. No chest pains. No orthopnea. States he has had dyspnea with exertion for the last couple months since he was diagnosed with a PE, not markedly different but denies any exertional chest discomfort. On his anticoagulants and not bleeding from anywhere. Denies any lightheadedness, near-syncope, syncope, or generalized weakness lately. States his significant other has RSV currently. ROS ROS ED Constitutional Constitutional ED: Denies chills or fever(s) Eyes Eyes: Denies change in vision or diplopia ENT ENT ED: Reports nasal congestion; Denies rhinorrhea or sore throat Cardiovascular Cardiovascular: Denies chest pain or palpitations Respiratory/Chest Respiratory/Chest: Reports cough, dyspnea and dyspnea on exertion Gastrointestinal Gastrointestinal: Denies abdominal pain, diarrhea, nausea or vomiting Genitourinary Genitourinary ED: Denies dysuria or hematuria Musculoskeletal Musculoskeletal: Denies back pain or neck pain Integumentary Denies abscess or rash Neurologic Neurologic: Denies headache(s), paresthesias or weakness Psychiatric Psychiatric: Denies anxiety or suicidal thoughts PFSH [facility] Medical History 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 angina pectoris Atherosclerotic heart disease of [place] coronary artery without angina pectoris Bronchitis CAD (coronary artery disease) Carotid artery stenosis Chest pain Chronic wheezy bronchitis COPD (chronic obstructive pulmonary disease) Cough Cough in adult Edema Essential hypertension GERD (gastroesophageal reflux disease) History of prostate cancer HTN (hypertension) Hypokalemia Leg swelling Palpitations Premature atrial contractions Premature ventricular contraction Pure hypercholesterolemia Sleep apnea Home Medications aspirin 81 mg tablet,delayed release 81 mg PO QDAY 07/16/17 [History Last Taken 09/06/23] tamsulosin 0.4 mg capsule 0.4 mg PO BID 07/16/17 [History Last Taken 09/07/23] saw palmetto 1,000 mg capsule 1,000 mg PO QDAY 08/31/17 [History Last Taken 09/07/23] fluticasone furoate 100 mcg-vilanterol 25 mcg/dose inhalation powder (Breo Ellipta) 1 inh inhalation DAILY 07/14/19 [History Last Taken 09/06/23] dexlansoprazole 60 mg capsule,biphase delayed release 60 mg PO DAILY 10/06/20 [History Last Taken 09/06/23] turmeric 400 mg capsule 400 mg PO BID 10/06/20 [History Last Taken 09/07/23] vit [id number] 500 mg-50 mg-25 mg-40 mg tablet (Bioflex) 1 tab PO BID 10/06/20 [History Last Taken 09/07/23] B-complex with vitamin C 1 tab PO DAILY 01/18/22 [History Last Taken 09/06/23] amlodipine 10 mg tablet 10 mg PO QDAY #90 tabs 05/14/23 [Rx Last Taken 09/07/23] hydrochlorothiazide 25 mg tablet 25 mg PO QDAY #90 tabs 05/14/23 [Rx Last Taken 09/07/23] lisinopril 40 mg tablet 40 mg PO QDAY #90 tabs 05/14/23 [Rx Last Taken 09/07/23] metoprolol tartrate 50 mg tablet 50 mg PO BID #180 tabs 05/14/23 [Rx Last Taken 09/07/23] pravastatin 40 mg tablet 40 mg PO QHS #90 tabs 05/14/23 [Rx Last Taken 09/06/23] cranberry fruit concentrate 250 mg chewable tablet (Azo Cranberry) 500 mg PO BID 09/07/23 [History Last Taken 09/07/23] levothyroxine 75 mcg tablet 75 mcg PO DAILY 09/07/23 [History Last Taken 09/07/23] multivitamin-ferrous fumarate-folic acid 18 mg-400 mcg tablet (Centrum) 1 tab PO DAILY 09/07/23 [History Last Taken 09/07/23] apixaban 5 mg tablet (Eliquis) 10 mg (2 x 5 mg) PO BID #60 tabs 09/10/23 [Rx [place] st Taken Unknown] ascorbate calcium (vitamin C) 500 mg tablet 1,000 mg PO DAILY 11/22/23 [History Last Taken Unknown] coenzyme Q10 10 mg capsule 10 mg PO ONCE 11/22/23 [History Last Taken Unknown] furosemide 20 mg tablet 20 mg PO QDAY 11/22/23 [History Last Taken Unknown] azelastine 137 mcg (0.1 %) nasal spray aerosol 1 spray intranasal BID #30 mL 11/23/23 [Rx Last Taken Unknown] albuterol sulfate 90 mcg/actuation aerosol inhaler 2 puff inhalation Q6H PRN shortness of breath or wheezing #8.5 grams 11/24/23 [Rx Last Taken Unknown] levofloxacin 750 mg tablet 750 mg PO Q24H #4 tabs 11/24/23 [Rx Last Taken Unknown] Allergy/AdvReac Type Severity Reaction Status Date / Time atorvastatin [From Lipitor] Allergy Hives Verified 11/23/23 10:31 simvastatin [From Zocor] Allergy Hives Verified 11/23/23 10:31 Sulfa (Sulfonamide Allergy Hives Verified 11/23/23 10:31 Antibiotics) Family History (Updated 11/22/23 @ 12:05 by Rena Santo) Mother , age 72 CAD (coronary artery disease) Myocardial infarction Arthritis Father , age 69 COPD (chronic obstructive pulmonary disease) Hypertension Pulmonary emphysema Grandfather , age 76 Myocardial infarction Aunt Cancer Uncle Cancer Surgical History (Updated 09/14/23 @ 00:13 by Jose Pyle) H/O coronary artery bypass surgery (~11/22/10) History of left heart catheterization (LHC) History of lumbar fusion Social History household members: none current occupational status: retired pets and animals: Yes (Cutie) pets and animals: cat(s) Smoking Status: Never smoker alcohol intake: never substance use type: does not use caffeine: Yes Type: coffee Number of servings: 2 what type of physical activity do you participate in: walking and other details: rowing machine, pushups, situps and walking 2 miles a day. frequency: daily duration: 45-60 minutes/day seatbelt use: always do you feel safe at home: Yes EXAM Physical Exam Const Vital Signs: 11/24/23 01:26 11/24/23 01:29 11/24/23 01:29 Temperature 98.5 F 98.5 F 98.5 F Temperature Source Oral Oral Oral Pulse Rate 71 71 71 Respiratory Rate 20 H 20 H 20 H Respiratory Pattern Blood Pressure 145/78 H 145/78 H 124/74 H Blood Pressure Mean 100 100 90 Pulse Ox 97 97 97 Oxygen Delivery Method Room Air Room Air Room Air 11/24/23 01:59 11/24/23 01:59 11/24/23 01:40 Temperature Temperature Source Pulse Rate 79 Respiratory Rate 18 Respiratory Pattern Normal Blood Pressure Blood Pressure Mean Pulse Ox 96 Oxygen Delivery Method Room Air Room Air 11/24/23 02:35 Temperature Temperature Source Pulse Rate 69 Respiratory Rate 14 Respiratory Pattern Blood Pressure 103/74 Blood Pressure Mean 83 Pulse Ox 98 Oxygen Delivery Method Room Air Positive well nourished and well developed General Appearance ED: well developed and NAD HEENT Reports moist mucous membranes normocephalic and atraumatic Eyes PERRL and EOMs intact bilaterally Neck full ROM, supple and no JVD Resp normal respiratory effort Resp Narrative: Diffuse expiratory wheezes, otherwise lungs clear Cardio regular rate, regular rhythm and no murmurs GI non-tender and non-distended Auscultation: normoactive bowel sounds Palpation: soft Back/Spine no CVA tenderness General Back: other FROM Extremity normal to inspection General Extremety ED: Yes edema; Negative for pulses abnormal or tenderness General Extremity: edema bilateral lower extremity Details: mild; Negative for pulses abnormal Neuro oriented x3, CN's II-XII intact bilaterally and no sensory deficits noted Sensorium / Orientation: awake and alert Motor Exam: strength 5/5 throughout Skin no rashes or lesions noted and no wounds MDM MDM MDM Narrative Medical decision making narrative: Treated patient's wheezing/dyspnea with a duo nebulizer treatment. Afterwards, his wheezing is resolved he is breathing much better and feels good. Vital signs normal, pulse ox 97-98% on room air. 2 view chest x-ray my interpretation shows some streaky abnormalities in the left lower lobe, radiology in agreement, differential is noted which does include early pneumonia. It also could be streaky viral etiology. His COVID/influenza/RSV swab came back negative. I discussed that with him. He is comfortable going home I do not think he needs further emergent workup such as labs right now. I think this is infectious not necessarily cardiac. Given the chest x-ray and possibility of early pneumonia and going to treat him with Levaquin, and give him an albuterol prescription for an inhaler. Discussed reasons to return he is comfortable with that plan, no indication for steroids right now, he does not have a history of chronic obstructive pulmonary disease. Radiography Diagnostic Testing: Clinical Impression(s) from Imaging Studies Chest X-Ray 11/24/23 02:10 IMPRESSION: Lingular streaky opacities could represent atelectasis, pleuroparenchymal scarring and/or infiltrate Electronically Signed: Kevin Carreno MD at 2:25 EDT Reading Location ID and State: [address] [place] [address] Tel , Service support , Rhythm Strip Rhythm Strip: Sinus Rhythm Rate: 75 Ectopy: PVC(s) EKG Initial EKG: Attestation: I personally reviewed and interpreted this EKG as follows: Interpretation: Sinus Rhythm and No Acute Injury Pattern Comments: PVC Prior EKG tracings: available for review Prior: Unchanged (including inferior Q waves) Discharge Plan Triage Chief Complaint: Shortness of Breath Other Complaint: Cough ED Provider: Burt Hyman Dx/Rx/DC Orders Clinical Impression: Acute lower respiratory tract infection Instructions: ED Bronchitis with Wheezing (Adult), ED Pneumonia (Adult) Prescriptions: New levofloxacin 750 mg tablet 750 mg PO Q24H Qty: 4 0RF Continued saw palmetto 1,000 mg capsule 1,000 mg capsule 1,000 mg PO QDAY aspirin 81 mg tablet,delayed release (DR/EC) 81 mg PO QDAY tamsulosin 0.4 mg capsule,extended release 24hr 0.4 mg PO BID Breo Ellipta 100-25 mcg/dose blister with device 1 inh INHALATION DAILY dexlansoprazole 60 mg capsule,biphase delayed releas 60 mg PO DAILY turmeric 400 mg capsule 400 mg PO BID Bioflex 197-05-14-40 mg tablet 1 tab PO BID B-complex with vitamin C Tablet 1 tab PO DAILY ascorbate calcium (vitamin C) 500 mg tablet 1,000 mg PO DAILY amlodipine 10 mg tablet 10 mg PO QDAY Qty: 90 4RF hydrochlorothiazide 25 mg tablet 25 mg PO QDAY Qty: 90 4RF lisinopril 40 mg tablet 40 mg PO QDAY Qty: 90 4RF metoprolol tartrate 50 mg tablet 50 mg PO BID Qty: 180 4RF pravastatin 40 mg tablet 40 mg PO QHS Qty: 90 4RF coenzyme Q10 10 mg capsule 10 mg PO ONCE furosemide 20 mg tablet 20 mg PO QDAY azelastine 137 mcg (0.1 %) aerosol,spray 1 spray intranasal BID Qty: 30 6RF Rx Instructions: administer into each nostril levothyroxine 75 mcg tablet 75 mcg PO DAILY Azo Cranberry 250 mg tablet,chewable 500 mg PO BID Centrum 18-400 mg-mcg tablet 1 tab PO DAILY Eliquis 5 mg Tablet 10 mg PO BID Qty: 60 0RF Rx Instructions: Take 2 tablets twice daily until 09/16/23 then 1 tablet twice daily starting on 09/17/23 albuterol sulfate 90 mcg/actuation HFA aerosol inhaler 2 puff INHALATION Q6H PRN (Reason: shortness of breath or wheezing) Qty: 8.5 0RF Primary Care Provider: Andrade Lester Referrals: Andrade Lester MD [Primary Care Provider] - Activity Restrictions/Additional Instructions: Your swab was negative. Chest x-ray may indicate viral infection, but we are not able to rule out the possibility of pneumonia which is the reason we are treating you with an antibiotic. No other test that we have right now will determine whether this is viral or bacterial in etiology. Therefore if the antibiotic does not help with your necessarily getting worse, it may be because the cause is a virus, which does not get better with antibiotics. Use the inhaler for any wheezing/shortness of breath as needed, if you are in respiratory distress and the inhaler is not helping, return to the ER immediately. Since you received a dose of antibiotic early in the morning 11/23, you will start the prescription pills morning of 11/24, Sunday. Disposition Disposition: Home, Self Care
[2023-11-24] MEDS: Ipratropium/Albuterol Sulfate 3 ML AMPUL.NEB INHALATION (01:40)
--- NOTE | 2023-11-24 02:10 | RAD_ITS ---
INDICATION: cough, sob EXAMINATION/TECHNIQUE: X-RAY - XR Chest 2 Views COMPARISON: 09/06/2023 FINDINGS: LINES/DEVICES: None. LUNGS: The lungs are well expanded. Chronic streaky opacities in the lingula favor pleuroparenchymal scarring and/or atelectasis, although superimposed infiltrate is not excluded. No pleural effusion or pneumothorax. MEDIASTINUM AND CARDIOVASCULAR STRUCTURES: Cardiac silhouette remains enlarged. Central airways and mediastinal contour are otherwise unremarkable. BONES AND SOFT TISSUES: No acute osseous abnormalities. RAD/Chest PA and Lateral IMPRESSION: Lingular streaky opacities could represent atelectasis, pleuroparenchymal scarring and/or infiltrate Electronically Signed: Kevin Carreno MD at 2:25 EDT ,
[2023-11-24] MEDS: levoFLOXacin 750 MG Tablet PO (03:16)
== END 2023-11-24 03:21 | disposition home or self-care (01) ==
PROVIDERS: Emergency Provider Emergency Medicine; PCP Family Medicine; Visit Provider Emergency Medicine
DX: J22 Unspecified acute lower respiratory infection (principal); J44.9 Chronic obstructive pulmonary disease, unspecified; I25.10 Atherosclerotic heart disease of native coronary artery without angina pectoris; I10 Essential (primary) hypertension; E78.00 Pure hypercholesterolemia, unspecified
CPT/HCPCS: 71046; 87631; 93005; 94640; 99283

== ENCOUNTER → 2023-11-30 | Outpatient (CLI) | payer MEDICARE, OTHER, SELFPAY ==
[2023-11-30 12:20] LABS: Absolute Neutrophil Count 8.4 X10^3/uL (2.0-7.7); Basophil# 0.04 X10^3/uL; Basophil% 0.4 % (0-1); Hematocrit 42.8 % (40-54); Hemoglobin 13.8 g/dL (13.0-16.5); Mean Corp Hgb Conc 32.2 g/dL (32-36); Mean Corpuscular Hgb 26.6 pg (27.0-32.0); Mean Corpuscular Volume 82.6 fL (80-94); Mean Platelet Vol. 10.4 fl (6.2-12.0); Monocyte# 0.55 X10^3/uL; Monocyte% 5.1 % (0-10); NRBC Flagged by Analyzer 0 % (0-5); Neutrophil # 8.43 X10^3/uL (2.7-7.7); Neutrophil % 78.8 % (47-70); Platelet Count 209 K/mm3 (150-450); RBC Distribution Width CV 13.9 % (11.6-14.6); RBC Distribution Width SD 41.4 fl (35.1-43.9); Red Blood Count 5.18 M/mm3 (4.6-6.2); White Blood Count 10.7 K/mm3 (4.4-11.0)
[2023-11-30 16:17] LABS: Anion Gap 3 (5-15); BUN 22 mg/dL (7-18); BUN/Creat Ratio 21.4 RATIO (10-20); Calcium,Total 9.5 mg/dL (8.5-10.1); Chloride 109 mmol/L (98-107); Creatinine, Serum 1.03 mg/dL (0.70-1.30); EST Glomerular Filtration Rate 75 mL/min (>60); Est Glom Filt Rate - Afr Amer 90 mL/min (>60); Free T3 2.4 pg/mL (2.18-3.98); Glucose 99 mg/dL (74-106); Potassium 3.9 mmol/L (3.5-5.1); Sodium Level 141 mmol/L (136-145); T4 Free Direct 1.35 ng/dL (0.76-1.46); Thyroid Stim Hormone (TSH) 3.22 uIU/mL (0.358-3.74)
== END | disposition home or self-care (01) ==
LOC: MTLAB 11:02
PROVIDERS: PCP Family Medicine; Referring Provider Family Medicine; Visit Provider Family Medicine
DX: E03.9 Hypothyroidism, unspecified (principal); J18.9 Pneumonia, unspecified organism
CPT/HCPCS: 36415; 80048; 84439; 84443; 84481; 85025

== ENCOUNTER → 2024-01-29 | Outpatient (CLI) | payer MEDICARE, OTHER, SELFPAY ==
[2024-01-29 12:56] LABS: ALB/GLOB Ratio 1.1 RATIO (0.9-2.4); AST(SGOT) 18 U/L (15-37); Alanine Aminotransfer ALT/SGPT 23 U/L (16-61); Albumin, Serum 3.7 g/dL (3.2-5.0); Alkaline Phosphatase 70 U/L (45-117); Anion Gap 8 (5-15); BUN 18 mg/dL (7-18); BUN/Creat Ratio 15.4 RATIO (10-20); Calcium,Total 9.2 mg/dL (8.5-10.1); Chloride 107 mmol/L (98-107); Cholesterol 150 mg/dL (200); Creatinine, Serum 1.17 mg/dL (0.70-1.30); EST Glomerular Filtration Rate 64 mL/min (>60); Est Glom Filt Rate - Afr Amer 78 mL/min (>60); Globulin 3.4 g/dL (2.2-4.2); Glucose 100 mg/dL (74-106); High Density Lipoprotein 51 mg/dL; Potassium 3.6 mmol/L (3.5-5.1); Protein, Total 7.1 g/dL (6.4-8.2); Sodium Level 141 mmol/L (136-145); Triglycerides 122 mg/dL; Very Low Density Lipoprotein 24 mg/dL (5-40)
== END | disposition home or self-care (01) ==
LOC: MTLAB 10:08
PROVIDERS: PCP Family Medicine; Referring Provider Internal Medicine Cardiovascular Disease; Visit Provider Internal Medicine Cardiovascular Disease
DX: Z86.711 Personal history of pulmonary embolism (principal); I10 Essential (primary) hypertension; I49.3 Ventricular premature depolarization; I49.1 Atrial premature depolarization; R00.2 Palpitations; E78.00 Pure hypercholesterolemia, unspecified
CPT/HCPCS: 36415; 80053; 80061

== ENCOUNTER → 2024-02-13 | Outpatient (CLI) | payer MEDICARE, OTHER, SELFPAY ==
[2024-02-13 12:56] LABS: PSA,Total- Diagnostic 0.63 ng/mL (0.0-4.0)
== END | disposition home or self-care (01) ==
PROVIDERS: PCP Family Medicine; Referring Provider Nurse Practitioner; Visit Provider Nurse Practitioner
DX: C61 Malignant neoplasm of prostate (principal)
CPT/HCPCS: 36415; 84153

== ENCOUNTER → 2024-02-15 | Outpatient (CLI) | payer MEDICARE, OTHER, SELFPAY ==
--- NOTE | 2024-02-15 13:43 | ECHOCS_ITS ---
Reason For Study: Atherosclerotic Heart Disease Procedure This was a 2D Doppler, Color Flow transthoracic echocardiogram. Contrast injection was performed. Exam performed in department. Left Ventricle Normal size and thickness. The left ventricular ejection fraction is 60 %. Stage 2 diastolic dysfunction. Right Ventricle Normal right ventricle. Atria The left atrium is severely enlarged. Normal right atrium. Mitral Valve Moderate to severe anteriorly directed eccentric mitral valve regurgitation. Tricuspid Valve Moderate (2+) tricuspid valve insufficiency. Right ventricular systolic pressure estimated to be 38 mmHg. Aortic Valve Trisinus/trileaflet aortic valve. Moderate (2+) aortic valve insufficiency. Pulmonic Valve Mild (1+) pulmonic valve insufficiency. Great Vessels Mildly dilated aortic root. Pericardium/Pleural No pericardial effusion. Medication Diluted definity 2ml given slow IV push to enhance endocardial definition. MMode/2D Measurements & Calculations LVIDd: 4.3 cm IVSd: 0.96 cm Ao root diam: 4.0 cm LVIDs: 2.7 cm LVPWd: 0.92 cm RVDd: 4.1 cm FS: 37.0 % LAV(MOD-bp): 63.1 ml LVAd ap4: 29.0 cm2 SV(MOD-sp4): 59.1 ml LAV(MOD-bp) Indexed: 30.6 ml/m2 LVLd ap4: 7.0 cm LAV(MOD-sp2): 51.3 ml EDV(MOD-sp4): 98.4 ml LAV(MOD-sp4): 70.7 ml EDV(sp4-el): 102.2 ml LVAs ap4: 16.2 cm2 LVLs ap4: 5.6 cm ESV(MOD-sp4): 39.4 ml ESV(sp4-el): 40.1 ml EF(MOD-sp4): 60.0 % EF(sp4-el): 60.8 % SV(sp4-el): 62.1 ml LA A4 area: 23.3 cm2 LA dimension(2D): 4.7 cm RA A4 area: 14.3 cm2 TAPSE: 1.5 cm Time Measurements MV dec time: 0.18 sec Doppler Measurements & Calculations MV E max giovanni: 78.3 cm/sec Lat Peak E' Giovanni: 11.2 cm/sec Med Peak E' Giovanni: 5.8 cm/sec MV A max giovanni: 70.3 cm/sec E/E' lat: 7.0 E/E' med: 13.6 MV E/A: 1.1 MV dec slope: 436.5 cm/sec2 Ao V2 max: 127.9 cm/sec LV V1 max: 109.2 cm/sec Ao max P.5 mmHg LV V1 max P.8 mmHg Ao V2 mean: 96.8 cm/sec LV V1 mean P.6 mmHg Ao mean P.1 mmHg LV V1 mean: 74.8 cm/sec Ao V2 VTI: 36.1 cm LV V1 VTI: 29.3 cm AV (velocity ratio): 0.81 PA V2 max: 64.2 cm/sec PI end-d giovanni: 111.4 cm/sec TR max giovanni: 286.5 cm/sec TR max P.8 mmHg ECHO/Echo Complete W/ Contrast Interpretation Summary The left ventricular ejection fraction is 60 %. Stage 2 diastolic dysfunction. The left atrium is severely enlarged. Moderate to severe anteriorly directed eccentric mitral valve regurgitation. Moderate (2+) aortic valve insufficiency. Moderate (2+) tricuspid valve insufficiency. Right ventricular systolic pressure estimated to be 38 mmHg. Mildly dilated aortic root. Ordering Physician: Akilah Simons Referring Physician: Andrade Lester Performed By: Kaleigh Alicea, RDCS, RVT
== END | disposition home or self-care (01) ==
LOC: CVS 13:39
PROVIDERS: PCP Family Medicine; Referring Provider Internal Medicine Cardiovascular Disease; Visit Provider Internal Medicine Cardiovascular Disease
DX: I25.10 Atherosclerotic heart disease of native coronary artery without angina pectoris (principal); Z86.711 Personal history of pulmonary embolism; I10 Essential (primary) hypertension; Z95.1 Presence of aortocoronary bypass graft
CPT/HCPCS: 93306; Q9957; A4216; C8929

== ENCOUNTER → 2024-06-19 | Outpatient (CLI) | payer MEDICARE, OTHER, SELFPAY ==
[2024-06-19 10:30] LABS: Anion Gap 5 (5-15); BUN 21 mg/dL (7-18); BUN/Creat Ratio 17.6 RATIO (10-20); Calcium,Total 9.2 mg/dL (8.5-10.1); Chloride 110 mmol/L (98-107); Creatinine, Serum 1.19 mg/dL (0.70-1.30); EST Glomerular Filtration Rate 63 mL/min (>60); Est Glom Filt Rate - Afr Amer 76 mL/min (>60); Free T3 2.6 pg/mL (2.18-3.98); Glucose 97 mg/dL (74-106); Potassium 3.6 mmol/L (3.5-5.1); Sodium Level 143 mmol/L (136-145); T4 Free Direct 1.27 ng/dL (0.76-1.46)
== END | disposition home or self-care (01) ==
PROVIDERS: PCP Family Medicine; Referring Provider Family Medicine; Visit Provider Family Medicine
DX: E03.9 Hypothyroidism, unspecified (principal); I10 Essential (primary) hypertension
CPT/HCPCS: 36415; 80048; 84439; 84443; 84481

== ENCOUNTER 2024-10-16 11:30 | Inpatient (IN) | payer MEDICARE, OTHER, SELFPAY ==
[2024-10-16] VITALS (11 sets, daily range): BP systolic 112–142; BP diastolic 61–78; PULSE 65–81; RESP 10–20; TEMP 37.2–39.5; O2SAT 83–95; BMI 31.8; BMI 30.5
--- NOTE | 2024-10-16 11:56 | EX.ED.DYSGE1 ---
HPI History of Present Illness Chief Complaint: Dizziness Informant: patient and EMS Narrative Narrative: 79-year-old male presenting to the emergency room with chief complaint of influenza and syncope. Patient states he felt ill on Sunday. Significant other was hospitalized with influenza A. He has developed fever cough body aches and headache. He denies vomiting or diarrhea. He went to see primary care today where he tested positive for influenza. He was also reportedly 88% on room air there and had a syncopal episode. Patient notes minimal sputum production. He denies any urinary symptoms. No rashes. He does not wear oxygen at home. Patient notes history of coronary artery disease status post CABG hypertension high cholesterol and prior pulmonary embolism. [facility] Medical History (Updated 10/16/24 @ 13:59 by Hillary Maier) Hypertension Wears hearing aid Loss of hearing Wears glasses Hypothyroid Thyroid disease Arthritis Prostate disease High cholesterol Shortness of breath on exertion Non-smoker History of edema History of echocardiogram History of stress test Cardiology follow-up encounter Skin cancer of nose Cancer Moderate aortic insufficiency Moderate mitral insufficiency Chronic cough Bronchitis Cough in adult Carotid artery stenosis Chronic wheezy bronchitis Hypokalemia Chest pain CAD (coronary artery disease) COPD (chronic obstructive pulmonary disease) Cough Sleep apnea Leg swelling Edema Hypoxia Pulmonary embolism Influenza RSV bronchitis COVID-19 Low back pain Pure hypercholesterolemia History of prostate cancer GERD (gastroesophageal reflux disease) Essential hypertension Premature ventricular contraction Premature atrial contractions Atherosclerotic heart disease of [place] coronary artery without angina pectoris 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 angina pectoris Palpitations HTN (hypertension) Home Medications ?Medication ?Instructions ?Recorded ?Last Taken ?Type aspirin 81 mg tablet,delayed 81 mg PO 1200 07/16/17 10/15/24 History release tamsulosin 0.4 mg capsule 0.4 mg PO BID 07/16/17 10/16/24 History dexlansoprazole 60 mg 60 mg PO DAILY 10/06/20 10/16/24 History capsule,biphase delayed release vit 1 tab PO BID 10/06/20 10/16/24 History [id number] 500 mg-50 mg-25 mg-40 mg tablet (Bioflex) B-complex with vitamin C 1 tab PO DAILY 01/18/22 10/15/24 History cranberry fruit concentrate 250 mg 500 mg PO BID 09/07/23 10/16/24 History chewable tablet (Azo Cranberry) levothyroxine 75 mcg tablet 75 mcg PO DAILY 09/07/23 10/16/24 History multivitamin-ferrous 1 tab PO DAILY 09/07/23 10/16/24 History fumarate-folic acid 18 mg-400 mcg tablet (Centrum) ascorbate calcium (vitamin C) 500 1,000 mg PO DAILY 11/22/23 10/16/24 History mg tablet pravastatin 40 mg tablet 40 mg PO QHS #90 tabs 07/07/24 10/15/24 Rx metoprolol tartrate 50 mg tablet 50 mg PO BID #180 tabs 07/30/24 10/16/24 Rx albuterol sulfate 90 mcg/actuation 2 puff inhalation PRN 10/16/24 Unknown History aerosol inhaler amlodipine 10 mg tablet 10 mg PO DAILY 10/16/24 10/16/24 History lisinopril 40 mg tablet 40 mg PO QHS 10/16/24 10/15/24 History potassium chloride 20 mEq 20 meq PO DAILY 10/16/24 10/16/24 History tablet,extended release saw palmetto 500 mg capsule 1,000 mg PO DAILY 10/16/24 10/16/24 History Allergy/AdvReac Type Severity Reaction Status Date / Time atorvastatin (From Lipitor) Allergy Hives Verified 10/16/24 11:31 simvastatin (From Zocor) Allergy Hives Verified 10/16/24 11:31 Sulfa (Sulfonamide Allergy Hives Verified 10/16/24 11:31 Antibiotics) Family History Mother , age 72 CAD (coronary artery disease) Myocardial infarction Arthritis Father , age 69 COPD (chronic obstructive pulmonary disease) Hypertension Pulmonary emphysema Grandfather , age 76 Myocardial infarction Aunt Cancer Uncle Cancer Surgical History History of cardiac catheterization History of prostate surgery History of lumbar fusion History of left heart catheterization (LHC) H/O coronary artery bypass surgery (~11/22/10) Social History household members: none current occupational status: retired pets and animals: Yes (Cutie) pets and animals: cat(s) Smoking Status: Never smoker alcohol intake: never substance use type: does not use caffeine: Yes Type: coffee Number of servings: 2 what type of physical activity do you participate in: walking and other details: rowing machine, pushups, situps and walking 2 miles a day. frequency: daily duration: 45-60 minutes/day seatbelt use: always do you feel safe at home: Yes ROS ROS ED Constitutional Constitutional ED: Reports chills and fever(s); Denies weight loss Eyes Eyes: Denies change in vision or diplopia ENT ENT ED: Denies ear pain, rhinorrhea or sore throat Cardiovascular Cardiovascular: Reports other Details: Syncope ; Denies chest pain, orthopnea, palpitations or racing heartbeat Respiratory/Chest Respiratory/Chest: Reports cough and dyspnea; Denies orthopnea Gastrointestinal Gastrointestinal: Denies abdominal pain, diarrhea, nausea or vomiting Genitourinary Genitourinary ED: Denies dysuria, hematuria or urinary frequency Musculoskeletal Musculoskeletal: Reports myalgias; Denies arthralgias Integumentary Denies abscess or rash Neurologic Neurologic: Reports headache(s); Denies weakness Psychiatric Psychiatric: Denies anxiety, depression, suicidal ideation or suicidal thoughts Endocrine Endocrinology: Denies polydipsia, polyphagia or polyuria Allergic/Immunologic Allergic/Immunologic ED: Denies mouth swelling, tongue swelling or urticaria EXAM Physical Exam Const Vital Signs: 10/16/24 11:31 10/16/24 11:41 10/16/24 11:56 Temperature 103.1 F H Temperature Source Oral Pulse Rate 76 Respiratory Rate 20 H Blood Pressure 142/78 H Blood Pressure Mean 99 Pulse Ox 89 83 Oxygen Delivery Method Room Air Room Air Oxygen Flow Rate (L/min) 10/16/24 12:05 10/16/24 13:30 Temperature Temperature Source Pulse Rate 79 72 Respiratory Rate 16 18 Blood Pressure 112/72 Blood Pressure Mean 85 Pulse Ox 95 Oxygen Delivery Method Nasal Cannula Oxygen Flow Rate (L/min) 2 Positive well nourished and well developed General Appearance ED: well developed and NAD HEENT Reports normocephalic, head/scalp atraumatic and moist mucous membranes Eyes PERRL and EOMs intact bilaterally Neck no lymphadenopathy, supple and no JVD Resp normal respiratory effort Auscultation: rhonchi right lower Cardio regular rate, regular rhythm and no murmurs GI normal to inspection, nondistended, normoactive bowel sounds and non-tender Palpation: soft Back/Spine no CVA tenderness and normal ROM Extremity normal to inspection General Extremety ED: Negative for edema General Extremity: Negative for edema Neuro oriented x3 and CN's II-XII intact bilaterally Neuro Narrative: While alert and orientated x 3 patient does have difficulty recalling some words such as influenza A referring to that as alpha Sensorium / Orientation: alert Motor Exam: strength 5/5 throughout Psych mental status grossly normal Mood & Affect: Negative for depressed or tearful Skin no rashes or lesions noted and no wounds MDM MDM MDM Narrative Medical decision making narrative: Differential diagnosis includes but not limited to viral syndrome dehydration pneumonia electrolyte abnormalities cardiac dysrhythmia ACS dehydration encephalopathy meningitis My independent interpretation the chest x-ray is no definitive infiltrate no evidence of pleural effusion. Patient's white blood cell count 6.9 hemoglobin of 13.1 platelet count is 135. BMP with a sodium of 142 potassium 3.9 creatinine 1.34 glucose is 100. Normal lactic acid at 1.3. Troponin is 25 lipase is 60. Patient's EKG shows normal sinus rhythm ventricular rate of 70. Patient received a dose of Tylenol and IV fluids as well as a DuoNeb. History & Record Review Discussion w/independent historian: Patient and Other (PCP) Lab Data Attestation: I reviewed the patient's lab results. Labs: Laboratory Results - last 24 hr 10/16/24 12:01 WBC 6.9 RBC 4.94 Hgb 13.1 Hct 40.9 MCV 82.8 MCH 26.5 L MCHC 32.0 RDW Std Deviation 44.5 H RDW Coeff of Aron 14.8 H Plt Count 135 L MPV 10.7 Immature Gran % (Auto) 0.600 Neut % (Auto) 77.7 H Lymph % (Auto) 7.0 L [place] % (Auto) 14.3 H Eos % (Auto) 0.1 Baso % (Auto) 0.3 Absolute Neuts (auto) 5.3 Absolute Lymphs (auto) 0.48 L Nucleated RBC % 0 Sodium 142 Potassium 3.9 Chloride 105 Carbon Dioxide 23.7 Anion Gap 14 BUN 25 H Creatinine 1.34 H Estim Creat Clear Calc 51.61 Est GFR (MDRD) Non-Af 55 L BUN/Creatinine Ratio 18.5 Glucose 100 H Lactic Acid 1.3 Calcium 9.2 Total Bilirubin 0.60 Direct Bilirubin 0.28 AST 30 ALT 21 Alkaline Phosphatase 82 Troponin T High Sens 25 H Total Protein 7.0 Albumin 4.3 Globulin 2.7 Lipase 60 Radiography Diagnostic Testing: Clinical Impression(s) from Imaging Studies Chest X-Ray 10/16/24 12:25 IMPRESSION: No acute cardiopulmonary process. Reading Location: [facility] EKG Initial EKG: Attestation: I personally reviewed and interpreted this EKG as follows: Comments: Normal sinus rhythm ventricular [address]-T wave abnormality noted no definitive evidence of ischemia or injury Management Discussion w/another healthcare provider: Hospitalist (Dr Saba) Discharge Plan Dx/Rx/DC Orders Clinical Impression: Influenza A, Hypoxia, Altered mental status Disposition Disposition: Acute Care [facility]
[2024-10-16] MEDS: Ipratropium/Albuterol Sulfate 3 ML AMPUL.NEB INHALATION ×2 (12:02→18:55)
[2024-10-16] MEDS: Acetaminophen 500 MG Tablet 1000 MG PO (12:04)
[2024-10-16] MEDS: 0.9% Normal Saline (1000mL) 1,000 ML 1000 ML IV (12:05)
[2024-10-16 12:10] LABS: Absolute Lymphocyte Count 0.48 X10^3/uL (0.83-4.51); Absolute Neutrophil Count 5.3 X10^3/uL (2.0-7.7); Basophil# 0.02 X10^3/uL; Basophil% 0.3 % (0-1); Eosinophil# 0.01 X10^3/uL; Eosinophils% 0.1 % (0-5); Hematocrit 40.9 % (40-54); Hemoglobin 13.1 g/dL (13.0-16.5); Lymphocyte # 0.48 X10^3/ul (0.83-4.51); Mean Corpuscular Hgb 26.5 pg (27.0-32.0); Mean Corpuscular Volume 82.8 fL (80-94); Mean Platelet Vol. 10.7 fl (6.2-12.0); Monocyte# 0.98 X10^3/uL; Monocyte% 14.3 % (0-10); NRBC Flagged by Analyzer 0 % (0-5); Neutrophil # 5.32 X10^3/uL (2.7-7.7); Neutrophil % 77.7 % (47-70); POSITIVE DIFFERENTIAL YES; Platelet Count 135 K/mm3 (150-450); RBC Distribution Width CV 14.8 % (11.6-14.6); RBC Distribution Width SD 44.5 fl (35.1-43.9); Red Blood Count 4.94 M/mm3 (4.6-6.2); White Blood Count 6.9 K/mm3 (4.4-11.0)
--- NOTE | 2024-10-16 12:25 | RAD_ITS ---
PROCEDURE: CHEST 1 VIEW (PORTABLE) REASON FOR EXAM: Chest pain TECHNIQUE: Frontal view of the chest. COMPARISON: 11/24/2023 FINDINGS: The cardiac and mediastinal contours are normal. Status post median sternotomy. No focal consolidation. No pneumothorax. No pleural effusion. RAD/Chest 1 View (Portable) IMPRESSION: No acute cardiopulmonary process. Reading Location[facility]
[2024-10-16 12:28] LABS: Troponin T High Sensitivity 25 ng/L (<=22)
[2024-10-16 12:36] LABS: Lactic Acid 1.3 mmol/L (0.0-2.0)
[2024-10-16 12:55] LABS: AST(SGOT) 30 U/L (<=37); Alanine Aminotransfer ALT/SGPT 21 U/L (<=46); Albumin, Serum 4.3 g/dL (3.4-4.8); Alkaline Phosphatase 82 U/L (40-129); Anion Gap 14 (5-15); BUN 25 mg/dL (4-19); BUN/Creat Ratio 18.5 RATIO (10-20); Bilirubin, Direct 0.28 mg/dL (0.00-0.30); Calcium,Total 9.2 mg/dL (7.6-11.0); Carbon Dioxide 23.7 mmol/L (21.0-32.0); Chloride 105 mmol/L (98-108); Creatinine, Serum 1.34 mg/dL (0.70-1.20); EST Glomerular Filtration Rate 55 (>60); Estimated Creatinine Clearance 51.61 ml/min (50-250); Globulin 2.7 g/dL (2.2-4.2); Glucose 100 mg/dL (70-99); Lipase 60 U/L (13-75); Potassium 3.9 mmol/L (3.3-5.1); Sodium Level 142 mmol/L (133-145)
--- NOTE | 2024-10-16 13:37 | PCM.HP.STD ---
HPI - General General Date of Admission: 10/16/24 Date of Service: 10/16/24 Chief Complaint: dizziness and weakness HPI Narrative JOSSELINE DAVIS, is a 79 M with a PMh as outlined who presents via the ED On 10/16/2024 with a complaint of dizziness and syncope. He had been having fever, chlls, ocugh an body aches as well as headache for about 2 days prior to admission. His significant other was on admission for influenza A. He denied any nausea, vomiting or any other symptoms. He went to see his PCP today and was positive for influenza A there. He was also hypoxic so was sent to the ED. Vitals in the ED were temp of 103.1F, PA of 79. BP of 142/78 and RR of 16. He was saturating at 83% on room air and required 2L of oxygen. CBC showed hb of 13.1, wbc of 6.9 and platelets of 135. Chemistry showed sodium of 142, potassium of 3.9 and Cr of 1.34. Anion gap is 14 with bicarb of 23.7. Chest x-ray showed no acute cardiopulmonary pathology. He has been admitted to be managed for hypoxia and weakness due to influenza A infection. [facility] Medical History (Updated 10/16/24 @ 13:59 by Hillary Maier) Hypertension Wears hearing aid Loss of hearing Wears glasses Hypothyroid Thyroid disease Arthritis Prostate disease High cholesterol Shortness of breath on exertion Non-smoker History of edema History of echocardiogram History of stress test Cardiology follow-up encounter Skin cancer of nose Cancer Moderate aortic insufficiency Moderate mitral insufficiency Chronic cough Bronchitis Cough in adult Carotid artery stenosis Chronic wheezy bronchitis Hypokalemia Chest pain CAD (coronary artery disease) COPD (chronic obstructive pulmonary disease) Cough Sleep apnea Leg swelling Edema Hypoxia Pulmonary embolism Influenza RSV bronchitis COVID-19 Low back pain Pure hypercholesterolemia History of prostate cancer GERD (gastroesophageal reflux disease) Essential hypertension Premature ventricular contraction Premature atrial contractions Atherosclerotic heart disease of [place] coronary artery without angina pectoris 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 angina pectoris Palpitations HTN (hypertension) Home Medications ?Medication ?Instructions ?Recorded ?Last Taken ?Type aspirin 81 mg tablet,delayed 81 mg PO 1200 07/16/17 10/15/24 History release tamsulosin 0.4 mg capsule 0.4 mg PO BID 07/16/17 10/16/24 History dexlansoprazole 60 mg 60 mg PO DAILY 10/06/20 10/16/24 History capsule,biphase delayed release vit 1 tab PO BID 10/06/20 10/16/24 History [id number]-[id number]-[id number] 500 mg-50 mg-25 mg-40 mg tablet (Bioflex) B-complex with vitamin C 1 tab PO DAILY 01/18/22 10/15/24 History cranberry fruit concentrate 250 mg 500 mg PO BID 09/07/23 10/16/24 History chewable tablet (Azo Cranberry) levothyroxine 75 mcg tablet 75 mcg PO DAILY 09/07/23 10/16/24 History multivitamin-ferrous 1 tab PO DAILY 09/07/23 10/16/24 History fumarate-folic acid 18 mg-400 mcg tablet (Centrum) ascorbate calcium (vitamin C) 500 1,000 mg PO DAILY 11/22/23 10/16/24 History mg tablet pravastatin 40 mg tablet 40 mg PO QHS #90 tabs 07/07/24 10/15/24 Rx metoprolol tartrate 50 mg tablet 50 mg PO BID #180 tabs 07/30/24 10/16/24 Rx albuterol sulfate 90 mcg/actuation 2 puff inhalation PRN 10/16/24 Unknown History aerosol inhaler amlodipine 10 mg tablet 10 mg PO DAILY 10/16/24 10/16/24 History lisinopril 40 mg tablet 40 mg PO QHS 10/16/24 10/15/24 History potassium chloride 20 mEq 20 meq PO DAILY 10/16/24 10/16/24 History tablet,extended release saw palmetto 500 mg capsule 1,000 mg PO DAILY 10/16/24 10/16/24 History Allergy/AdvReac Type Severity Reaction Status Date / Time atorvastatin (From Lipitor) Allergy Hives Verified 10/16/24 11:31 simvastatin (From Zocor) Allergy Hives Verified 10/16/24 11:31 Sulfa (Sulfonamide Allergy Hives Verified 10/16/24 11:31 Antibiotics) Family History Mother , age 72 CAD (coronary artery disease) Myocardial infarction Arthritis Father , age 69 COPD (chronic obstructive pulmonary disease) Hypertension Pulmonary emphysema Grandfather , age 76 Myocardial infarction Aunt Cancer Uncle Cancer Surgical History History of cardiac catheterization History of prostate surgery History of lumbar fusion History of left heart catheterization (LHC) H/O coronary artery bypass surgery (~11/22/10) Social History household members: none current occupational status: retired pets and animals: Yes (Cutie) pets and animals: cat(s) Smoking Status: Never smoker alcohol intake: never substance use type: does not use caffeine: Yes Type: coffee Number of servings: 2 what type of physical activity do you participate in: walking and other details: rowing machine, pushups, situps and walking 2 miles a day. frequency: daily duration: 45-60 minutes/day seatbelt use: always do you feel safe at home: Yes ROS Review of Systems ROS Unobtainable: Denies due to encephalopathy Constitutional Constitutional: Reports chills, fatigue, fever(s) and weakness; Denies anorexia Eyes Eyes: Denies change in vision ENT HEENT: Denies dysphagia, headache(s) or sore throat Cardiovascular Cardiovascular: Reports dyspnea on exertion and syncope; Denies chest pain, edema, lightheadedness, orthopnea, palpitations, paroxysmal nocturnal dyspnea or rapid heart rate Respiratory/Chest Respiratory/Chest: Reports cough, dyspnea, productive cough, shortness of breath at rest and shortness of breath with exertion; Denies wheezing Gastrointestinal Gastrointestinal: Reports nausea and vomiting; Denies abdominal pain, constipation or diarrhea Genitourinary Genitourinary: Denies burning urination or difficulty urinating Musculoskeletal Musculoskeletal: Denies joint pain Neurologic Neurologic: Denies confusion, dizziness, focal weakness, headache(s), numbness, paresthesias, seizures, syncope or tremor(s) Psychiatric Psychiatric: Denies anxiety or depression Endocrine Endocrinology: Denies change in body appearance Vital Signs Vital Signs Vital Signs: 10/16/24 11:31 10/16/24 11:41 10/16/24 11:56 Temperature 103.1 F H Temperature Source Oral Pulse Rate 76 Respiratory Rate 20 H Blood Pressure 142/78 H Blood Pressure Mean 99 Pulse Ox 89 83 Oxygen Delivery Method Room Air Room Air 10/16/24 12:05 Temperature Temperature Source Pulse Rate 79 Respiratory Rate 16 Blood Pressure Blood Pressure Mean Pulse Ox Oxygen Delivery Method Weight Weight: 209 lb 7.026 oz Body Mass Index (BMI) 31.8 Physical Exam Const alert and oriented x3 Constitutional Narrative: looks frail and weak General Appearance: cooperative Orientation / Consciousness: lethargic HEENT normocephalic, head/scalp atraumatic and hearing grossly normal bilaterally HEENT Narrative: dry oral mucosa Eyes PERRL, EOMs intact bilaterally and conjunctivae normal Neck no lymphadenopathy and supple Resp Resp Narrative: mildly diminished breath sounds bibasally, no wheezes. Few crackles. On 2L of oxygen by nasal canula Cardio regular rate, regular rhythm, S1 normal heart sound, S2 normal heart sound and no murmurs GI normal to inspection, nondistended, normoactive bowel sounds, soft to palpation, non-tender and non-distended Extremity normal to inspection, full ROM and no clubbing, cyanosis or edema Neuro oriented x3, CN's II-XII intact bilaterally, moves all extremities and no focal motor deficits Sensorium / Orientation: awake and alert Motor Exam: strength 5/5 throughout Psych affect normal Results Lab / Micro Data 10/16/24 12:01 10/16/24 12:01 Labs: Laboratory Results - last 24 hr 10/16/24 12:01: WBC 6.9, RBC 4.94, Hgb 13.1, Hct 40.9, MCV 82.8, MCH 26.5 L, MCHC 32.0, RDW Std Deviation 44.5 H, RDW Coeff of Aron 14.8 H, Plt Count 135 L, MPV 10.7, Immature Gran % (Auto) 0.600, Neut % (Auto) 77.7 H, Lymph % (Auto) 7.0 L, [place] % (Auto) 14.3 H, Eos % (Auto) 0.1, Baso % (Auto) 0.3, Absolute Neuts (auto) 5.3, Absolute Lymphs (auto) 0.48 L, Nucleated RBC % 0, Sodium 142, Potassium 3.9, Chloride 105, Carbon Dioxide 23.7, Anion Gap 14, BUN 25 H, Creatinine 1.34 H, Estim Creat Clear Calc 51.61, Est GFR (MDRD) Non-Af 55 L, BUN/Creatinine Ratio 18.5, Glucose 100 H, Lactic Acid 1.3, Calcium 9.2, Total Bilirubin 0.60, Direct Bilirubin 0.28, AST 30, ALT 21, Alkaline Phosphatase 82, Troponin T High Sens 25 H, Total Protein 7.0, Albumin 4.3, Globulin 2.7, Lipase 60 Imaging Radiology Impression Chest X-Ray 10/16/24 12:25 IMPRESSION: No acute cardiopulmonary process. Reading [facility] Assessment & Plan Assessment/Plan (1) Influenza A: (2) Hypoxia: (3) Altered mental status: PLAN: Plan #Acute hypoxia due to influenza A infection Admit to [facility]. Having having fever and chills with shortness of breath for about 3 days prior to admission. His significant other is currently hospitalized for acute influenza infection. Also started having dizziness and lightheadedness and nearly passed out Tested positive for influenza A in his PCPs office today Currently requiring 2 L of oxygen. Chest x-ray showed no acute cardiopulmonary pathology. Start gentle hydration with IV fluids. Start on Tamiflu 75 mg twice daily for 5 days titrate oxygen to maintain sats >90% breathing treatment with bronchodilators #Hypertension: on amlodipine and lisinopril as well as metoprolol #Hypothyroidism: on synthroid. #BPH: on flomax DVT prophylaxis: lovenox Code status: full code Patient counseled extensively about different types of CODE STATUS including full code, DNR CCA and DNR CCA. Patient elects to be full code. His healthcare power of corporate attorney is his son Jamaal. Total [id number] time 16 minutes. # Charges/Coding Visit Charges Inpatient E&M: 64879 Init Hosp L3 Procedures Hospitalists Procedures: 61355 Advncd Care Plan 30 Min
[2024-10-16 14:37] LABS: Troponin T High Sens 2 HR 24 ng/L (<=22)
[2024-10-16] MEDS: 0.9% Normal Saline (1000mL) 1,000 ML 125 ML IV ×2 (15:36→23:28)
[2024-10-16] MEDS: Oseltamivir Phosphate 75 MG Capsule PO (17:11)
[2024-10-16 17:37] LABS: Troponin T High Sens 4 HR 25 ng/L (<=22)
[2024-10-16] MEDS: Acetaminophen 325 MG Tablet 650 MG PO (21:00)
[2024-10-16] MEDS: Oseltamivir Phosphate 30 MG Capsule PO (21:02)
[2024-10-16] MEDS: Tamsulosin HCl 0.4 MG Capsule PO (21:02)
[2024-10-16] MEDS: Pravastatin 40 MG Tablet PO (21:03)
[2024-10-16] MEDS: Metoprolol Tartrate 50 MG Tablet PO (21:11)
[2024-10-16] MEDS: Lisinopril 40 MG Tablet PO (22:15)
[2024-10-17] VITALS (13 sets, daily range): BP systolic 101–124; BP diastolic 58–66; PULSE 70–89; RESP 17–20; TEMP 36.8–37.1; O2SAT 90–95
[2024-10-17] MEDS: Ipratropium/Albuterol Sulfate 3 ML AMPUL.NEB INHALATION ×5 (02:20→19:20)
[2024-10-17] MEDS: Acetaminophen 325 MG Tablet 650 MG PO ×3 (03:03→17:14)
[2024-10-17] MEDS: guaiFENesin 1,200 MG Tablet 1200 MG PO ×3 (03:04→23:23)
[2024-10-17 04:38] LABS: Mucous, Urine 0 SEEN /hpf (<or=2+); Squamous Epithelial Cells - UA 0 SEEN /hpf (0-5); White Blood Cells 0 SEEN /hpf (0-5)
[2024-10-17 04:54] LABS: Color, Urine Yellow (Yellow); Glucose, Dipstick Normal (Normal); Ketone-Dipstick 5 mg/dl (Negative); Leukocyte Esterase-Dipstick Negative /ul (Negative); Nitrite-Dipstick Negative (Negative); Occult Blood-Urine 10 /ul (Negative); Protein-Dipstick 30 mg/dl (Negative); Specific Gravity, Urine 1.025 (1.002-1.030); Urine Bilirubin Dipstick Negative (Negative); Urine Clarity Clear (Clear); Urine Urobilinogen Normal (Normal)
[2024-10-17 05:06] LABS: Bacteria 1+ /hpf (None Seen); Red Blood Cells-Urine 0 SEEN /hpf (0-5)
[2024-10-17] MEDS: Levothyroxine 75 MCG Tablet PO (06:01)
[2024-10-17 06:52] LABS: Absolute Lymphocyte Count 0.46 X10^3/uL (0.83-4.51); Absolute Neutrophil Count 6.6 X10^3/uL (2.0-7.7); Basophil# 0.02 X10^3/uL; Basophil% 0.3 % (0-1); Hematocrit 34.4 % (40-54); Lymphocyte # 0.46 X10^3/ul (0.83-4.51); Lymphocyte % 6.1 % (19-41); Mean Corpuscular Hgb 26.4 pg (27.0-32.0); Mean Corpuscular Volume 82.7 fL (80-94); Mean Platelet Vol. 11.6 fl (6.2-12.0); Monocyte# 0.48 X10^3/uL; Monocyte% 6.3 % (0-10); NRBC Flagged by Analyzer 0 % (0-5); Neutrophil # 6.57 X10^3/uL (2.7-7.7); Neutrophil % 86.6 % (47-70); POSITIVE DIFFERENTIAL YES; Platelet Count 104 K/mm3 (150-450); RBC Distribution Width CV 14.8 % (11.6-14.6); RBC Distribution Width SD 45.2 fl (35.1-43.9); Red Blood Count 4.16 M/mm3 (4.6-6.2); White Blood Count 7.6 K/mm3 (4.4-11.0)
[2024-10-17 07:18] LABS: Anion Gap 13 (5-15); BUN 21 mg/dL (4-19); BUN/Creat Ratio 19.1 RATIO (10-20); Calcium,Total 7.8 mg/dL (7.6-11.0); Carbon Dioxide 19.5 mmol/L (21.0-32.0); Chloride 108 mmol/L (98-108); Creatinine, Serum 1.09 mg/dL (0.70-1.20); EST Glomerular Filtration Rate 70 (>60); Glucose 125 mg/dL (70-99); Potassium 3.3 mmol/L (3.3-5.1); Sodium Level 140 mmol/L (133-145)
[2024-10-17] MEDS: Aspirin E.C. 81 MG Tablet PO (09:46)
[2024-10-17] MEDS: Tamsulosin HCl 0.4 MG Capsule PO ×2 (09:46→23:22)
[2024-10-17] MEDS: Pantoprazole Sodium 40 MG Tablet PO (09:46)
[2024-10-17] MEDS: Potassium Chloride Oral Tablet 20 MEQ PO (09:47)
[2024-10-17] MEDS: Ascorbic Acid 500 MG Tablet 1000 MG PO (09:47)
[2024-10-17] MEDS: Metoprolol Tartrate 50 MG Tablet PO ×2 (09:47→23:22)
[2024-10-17] MEDS: Multivitamins,Ther W-Minerals Tablet 1 TABLET PO (09:48)
[2024-10-17] MEDS: amLODIPine 10 MG Tablet PO (09:48)
[2024-10-17] MEDS: Oseltamivir Phosphate 30 MG Capsule PO ×2 (09:49→23:22)
[2024-10-17] MEDS: Vitamin B Comp W-C Capsule 1 CAP PO (09:49)
[2024-10-17] MEDS: Albuterol 2.5 MG/3 ML VIAL.NEB. INHALATION (10:07)
--- NOTE | 2024-10-17 11:27 | PN_ITS ---
Subjective Subjective Patient seen and examined. Complained of coughing and said he felt he could not expectorate to the cough. He denied any fever chills or shortness of breath. However his oxygen requirements up to 5 L today, from 2 L on admission. Review of systems is otherwise negative. Objective Data Objective Data Vital Signs: Vital Signs Temp Pulse Resp BP Pulse Ox O2 Del Method O2 Flow Rate 98.3 F 78 18 124/66 H 94 Nasal Cannula 5 10/17/24 09:45 10/17/24 10:07 10/17/24 10:07 10/17/24 09:45 10/17/24 09:45 10/17/24 09:45 10/17/24 09:45 Oxygen Flow Rate (L/min) 5 Oxygen Delivery Method Nasal Cannula Weight: 200 lb 13.458 oz Body Mass Index (BMI) 30.5 Intake & Output: Intake and Output for Last 24 Hours 10/15/24 10/16/24 10/17/24 23:59 23:59 23:59 Intake Total 1200 / 1200 Balance 1200 / 1200 Lab / Micro Data 10/17/24 05:17 10/17/24 05:17 Labs: Laboratory Results - last 24 hr 10/16/24 12:01: WBC 6.9, RBC 4.94, Hgb 13.1, Hct 40.9, MCV 82.8, MCH 26.5 L, MCHC 32.0, RDW Std Deviation 44.5 H, RDW Coeff of Aron 14.8 H, Plt Count 135 L, MPV 10.7, Immature Gran % (Auto) 0.600, Neut % (Auto) 77.7 H, Lymph % (Auto) 7.0 L, Emmet % (Auto) 14.3 H, Eos % (Auto) 0.1, Baso % (Auto) 0.3, Absolute Neuts (auto) 5.3, Absolute Lymphs (auto) 0.48 L, Nucleated RBC % 0, Sodium 142, Potassium 3.9, Chloride 105, Carbon Dioxide 23.7, Anion Gap 14, BUN 25 H, C reatinine 1.34 H, Estim Creat Clear Calc 51.61, Est GFR (MDRD) Non-Af 55 L, BUN/Creatinine Ratio 18.5, Glucose 100 H, Lactic Acid 1.3, Calcium 9.2, Total Bilirubin 0.60, Direct Bilirubin 0.28, AST 30, ALT 21, Alkaline Phosphatase 82, Troponin T High Sens 25 H, Total Protein 7.0, Albumin 4.3, Globulin 2.7, Lipase 60 10/16/24 14:15: Troponin T Hi Sens 2 Hr 24 H 10/16/24 16:59: Troponin T Hi Sens 4Hr 25 H 10/17/24 04:30: Urine Color Yellow, Urine Clarity Clear, Urine pH 5.0, Ur Specific [place] 1.025, Urine Protein 30 H, Urine Glucose (UA) Normal, Urine Ketones 5 H, Urine Occult Blood 10 H, Urine Nitrite Negative, Urine Bilirubin Negative, Urine Urobilinogen Normal, Ur Leukocyte Esterase Negative, Urine RBC 0 SEEN, Urine WBC 0 SEEN, Ur Squamous Epith Cells 0 SEEN, Urine Bacteria 1+, Urine Mucus 0 SEEN 10/17/24 05:17: WBC 7.6, RBC 4.16 L, Hgb 11.0 L, Hct 34.4 L, MCV 82.7, MCH 26.4 L, MCHC 32.0, RDW Std Deviation 45.2 H, RDW Coeff of Aron 14.8 H, Plt Count 104 L , MPV 11.6, Immature Gran % (Auto) 0.700, Neut % (Auto) 86.6 H, Lymph % (Auto) 6.1 L, Emmet % (Auto) 6.3, Eos % (Auto) 0.0, Baso % (Auto) 0.3, Absolute Neuts (auto) 6.6, Absolute Lymphs (auto) 0.46 L, Nucleated RBC % 0, Sodium 140, Potassium 3.3, Chloride 108, Carbon Dioxide 19.5 L, Anion Gap 13, BUN 21 H, Creatinine 1.09, Estim Creat Clear Calc 62.20, Est GFR (MDRD) Non-Af 70, BUN/Creatinine Ratio 19.1, Glucose 125 H, Calcium 7.8 Radiography Diagnostic Testing: Radiology Impression Chest X-Ray 10/16/24 12:25 IMPRESSION: No acute cardiopulmonary process. Reading Location: [facility] Physical Exam Const alert and oriented x3 Constitutional Narrative: looks frail and weak General Appearance: cooperative and well developed HEENT normocephalic, head/scalp atraumatic and hearing grossly normal bilaterally Eyes PERRL, EOMs intact bilaterally and conjunctivae normal Neck no lymphadenopathy and supple Lymph Lymphatic: no lymphadenopathy noted and no lymphedema noted Resp Resp Narrative: mildly diminished breath sounds bibasally, no wheezes. bilateral coarse crackles. On 5 L of oxygen by nasal canula Cardio regular rate, regular rhythm, S1 normal heart sound, S2 normal heart sound and no murmurs GI normal to inspection, nondistended, normoactive bowel sounds and soft to palpation Extremity normal to inspection, full ROM, normal capillary refill and no clubbing, cyanosis or edema General Extremity: no tenderness to palpation of joints or extremities Skin General Skin Exam: no breakdown Neuro oriented x3, CN's II-XII intact bilaterally, moves all extremities and no focal motor deficits Sensorium / Orientation: awake and alert Motor Exam: strength 5/5 throughout Psych thought process normal, cooperative and affect normal Appearance: appropriate Assessment & Plan Assessment/Plan (1) Influenza A: (2) Hypoxia: (3) Altered mental status: PLAN: Plan #Acute hypoxia due to influenza A infection * now on 5L of oxygen. Was on 3L on admission * CXR showed no acute cardiopulmonary pathology * Troponins were minimally elevated but remained flat. * will check BNP and 2D echo. * Currently requiring 2 L of oxygen. Chest x-ray showed no acute cardiopulmonary pathology. * on Tamiflu 75 mg twice daily for 5 days * titrate oxygen to maintain sats >90% * breathing treatment with bronchodilators * 2D echo from February 2024 showed EF of 60% with stage II diastolic dysfunction and moderate to severe anteriorly directed mitral valve regurgitation with RVSP of 38 mmHg and severely enlarged left atrium. * Shortness of breath does not improve with diuresis will consider repeating echo. * #Hypertension: on amlodipine and lisinopril as well as metoprolol #Hypothyroidism: on synthroid. #BPH: on flomax DVT prophylaxis: lovenox Code status: full code * # Charges/Coding Visit Charges Inpatient E&M: 15706 Subs Hosp L2
[2024-10-17] MEDS: Furosemide 40 MG/4 ML Vial IV ×2 (12:12→17:14)
[2024-10-17] MEDS: 0.9% Saline Lock 10 ML Syringe IV ×3 (12:12→20:57)
[2024-10-17 12:59] LABS: Pro- Brain NATRIURETIC PEPTIDE 868 pg/mL (<=1800)
--- NOTE | 2024-10-17 13:27 | CASEMGMT ---
ROSE MELO Assessment: Face to Face with pt for initial transition planning/care coordination assessment. ROSE MELO introduced self and role at [facility], pt voices understanding and consents to assessment. Pt is A&O x4 and answers all questions appropriately at this time. Pt sitting up in chair with oxygen on in no distress. Care providers, pharmacy, and demographics verified/updated. Admitting Dx: hypoxia d/t influenza A Strata Score: 2 PCP:Tayler Specialists:[facility] ENT, YIN Cardio, Zamzam, ortho Preferred Pharmacy: [facility] Insurance: [employer] Prescription Benefit: yes LNOK: Suraj Young, son; Jamaal Young, son Living Arrangements: Pt lives alone in a single story home with 10 steps to enter. Pt states they are very small steps that he created for his . Pt reports he is I in ADL and IADLs at home. Pt denies concerns at home. Transportation: Pt drives self and denies concerns with transportation. DME:walker, cane, pox HHC/SNF: Denies hx of Pt states no concerns with going home at time of dc. Provided pt with a verbal local in network list of DME companies should he need oxygen. Pt chose [employer]. Pt is not interested in any homegoing services at this time but states he is going to have his knee replaced in a couple of mos and december. He is aware that we will assess him again at that time. Pt states no further concerns/needs. CM to follow. Advised pt to ask CM if any further questions/concerns/needs arise, voices understanding. Pt Goal: Home Plan: Home, follow for oxygen Beatriz ROSE CM
--- NOTE | 2024-10-17 14:53 | CHAPLAIN ---
Type of Pastoral Visit _x__ Initial Visit ___ Follow-up Visit ___ On-call Visit ___ General Patient Visit ___ Spiritual Assessment ___ Family Conference ___ Bereavement ___ Rapid Response ___ Code Blue ___ Other (describe below) Pastoral Care Referral From _x__ Patient ___ Family ___ Nurse ___ Physician ___ Ship Worker ___ Slitting Machine Feeder ___ Other (describe below) Sacrament/Intervention _x__ Active listening ___ Anointing ___ Restorationism ___ Bereavement ___ Communion _x__ Loni exploration ___ _x__ Life review _x__ Prayer ___ Reconciliation ___ Sacrament of Sick ___ Supportive presence ___ Wedding ___ Other (describe below) Pastoral Comments patient is welcoming and explains his illness; pt gives some life review; pt is talkative; prayer is offered and received
[2024-10-17] MEDS: Pravastatin 40 MG Tablet PO (23:21)
[2024-10-17] MEDS: Lisinopril 40 MG Tablet PO (23:21)
[2024-10-18] VITALS (13 sets, daily range): BP systolic 101–137; BP diastolic 47–74; PULSE 62–94; RESP 16–20; TEMP 36.4–37.2; O2SAT 94–99
[2024-10-18] MEDS: Benzonatate 100 MG Capsule PO ×4 (00:36→21:11)
[2024-10-18] MEDS: BENZOCAINE/MENTHOL 1 LOZENGE MUCOUS MEM (00:36)
[2024-10-18] MEDS: Acetaminophen 325 MG Tablet 650 MG PO ×2 (03:49→15:12)
[2024-10-18] MEDS: Ipratropium/Albuterol Sulfate 3 ML AMPUL.NEB INHALATION ×4 (03:55→19:14)
[2024-10-18] MEDS: Levothyroxine 75 MCG Tablet PO (05:47)
--- NOTE | 2024-10-18 07:55 | ECHOCS_ITS ---
Reason For Study Reason For Study: Dyspena/SOB Procedure This was a 2D Doppler, Color Flow transthoracic echocardiogram. Contrast injection was performed. Exam performed portable in patient room. Left Ventricle Normal LV size. Mild concentric left ventricular hypertrophy. The left ventricular ejection fraction is 65 %. Stage 1 diastolic dysfunction. Right Ventricle Normal right ventricle. Atria The left atrium is moderately enlarged. Normal right atrium. Hypermobile atrial septum. Mitral Valve Mild (1+) mitral valve insufficiency. Tricuspid Valve Trivial tricuspid valve insufficiency. Normal pulmonary artery pressure. Aortic Valve Trisinus/trileaflet aortic valve. Mild (1+) aortic valve insufficiency. Pulmonic Valve Mild (1+) pulmonic valve insufficiency. Great Vessels Normal sized aortic root. Pericardium/Pleural No pericardial effusion. Medication Diluted definity 1ml given slow IV push to enhance endocardial definition. MMode/2D Measurements & Calculations LVIDd: 5.1 cm IVSd: 1.2 cm Ao root diam: 3.5 cm LVIDs: 3.4 cm LVPWd: 1.1 cm RVDd: 3.7 cm FS: 33.6 % LAV(MOD-bp): 44.0 ml LVAd ap4: 23.3 cm2 SV(MOD-sp4): 42.5 ml LAV(MOD-bp) Indexed: 21.1 ml/m2 LVLd ap4: 6.8 cm SI(MOD-sp4): 20.4 ml/m2 LAV(MOD-sp2): 45.5 ml EDV(MOD-sp4): 66.3 ml LAV(MOD-sp4): 42.4 ml EDV(sp4-el): 68.0 ml LVAs ap4: 12.4 cm2 LVLs ap4: 5.3 cm ESV(MOD-sp4): 23.9 ml ESV(sp4-el): 24.5 ml EF(MOD-sp4): 64.0 % EF(sp4-el): 63.9 % SV(sp4-el): 43.5 ml LA A4 area: 17.1 cm2 LA dimension(2D): 4.5 cm RA A4 area: 8.5 cm2 TAPSE: 2.0 cm Time Measurements MV dec time: 0.24 sec Doppler Measurements & Calculations MV E max giovanni: 67.1 cm/sec Lat Peak E' Giovanni: 11.1 cm/sec Med Peak E' Giovanni: 6.7 cm/sec MV A max giovanni: 97.8 cm/sec E/E' lat: 6.1 E/E' med: 10.0 MV E/A: 0.69 MV dec slope: 276.3 cm/sec2 Ao V2 max: 179.9 cm/sec AI max giovanni: 350.3 cm/sec Ao max P.9 mmHg AI max P.1 mmHg Ao V2 mean: 128.3 cm/sec AI dec slope: 134.8 cm/sec2 Ao mean P.1 mmHg AI P1/2t: 761.1 msec Ao V2 VTI: 33.3 cm LV V1 max: 128.4 cm/sec PA V2 max: 98.1 cm/sec PI end-d giovanni: 121.5 cm/sec LV V1 max P.6 mmHg TR max giovanni: 257.5 cm/sec TR max P.5 mmHg ECHO/Echo Complete W/ Contrast Interpretation Summary Mild concentric left ventricular hypertrophy. The left ventricular ejection fraction is 65 %. Stage 1 diastolic dysfunction. The left atrium is moderately enlarged. Hypermobile atrial septum. Mild (1+) mitral valve insufficiency. Mild (1+) aortic valve insufficiency. Mild (1+) pulmonic valve insufficiency. Ordering Physician: Billie Hernández Referring Physician: Andrade Lester Performed By: Kaleigh Alicea, EVELYNE, RVT
[2024-10-18 08:13] LABS: Absolute Lymphocyte Count 0.95 X10^3/uL (0.83-4.51); Absolute Neutrophil Count 3.5 X10^3/uL (2.0-7.7); Basophil# 0.01 X10^3/uL; Basophil% 0.2 % (0-1); Hematocrit 36.2 % (40-54); Hemoglobin 11.8 g/dL (13.0-16.5); Lymphocyte # 0.95 X10^3/ul (0.83-4.51); Lymphocyte % 19.5 % (19-41); Mean Corp Hgb Conc 32.6 g/dL (32-36); Mean Corpuscular Hgb 26.5 pg (27.0-32.0); Mean Corpuscular Volume 81.3 fL (80-94); Mean Platelet Vol. 11.7 fl (6.2-12.0); Monocyte# 0.38 X10^3/uL; Monocyte% 7.8 % (0-10); NRBC Flagged by Analyzer 0 % (0-5); Neutrophil # 3.53 X10^3/uL (2.7-7.7); Neutrophil % 72.3 % (47-70); Platelet Count 104 K/mm3 (150-450); RBC Distribution Width CV 14.8 % (11.6-14.6); RBC Distribution Width SD 43.7 fl (35.1-43.9); Red Blood Count 4.45 M/mm3 (4.6-6.2); White Blood Count 4.9 K/mm3 (4.4-11.0)
[2024-10-18] MEDS: Aspirin E.C. 81 MG Tablet PO (09:23)
[2024-10-18] MEDS: Metoprolol Tartrate 50 MG Tablet PO ×2 (09:23→21:11)
[2024-10-18] MEDS: 0.9% Saline Lock 10 ML Syringe IV ×2 (09:23→17:41)
[2024-10-18] MEDS: Vitamin B Comp W-C Capsule 1 CAP PO (09:24)
[2024-10-18] MEDS: Multivitamins,Ther W-Minerals Tablet 1 TABLET PO (09:24)
[2024-10-18] MEDS: guaiFENesin 1,200 MG Tablet 1200 MG PO ×2 (09:24→21:11)
[2024-10-18] MEDS: Ascorbic Acid 500 MG Tablet 1000 MG PO (09:24)
[2024-10-18] MEDS: Pantoprazole Sodium 40 MG Tablet PO (09:24)
[2024-10-18] MEDS: Furosemide 40 MG/4 ML Vial IV ×2 (09:25→17:41)
[2024-10-18] MEDS: Potassium Chloride Oral Tablet 20 MEQ PO (09:25)
[2024-10-18] MEDS: Oseltamivir Phosphate 30 MG Capsule PO ×2 (09:25→21:11)
[2024-10-18] MEDS: Tamsulosin HCl 0.4 MG Capsule PO ×2 (09:25→21:11)
[2024-10-18 09:44] LABS: Anion Gap 15 (5-15); BUN 18 mg/dL (4-19); BUN/Creat Ratio 15.2 RATIO (10-20); Calcium,Total 8.3 mg/dL (7.6-11.0); Carbon Dioxide 18.8 mmol/L (21.0-32.0); Chloride 107 mmol/L (98-108); Creatinine, Serum 1.17 mg/dL (0.70-1.20); EST Glomerular Filtration Rate 64 (>60); Estimated Creatinine Clearance 57.94 ml/min (50-250); Glucose 108 mg/dL (70-99); Potassium 3.1 mmol/L (3.3-5.1); Sodium Level 141 mmol/L (133-145)
--- NOTE | 2024-10-18 13:57 | PN_ITS ---
Subjective Subjective Patient seen and examined. He said he starting to feel better but he still feels like he is coughing and unable to expectorate the cough. He is down to 4 L of oxygen. He denied any fever or chills, palpitations, dizziness, and also up to any other symptoms. Review of systems otherwise negative. Objective Data Objective Data Vital Signs: Vital Signs Temp Pulse Resp BP Pulse Ox O2 Del Method O2 Flow Rate 97.9 F 86 20 H 102/47 L 94 Nasal Cannula 4 10/18/24 09:20 10/18/24 11:52 10/18/24 11:52 10/18/24 09:20 10/18/24 09:29 10/18/24 09:29 10/18/24 09:29 Oxygen Flow Rate (L/min) 4 Oxygen Delivery Method Nasal Cannula Weight: 200 lb 13.458 oz Body Mass Index (BMI) 30.5 Intake & Output: Intake and Output for Last 24 Hours 10/16/24 10/17/24 10/18/24 23:59 23:59 23:59 Intake Total 1200 / 1375 675 / 675 Balance 1200 / 1375 675 / 675 Lab / Micro Data 10/18/24 07:13 10/18/24 07:13 Labs: Laboratory Results - last 24 hr 10/18/24 07:13: WBC 4.9, RBC 4.45 L, Hgb 11.8 L, Hct 36.2 L, MCV 81.3, MCH 26.5 L, MCHC 32.6, RDW Std Deviation 43.7, RDW Coeff of Aron 14.8 H, Plt Count 104 L, MPV 11.7, Immature Gran % (Auto) 0.200, Neut % (Auto) 72.3 H, Lymph % (Auto) 19.5, [place] % (Auto) 7.8, Eos % (Auto) 0.0, Baso % (Auto) 0.2, Absolute Neuts (auto) 3.5, Absolute Lymphs (auto) 0.95, Nucleated RBC % 0, Sodium 141, P otassium 3.1 L, Chloride 107, Carbon Dioxide 18.8 L, Anion Gap 15, BUN 18, Creatinine 1.17, Estim Creat Clear Calc 57.94, Est GFR (MDRD) Non-Af 64, BUN/Creatinine Ratio 15.2, Glucose 108 H, Calcium 8.3 Radiography Diagnostic Testing: Radiology Impression Echocardiogram 10/18/24 07:55 Interpretation Summary Mild concentric left ventricular hypertrophy. The left ventricular ejection fraction is 65 %. Stage 1 diastolic dysfunction. The left atrium is moderately enlarged. Hypermobile atrial septum. Mild (1+) mitral valve insufficiency. Mild (1+) aortic valve insufficiency. Mild (1+) pulmonic valve insufficiency. Ordering Physician: Billie Hernández Referring Physician: Andrade Lester Performed By: Kaleigh Alicea, EVELYNE, RVT Physical Exam Const alert and oriented x3 Constitutional Narrative: looks frail and weak General Appearance: cooperative and well developed Orientation / Consciousness: lethargic HEENT normocephalic, head/scalp atraumatic and hearing grossly normal bilaterally Eyes PERRL, EOMs intact bilaterally and conjunctivae normal Neck no lymphadenopathy and supple Lymph Lymphatic: no lymphadenopathy noted and no lymphedema noted Resp Resp Narrative: mildly diminished breath sounds bibasally, no wheezes. bilateral coarse crackles. On4 L of oxygen by nasal canula Cardio regular rate, regular rhythm, S1 normal heart sound, S2 normal heart sound and no murmurs GI normal to inspection, nondistended, normoactive bowel sounds, soft to palpation, non-tender and non-distended Extremity normal to inspection, full ROM, normal capillary refill and no clubbing, cyanosis or edema General Extremity: no tenderness to palpation of joints or extremities Skin General Skin Exam: no breakdown Neuro oriented x3, CN's II-XII intact bilaterally, moves all extremities and no focal motor deficits Sensorium / Orientation: awake and alert Motor Exam: strength 5/5 throughout Psych thought process normal, cooperative and affect normal Appearance: appropriate Assessment & Plan Assessment/Plan (1) Influenza A: (2) Hypoxia: (3) Altered mental status: PLAN: Plan #Acute hypoxia due to influenza A infection * down to 4L of oxygn today. Complains of a cough which he is not able to expectorate very well. * CXR showed no acute cardiopulmonary pathology * Troponins were minimally elevated but remained flat. * Currently requiring 2 L of oxygen. Chest x-ray showed no acute cardiopulmonary pathology. * on Tamiflu 75 mg twice daily for 5 days * titrate oxygen to maintain sats >90% * breathing treatment with bronchodilators * now down to 4L of oxygen * 2D echo from February 2024 showed EF of 60% with stage II diastolic dysfunction and moderate to severe anteriorly directed mitral valve regurgitation with RVSP of 38 mmHg and severely enlarged left atrium. * 2D echo today showed EF of 65% with mild concentric left ventricular hypertrophy and stage I diastolic dysfunction as well as moderately enlarged left atrium and hypermobile atrial septum. * With him still requiring 4 L of oxygen will get CT of the chest to evaluate, especially as he has a history of PE. I am not sure why he is still requiring 4L of oxygen after several days in the hospital * #Hypertension: on amlodipine and lisinopril as well as metoprolol #Hypokalemia: K is 3.1. Will replace and trend. #Hypothyroidism: on synthroid. #BPH: on flomax DVT prophylaxis: lovenox Code status: full code * Disposition: Anticipate discharge over the next 48 to 72 hours. # Charges/Coding Visit Charges Inpatient E&M: 18345 Subs Hosp L2
--- NOTE | 2024-10-18 14:07 | CT_ITS ---
PROCEDURE: CTA CHEST W/WO CONTRAST REASON FOR EXAM: 79-year-old male, shortness of breath. Positive flu A. History of CAD and COPD. TECHNIQUE: CTA imaging of the chest with intravenous contrast. 3D reconstructions. CONTRAST: [id number] COMPARISON: Chest radiograph 10/16/2024, CTA chest 09/07/2023. FINDINGS: Hardware: Prior median sternotomy and CABG. Lymph nodes: No mediastinal, hilar or axillary lymphadenopathy. Heart: Normal heart size. No pericardial effusion. RV/LV Diameter Ratio: N/A Thoracic Aorta: No thoracic aortic aneurysm or dissection. Pulmonary Vessels: No central filling defect within the main pulmonary arteries. Lungs and Airways: The central airways are patent. Stable findings of moderate emphysema including mild bronchiectasis and scattered areas of scarring. Mild ground-glass opacities within the right middle and lower lungs. Trace left pleural effusion. No pneumothorax. Upper Abdomen: Stable cholelithiasis and abdominal aortic calcifications. Bones: Benign vertebral thoracic hemangiomas. No acute fracture or suspicious osseous lesion. CT/CTA Chest W/WO Contrast IMPRESSION: 1. No acute pulmonary embolus. 2. Mild ground-glass opacities within the right middle and lower lungs, and tra ce left pleural effusion compatible with reported influenza A infection. 3. Stable emphysema. One or more dose reduction techniques were used (e.g., Automated exposure contr ol, adjustment of the mA and/or kV according to patient size, use of iterative reconstruction technique). Reading Location: [id number]
[2024-10-18] MEDS: Potassium Chloride Oral Tablet 20 MEQ 40 MEQ PO (15:12)
[2024-10-18] MEDS: MELATONIN 3 MG TABLET PO (21:11)
[2024-10-18] MEDS: Lisinopril 40 MG Tablet PO (21:11)
[2024-10-18] MEDS: Pravastatin 40 MG Tablet PO (21:11)
[2024-10-19] VITALS (9 sets, daily range): BP systolic 135–145; BP diastolic 72–77; PULSE 60–96; RESP 18–22; TEMP 36.6–36.7; O2SAT 93–98
[2024-10-19] MEDS: Levothyroxine 75 MCG Tablet PO (05:42)
[2024-10-19] MEDS: Benzonatate 100 MG Capsule PO (05:42)
[2024-10-19] MEDS: Acetaminophen 325 MG Tablet 650 MG PO (05:42)
[2024-10-19 06:32] LABS: Absolute Lymphocyte Count 0.81 X10^3/uL (0.83-4.51); Absolute Neutrophil Count 2.5 X10^3/uL (2.0-7.7); Basophil# 0.01 X10^3/uL; Basophil% 0.3 % (0-1); Hematocrit 35.9 % (40-54); Hemoglobin 11.8 g/dL (13.0-16.5); Lymphocyte # 0.81 X10^3/ul (0.83-4.51); Lymphocyte % 21.7 % (19-41); Mean Corp Hgb Conc 32.9 g/dL (32-36); Mean Corpuscular Hgb 26.6 pg (27.0-32.0); Mean Platelet Vol. 11.7 fl (6.2-12.0); Monocyte# 0.36 X10^3/uL; Monocyte% 9.7 % (0-10); NRBC Flagged by Analyzer 0 % (0-5); Neutrophil # 2.54 X10^3/uL (2.7-7.7); Platelet Count 122 K/mm3 (150-450); RBC Distribution Width CV 14.6 % (11.6-14.6); RBC Distribution Width SD 43.6 fl (35.1-43.9); Red Blood Count 4.43 M/mm3 (4.6-6.2); White Blood Count 3.7 K/mm3 (4.4-11.0)
[2024-10-19 07:12] LABS: Anion Gap 13 (5-15); BUN 16 mg/dL (4-19); BUN/Creat Ratio 15.3 RATIO (10-20); Calcium,Total 8.7 mg/dL (7.6-11.0); Carbon Dioxide 20.8 mmol/L (21.0-32.0); Chloride 107 mmol/L (98-108); Creatinine, Serum 1.05 mg/dL (0.70-1.20); EST Glomerular Filtration Rate 73 (>60); Estimated Creatinine Clearance 64.57 ml/min (50-250); Glucose 114 mg/dL (70-99); Potassium 3.9 mmol/L (3.3-5.1); Sodium Level 140 mmol/L (133-145)
[2024-10-19] MEDS: Ipratropium/Albuterol Sulfate 3 ML AMPUL.NEB INHALATION ×3 (07:40→14:31)
[2024-10-19] MEDS: Ascorbic Acid 500 MG Tablet 1000 MG PO (09:46)
[2024-10-19] MEDS: guaiFENesin 1,200 MG Tablet 1200 MG PO (09:47)
[2024-10-19] MEDS: Multivitamins,Ther W-Minerals Tablet 1 TABLET PO (09:47)
[2024-10-19] MEDS: Oseltamivir Phosphate 30 MG Capsule PO (09:47)
[2024-10-19] MEDS: Pantoprazole Sodium 40 MG Tablet PO (09:47)
[2024-10-19] MEDS: Furosemide 40 MG/4 ML Vial IV (09:47)
[2024-10-19] MEDS: Potassium Chloride Oral Tablet 20 MEQ PO (09:47)
[2024-10-19] MEDS: amLODIPine 10 MG Tablet PO (09:47)
[2024-10-19] MEDS: Tamsulosin HCl 0.4 MG Capsule PO (09:47)
[2024-10-19] MEDS: Aspirin E.C. 81 MG Tablet PO (09:47)
[2024-10-19] MEDS: Vitamin B Comp W-C Capsule 1 CAP PO (09:47)
[2024-10-19] MEDS: 0.9% Saline Lock 10 ML Syringe IV (09:47)
[2024-10-19] MEDS: Metoprolol Tartrate 50 MG Tablet PO (09:47)
--- NOTE | 2024-10-19 14:58 | DCINST_ITS ---
Discharge Instructions Diet Discharge Diet: Low fat / Low cholesterol DC O2, CPAP, BIPAP needs Home O2 Discharge instructions: No Dressing / Incision Discharge Activity: Return to Normal Activity Weight Bearing Status: Weight bearing as tolerated Dressing / Incision Call your doctor if you observe: Fever of 101 or Higher, Shortness of breath, Dizziness, Swelling in the ankles and Chest pain Follow Up Care Test Results: Test results from this visit will be discussed in further detail at your follow- up appointment, if applicable. Discharge Plan Admission Admit Date/Time: 10/16/24 13:48 Primary Reason for Your Visit: COPD exacerbation. Attending Provider: Billie Hernández Primary Care Provider: Andrade Lester Instructions Patient Instructions: COPD Controlled Breathing Dc Discharge Orders/Prescriptions Prescriptions: New prednisone 20 mg tablet 40 mg PO DAILY Qty: 10 0RF furosemide [Lasix] 40 mg tablet 40 mg PO DAILY Qty: 30 2RF potassium chloride [Klor-Con M20] 20 mEq tablet,ER particles/crystals 20 meq PO DAILY Qty: 30 2RF oseltamivir 30 mg Capsule 30 mg PO BID Qty: 3 0RF Continued aspirin 81 mg tablet,delayed release (DR/EC) 81 mg PO 1200 tamsulosin 0.4 mg capsule,extended release 24hr 0.4 mg PO BID dexlansoprazole 60 mg capsule,biphase delayed releas 60 mg PO DAILY Bioflex [id number] mg tablet 1 tab PO BID B-complex with vitamin C Tablet 1 tab PO DAILY ascorbate calcium (vitamin C) 500 mg tablet 1,000 mg PO DAILY levothyroxine 75 mcg tablet 75 mcg PO DAILY Azo Cranberry 250 mg tablet,chewable 500 mg PO BID Centrum 18-400 mg-mcg tablet 1 tab PO DAILY saw palmetto 500 mg capsule 1,000 mg PO DAILY Rx Instructions: give with food (meal/snack) albuterol sulfate 90 mcg/actuation HFA aerosol inhaler 2 puff inhalation PRN amlodipine 10 mg tablet 10 mg PO DAILY lisinopril 40 mg tablet 40 mg PO QHS potassium chloride 20 mEq tablet extended release 20 meq PO DAILY pravastatin 40 mg tablet 40 mg PO QHS Qty: 90 4RF metoprolol tartrate 50 mg tablet 50 mg PO BID Qty: 180 4RF Referrals / Follow Up: Andrade Lester MD [Primary Care Provider] - Within 1 Week Disposition Disposition (needs filled in before D/C Order can be placed): Home, Self Care
--- NOTE | 2024-10-19 15:04 | DS.PCM_ITS ---
Providers Date of Admission: 10/16/24 Date of Discharge: 10/19/24 Primary Care Physician: Dr. Andrade Lester MD Reason For Visit: HYPOXIA DUE TO INFLUENZA A Diagnosis Discharge Diagnosis (1) Influenza A: Status: Acute Code(s): J10.1 - Influenza due to other identified influenza virus with other respiratory manifestations (2) Hypoxia: Status: Acute Code(s): R09.02 - Hypoxemia (3) Altered mental status: Status: Acute Code(s): R41.82 - Altered mental status, unspecified Plan #Acute hypoxia due to influenza A infection * down to 4L of oxygn today. Complains of a cough which he is not able to expectorate very well. * CXR showed no acute cardiopulmonary pathology * Troponins were minimally elevated but remained flat. * Currently requiring 2 L of oxygen. Chest x-ray showed no acute cardiopulmonary pathology. * on Tamiflu 75 mg twice daily for 5 days * titrate oxygen to maintain sats >90% * breathing treatment with bronchodilators * now down to 4L of oxygen * 2D echo from February 2024 showed EF of 60% with stage II diastolic dysfunction and moderate to severe anteriorly directed mitral valve regurgitation with RVSP of 38 mmHg and severely enlarged left atrium. * 2D echo today showed EF of 65% with mild concentric left ventricular hypertrophy and stage I diastolic dysfunction as well as moderately enlarged left atrium and hypermobile atrial septum. * With him still requiring 4 L of oxygen will get CT of the chest to evaluate, especially as he has a history of PE. I am not sure why he is still requiring 4L of oxygen after several days in the hospital * #Hypertension: on amlodipine and lisinopril as well as metoprolol #Hypokalemia: K is 3.1. Will replace and trend. #Hypothyroidism: on synthroid. #BPH: on flomax DVT prophylaxis: lovenox Code status: full code * Disposition: Anticipate discharge over the next 48 to 72 hours. # Medications at Discharge Home Medications aspirin 81 mg tablet,delayed release 81 mg PO 1200 07/16/17 tamsulosin 0.4 mg capsule 0.4 mg PO BID 07/16/17 dexlansoprazole 60 mg capsule,biphase delayed release 60 mg PO DAILY 10/06/20 vit [id number] 500 mg-50 mg-25 mg-40 mg tablet (Bioflex) 1 tab PO BID 10/06/20 B-complex with vitamin C 1 tab PO DAILY 01/18/22 cranberry fruit concentrate 250 mg chewable tablet (Azo Cranberry) 500 mg PO BID 09/07/23 levothyroxine 75 mcg tablet 75 mcg PO DAILY 09/07/23 multivitamin-ferrous fumarate-folic acid 18 mg-400 mcg tablet (Centrum) 1 tab PO DAILY 09/07/23 ascorbate calcium (vitamin C) 500 mg tablet 1,000 mg PO DAILY 11/22/23 pravastatin 40 mg tablet 40 mg PO QHS #90 tabs 07/07/24 metoprolol tartrate 50 mg tablet 50 mg PO BID #180 tabs 07/30/24 albuterol sulfate 90 mcg/actuation aerosol inhaler 2 puff inhalation PRN 10/16/24 amlodipine 10 mg tablet 10 mg PO DAILY 10/16/24 lisinopril 40 mg tablet 40 mg PO QHS 10/16/24 potassium chloride 20 mEq tablet,extended release 20 meq PO DAILY 10/16/24 saw palmetto 500 mg capsule 1,000 mg PO DAILY 10/16/24 furosemide 40 mg tablet (Lasix) 40 mg PO DAILY #30 tabs 10/19/24 oseltamivir 30 mg capsule 30 mg PO BID #3 caps 10/19/24 potassium chloride 20 mEq tablet,extended release(part/cryst) (Klor-Con M) 20 meq PO DAILY #30 tabs 10/19/24 prednisone 20 mg tablet 40 mg (2 x 20 mg) PO DAILY #10 tabs 10/19/24 Hospital Course Operations None Procedures None Summary of Care Provided Minutes Spent on Discharge: 47 Hospital Course: JOSSELINE DAVIS, is a 79 M with a PMh as outlined who presents via the ED On 10/16/2024 with a complaint of dizziness and syncope. He had been having fever, chills, cough an body aches as well as headache for about 2 days prior to admission. His significant other was on admission for influenza A. He denied any nausea, vomiting or any other symptoms. He went to see his PCP today and was positive for influenza A there. He was also hypoxic so was sent to the ED. Vitals in the ED were temp of 103.1F, IN of 79. BP of 142/78 and RR of 16. He was saturating at 83% on room air and required 2L of oxygen. CBC showed hb of 13.1, wbc of 6.9 and platelets of 135. Chemistry showed sodium of 142, potassium of 3.9 and Cr of 1.34. Anion gap is 14 with bicarb of 23.7. Chest x-ray showed no acute cardiopulmonary pathology. He was admitted to be managed for hypoxia and weakness due to influenza A infection. He was hydrated with IV fluids. He was also placed on p.o. Tamiflu. 2D echo showed EF of 65% with mild concentric left ventricular hypertrophy and stage I diastolic dysfunction as well as moderately enlarged left atrium and hypermobile atrial septum. He did have a CTA of the chest which was negative for any evidence of PE but showed no evidence of PE and showed mild groundglass opacities within the right middle and lower lobes and trace left pleural effusion compatible with influenza A infection as well as stable emphysema. Patient shortness of breath did improve when he was weaned off of oxygen onto room air. He remained stable and had walking pulse ox on 10/19/2024 which showed that he did not require any oxygen. He was therefore discharged home on 10/19/2024. He is to follow-up with his primary care doctor within 1 to 2 weeks. He was given a prescription for p.o. prednisone 40 mg daily for 5 days. He was also discharged with a script for PO lasix 40mg daily with potassium supplementation. Patient seen and examined prior to discharge. He had no active complaints. Review of systems otherwise negative. Labs and vitals reviewed. Home medication reviewed and reconciled. Physical Exam Const alert and oriented x3 General Appearance: cooperative, comfortable, well kempt and well developed Orientation / Consciousness: awake HEENT normocephalic, head/scalp atraumatic and hearing grossly normal bilaterally Mouth: oral and palatal mucosa normal Eyes PERRL, EOMs intact bilaterally and conjunctivae normal Neck no lymphadenopathy and supple Lymph Lymphatic: no lymphadenopathy noted and no lymphedema noted Resp Resp Narrative: mildly diminished breath sounds bibasally, no wheezes. bilateral mild rhonchi. On room air. Cardio regular rate, regular rhythm, S1 normal heart sound, S2 normal heart sound and no murmurs GI normal to inspection, nondistended, normoactive bowel sounds, soft to palpation, non-tender and non-distended Extremity normal to inspection, full ROM, normal capillary refill and no clubbing, cyanosis or edema General Extremity: no tenderness to palpation of joints or extremities Skin no rashes or lesions noted General Skin Exam: no breakdown Neuro oriented x3, CN's II-XII intact bilaterally, moves all extremities and no focal motor deficits Sensorium / Orientation: awake and alert Motor Exam: strength 5/5 throughout Psych thought process normal, cooperative and affect normal Appearance: appropriate Weight / BMI Weight Weight: 200 lb 13.458 oz Body Mass Index (BMI) 30.5 ABG / Lab / Microbiology Data 10/19/24 05:15 10/19/24 05:15 Laboratory: Laboratory Results - last 24 hr 10/19/24 05:15: WBC 3.7 L, RBC 4.43 L, Hgb 11.8 L, Hct 35.9 L, MCV 81.0, MCH 26.6 L, MCHC 32.9, RDW Std Deviation 43.6, RDW Coeff of Aron 14.6, Plt Count 122 L, MPV 11.7, Immature Gran % (Auto) 0.300, Neut % (Auto) 68.0, Lymph % (Auto) 21.7, [place] % (Auto) 9.7, Eos % (Auto) 0.0, Baso % (Auto) 0.3, Absolute Neuts (auto) 2.5, Absolute Lymphs (auto) 0.81 L, Nucleated RBC % 0, Sodium 140, Potassium 3.9, Chloride 107, Carbon Dioxide 20.8 L, Anion Gap 13, BUN 16, Creatinine 1.05, Estim Creat Clear Calc 64.57, Est GFR (MDRD) Non-Af 73, BUN/Creatinine Ratio 15.3, Glucose 114 H, Calcium 8.7 Radiography Diagnostic Testing: Radiology Impression Chest CTA 10/18/24 14:07 IMPRESSION: 1. No acute pulmonary embolus. 2. Mild ground-glass opacities within the right middle and lower lungs, and trace left pleural effusion compatible with reported influenza A infection. 3. Stable emphysema. One or more dose reduction techniques were used (e.g., Automated exposure control, adjustment of the mA and/or kV according to patient size, use of iterative reconstruction technique). Reading Location: [facility] D/C Instructions Discharge Diet: Low fat / Low cholesterol Weight Bearing Status: Weight bearing as tolerated Call your doctor if you observe: Fever of 101 or Higher, Shortness of breath, Dizziness, Swelling in the ankles and Chest pain DC O2, CPAP, BIPAP Needs Home O2 Discharge instructions: No DC home with Oxygen: No Meaningful Use Info Meaningful Use Meaningful Use Diagnoses (Choose all that apply): None applicable Ischemic Stroke Statin Dosing Therapy Reference: STATIN DOSE THERAPY REFERENCE: * Patients > 75 years receive moderate or high dose statin therapy. * Patients 75 years or YOUNGER should receive HIGH intensity statin dose unless contraindicated. You will be required to document reason for non-treatment if statin daily dose does not meet guidelines. HIGH DOSE STATIN THERAPY DAILY Atorvastatin > than or = to 40 mg Rosuvastatin > than or = to 20 mg Amlodipine + Atorvastatin > than or = to 2.5/40 mg Ezetimibe + Simvastatin 10/80 mg Simvastatin 80mg Discharge Plan Admission Admit Date/Time: 10/16/24 13:48 Primary Reason for Your Visit: COPD exacerbation. Attending Provider: Billie Hernández Primary Care Provider: Andrade Lester Instructions Patient Instructions: COPD Controlled Breathing Dc Discharge Orders/Prescriptions Prescriptions: New prednisone 20 mg tablet 40 mg PO DAILY Qty: 10 0RF furosemide [Lasix] 40 mg tablet 40 mg PO DAILY Qty: 30 2RF potassium chloride [Klor-Con M20] 20 mEq tablet,ER particles/crystals 20 meq PO DAILY Qty: 30 2RF oseltamivir 30 mg Capsule 30 mg PO BID Qty: 3 0RF Continued aspirin 81 mg tablet,delayed release (DR/EC) 81 mg PO 1200 tamsulosin 0.4 mg capsule,extended release 24hr 0.4 mg PO BID dexlansoprazole 60 mg capsule,biphase delayed releas 60 mg PO DAILY Bioflex [id number] mg tablet 1 tab PO BID B-complex with vitamin C Tablet 1 tab PO DAILY ascorbate calcium (vitamin C) 500 mg tablet 1,000 mg PO DAILY levothyroxine 75 mcg tablet 75 mcg PO DAILY Azo Cranberry 250 mg tablet,chewable 500 mg PO BID Centrum 18-400 mg-mcg tablet 1 tab PO DAILY saw palmetto 500 mg capsule 1,000 mg PO DAILY Rx Instructions: give with food (meal/snack) albuterol sulfate 90 mcg/actuation HFA aerosol inhaler 2 puff inhalation PRN amlodipine 10 mg tablet 10 mg PO DAILY lisinopril 40 mg tablet 40 mg PO QHS potassium chloride 20 mEq tablet extended release 20 meq PO DAILY pravastatin 40 mg tablet 40 mg PO QHS Qty: 90 4RF metoprolol tartrate 50 mg tablet 50 mg PO BID Qty: 180 4RF Referrals / Follow Up: Andrade Lester MD [Primary Care Provider] - Within 1 Week Disposition Disposition (needs filled in before D/C Order can be placed): Home, Self Care Charges/Coding Visit Charges Inpatient E&M: 79174 Disch Hosp >30min
== END 2024-10-19 15:30 | disposition home or self-care (01) | DRG 193 ==
LOC: ED 13:46 → MS3 14:41
PROVIDERS: Admitting Provider Student in an Organized Health Care Education/Training Program; Emergency Provider Emergency Medicine; PCP Family Medicine; Visit Provider Student in an Organized Health Care Education/Training Program
DX: J10.1 Influenza due to other identified influenza virus with other respiratory manifestations (principal); G93.41 Metabolic encephalopathy; I50.30 Unspecified diastolic (congestive) heart failure; I25.810 Atherosclerosis of coronary artery bypass graft(s) without angina pectoris; I11.0 Hypertensive heart disease with heart failure; J44.9 Chronic obstructive pulmonary disease, unspecified; E03.9 Hypothyroidism, unspecified; I08.0 Rheumatic disorders of both mitral and aortic valves; I25.10 Atherosclerotic heart disease of native coronary artery without angina pectoris; E78.00 Pure hypercholesterolemia, unspecified; K21.9 Gastro-esophageal reflux disease without esophagitis; E87.6 Hypokalemia; I25.84 Coronary atherosclerosis due to calcified coronary lesion; R41.82 Altered mental status, unspecified; Z86.16 Personal history of COVID-19; R09.02 Hypoxemia; N40.0 Benign prostatic hyperplasia without lower urinary tract symptoms; Z79.890 Hormone replacement therapy; Z79.899 Other long term (current) drug therapy; Z79.02 Long term (current) use of antithrombotics/antiplatelets; Z79.82 Long term (current) use of aspirin; Z88.2 Allergy status to sulfonamides; Z88.8 Allergy status to other drugs, medicaments and biological substances; I49.3 Ventricular premature depolarization
CPT/HCPCS: 36415; 71045; 71275; 80048; 80076; 81001; 83605; 83690; 83880; 84484; 85025; 93005; 93306; 94640; 97116; 97162; 99285; Q9957; Q9967; A4216; C8929; J1940

== ENCOUNTER → 2024-10-28 | Outpatient (CLI) | payer MEDICARE, OTHER, SELFPAY ==
--- NOTE | 2024-10-28 08:30 | CT_ITS ---
PROCEDURE: EXTREMITY LOWER WITHOUT CONTRA 10/28/2024 REASON FOR EXAM: PAIN IN RIGHT KNEE [facility] protocol for total knee replacement. TECHNIQUE: Axial extremity without contrast. Coronal and Sagittal reconstruction series were provided. One or more dose reduction techniques were used (e.g., Automated exposure control, adjustment of the mA and/or kV according to patient size, use of iterative reconstruction technique). RADIATION DOSE SUMMARY: CTDlvol: 18.5 mGy DLP: 1347.4 mGycm COMPARISON: None. FINDINGS: Bones: No evidence of fracture. Joints: Imaging of the right hip joint, right knee joint and right ankle joint were obtained. Imaging of the right hip joint: No significant joint space narrowing is seen. Incidental note is made of metallic radiation seeds within the prostate. Imaging of the right knee joint was obtained. Is a moderate degree of joint space narrowing of the medial compartment of the knee joint. Tiny osteochondral defect is seen along the medial aspect of the medial tibial plateau. Mild degree of patellofemoral osteoarthritis. Imaging of the ankle joint was obtained. No significant abnormality is seen. Incidental note is made of a talar beak. This is a normal barium. Soft Tissues: Small knee joint effusion. CT/Extremity Lower without Contra IMPRESSION: Moderate amount of joint space narrowing involving the medial compartment knee joint. Small knee joint effusion. Reading Location: [place] [id number]
== END | disposition home or self-care (01) ==
LOC: CT 08:08
PROVIDERS: PCP Family Medicine; Referring Provider Specialist; Visit Provider Specialist
DX: M25.561 Pain in right knee (principal)
CPT/HCPCS: 73700

== ENCOUNTER → 2024-11-11 | Outpatient (CLI) | payer MEDICARE, OTHER, SELFPAY ==
[2024-11-11 07:57] VITALS: PULSE 53; PULSE 57; PULSE 65; PULSE 71; PULSE 72; PULSE 73; PULSE 74; PULSE 75; O2SAT 93; O2SAT 94; O2SAT 96
--- NOTE | 2024-11-11 10:34 | RAD_ITS ---
PROCEDURE: CHEST PA AND LATERAL 11/11/2024 REASON FOR EXAM: PNEUMONIA TECHNIQUE: Frontal and lateral views of the chest. COMPARISON: 10/16/[address] 10/18/2024 FINDINGS: Patchy ill-defined opacity at the right mid to lower lung consistent with history of pneumonia which is not perceptible on the radiograph of 10/16/2024 and comparing to the CT of 10/18/2024 appears more prominent currently. Correlate with therapy response and recommend continued follow-up to resolution. The lungs otherwise appear clear. Pulmonary vascularity appears within limits. No pleural effusion. Ectatic appearing thoracic aorta again noted, status post median sternotomy, CABG again noted. 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 RAD/Chest PA and Lateral IMPRESSION: Patchy ill-defined opacity at the right mid to lower lung consistent with histo ry of pneumonia which is not perceptible on the radiograph of 10/16/2024 and comparing to the CT of 10/18/2024 appears more pro minent currently. Correlate with therapy response and recommend continued follow-up to resolution. Reading Location: [id number]
--- NOTE | 2024-11-13 10:10 | WT_ITS ---
PSN 6 Minute Walk Test 6 Minute Walk Test 6 Minute Walk Test: 6 Minute Walk Test PSN:6-Minute Walk Test Start: 11/11/24 07:50 Freq: Status: Active Protocol: [id number] Document 11/11/24 07:57 SHAY (Rec: 11/11/24 07:59 SHAY [id number]) 6 Minute Walk Test Date Performed 11/11/24 Time Performed 07:30 Height 5 ft 8 in Weight: 206 lb Weight in Pounds 206.[address]: Bette Gonzalez [employer] Assistive device None used: Pre-test Oxygen Delivery Room Air Method Pulse Ox (%) 93 Pulse Rate (60-100 53 L beats/min) Dyspnea Carter Scale ( 0 0-10) Exertion Carter Scale 6 (6-20) 1st minute Oxygen Delivery Room Air Method Pulse Ox (%) 93 Pulse Rate (60-100 65 beats/min) 2nd minute Oxygen Delivery Room Air Method Pulse Ox (%) 94 Pulse Rate (60-100 71 beats/min) 3rd minute Oxygen Delivery Room Air Method Pulse Ox (%) 93 Pulse Rate (60-100 74 beats/min) 4th minute Oxygen Delivery Room Air Method Pulse Ox (%) 93 Pulse Rate (60-100 75 beats/min) 5th minute Oxygen Delivery Room Air Method Pulse Ox (%) 94 Pulse Rate (60-100 72 beats/min) 6th minute Oxygen Delivery Room Air Method Pulse Ox (%) 94 Pulse Rate (60-100 73 beats/min) Dyspnea Carter Scale ( 2 0-10) Exertion Carter Scale 14 (6-20) Post-test Oxygen Delivery Room Air Method Pulse Ox (%) 96 Pulse Rate (60-100 57 L beats/min) Full Laps Walked 14 Partial Lap, Number 39 of Tiles Walked Total Distance 865 Walked (ft) Interpretation Interpretation: The patient ambulated 865 feet over the course of 6 minutes beginning on room air without assistive devices. Pretesting oxygen saturation was noted to be 93% on room air. With ambulation, the estephania oxygen saturation was 93%. There was no significant exertional oxygen desaturation. Recommendations Recommendations: There is no indication for the use of supplemental oxygen at this time.
== END | disposition home or self-care (01) ==
PROVIDERS: PCP Family Medicine; Referring Provider Nurse Practitioner Acute Care; Visit Provider Nurse Practitioner Acute Care
DX: J18.9 Pneumonia, unspecified organism (principal)
CPT/HCPCS: 71046; 94618

== ENCOUNTER → 2024-11-13 | Outpatient (CLI) | payer MEDICARE, OTHER, SELFPAY | END | disposition home or self-care (01) | LOC: PSN 06:29 | PROVIDERS: PCP Family Medicine; Referring Provider Nurse Practitioner Acute Care; Visit Provider Nurse Practitioner Acute Care | DX: R06.02 Shortness of breath (principal) | CPT/HCPCS: 94060; 94726; 94729 ==

== ENCOUNTER → 2024-12-01 | Outpatient (CLI) | payer MEDICARE, OTHER, SELFPAY ==
[2024-12-01 18:20] LABS: Absolute Lymphocyte Count 1.53 X10^3/uL (0.83-4.51); Absolute Neutrophil Count 5.6 X10^3/uL (2.0-7.7); Basophil# 0.06 X10^3/uL; Basophil% 0.8 % (0-1); Hematocrit 42.7 % (40-54); Hemoglobin 14.1 g/dL (13.0-16.5); Lymphocyte # 1.53 X10^3/ul (0.83-4.51); Lymphocyte % 19.8 % (19-41); Mean Corpuscular Hgb 27.9 pg (27.0-32.0); Mean Corpuscular Volume 84.4 fL (80-94); Mean Platelet Vol. 10.6 fl (6.2-12.0); Monocyte# 0.55 X10^3/uL; Monocyte% 7.1 % (0-10); NRBC Flagged by Analyzer 0 % (0-5); Neutrophil # 5.55 X10^3/uL (2.7-7.7); Platelet Count 191 K/mm3 (150-450); RBC Distribution Width CV 15.8 % (11.6-14.6); RBC Distribution Width SD 44.2 fl (35.1-43.9); Red Blood Count 5.06 M/mm3 (4.6-6.2); White Blood Count 7.7 K/mm3 (4.4-11.0)
[2024-12-01 18:52] LABS: ALB/GLOB Ratio 1.6 RATIO (0.9-2.4); AST(SGOT) 20 U/L (<=37); Alanine Aminotransfer ALT/SGPT 16 U/L (<=46); Albumin, Serum 4.3 g/dL (3.4-4.8); Alkaline Phosphatase 83 U/L (40-129); Anion Gap 14 (5-15); BUN 23 mg/dL (4-19); BUN/Creat Ratio 24.7 RATIO (10-20); Calcium,Total 9.9 mg/dL (7.6-11.0); Carbon Dioxide 22.7 mmol/L (21.0-32.0); Chloride 105 mmol/L (98-108); Creatinine, Serum 0.92 mg/dL (0.70-1.20); EST Glomerular Filtration Rate 85 (>60); Globulin 2.7 g/dL (2.2-4.2); Glucose 102 mg/dL (70-99); Potassium 3.9 mmol/L (3.3-5.1); Protein, Total 7.1 g/dL (5.9-8.4); Sodium Level 142 mmol/L (133-145); Total Bilirubin 0.56 mg/dL (0.00-1.30)
== END | disposition home or self-care (01) ==
LOC: MTLAB 14:00
PROVIDERS: PCP Family Medicine; Referring Provider Family Medicine; Visit Provider Family Medicine
DX: Z01.818 Encounter for other preprocedural examination (principal); E03.9 Hypothyroidism, unspecified
CPT/HCPCS: 36415; 80053; 84439; 84443; 84481; 85025

== ENCOUNTER → 2024-12-04 | Outpatient (CLI) | payer MEDICARE, OTHER, SELFPAY ==
--- NOTE | 2024-12-04 09:22 | STRESSREP_ITS ---
Stress Test Report Date: 12/04/2024 Procedure: Pharmacologic stress nuclear imaging study Indications: Coronary artery disease Consent: Per the patient Procedure: The patient underwent pharmacologic (Regadenoson 0.4mg ) evaluation with a peak heart rate of 137 beats per minute (95%predicted maximal heart rate) and a peak blood pressure of 120/78 mmHg. The baseline ECG demonstrated sinus rhythm with nonspecific ST changes. The peak pharmacologic ECG failed to show any ischemic changes. No significant cardiac dysrhythmias noted. There was no complaint of chest discomfort during pharmacologic infusion or recovery. The patient was injected with 13.8 millicuries of technetium 99m Cardiolite and subsequently rest SPECT Cardiolite nuclear imaging was obtained in the horizontal long, vertical long, and short axis views. The patient underwent pharmacologic (Regadenoson) evaluation. The patient was injected with 42.6 millicuries of technetium 99m Cardiolite and subsequently stress SPECT Cardiolite nuclear imaging was obtained in the horizontal long, vertical long, and short axis views. A gated Cardiolite study at peak stress was obtained. The examination was stopped secondary to completion of protocol. Rest and stress SPECT Cardiolite nuclear imaging status post realignment, normalization, and attenuation correction demonstrate mildly reduced perfusion of the anterior wall and apex post pharmacological stress, suggestive of mild ischemia. There is end systolic thickening and brightening. The gated Cardiolite study demonstrates myocardial thickening and inward wall motion. The reported LVEF is 63%. Impression: 1. Pharmacologic (Regadenoson) evaluation 2. Peak pharmacologic ECG with no ischemic changes. 3. No significant cardiac dysrhythmias noted. 5. Mildly reduced perfusion post pharmacological stress, suggestive of mild ischemia in the anterior wall and apex. 6. The gated Cardiolite study reports an LVEF of 63%. This note was generated with [employer] software. It may contain incorrect words, spelling, and punctuation that were not noted in checking the note before signing.
== END | disposition home or self-care (01) ==
LOC: CVS 06:12
PROVIDERS: PCP Family Medicine; Referring Provider Internal Medicine Cardiovascular Disease; Visit Provider Internal Medicine Cardiovascular Disease
DX: I25.10 Atherosclerotic heart disease of native coronary artery without angina pectoris (principal); R06.02 Shortness of breath; R00.2 Palpitations; Z95.1 Presence of aortocoronary bypass graft; I49.3 Ventricular premature depolarization
CPT/HCPCS: 78452; 93017; A9500; A4216; J2785

== ENCOUNTER 2024-12-30 10:28 | Observation (INO) | payer MEDICARE, OTHER, SELFPAY ==
--- NOTE | 2024-12-16 16:00 | HP.PCM_ITS ---
History and Physical Date of Admission: 12/30/24 Jay Young is a 79 year old gentleman with a history of coronary artery disease with bypass surgery. He had an JADE to the LAD, SVG to the ramus and PDA of the RCA in 2010. He also has a history of hypertension, hyperlipidemia, pulmonary embolism and mitral and aortic valve regurgitation. Denies any angina. He had severe shortness of breath with his influenza but has steadily been recovering from it with improvement in his shortness of breath. Denies orthopnea or PND. Some lower extremity edema. He was in the process of being cleared for right knee surgery. He underwent an echocardiogram which demonstrated mild concentric LVH with an estimated ejection fraction of 65%. Left atrium moderately enlarged. Pharmacologic nuclear stress test demonstrated mildly reduced perfusion post pharmacologic stress suggestive of mild ischemia in the anterior wall and apex. Patient is now scheduled for diagnostic heart catheterization to have this further assessed prior to his surgery. [facility] Medical History Hypertension Wears hearing aid Loss of hearing Wears glasses Hypothyroid Thyroid disease Arthritis Prostate disease High cholesterol Shortness of breath on exertion Non-smoker History of edema History of echocardiogram History of stress test Cardiology follow-up encounter Skin cancer of nose Cancer Moderate aortic insufficiency Moderate mitral insufficiency Chronic cough Bronchitis Cough in adult Carotid artery stenosis Chronic wheezy bronchitis Hypokalemia Chest pain CAD (coronary artery disease) COPD (chronic obstructive pulmonary disease) Cough Sleep apnea Leg swelling Edema Hypoxia Pulmonary embolism Influenza RSV bronchitis COVID-19 Low back pain Pure hypercholesterolemia History of prostate cancer GERD (gastroesophageal reflux disease) Essential hypertension Premature ventricular contraction Premature atrial contractions Atherosclerotic heart disease of [place] coronary artery without angina pectoris 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 angina pectoris Palpitations HTN (hypertension) Surgical History History of cardiac catheterization History of prostate surgery History of lumbar fusion History of left heart catheterization (LHC) H/O coronary artery bypass surgery (~11/22/10) Family History Mother , age 72 CAD (coronary artery disease) Myocardial infarction Arthritis Father , age 69 COPD (chronic obstructive pulmonary disease) Hypertension Pulmonary emphysema Grandfather , age 76 Myocardial infarction Aunt Cancer Uncle Cancer Social History household members: none current occupational status: retired pets and animals: Yes ([employer]hn[employer]) pets and animals: cat(s) Smoking Status: Never smoker alcohol intake: never substance use type: does not use caffeine: Yes Type: coffee Number of servings: 2 what type of physical activity do you participate in: walking and other details : rowing machine, pushups, situps and walking 2 miles a day. frequency: daily duration: 45-60 minutes/day seatbelt use: always do you feel safe at home: Yes ROS Const Const: Negative for fatigue or weakness ENT ENT: Negative for dizziness or balance problems Cardio Chest Pain: No Palpitations: No Edema: Bilateral Muscle aches with walking: None Resp Respiratory: Positive for SOB with activity; Negative for SOB at rest or SOB orthopnea\SOB lying down GI GI: Negative nausea, vomiting or heartburn Musc Musc: Negative for muscle weakness or balance problems Neuro Neuro: Negative for dizziness, lightheadedness, near syncope, syncope or weakness Endo Endo: Negative for fatigue Cardiology Exam Const Appearance: comfortable and no acute distress Nutritional Appearance: well nourished Neck Neck: no JVD Carotids: Negative bruit Chest Auscultation: Bilateral: Clear to Auscultation Cardio Rate: regular rate Rhythm: regular rhythm Heart sounds: S1 normal and S2 normal Neuro General: patient alert, patient awake and patient oriented x3 Extremities Lower Extremity Edema: +1: Bilateral Assessment & Plan Assessment/Plan (1) Abnormal stress test: (2) Atherosclerotic heart disease of [place] coronary artery without angina pectoris: QUALIFIERS: [place] vs. transplanted heart: [place] heart Qualified Code(s): I25.10 - Atherosclerotic heart disease of [place] coronary artery without angina pectoris (3) H/O coronary artery bypass surgery: (4) Essential hypertension: (5) Moderate mitral insufficiency: (6) Moderate aortic insufficiency: PLAN: Plan Patient will undergo a diagnostic heart catheterization. Based on findings we will decide next plan of care.
[2024-12-29 13:59] VITALS: BMI 31.0
[2024-12-30] VITALS (12 sets, daily range): BP systolic 122–148; BP diastolic 69–91; PULSE 50–78; RESP 16–18; TEMP 36.4–36.8; O2SAT 93–100; BMI 31.0
--- NOTE | 2024-12-30 10:30 | EKG12_ITS ---
Test Reason : PCI Blood Pressure : */* mmHG Vent. Rate : 55 BPM Atrial Rate : 55 BPM P-R Int : 174 ms QRS Dur : 92 ms QT Int : 468 ms P-R-T Axes : 22 -13 30 degrees QTcB Int : 447 ms Sinus bradycardia Nonspecific ST abnormality Abnormal ECG When compared with ECG of 28-Oct-2024 08:22, Borderline criteria for Inferior infarct are no longer Present Confirmed by ISIDORO DAVE, GABBY ([id number]), multimedia editor JOSE GALLOWAY ([id number]) on 12/31/2024 10:38:40 AM Referred By: Akilah Simons Confirmed By: GABBY CHAUDHRY MD
--- NOTE | 2024-12-30 10:32 | DCINST_ITS ---
Discharge Instructions Diet Discharge Diet: Low fat / Low cholesterol DC O2, CPAP, BIPAP needs Home O2 Discharge instructions: No Dressing / Incision Discharge Activity: Return to Normal Activity Dressing / Incision Call your doctor if your incision/area has: Continuous Slow Oozing, Sudden Increased Bleeding, Increased Pain/ Swelling, Increased Redness and Foul Smelling Discharge Call your doctor if you observe: Fever of 101 or Higher, Coldness, Increased Pain, Numbness or Tingling and Change in Color Follow Up Care Please Follow Up With: Akilah Simons MD When: 2-4 weeks Test Results: Test results from this visit will be discussed in further detail at your follow- up appointment, if applicable. Discharge Plan Admission Attending Provider: Akilah Simons Primary Care Provider: Andrade Lester Instructions Print Language: Tanzanian Discharge Orders/Prescriptions Prescriptions: New clopidogrel 75 mg Tablet 75 mg PO DAILY Qty: 30 6RF Continued aspirin 81 mg tablet,delayed release (DR/EC) 81 mg PO 1200 dexlansoprazole 60 mg capsule,biphase delayed releas 60 mg PO DAILY Bioflex [id number] mg tablet 1 tab PO BID B-complex with vitamin C Tablet 1 tab PO DAILY ascorbate calcium (vitamin C) 500 mg tablet 1,000 mg PO DAILY potassium chloride [Klor-Con M20] 20 mEq tablet,ER particles/crystals 20 meq PO BID fluticasone furoate-vilanterol [Breo Ellipta] 200-25 mcg/dose blister with dev ice 1 inh inhalation QDAY Qty: 60 6RF Rx Instructions: after inhalation, rinse mouth with water and spit out; do not swallow fluticasone propionate 50 mcg/actuation spray,suspension 2 spray intranasal DAILY Qty: 16 3RF azelastine 137 mcg (0.1 %) spray,non-aerosol 1 spray intranasal BID levothyroxine 75 mcg tablet 75 mcg PO DAILY Azo Cranberry 250 mg tablet,chewable 500 mg PO BID Centrum 18-400 mg-mcg tablet 1 tab PO DAILY saw palmetto 500 mg capsule 1,000 mg PO DAILY Rx Instructions: give with food (meal/snack) albuterol sulfate 90 mcg/actuation HFA aerosol inhaler 2 puff inhalation PRN amlodipine 10 mg tablet 10 mg PO DAILY lisinopril 40 mg tablet 40 mg PO QHS furosemide [Lasix] 40 mg tablet 40 mg PO DAILY Qty: 30 2RF pravastatin 40 mg tablet 40 mg PO QHS Qty: 90 4RF metoprolol tartrate 50 mg tablet 50 mg PO BID Qty: 180 4RF Changed tamsulosin 0.4 mg capsule,extended release 24hr 0.4 mg PO QHS Qty: 30 0RF Referrals / Follow Up: Andrade Lester MD [Primary Care Provider] - Disposition Disposition (needs filled in before D/C Order can be placed): Home, Self Care
--- NOTE | 2024-12-30 10:46 | CL.I_ITS ---
Patient Name: JOSSELINE DAVIS Study Date: 12/30/2024 Performing: Akilah Simons MD Ht: 68 inches 172.72 cm : 1945 Wt: 203.99 lbs 92.53 kg Age: 79 Gender: male BSA: 2.06 PROCEDURE(S) PERFORMED DC04-(72336)LHC/COR/CABG IC14-([id number])GRAFT-MONIKA AND/OR PTCA, SINGLE GRAFT CLINICAL PROFILE AND CO-MORBIDITIES Indications: Stable Known CAD Heart Failure: None Stress/Imaging Stress Test w/SPECT MPI: Yes Result: Positive Intermediate Risk Stress Test with SPECT MPI: Positive Intermediate Risk CAD Presentations: Other: Dyspnea CONCLUSIONS 100% Ostial LAD; JADE to LAD patent 100% ostial Ramus; SVG to Ramus patent HEAD OF SCIENCE Prox RCA; SVG to RPDA 80% distal; Diffuse disease k[place] RPDA Mild diffuse disease LCX Successful MONIKA SVG (distal) to RPDA using Navin Coke 2.5x18 mm RECOMMENDATIONS ASA Indefinitley P2Y12 inhibitors for atleast 6 months DESCRIPTION OF PROCEDURE The patient arrived to the procedure lab. The risks and benefits of the procedure as well as a full description of our services here and lack of surgical backup were fully explained to the patient and/or their significant other prior to the catheterization. The Timeout was completed, verifying the correct patient and procedure. The patient's procedural site was prepped and draped in the usual fashion. Local anesthetic was given subcutaneously to left radial region with Lidocaine 2%. Using a modified Seldinger technique, arterial access was obtained via the left radial artery, a 6Fr sheath was inserted.. Left internal mammary artery graft to the LAD selective angiography was performed in multiple views using a 5 Fr. IM catheter. Left Coronary Artery selective angiography was performed in multiple views using a 5 Fr. JL3.5 catheter. Right Coronary Artery selective angiography was then performed in multiple views using a 5 Fr. JR 4 catheter. Saphenous Vein graft to the RPDA selective angiography was performed in multiple views using a 6 Fr. AL 0.75 catheter. Saphenous Vein graft to the Ramus selective angiography was performed in multiple views using a 6 Fr. AL 0.75 catheter AL 0.75 Guide catheter was inserted and engaged into the SVG to the Rt PDA. 2.5 x18 [facility] Eluting stent was inserted. Drug Eluting stent was advanced across the lesion in the graft to the Rt PDA. Angiogram performed post stent deployment. The arterial sheath was pulled and a TR Band was applied for hemostasis. 12cc air CORONARY ANGIOGRAPHY DOMINANCE: Right Dominant LEFT MAIN: Tubular 30% Distal lesion in LMCA LEFT ANTERIOR DESCENDING ARTERY: LAD: Tubular 100% Ostial lesion in LAD RAMUS: Tubular 100% Ostial lesion in Ramus RIGHT CORONARY ARTERY: RCA: Calcified 100% Proximal lesion in RCA RT PDA: Diffuse 60% Proximal lesion in RT PDA GRAFTS: JADE Graft to LAD SVG Graft to RT PDA Tubular 80% lesion in SVG Graft to RT PDA SVG Graft to RAMUS INTERVENTION INFORMATION LESION SITE: Vein > to Rt PDA Segment Number: 4-Right posterior descending artery segment - rPDA , Lesion Location: Body Lesion Complexity: High/C, lesion length: 16 mm Pre Stenosis: 80 % Pre intervention MARIEL flow: 3 PROCEDURE: Drug Eluting Stent Post Stenosis: 0 % Post intervention MARIEL flow: 3 Lesion Devices: Terumo .014 180cm Runthrough Extra Floppy straight Cordis 6 Fr AL.75 100cm Guide Catheter COMPLICATIONS No Complications PROCEDURE MEDICATIONS Fentanyl 50 mcg IV Versed 1 mg IV Oxygen: 2 L/min via nasal cannula Brilinta 180 mg PO 12/30/2024 10:00:48 Adenosine 48 mcg IC 12/30/2024 10:09:29 Adenosine 48 mcg IC @ 12/30/2024 10:11:25 Heparin given IA 12/30/2024 09:14:26 Heparin 2000 unit(s) IV 12/30/2024 09:36:06 Heparin 6000 unit(s) IV 12/30/2024 10:00:38 Heparin 1000 unit(s) IV 12/30/2024 10:24:34 Nitro 200 mcg IC 12/30/2024 10:08:16 Nitro 200 mcg IC 12/30/2024 10:08:16 Verapamil 2.5mg, Ntg 200mcgs, 2000 units of Heparin given IA 12/30/2024 09:14:26 SUMMARY OF HEMODYNAMIC DATA Time AIR REST Art 128/67 (89) 09:25:12 AO 126/66 (93) SA 09:40:37 ECG 10:28:16 10:28:16 Signed By Akilah Simons MD On 12/30/2024 10:46:01 Akilah Simons MD
[2024-12-30 13:20] LABS: ACT Activated Clotting Time 245 sec (74-137)
[2024-12-30] MEDS: 0.9% Saline Lock 10 ML Syringe IV (13:42)
[2024-12-30] MEDS: 0.9% Normal Saline (1000mL) 1,000 ML 100 ML IV (13:42)
--- NOTE | 2024-12-30 13:47 | CRPHASE1 ---
Patient Communication Patient Information Former Patient:: Phase I PHII Cardiac Rehab Discussed with Patient:: Yes Guide to Cardiac Rehab Given to Patient:: Yes Cardiac Rehab Facility Choice List Given to Patient:: Yes Communication to Cardiac Rehab Choice Program [facility] CR PHII:: Communication Given to CR and Refer to [facility] Choice Program Other:: Communication Given to CR Consumer Studies Professor:: Akilah Simons PCP:: Andrade Lester Phase II Cardiac Rehab:: Yes Post Discharge Choice Letter Given to Patient:: Yes (cardiovascular lab director ) Phase I Charge:: Level I - Education Medical/Surgical History Medical History CAD:: Yes Congestive Heart Failure: Valve Disease/Replacement:: Yes Pulmonary:: Yes Dyslipidemia:: Yes CVA/TIA: PE:: Yes Surgical History CABG: Yes PTCA:: Yes Ambulation Ambulation Notes:: scheduled for knee surgery, weakness Cardiac Rehabilitation Info Program Information Cardiac Rehabilitation Program Information: Cardiac Rehab The cardiac rehab team at [facility] consists of highly skilled exercise physiologists, nurses, respiratory therapists and physicians working together with you. Our purpose is to help you have a full recovery and achieve the goals you set for yourself. Over the years many of our patients have returned to activities they assumed they would never do again! We can help restore your confidence and motivation to make lifestyle changes that can have a significant impact on your health and quality of life! We can help answer questions and concerns you may have about exercise, lifestyle, medications, diet, stress and anxiety which are common following a hospitalization. WE monitor ECG and vital signs during exercise and discuss your progress with you and report to your physician(s). Cardiac Rehab is proven to help reduce readmissions, improve functional capacity and lower recurrence of problems with your heart. Our Cardiac Rehab program is Certified by the [employer] Pulmonary [employer] (AACVPR) and Accredited by the [employer] through our [facility]. You can contact us at . We invite you to call us with your questions or to get started in our program. If you have other questions or concerns be sure to ask your physician/provider during your follow-up visit. WE look forward to seeing you!
--- NOTE | 2024-12-30 13:49 | CRPH1.INSTRU ---
General Education Discussed with Patient CAD and cardiac anatomy and function:: Patient communicates acknowledgment and Family communicates acknowledgment Explanation of diagnoses and procedures:: Patient communicates acknowledgment and Family communicates acknowledgment Sign/Symptoms of [place]:: Patient communicates acknowledgment and Family communicates acknowledgment Antiplatelet therapy: Patient communicates acknowledgment and Family communicates acknowledgment Proper use of NTG-SL: Patient communicates acknowledgment and Family communicates acknowledgment Emergency procedures and activation of EMS: Patient communicates acknowledgment and Family communicates acknowledgment Compliance of all prescribed medications: Patient communicates acknowledgment and Family communicates acknowledgment Smoking Risk Factors Patient Nicotine/Smoking Risk Factors Are:: Never smoked Response Code Nicotine/Smoking Response Code:: Patient communicates acknowledgment and Family communicates acknowledgment Dyslipidemia Recommendations Recommendations Include:: Lipid profile not available and Therapeutic Lifestyle Change dietary guidelines Response Code Dyslipidemia Response Code:: Patient communicates acknowledgment and Family communicates acknowledgment Overweight/Obesity Risk Factors Patient Overweight/Obesity Risk Factors Are:: Obesity - > or = 30 (31.0) Recommendations Recommendations Include:: Weight loss of 5-10%, Reduced calorie diet and Exercise 5-7 times/week Response Code Overweight/Obesity:: Patient communicates acknowledgment and Family communicates acknowledgment Hypertension Risk Factors Patient Hypertension Risk Factors Are:: No documented hx of HTN Recommendations Recommendations Include:: Decrease/maintain normal body weight Response Code Hypertension:: Patient communicates acknowledgment and Family communicates acknowledgment Heart Disease Risk Factors Patient Heart Disease Risk Factors Are:: Family history of heart disease < 65 years old and Previous cardiac event Recommendations Recommendations Include:: Educated family members of their risk and Educated family members of importance of prevention of heart disease Response Code Heart Disease Response Code:: Patient communicates acknowledgment and Family communicates acknowledgment Diabetes Risk Factors Patient Diabetes Risk Factors Are:: No documented hx of diabetes Recommendations Recommendations Include:: Diabetic dietary guidelines and Decrease/maintain body weight Response Code Diabetes:: Patient communicates acknowledgment and Family communicates acknowledgment Metabolic Syndrome Recommendations Recommendations Include:: Reinforce compliance to risk factor modifications and Encouraged follow-up with Primary Care Physician Response Code Metabolic Syndrome Response Code:: Patient communicates acknowledgment and Family communicates acknowledgment Sedentary Risk Factors Patient Sedentary Risk Factors Are:: Lack of regular exercise Recommendations Recommendations Include:: Aerobic exercise 5-7 times/week for 20-30 minutes continuously, Benefits of regular exercise, Discussed home walking program and Monitored Outpatient Cardiac Rehab Response Code Sedentary Response Code:: Patient communicates acknowledgment and Family communicates acknowledgment Stress Risk Factors Patient Stress Risk Factors Are:: Patient denies stress as a risk factor
[2024-12-30] MEDS: Clopidogrel Bisulfate 300 MG Tablet PO (16:49)
[2024-12-30] MEDS: Potassium Chloride Oral Tablet 20 MEQ PO (16:50)
[2024-12-30] MEDS: Albuterol 2.5 MG/3 ML VIAL.NEB. INHALATION (19:56)
[2024-12-30] MEDS: Budesonide Respules 0.5 MG/2 ML AMPUL.NEB. INHALATION (19:57)
[2024-12-30] MEDS: Azelastine HCl NASAL.SRY 1 SPRAY NASAL (20:49)
[2024-12-30] MEDS: Lisinopril 40 MG Tablet PO (20:50)
[2024-12-30] MEDS: Pravastatin 40 MG Tablet PO (20:50)
[2024-12-30] MEDS: Metoprolol Tartrate 50 MG Tablet PO (20:50)
[2024-12-31 02:11] VITALS: BP 159/82; PULSE 62; RESP 14; TEMP 36.6; O2SAT 96
[2024-12-31] MEDS: Levothyroxine 75 MCG Tablet PO (05:42)
[2024-12-31 06:01] LABS: Hematocrit 43.2 % (40-54); Hemoglobin 13.8 g/dL (13.0-16.5); Mean Corp Hgb Conc 31.9 g/dL (32-36); Mean Corpuscular Hgb 26.2 pg (27.0-32.0); Mean Corpuscular Volume 82.1 fL (80-94); Mean Platelet Vol. 10.3 fl (6.2-12.0); Platelet Count 189 K/mm3 (150-450); RBC Distribution Width CV 14.6 % (11.6-14.6); Red Blood Count 5.26 M/mm3 (4.6-6.2); White Blood Count 7.2 K/mm3 (4.4-11.0)
[2024-12-31 06:24] LABS: ALB/GLOB Ratio 1.5 RATIO (0.9-2.4); AST(SGOT) 25 U/L (<=37); Alanine Aminotransfer ALT/SGPT 15 U/L (<=46); Alkaline Phosphatase 79 U/L (40-129); Anion Gap 12 (5-15); BUN 15 mg/dL (4-19); BUN/Creat Ratio 15.2 RATIO (10-20); Calcium,Total 9.4 mg/dL (7.6-11.0); Carbon Dioxide 22.7 mmol/L (21.0-32.0); Chloride 107 mmol/L (98-108); Creatinine, Serum 0.96 mg/dL (0.70-1.20); EST Glomerular Filtration Rate 82 (>60); Estimated Creatinine Clearance 71.14 ml/min (50-250); Globulin 2.7 g/dL (2.2-4.2); Glucose 101 mg/dL (70-99); Protein, Total 6.7 g/dL (5.9-8.4); Sodium Level 142 mmol/L (133-145); Total Bilirubin 0.57 mg/dL (0.00-1.30)
[2024-12-31] MEDS: Budesonide Respules 0.5 MG/2 ML AMPUL.NEB. INHALATION (06:54)
[2024-12-31] MEDS: Albuterol 2.5 MG/3 ML VIAL.NEB. INHALATION (06:54)
[2024-12-31 06:55] VITALS: PULSE 69; RESP 18; O2SAT 98
--- NOTE | 2024-12-31 10:30 | EKG12_ITS ---
Test Reason : PCI Blood Pressure : */* mmHG Vent. Rate : 62 BPM Atrial Rate : 62 BPM P-R Int : 184 ms QRS Dur : 90 ms QT Int : 434 ms P-R-T Axes : 46 -5 43 degrees QTcB Int : 440 ms Normal sinus rhythm Inferior infarct , age undetermined Abnormal ECG When compared with ECG of 30-Dec-2024 14:10, MANUAL COMPARISON REQUIRED DATA IS UNCONFIRMED Confirmed by ISIDORO DAVE, GABBY ([id number]), news video editor JOSE GALLOWAY ([id number]) on 12/31/2024 10:38:13 AM Referred By: Akilah Simons Confirmed By: GABBY CHAUDHRY MD
[2024-12-31 10:34] VITALS: BP 133/76; PULSE 68; RESP 16; TEMP 36.2; O2SAT 98
[2024-12-31] MEDS: Multivitamins,Ther W-Minerals Tablet 1 TABLET PO (10:37)
[2024-12-31] MEDS: Azelastine HCl NASAL.SRY 1 SPRAY NASAL (10:37)
[2024-12-31] MEDS: Vitamin B Comp W-C Capsule 1 CAP PO (10:37)
[2024-12-31] MEDS: Ascorbic Acid 500 MG Tablet 1000 MG PO (10:37)
[2024-12-31] MEDS: Potassium Chloride Oral Tablet 20 MEQ PO (10:37)
[2024-12-31 10:38] VITALS: PULSE 68
[2024-12-31] MEDS: Clopidogrel Bisulfate 75 MG Tablet PO (10:38)
[2024-12-31] MEDS: Furosemide 40 MG Tablet PO (10:38)
[2024-12-31] MEDS: Fluticasone 0.05% 1 SPRAY NASAL.SRY 2 SPRAY NASAL (10:38)
[2024-12-31] MEDS: amLODIPine 10 MG Tablet PO (10:38)
[2024-12-31] MEDS: Metoprolol Tartrate 50 MG Tablet PO (10:38)
[2024-12-31] MEDS: Pantoprazole Sodium 40 MG Tablet PO (10:39)
--- NOTE | 2024-12-31 10:55 | PHA.DC_ITS ---
Pharmacy [facility] Pharm[facility] Service has performed discharge medication reconciliation and counseling for this patient. 1. CLOPIDOGREL 75MG PO DAILY The patient's discharge medication list was reviewed for discrepancies and discrepancies were resolved. The patient was counseled on the following discharge medications and changes in medications for homegoing were reviewed. The Reason for Use, instructions for use, and potential side effects were reviewed for all new medications. The patient's questions regarding all of their medications were answered. The patient was able to verbally demonstrate an understanding of their discharge medications. Medications at Discharge Home Medications aspirin 81 mg tablet,delayed release 81 mg PO 1200 [facility] 07/16/17 dexlansoprazole 60 mg capsule,biphase delayed release 60 mg PO DAILY reflux 10/06/20 vit [id number] 500 mg-50 mg-25 mg-40 mg tablet (Bioflex) 1 tab PO BID vitamin 10/06/20 B-complex with vitamin C 1 tab PO DAILY vitamin 01/18/22 cranberry fruit concentrate 250 mg chewable tablet (Azo Cranberry) 500 mg PO BID supplement 09/07/23 levothyroxine 75 mcg tablet 75 mcg PO DAILY thyroid 09/07/23 multivitamin-ferrous fumarate-folic acid 18 mg-400 mcg tablet (Centrum) 1 tab PO DAILY vitamin 09/07/23 ascorbate calcium (vitamin C) 500 mg tablet 1,000 mg PO DAILY vitamin 11/22/23 pravastatin 40 mg tablet 40 mg PO QHS cholesterol #90 tabs 07/07/24 metoprolol tartrate 50 mg tablet 50 mg PO BID blood pressure #180 tabs 07/30/24 albuterol sulfate 90 mcg/actuation aerosol inhaler 2 puff inhalation PRN breathing 10/16/24 amlodipine 10 mg tablet 10 mg PO DAILY blood pressure 10/16/24 lisinopril 40 mg tablet 40 mg PO QHS blood pressure 10/16/24 saw palmetto 500 mg capsule 1,000 mg PO DAILY supplement 10/16/24 furosemide 40 mg tablet (Lasix) 40 mg PO DAILY diuretic #30 tabs 10/19/24 potassium chloride 20 mEq tablet,extended release(part/cryst) (Klor-Con M) 20 meq PO BID supplement 10/30/24 fluticasone furoate 200 mcg-vilanterol 25 mcg/dose inhalation powder (Breo Ellipta) 1 inh inhalation QDAY breathing #60 ea 11/05/24 fluticasone propionate 50 mcg/actuation nasal spray,suspension 2 spray intranasal DAILY breathing #16 grams 11/05/24 azelastine 137 mcg (0.1 %) nasal spray 1 spray intranasal BID allergies 11/21/24 clopidogrel 75 mg tablet 75 mg PO DAILY #30 tabs 12/30/24 tamsulosin 0.4 mg capsule 0.4 mg PO QHS #30 caps 12/30/24
--- NOTE | 2024-12-31 11:16 | CASEMGMT ---
Patient has order for discharge. RN CM in to discuss needs at discharge. Patient denies needs or help at discharge. Patient had no further questions or concerns.
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
== END 2024-12-31 10:00 | disposition home or self-care (01) ==
LOC: CLSP 10:33 → PCU 11:15
PROVIDERS: Admitting Provider Internal Medicine Cardiovascular Disease; PCP Family Medicine; Referring Provider Internal Medicine Cardiovascular Disease; Visit Provider Internal Medicine Cardiovascular Disease
DX: I25.10 Atherosclerotic heart disease of native coronary artery without angina pectoris (principal); J44.9 Chronic obstructive pulmonary disease, unspecified; R94.39 Abnormal result of other cardiovascular function study; I08.0 Rheumatic disorders of both mitral and aortic valves; Z82.49 Family history of ischemic heart disease and other diseases of the circulatory system; E78.00 Pure hypercholesterolemia, unspecified; I10 Essential (primary) hypertension; Z95.1 Presence of aortocoronary bypass graft; Z86.711 Personal history of pulmonary embolism; R06.02 Shortness of breath; R60.0 Localized edema; Z79.899 Other long term (current) drug therapy; Z79.82 Long term (current) use of aspirin
CPT/HCPCS: 36415; 80053; 85027; 85347; 92928; 93005; 93455; 94640; 96360; 96361; 99152; 99153; 99221; C1769; C1894; Q9967; A4216; C1874; C1887; C9600; G0378; J0153

== ENCOUNTER → 2025-01-01 | Outpatient (CLI) | payer MEDICARE, OTHER, SELFPAY ==
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
== END | disposition home or self-care (01) ==
LOC: MTRAD 09:53
PROVIDERS: PCP Family Medicine; Referring Provider Family Medicine; Visit Provider Family Medicine
DX: Z04.1 Encounter for examination and observation following transport accident (principal)
CPT/HCPCS: 71046

== ENCOUNTER → 2025-02-17 | Outpatient (CLI) | payer MEDICARE, OTHER, SELFPAY ==
[2025-02-17 10:26] LABS: PSA,Total- Diagnostic 0.67 ng/mL (0.00-4.00)
== END | disposition home or self-care (01) ==
LOC: LAB 09:03
PROVIDERS: PCP Family Medicine; Referring Provider Nurse Practitioner; Visit Provider Nurse Practitioner
DX: C61 Malignant neoplasm of prostate (principal)
CPT/HCPCS: 36415; 84153

== ENCOUNTER → 2025-05-04 | Day surgery (SDC) | payer MEDICARE, OTHER, SELFPAY ==
--- NOTE | 2024-10-28 08:11 | EKG12_ITS ---
Test Reason : PRE OP Blood Pressure : */* mmHG Vent. Rate : 59 BPM Atrial Rate : 59 BPM P-R Int : 162 ms QRS Dur : 82 ms QT Int : 434 ms P-R-T Axes : 52 19 60 degrees QTcB Int : 429 ms Sinus bradycardia RSR' or QR pattern in V1 suggests right ventricular conduction delay Possible Inferior infarct , age undetermined Abnormal ECG 16-Oct-2024 11:45, Confirmed by ISIDORO DAVE, GABBY ([id number]), editor department JOSE GALLOWAY ([id number]) on 10/28/2024 1:05:04 PM Referred By: Lon Wyman Confirmed By: GABBY CHAUDHRY MD
[2024-10-28 09:00] LABS: Hematocrit 40.2 % (40-54); Hemoglobin 13.0 g/dL (13.0-16.5); Immature Granulocytes Count 0.050 X10^3/uL (0.0-0.0); Mean Corp Hgb Conc 32.3 g/dL (32-36); Mean Corpuscular Volume 82.4 fL (80-94); Mean Platelet Vol. 10.1 fl (6.2-12.0); NRBC Flagged by Analyzer 0 % (0-5); Platelet Count 242 K/mm3 (150-450); RBC Distribution Width CV 14.5 % (11.6-14.6); RBC Distribution Width SD 43.3 fl (35.1-43.9); Red Blood Count 4.88 M/mm3 (4.6-6.2); White Blood Count 7.3 K/mm3 (4.4-11.0)
[2024-10-28 09:46] LABS: Magnesium 2.1 mg/dL (1.5-2.2)
[2024-10-28 09:47] LABS: Albumin, Serum 4.0 g/dL (3.4-4.8); Anion Gap 11 (5-15); BUN 21 mg/dL (4-19); BUN/Creat Ratio 20.1 RATIO (10-20); Calcium,Total 9.0 mg/dL (7.6-11.0); Carbon Dioxide 25.5 mmol/L (21.0-32.0); Chloride 107 mmol/L (98-108); Glucose 99 mg/dL (70-99); Potassium 4.0 mmol/L (3.3-5.1)
--- NOTE | 2024-12-04 20:27 | PAT.ANE_ITS ---
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 When Was Last Pacemaker Check QUESTION #4 FULL TEXT: You/Your Family Experience fever (hyperthermia) with Anesthesia Last Oral Intake Last Oral intake: Last Oral Intake NPO since Meds taken in AM with sips of water? Meds patient instructed to take am of surgery PONV PONV - mash filter cloth changer: PONV - mash filter cloth changer Female No 11/24/24 10:13 HX of Motion Sickness No 11/24/24 10:13 HX of N/V After Surgery No 11/24/24 10:13 Non-Smoker Yes 11/24/24 10:13 Duration of Surgery greater Yes 11/24/24 10:13 than 60 minutes Number of Risk Factors 2 11/24/24 10:13 PONV Score Moderate Risk 11/24/24 10:13 Height & Weight Height & Weight: Anesthesia: Height & Weight Height 5 ft 8 in 10/16/24 15:23 Respiratory Assessment Respiratory Assessment - mash filter cloth changer: Respiratory Tract Infection Hx - mash filter cloth changer Hx Respiratory Tract Infection No 11/24/24 10:13 STOP Sleep Apnea STOP Sleep Apnea - mash filter cloth changer: STOP Sleep Apnea - mash filter cloth changer Hx Hypertension Yes: CONTROLLED WITH MED 11/24/24 10:13 Hx Sleep Apnea No 11/24/24 10:13 CPAP No 11/24/24 10:13 BIPAP No 11/24/24 10:13 Do you snore loudly (louder No 11/24/24 10:13 than talking or can be heard Do you often feel tired/ No 11/24/24 10:13 fatigued/ sleepy during daytime? Has anyone observed you stop No 11/24/24 10:13 breathing during sleep? STOP Results Negative 11/24/24 10:13 QUESTION #5 FULL TEXT : Do you snore loudly (louder than talking or can be heard through closed doors)? 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 Specify any problems Hx of Preganancy in last 3 N/A 11/24/24 10:13 Months Nurse Filling Out Transfusion NBUCHER 11/24/24 10:13 & Questions: Date: 11/24/24 11/24/24 10:13 Time: 10:13 11/24/24 10:13 Patient unable to answer at this time (ie. confused, unrespo /Reproduction History /Reproductive History - mash filter cloth changer: /Reproductive Hx- mash filter cloth changer Hx Now Gestational Age (in weeks): EDC: Hx Hx Para Hx Section SAB PFSH Medical History (Reviewed 11/21/24 @ 11:05 by Bette Gonzalez HIGH SCHOOL MUSIC INSTRUCTOR, HIGH SCHOOL MUSIC INSTRUCTOR-C) Hypertension Wears hearing aid Loss of hearing Wears glasses Hypothyroid Thyroid disease Arthritis Prostate disease High cholesterol Shortness of breath on exertion Non-smoker History of edema History of echocardiogram History of stress test Cardiology follow-up encounter Skin cancer of nose Cancer Moderate aortic insufficiency Moderate mitral insufficiency Chronic cough Bronchitis Cough in adult Carotid artery stenosis Chronic wheezy bronchitis Hypokalemia Chest pain CAD (coronary artery disease) COPD (chronic obstructive pulmonary disease) Cough Sleep apnea Leg swelling Edema Hypoxia Pulmonary embolism Influenza RSV bronchitis COVID-19 Low back pain Pure hypercholesterolemia History of prostate cancer GERD (gastroesophageal reflux disease) Essential hypertension Premature ventricular contraction Premature atrial contractions Atherosclerotic heart disease of [place] coronary artery without angina pectoris 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 angina pectoris Palpitations HTN (hypertension) Home Medications ?Medication ?Instructions ?Recorded ?Last Taken ?Type aspirin 81 mg tablet,delayed 81 mg PO 1200 07/16/17 History release tamsulosin 0.4 mg capsule 0.4 mg PO BID 07/16/1710/16 History dexlansoprazole 60 mg 60 mg PO DAILY 10/06/2002/04 History capsule,biphase delayed release vit 1 tab PO BID 10/06/20 History [id number] 500 mg-50 mg-25 mg-40 mg tablet (Bioflex) B-complex with vitamin C 1 tab PO DAILY 01/18/2201/04 History cranberry fruit concentrate 250 mg 500 mg PO BID 09/0710/16/24 History chewable tablet (Azo Cranberry) levothyroxine 75 mcg tablet 75 mcg PO DAILY 09/07/23 0 10/16/24 History multivitamin-ferrous 1 tab PO DAILY 09/07/2302/04 History fumarate-folic acid 18 mg-400 mcg tablet (Centrum) ascorbate calcium (vitamin C) 500 1,000 mg PO DAILY 10/16/24 History mg tablet pravastatin 40 mg tablet 40 mg PO QHS #90 tabs 10/15/24 Rx metoprolol tartrate 50 mg tablet 50 mg PO BID #180 tab s 07/30/24 10/16/24 Rx albuterol sulfate 90 mcg/actuation 2 puff inhalation P RN 10/16/24 Unknown History aerosol inhaler amlodipine 10 mg tablet 10 mg PO DAILY 10/16/2402/04 History lisinopril 40 mg tablet 40 mg PO QHS 10/16/24 History saw palmetto 500 mg capsule 1,000 mg PO DAILY 10/16/24 10/16/24 History furosemide 40 mg tablet (Lasix) 40 mg PO DAILY #30 tab s 10/19/24 Unknown Rx potassium chloride 20 mEq 20 meq PO BID 10/30/24 Unkno wn History tablet,extended release(part/cryst) (Klor-Con M) fluticasone furoate 200 1 inh inhalation QDAY #60 ea 11/05/24 Unknown Rx mcg-vilanterol 25 mcg/dose inhalation powder (Breo Ellipta) fluticasone propionate 50 2 spray intranasal DAILY #16 grams 11/05/24 Unknown Rx mcg/actuation nasal spray,suspension azelastine 137 mcg (0.1 %) nasal 1 spray intranasal BI D 11/21/24 Unknown History spray Allergy/AdvReac Type Severity Reaction Status Date / Time atorvastatin (From Lipitor) Allergy Hives Verified 11/24/24 10:10 simvastatin (From Zocor) Allergy Hives Verified 11/24/24 10:10 Sulfa (Sulfonamide Allergy Hives Verified 11/24/24 10:10 Antibiotics) Family History (Reviewed 11/21/24 @ 11:05 by Bette Gonzalez HIGH SCHOOL MUSIC INSTRUCTOR, HIGH SCHOOL MUSIC INSTRUCTOR-C) Mother , age 72 CAD (coronary artery disease) Myocardial infarction Arthritis Father , age 69 COPD (chronic obstructive pulmonary disease) Hypertension Pulmonary emphysema Grandfather , age 76 Myocardial infarction Aunt Cancer Uncle Cancer Surgical History (Reviewed 11/21/24 @ 11:05 by Bette Gonzalez HIGH SCHOOL MUSIC INSTRUCTOR, HIGH SCHOOL MUSIC INSTRUCTOR-C) History of cardiac catheterization History of prostate surgery History of lumbar fusion History of left heart catheterization (LHC) H/O coronary artery bypass surgery (~11/22/10) Social History (Reviewed 11/21/24 @ 11:05 by Bette Gonzalez HIGH SCHOOL MUSIC INSTRUCTOR, HIGH SCHOOL MUSIC INSTRUCTOR-C) household members: none current occupational status: retired pets and animals: Yes (Cutie) pets and animals: cat(s) Smoking Status: Never smoker alcohol intake: never substance use type: does not use caffeine: Yes Type: coffee Number of servings: 2 what type of physical activity do you participate in: walking and other details: rowing machine, pushups, situps and walking 2 miles a day. frequency: daily duration: 45-60 minutes/day seatbelt use: always do you feel safe at home: Yes Audit: Pertinent Findings Pertinent Findings EKG Perinent findings: October 28, 2024. Sinus bradycardia at 59 bpm. RSR' on QR pattern in V1 suggests right ventricular conduction delay. Possible inferior infarct, age undetermined. Stress test pertinent findings: 12/04/2024. Ejection fraction 63%. Mildly reduced perfusion suggestive of mild ischemia in the anterior wall and apex. Echo (EF%) pertinent findings: October 18, 2024. Ejection fraction 65%. Normal PA pressure. No aortic stenosis is noted. Consult pertinent findings: October 30, 2024. Dr. Simons. 1. Atherosclerotic heart disease of the [place] coronary artery without angina wbiqlkyb-imncwzl-mkjtde post CABG x 3. JADE to the LAD, SVG to the ramus and PDA of the RCA. Continue beta-blockers, 2. History of coronary artery bypass surgery?chronic?statins and aspirin. 3. Mitral regurgitation?chronic-last echo showed some improvement. Only mild mitral regurgitation noted. 4. Aortic ewuxpifqamqza-dxbdsfb-imceqvan echo and clinical surveillance. 5. History of PE?resolved. Patient is off his apixaban as per pulmonology. 6. Essential hypertension?chronic-continue metoprolol, amlodipine, HEATHER inhibitor's and diuretics. 7. Preoperative cardiovascular exam-plan to do a stress Myoview. (See above) Recommendation Anesthesia Recommendation Anesthesia recommendation: F/U recommended (Mildly reduced perfusion on stress test suggestive of mild ischemia in the anterior wall and apex. Needed comment from Dr. Simons on cardiac findings and possible next step.)
== END | disposition home or self-care (01) ==
LOC: PAT 13:37
PROVIDERS: Anesthesiology; PCP Family Medicine; Referring Provider Specialist; Visit Provider Specialist
DX: Z01.818 Encounter for other preprocedural examination (principal); J44.9 Chronic obstructive pulmonary disease, unspecified; Z01.810 Encounter for preprocedural cardiovascular examination; I10 Essential (primary) hypertension; E03.9 Hypothyroidism, unspecified; E78.00 Pure hypercholesterolemia, unspecified; I25.10 Atherosclerotic heart disease of native coronary artery without angina pectoris; K21.9 Gastro-esophageal reflux disease without esophagitis; Z79.82 Long term (current) use of aspirin; Z79.899 Other long term (current) drug therapy; R94.31 Abnormal electrocardiogram [ECG] [EKG]; Z53.09 Procedure and treatment not carried out because of other contraindication; Z95.1 Presence of aortocoronary bypass graft
CPT/HCPCS: 27447; 36415; 80048; 82040; 83735; 84443; 85025; 87081; 93005

== ENCOUNTER → 2025-05-04 | Outpatient (CLI) | payer MEDICARE, OTHER, SELFPAY ==
[2025-05-04 11:12] LABS: Anion Gap 13 (5-15); BUN 16 mg/dL (4-19); BUN/Creat Ratio 16.7 RATIO (10-20); Calcium,Total 9.3 mg/dL (7.6-11.0); Carbon Dioxide 24.5 mmol/L (21.0-32.0); Chloride 105 mmol/L (98-108); Glucose 95 mg/dL (70-99); Potassium 3.7 mmol/L (3.3-5.1); T3 Total - Triiodothyronine 0.99 ng/mL (0.80-2.00)
== END | disposition home or self-care (01) ==
LOC: MTLAB 08:47
PROVIDERS: PCP Family Medicine; Referring Provider Family Medicine; Visit Provider Family Medicine
DX: E03.9 Hypothyroidism, unspecified (principal); I50.9 Heart failure, unspecified
CPT/HCPCS: 36415; 80048; 84439; 84443; 84480